=== PATIENT | male | born 1940 | race Caucasian/White ===

== ENCOUNTER → 2018-01-20 | Outpatient (CLI) | payer MEDICARE ==
[2018-01-20 10:36] LABS: Basophils % (A) 1 %; Eosinophils # (A) 0.2 k/uL (0-0.7); Eosinophils % (A) 3 %; HCT 42.3 % (39.0-53.0); HGB 13.9 gm/dL (13.0-17.5); Lymphocytes # (A) 1.7 k/uL (1.0-4.8); Lymphocytes % (A) 27 %; MCH 31.5 pg (25.0-35.0); MCHC 32.9 g/dL (31.0-37.0); MCV 95.8 fL (80.0-100.0); Mean Platelet Volume 7.3; Monocytes # (A) 0.4 k/uL (0-1.0); Monocytes % (A) 7 %; Neutrophils # (A) 3.9 k/uL (1.3-7.7); Neutrophils % (A) 60 %; Platelet Count 183 k/uL (150-450); RBC 4.42 m/uL (4.30-5.90); RDW 13.7 % (11.5-15.5); WBC 6.5 k/uL (3.8-10.6)
[2018-01-20 10:40] LABS: Potassium 4.1 mmol/L (3.5-5.1)
== END | disposition home or self-care (01) ==
LOC: LABPAT 09:21
PROVIDERS: ATTEND Surgery
DX: Z01.812 Encounter for preprocedural laboratory examination (principal); I71.4 Abdominal aortic aneurysm, without rupture
CPT/HCPCS: 36415; 80051; 85025

== ENCOUNTER 2018-01-23 08:58 | Inpatient (IN) | payer MEDICARE ==
[2018-01-19 14:36] VITALS: BMI 30.7
[~2018-01-23 08:58] MED LIST: DEXAMETHASONE SOD PHOSPHATE 10 MG/ML 1 ML VIAL IV ONE; HYDROmorphone 0.5 MG/0.5 ML SYRINGE IVP PRN; LIDOCAINE 1% 20 ML VIAL (10MG/ML) FOR IV START INTRADERMA PRN; MIDAZOLAM 2 MG/2 ML VIAL IV PRN; ONDANSETRON 4 MG/2 ML VIAL IVP ONE; SODIUM CHLORIDE 0.9% 1,000 ML in EMPTY BAG 1 BAG IV ONE; ceFAZolin IN SWFI 2 GM/20 ML SYRINGE IVP ONE
--- NOTE | 2018-01-23 10:28 | P.GSHP ---
History of Present Illness H&P Date: 01/23/18 Chief Complaint: AAA 77-year-old gentleman presents to the hospital for elective abdominal aortic aneurysm repair. He has been followed for his AAA for multiple years and noted an increase in his aneurysm up to 6 cm over the last couple of months. He denies any back pain, abdominal pain, lower extremity pain with ambulation or at rest. He denies any fevers, chills, chest pain or shortness of breath. - Review of Systems All systems: negative Past Medical History Past Medical History: Hypertension, Osteoarthritis (OA), Prostate Disorder Additional Past Medical History / Comment(s): "weak bladder", chronic kidney disease, gout, aneurysm, History of Any Multi-Drug Resistant Organisms: None Reported Additional Past Surgical History / Comment(s): surgery on lower left leg for fx , laura cataracts, surgery detached retinal left eye, Past Anesthesia/Blood Transfusion Reactions: Motion Sickness Smoking Status: Former smoker - Past Family History Mother Family Medical History: No Reported History Medications and Allergies Home Medications Medication Instructions Recorded Confirmed Type Acetaminophen [Tylenol Arthritis] 1,300 mg PO QAM 01/19/18 01/23/18 History Allopurinol [Zyloprim] 100 mg PO DAILY 01/19/18 01/23/18 History Atorvastatin [Lipitor] 10 mg PO DAILY 01/19/18 01/23/18 History Ergocalciferol (Vitamin D2) 50,000 unit PO QMONTH 01/19/18 01/23/18 History [Vitamin D2] Hydrochlorothiazide 37.5 mg PO QAM 01/19/18 01/23/18 History Losartan Potassium [Cozaar] 25 mg PO BID 01/19/18 01/23/18 History Timolol [Betimol 0.5% Ophth Soln] 1 drop BOTH EYES BID 01/19/18 01/23/18 History traMADol HCL [Ultram] 50 mg PO BID PRN 01/19/18 01/23/18 History Allergies Allergy/AdvReac Type Severity Reaction Status Date / Time No Known Allergies Allergy Verified 01/19/18 14:18 Surgical - Exam - General well developed, well nourished, no distress - Eyes PERRL, normal ocular movement - ENT normal pinna - Neck no masses - Respiratory normal expansion, normal respiratory effort - Cardiovascular Rhythm: regular - Abdomen Abdomen: soft, non tender - Integumentary no rash - Neurologic normal coordination, normal sensation - Musculoskeletal normal gait - Psychiatric oriented to time, oriented to person, oriented to place Palpable femoral pulses bilaterally. Assessment and Plan (1) AAA (abdominal aortic aneurysm) without rupture Current Visit: Yes Status: Acute Priority: High Code(s): I71.4 - ABDOMINAL AORTIC ANEURYSM, WITHOUT RUPTURE SNOMED Code(s): 24516504 Plan: We will perform endovascular aortic repair
[2018-01-23] MEDS ORDERED: NEOSTIGMINE 1 MG/ML 10 ML VIAL ONE (10:50)
[2018-01-23] MEDS ORDERED: MIDAZOLAM 2 MG/2 ML VIAL ONE (10:50)
[2018-01-23] MEDS ORDERED: SUCCINYLCHOLINE CHLORIDE 100 MG/5 ML SYR IV ONE (10:50)
[2018-01-23] MEDS ORDERED: GLYCOPYRROLATE 0.2 MG/ML 2 ML VIAL ONE (10:50)
[2018-01-23] MEDS ORDERED: PROPOFOL 10 MG/ML 20 ML VIAL IV ONE (10:50)
[2018-01-23] MEDS ORDERED: PHENYLEPHRINE-0.9% NACL SYG 1 MG/10 ML SYRINGE ONE (10:50)
[2018-01-23] MEDS ORDERED: ROCURONIUM BROMIDE 10 MG/ML 10 ML VIAL IV ONE (10:50)
[2018-01-23] MEDS ORDERED: HEPARIN SODIUM,PORCINE 10,000 UNIT/ML 1 ML VIAL ONE (10:50)
[2018-01-23] MEDS ORDERED: ePHEDrine SULFATE/0.9% NACL/PF 50 MG/5 ML SYRINGE IV ONE (10:50)
[2018-01-23] MEDS ORDERED: fentaNYL (PF) 50 MCG/ML 2 ML AMP ONE (10:50)
[2018-01-23] MEDS ORDERED: LIDOCAINE 1% INJ 10MG/ML (20 ML MDV) ONE (10:50)
[2018-01-23] MEDS ORDERED: SODIUM CHLORIDE 0.9% 1,000 ML IV ONE (10:50)
[2018-01-23] MEDS ORDERED: HYDROmorphone (PF) 1 MG/ML ONE (10:50)
[2018-01-23] MEDS: LACTATED RINGERS 1,000 ML IV SCH ×3 (11:00→12:52)
[2018-01-23] MEDS ORDERED: LIDOCAINE 1% INJ 10MG/ML (20 ML MDV) SQ ONE ×2 (11:21→11:28)
[2018-01-23] MEDS ORDERED: IOPAMIDOL-250 50ML BTL INTRAARTER ONE (12:52)
[2018-01-23] MEDS ORDERED: IOPAMIDOL-250 100ML BTL INTRAARTER ONE (12:52)
[2018-01-23] MEDS ORDERED: HYDROcodone/APAP 5-325MG 1 EACH TAB PO PRN (13:10)
--- NOTE | 2018-01-23 13:10 | P.OP ---
Date of Procedure: 01/23/18 Preoperative Diagnosis: Infrarenal AAA Postoperative Diagnosis: Same Procedure(s) Performed: EVAR with AFX2 and Patrick Relay Plus Implants: AFX2 28 x 100mm Patrick Relay Plus 46 x 100 mm Anesthesia: GETA Surgeon: Fadi Oden Estimated Blood Loss (ml): 30 IV fluids (ml): 1,200 Urine output (ml): 350 Pathology: none sent Condition: stable Disposition: ICU Indications for Procedure: 77-year-old gentleman with history of abdominal aortic aneurysm presents to the hospital for elective repair of an enlarging 6 cm infrarenal abdominal aortic aneurysm. Description of Procedure: After written informed consent was obtained the patient all risks benefits and competitions were described, the patient was brought to the Hearing Aid Technician and laid in supine position after appropriate anesthetic was performed per the anesthesiologist. Timeout was performed in normal fashion and antibiotics were administered prior to any incisions. Utilizing ultrasound bilateral common femoral arteries were visualized and shown to be patent without any significant calcification. Utilizing a multipurpose needle both femoral arteries were accessed with pulsatile blood flow visualized. Guidewire was placed and 2 Perclose closure devices were then placed in both femoral arteries in normal fashion. 8-Canadian sheath was then placed. Patient was administered heparin and followed with serial ACTs for appropriate heparinization. Glidewire was then placed up the left femoral sheath and followed by pigtail catheter and which point aortogram was obtained. Measurements were obtained at that time. Daniels catheter was then placed up the right femoral sheath followed by a Lunderquist stiff wire. Sheath was then removed and AFX 28 x 100 bifurcated device was placed through a 19-Canadian introducer sheath. Contralateral wire was then snared and pulled out the contralateral side. AFX to bifurcated device was then transferred into the AFX introducer sheath and advanced underneath of fluoroscopy to the distal limbs were in the aorta. These were then pulled back to seat at the aortic bifurcation. Once seated the main body was deployed in normal fashion. Contralateral limb was then deployed by a removing the left yellow limb cover. Pigtail catheter was then placed onto unlock the tip of the wire in normal fashion. Pigtail catheter was then placed at approximately the L2 vertebrae. Final deployment of the ipsilateral limb was then performed in normal fashion and the nosecone was then recaptured. AFX introducer sheath was then removed over the stiff Lunderquist wire. Patrick Relay Plus 46 x 100 mm device was then placed through the right femoral artery at approximately the L2 vertebra level. Aortogram was then obtained once again and the renal arteries were visualized and marked and the relay plus device was deployed in normal fashion. There was good overlap between the 2 devices a proximally 6 cm. Once completed the nosecone was retracted and deployment device was removed followed by a 22- Canadian sheath. Reliant balloon was then placed and the overlap was angioplastied. Once completed Reliant balloon was removed followed by pigtail catheter and final angiogram was obtained which demonstrated no evidence of endoleak with good exclusion of the aneurysm. All catheters were then removed sheath and guidewires removed and the Perclose closure devices were deployed in normal fashion with good hemostasis. The area was then cleansed and dressings were placed. Patient tolerated procedure well was sent to PACU for recovery. Patient had palpable peripheral pulses at the conclusion of the procedure.
[2018-01-23 15:13] LABS: Glucose,Whole Blood 96 mg/dL (75-99)
[2018-01-23 15:29] LABS: Potassium 4.4 mmol/L (3.5-5.1)
[2018-01-23 16:13] LABS: Basophils % (A) 0 %; Eosinophils # (A) 0.1 k/uL (0-0.7); Eosinophils % (A) 2 %; Lymphocytes # (A) 1.3 k/uL (1.0-4.8); Lymphocytes % (A) 17 %; MCH 36.2 pg (25.0-35.0); MCHC 37.2 g/dL (31.0-37.0); MCV 97.4 fL (80.0-100.0); Mean Platelet Volume 6.8; Monocytes # (A) 0.3 k/uL (0-1.0); Monocytes % (A) 4 %; Neutrophils # (A) 5.8 k/uL (1.3-7.7); Neutrophils % (A) 74 %; Platelet Count 154 k/uL (150-450); RBC 3.59 m/uL (4.30-5.90); RDW 13.9 % (11.5-15.5); WBC 7.8 k/uL (3.8-10.6)
[2018-01-23 16:21] LABS: Calcium 9.3 mg/dL (8.4-10.2); Potassium 3.5 mmol/L (3.5-5.1)
[2018-01-23] MEDS ORDERED: Potassium Replacement Protocol 1 EACH MISC MISCELLANE PRN (16:24)
--- NOTE | 2018-01-23 16:45 | P.CNPUL ---
History of Present Illness Consult date: 01/23/18 Requesting physician: Fadi Oden Reason for consult: other Chief complaint: Abdominal aortic aneurysm repair History of present illness: This is 69-year-old white male patient of Dr. Ware, who presented today on to the hospital, for elective abdominal aortic aneurysm repair by Dr. Oden. Patient's abdominal aortic aneurysm has been followed for many years and was noted to be increased in size up to 6 cm over the last couple of months. Patient denied any symptoms related to large amount of his AAA. Other medical history is significant for hypertension, osteoarthritis, chronic kidney disease, gout, patient is a former smoker. He is seen in the postoperative period in the intensive care unit, he is calm and comfortable, he is resting in bed, in no acute distress. Hemodynamically stable, room air pulse ox is 97%, he is afebrile, he appears to be in atrial flutter on the monitor, with a controlled rate. She denies any previous history of arrhythmias, no atrial fibrillation. Will obtain EKG, otherwise she denies any specific complaints, no difficulty breathing, no chest pain, and lateral groin incisions are clean dry and intact, covered with surgical dressings, distal pulses intact. These blood work has been reviewed, WBC 7.8, hemoglobin is 13.0, sodium is 141, potassium 3.5, chloride is 105, CO2 is 27, B1 is 29, and creatinine is 1.21. Maintenance IV fluids lactated Ringer's at a rate of 80 ML per hour. Review of Systems All systems: negative Constitutional: Denies chills, Denies fever Eyes: denies blurred vision, denies pain Ears, nose, mouth and throat: Denies headache, Denies sore throat Cardiovascular: Denies chest pain, Denies shortness of breath Respiratory: Denies cough Gastrointestinal: Denies abdominal pain, Denies diarrhea, Denies nausea, Denies vomiting Musculoskeletal: Denies myalgias Integumentary: Denies pruritus, Denies rash Neurological: Denies numbness, Denies weakness Psychiatric: Denies anxiety, Denies depression Endocrine: Denies fatigue, Denies weight change Past Medical History Past Medical History: Hypertension, Osteoarthritis (OA), Prostate Disorder Additional Past Medical History / Comment(s): "weak bladder", chronic kidney disease, gout, aneurysm, History of Any Multi-Drug Resistant Organisms: None Reported Additional Past Surgical History / Comment(s): surgery on lower left leg for fx , laura cataracts, surgery detached retinal left eye, Past Anesthesia/Blood Transfusion Reactions: Motion Sickness Smoking Status: Former smoker - Past Family History Mother Family Medical History: No Reported History Medications and Allergies Home Medications Medication Instructions Recorded Confirmed Type Acetaminophen [Tylenol Arthritis] 1,300 mg PO QAM 01/19/18 01/23/18 History Allopurinol [Zyloprim] 100 mg PO DAILY 01/19/18 01/23/18 History Atorvastatin [Lipitor] 10 mg PO DAILY 01/19/18 01/23/18 History Ergocalciferol (Vitamin D2) 50,000 unit PO QMONTH 01/19/18 01/23/18 History [Vitamin D2] Hydrochlorothiazide 37.5 mg PO QAM 01/19/18 01/23/18 History Losartan Potassium [Cozaar] 25 mg PO BID 01/19/18 01/23/18 History Timolol [Betimol 0.5% Ophth Soln] 1 drop BOTH EYES BID 01/19/18 01/23/18 History traMADol HCL [Ultram] 50 mg PO BID PRN 01/19/18 01/23/18 History Allergies Allergy/AdvReac Type Severity Reaction Status Date / Time No Known Allergies Allergy Verified 01/23/18 14:59 Physical Exam Vitals: Vital Signs Temp Pulse Pulse Pulse Resp BP BP 01/23/18 16:00 97.1 F L 74 14 01/23/18 15:40 70 14 01/23/18 15:20 70 19 138/91 01/23/18 14:40 72 16 01/23/18 14:25 70 16 01/23/18 14:10 72 18 01/23/18 13:55 73 16 01/23/18 13:41 67 16 111/65 01/23/18 13:30 72 18 161/92 01/23/18 13:18 97.5 F L 74 14 BP Pulse Ox 01/23/18 16:00 97 01/23/18 15:40 93 L 01/23/18 15:20 96 01/23/18 14:40 116/66 98 01/23/18 14:25 115/66 93 L 01/23/18 14:10 112/63 93 L 01/23/18 13:55 116/73 94 L 01/23/18 13:41 154/98 92 L 01/23/18 13:30 109/65 96 01/23/18 13:18 132/61 98 Intake and Output 01/23/18 01/23/18 01/23/18 06:59 14:59 22:59 Intake Total 1200 160 Output Total 750 100 Balance 450 60 Intake: IV 1200 160 Sodium Chloride 0.9% 1, 160 000 ml @ 80 mls/hr IV . [id number] [facility] Rx#:[id number] Output: Urine 750 100 Other: Voiding Method Indwelling Catheter ABP, PAP, CO, CI - Last 8 Hours Arterial Blood Pressure 135/77 Arterial Blood Pressure 145/80 GENERAL EXAM: Alert, pleasant, 77-year-old white male resting in bed, currently in flat position, comfortable in no apparent distress. HEAD: Normocephalic/atraumatic. EYES: Normal reaction of pupils, equal size. Conjunctiva pink, sclera white. NOSE: Clear with pink turbinates. THROAT: No erythema or exudates. NECK: No masses, no JVD, no thyroid enlargement, no adenopathy. CHEST: No chest wall deformity. Symmetrical expansion. LUNGS: Equal air entry with no crackles, wheeze, rhonchi or dullness. CVS: Regular rate and rhythm, normal S1 and S2, no gallops, no murmurs, no rubs ABDOMEN: Soft, nontender. No hepatosplenomegaly, normal bowel sounds, no guarding or rigidity. EXTREMITIES: No clubbing, no edema, no cyanosis, 2+ pulses and upper and lower extremities. Bilateral groin incisions are clean dry and intact, soft, distal pulses intact MUSCULOSKELETAL: Muscle strength and tone normal. SPINE: No scoliosis or deformity SKIN: No rashes CENTRAL NERVOUS SYSTEM: Alert and oriented -3. No focal deficits, tone is normal in all 4 extremities. PSYCHIATRIC: Alert and oriented -3. Appropriate affect. Intact judgment and insight. Results - Laboratory Findings CBC and BMP: 01/23/18 15:41 01/23/18 15:41 Abnormal lab findings: Abnormal Labs 01/23/18 01/23/18 01/23/18 09:35 15:41 15:41 RBC 3.59 L Hct 35.0 L MCH 36.2 H MCHC 37.2 H BUN 35 H 29 H Glucose 108 H Assessment and Plan Plan: Assessment: #1. Enlarging 6 cm abdominal aortic aneurysm, status post endovascular repair #2. Hypertension #3. Osteoarthritis #4. Chronic kidney disease, stage IIIa #5. Gout #6. Former smoker Plan: Patient will be monitored in the intensive care unit tonight, he is hemodynamically stable, we'll obtain an EKG, currently appears to be in A. fib flutter with a controlled rate. No difficulty breathing, no chest pain, no acute distress. We'll continue to follow I performed a history & physical examination of the patient and discussed their management with my nurse practitioner, Doris Hdez. I reviewed the nurse practitioner's note and agree with the documented findings and plan of care. Lung sounds are clear. The findings and the impression was discussed with the patient. I attest to the documentation by the nurse practitioner. Time with Patient: Greater than 30
[2018-01-23] MEDS: POTASSIUM CHLORIDE ER 20 MEQ TAB.ER PO SCH ×2 (17:05→18:08)
[2018-01-23] MEDS: SODIUM CHLORIDE 0.9% 1,000 ML IV SCH (17:05)
[2018-01-23] MEDS: traMADol 50 MG TAB PO PRN (18:08)
[2018-01-23] MEDS: TIMOLOL 0.5% OPHTH DROPS 5 ML BTL BOTH EYES SCH (21:07)
[2018-01-23] MEDS: LOSARTAN 25 MG TAB PO SCH (21:07)
[2018-01-24 04:58] LABS: Basophils % (A) 0 %; Eosinophils # (A) 0.1 k/uL (0-0.7); Eosinophils % (A) 2 %; HCT 36.5 % (39.0-53.0); HGB 11.7 gm/dL (13.0-17.5); Lymphocytes # (A) 1.1 k/uL (1.0-4.8); Lymphocytes % (A) 15 %; MCHC 32.1 g/dL (31.0-37.0); MCV 96.4 fL (80.0-100.0); Mean Platelet Volume 6.9; Monocytes # (A) 0.4 k/uL (0-1.0); Monocytes % (A) 6 %; Neutrophils # (A) 5.5 k/uL (1.3-7.7); Neutrophils % (A) 75 %; Platelet Count 137 k/uL (150-450); RBC 3.79 m/uL (4.30-5.90); RDW 13.9 % (11.5-15.5); WBC 7.3 k/uL (3.8-10.6)
[2018-01-24 05:15] LABS: Calcium 8.9 mg/dL (8.4-10.2); Magnesium 1.5 mg/dL (1.6-2.3); Phosphorus 2.2 mg/dL (2.5-4.5); Potassium 3.9 mmol/L (3.5-5.1)
[2018-01-24] MEDS ORDERED: POTASSIUM CHLORIDE ER 20 MEQ TAB.ER PO SCH (06:00)
[2018-01-24] MEDS: MAGNESIUM SULFATE-D5W PMX 1 GM in DEXTROSE/WATER 1 100ML.BAG IVPB SCH ×2 (06:47→09:05)
--- NOTE | 2018-01-24 07:24 | CONS ---
CONSULTATION DATE OF CONSULTATION: 01/23/2018 REASON FOR CONSULTATION: Medical management requested by Dr. Oden. CONSULTATION: This is a 77-year-old patient of Dr. Bobby Ware whose chronic stable medical conditions include hypertension, osteoarthritis, gout, and possibly chronic kidney disease. Patient is found to have an infrarenal abdominal aortic aneurysm 6 cm. Patient went for a graft placement today. Post procedure, patient is sitting in the ICU. Groin is doing well. No abdominal pain. Did tolerate his diet, getting some IV fluids. No abdominal pain. REVIEW OF SYSTEMS: CONSTITUTIONAL: None HEENT: None. RESPIRATORY: None. CARDIOVASCULAR: None. GASTROINTESTINAL: None. GENITOURINARY: None. MUSCULOSKELETAL: Arthritic pain in the joints. The patient also has got some gout in the foot. DERMATOLOGICAL: None. HEMATOLOGICAL: None. LYMPHATIC: None. PSYCHIATRY: None. NEUROLOGICAL: None. PAST MEDICAL HISTORY: Hypertension osteoarthritis, chronic kidney disease, gout, abdominal aortic aneurysm 6 cm. PAST SURGICAL HISTORY: Surgery on the lower left leg for fracture, bilateral cataract surgery, for detached retina of the left eye. SOCIAL HISTORY: Patient lives by himself. Retired bd special education teacher. Drinks alcohol rarely. Smoked a pipe for about 45 years until about 3 years ago. FAMILY HISTORY: Reviewed, noncontributory to presentation. HOME MEDICATIONS: Ultram 50 mg p.o. b.i.d. p.r.n., timolol 0.5% 1 drop to both eyes b.i.d., Cozaar 25 mg b.i.d., hydrochlorothiazide 37.5 p.o. daily, Vitamin D2 fifty thousand units p.o. monthly, Lipitor 10 mg p.o. daily, allopurinol 100 mg p.o. daily, Tylenol Arthritis 1300 mg p.o. daily. ALLERGIES: None. PHYSICAL EXAMINATION: Temp 98.4, pulse 93, respiration 12, blood pressure 137/73, pulse ox 96% on room air. GENERAL APPEARANCE: Well-built, BMI 30, sitting up, comfortable. EYES: Pupils equal, conjunctivae are normal. HEENT: External nose is normal, oral cavity normal, decreased hearing. NECK: JVD not raised. Mass not palpable. RESPIRATORY: Effort normal. LUNGS: Slightly decreased breath sounds. CARDIOVASCULAR: First and second heart sounds, no edema. ABDOMEN: Soft, nontender. Liver and spleen not palpable. LYMPHATIC: No lymph node palpable. PSYCHIATRY: Alert and oriented x3. Mood and affect normal. NEUROLOGICAL: Pupils equal, grossly intact. MUSCULOSKELETAL: Evidence of osteoarthritis, especially in the hands. INVESTIGATIONS: White count 7.8, hemoglobin 13, platelets 154, potassium 3.5, BUN 29, creatinine 1.21. ASSESSMENT: 1. Graft placement for AAA, 6 cm. 2. Essential hypertension. 3. Primary osteoarthritis. 4. Chronic gout. 5. Chronic kidney disease stage 2, probably from nephrosclerosis. PLAN: Home medications are resumed. Patient ambulating, getting IV fluids. Care was discussed with the patient. Questions were answered. Patient should follow up with Dr. Ware upon discharge. Thank you Dr. Oden. \ [id number] / IJN: [id number] /
--- NOTE | 2018-01-24 08:50 | IR ---
EXAMINATION TYPE: IR stent intravas non coronary DATE OF EXAM: 01/23/2018 CLINICAL HISTORY: AAA. TECHNIQUE: Fluoroscopy. COMPARISON: None. FINDINGS: Fluoroscopic guidance was provided during abdominal aortic aneurysm repair procedure perfo rmed by Dr. Oden. A total of 16.7 minutes of fluoroscopic time was utilized during the procedure and four cine runs are acquired. Images acquired show bilateral groin access with eventual placement of aortobiiliac stent graft. There are suspected bilateral large renal calculi. Please refer to proce dure note for field further details. IMPRESSION: As Above.
[2018-01-24] MEDS ORDERED: ACETAMINOPHEN TAB 325 MG TAB PO SCH (09:00)
[2018-01-24] MEDS ORDERED: ALLOPURINOL 100 MG TAB PO SCH (09:00)
[2018-01-24] MEDS ORDERED: HYDROCHLOROTHIAZIDE 12.5 MG CAP PO SCH (09:00)
[2018-01-24] MEDS ORDERED: ATORVASTATIN 10 MG TAB PO SCH (09:00)
[2018-01-24 09:03] VITALS: TEMP 98.5
--- NOTE | 2018-01-24 09:04 | P.PN ---
Subjective Progress Note Date: 01/24/18 Principal diagnosis: Abdominal aortic aneurysm, status post endovascular repair This is 69-year-old white male patient of Dr. Ware, who presented today on to the hospital, for elective abdominal aortic aneurysm repair by Dr. Oden. Patient's abdominal aortic aneurysm has been followed for many years and was noted to be increased in size up to 6 cm over the last couple of months. Patient denied any symptoms related to large amount of his AAA. Other medical history is significant for hypertension, osteoarthritis, chronic kidney disease, gout, patient is a former smoker. He is seen in the postoperative period in the intensive care unit, he is calm and comfortable, he is resting in bed, in no acute distress. Hemodynamically stable, room air pulse ox is 97%, he is afebrile, he appears to be in atrial flutter on the monitor, with a controlled rate. She denies any previous history of arrhythmias, no atrial fibrillation. Will obtain EKG, otherwise she denies any specific complaints, no difficulty breathing, no chest pain, and lateral groin incisions are clean dry and intact, covered with surgical dressings, distal pulses intact. These blood work has been reviewed, WBC 7.8, hemoglobin is 13.0, sodium is 141, potassium 3.5, chloride is 105, CO2 is 27, B1 is 29, and creatinine is 1.21. Maintenance IV fluids lactated Ringer's at a rate of 80 ML per hour. On 01/24/2018 patient seen in follow-up in the intensive care unit, she sits up in the recliner, in no acute distress, postop day 1 status post endovascular repair of abdominal aortic aneurysm, hemodynamically patient is stable, afebrile , room air pulse ox is 95%. These labs were reviewed, WBC 7.3, hemoglobin is 11.7, magnesium was 1.5, serum electrolytes and renal profile are unremarkable. Patient's maintenance IV fluids is 0.9 normal saline at a rate of 80 ML per hour, he still tolerating oral diet. No difficulty breathing, denies any pain, bilateral groin incisions are clean dry and intact soft. The pulses are intact. Objective - Vital Signs Vital signs: Vital Signs Temp 98 F 01/24/18 04:00 Pulse 98 01/24/18 07:00 Resp 20 01/24/18 07:00 BP 119/72 01/24/18 07:00 Pulse Ox 95 01/24/18 07:00 Intake & Output 01/23/18 01/24/18 01/24/18 18:59 06:59 18:59 Intake Total 1520 984 180 Output Total 1060 500 0 Balance 460 484 180 Intake: IV 1520 984 180 Art line 24 Magnesium Sulfate-D5w Pmx 100 1 gm In Dextrose/Water 1 100ml.bag @ 100 mls/hr IVPB Q1H [facility] Rx#: [id number] Sodium Chloride 0.9% 1, 320 960 80 000 ml @ 80 mls/hr IV . [id number] [facility] Rx#:[id number] Output: Urine 1060 500 0 Other: Voiding Method Indwelling Catheter Indwelling Catheter # Voids 0 0 ABP, PAP, CO, CI - Last Documented Arterial Blood Pressure 114/52 - Exam GENERAL EXAM: Alert, pleasant, 77-year-old white male sitting up in the recliner , in no acute distress HEAD: Normocephalic/atraumatic. EYES: Normal reaction of pupils, equal size. Conjunctiva pink, sclera white. NOSE: Clear with pink turbinates. THROAT: No erythema or exudates. NECK: No masses, no JVD, no thyroid enlargement, no adenopathy. CHEST: No chest wall deformity. Symmetrical expansion. LUNGS: Equal air entry with no crackles, wheeze, rhonchi or dullness. CVS: Regular rate and rhythm, normal S1 and S2, no gallops, no murmurs, no rubs ABDOMEN: Soft, nontender. No hepatosplenomegaly, normal bowel sounds, no guarding or rigidity. EXTREMITIES: No clubbing, no edema, no cyanosis, 2+ pulses and upper and lower extremities. Bilateral groin incisions are clean dry and intact, soft, distal pulses intact MUSCULOSKELETAL: Muscle strength and tone normal. SPINE: No scoliosis or deformity SKIN: No rashes CENTRAL NERVOUS SYSTEM: Alert and oriented -3. No focal deficits, tone is normal in all 4 extremities. PSYCHIATRIC: Alert and oriented -3. Appropriate affect. Intact judgment and insight. - Labs CBC & Chem 7: 01/24/18 04:37 01/24/18 04:37 Labs: Abnormal Lab Results - Last 24 Hours (Table) 01/23/18 01/23/18 01/23/18 Range/Units 09:35 15:41 15:41 RBC 3.59 L (4.30-5.90) m/uL Hgb (13.0-17.5) gm/dL Hct 35.0 L (39.0-53.0) % MCH 36.2 H (25.0-35.0) pg MCHC 37.2 H (31.0-37.0) g/dL Plt Count (150-450) k/uL BUN 35 H 29 H (9-20) mg/dL Glucose 108 H (74-99) mg/dL Phosphorus (2.5-4.5) mg/dL Magnesium (1.6-2.3) mg/dL 01/24/18 01/24/18 Range/Units 04:37 04:37 RBC 3.79 L (4.30-5.90) m/uL Hgb 11.7 L (13.0-17.5) gm/dL Hct 36.5 L (39.0-53.0) % MCH (25.0-35.0) pg MCHC (31.0-37.0) g/dL Plt Count 137 L (150-450) k/uL BUN 26 H (9-20) mg/dL Glucose (74-99) mg/dL Phosphorus 2.2 L (2.5-4.5) mg/dL Magnesium 1.5 L (1.6-2.3) mg/dL Assessment and Plan Plan: Assessment: #1. Enlarging 6 cm abdominal aortic aneurysm, status post endovascular repair, post-op day 1 #2. Hypertension #3. Osteoarthritis #4. Chronic kidney disease, stage IIIa #5. Gout #6. Former smoker Plan: Patient is stable, no acute events overnight, no specific complaints, hemodynamically patient is stable, groin incisions are clean dry and intact soft. Anticipate discharge home today I performed a history & physical examination of the patient and discussed their management with my nurse practitioner, Doris Hdez. I reviewed the nurse practitioner's note and agree with the documented findings and plan of care. Lung sounds are clear. The findings and the impression was discussed with the patient. I attest to the documentation by the nurse practitioner. Time with Patient: Less than 30
[2018-01-24] MEDS: SODIUM CHLORIDE 0.9% 1,000 ML IV SCH (09:05)
[2018-01-24] MEDS: LOSARTAN 25 MG TAB PO SCH (09:06)
[2018-01-24] MEDS: traMADol 50 MG TAB PO PRN (09:07)
[2018-01-24] MEDS: TIMOLOL 0.5% OPHTH DROPS 5 ML BTL BOTH EYES SCH (09:12)
[2018-01-24] MEDS ORDERED: TAMSULOSIN 0.4 MG CAP.ER.24H PO SCH (10:30)
--- NOTE | 2018-01-24 10:33 | P.NPCON ---
History of Present Illness - Reason for Consult acute renal failure - History of Present Illness Reason for consultation: Acute kidney injury on chronic kidney disease History of present illness: Patient is a 77-year-old male seen in renal consultation for acute kidney injury on chronic disease. 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 Creatinine was 1.3 on admission is 0.99 today. Patient had an elective endovascular repair of aortic aneurysm done January 23. He is currently resting in bed. Oral intake is good. No vomiting or diarrhea. Medina catheter was removed last night but he has not been able to void on his own. Straight catheterization was done overnight and 400 mL of urine obtained. Denies use of NSAIDs. No history of diabetes. Denies chest pain or shortness of breath. No active complaints at this time. Hemodynamically stable. Vital signs are stable. General: The patient appeared well nourished and normally developed. HEENT: Head exam is unremarkable. Neck is without jugular venous distension. LUNGS: Lungs are clear to auscultation and percussion. Breath sounds decreased. HEART: Rate and Rhythm are regular. First and second heart sounds normal. No murmurs, rubs or gallops. ABDOMEN: Abdominal exam reveals normal bowel sounds. Non-tender and non- distended. No evidence of peritonitis. EXTREMITITES: No clubbing, cyanosis, or edema. Past Medical History Past Medical History: Hypertension, Osteoarthritis (OA), Prostate Disorder Additional Past Medical History / Comment(s): "weak bladder", chronic kidney disease, gout, aneurysm, History of Any Multi-Drug Resistant Organisms: None Reported Additional Past Surgical History / Comment(s): surgery on lower left leg for fx , laura cataracts, surgery detached retinal left eye, Past Anesthesia/Blood Transfusion Reactions: Motion Sickness Smoking Status: Former smoker - Past Family History Mother Family Medical History: No Reported History Medications and Allergies Home Medications Medication Instructions Recorded Confirmed Type Acetaminophen [Tylenol Arthritis] 1,300 mg PO QAM 01/19/18 01/23/18 History Allopurinol [Zyloprim] 100 mg PO DAILY 01/19/18 01/23/18 History Atorvastatin [Lipitor] 10 mg PO DAILY 01/19/18 01/23/18 History Ergocalciferol (Vitamin D2) 50,000 unit PO QMONTH 01/19/18 01/23/18 History [Vitamin D2] Hydrochlorothiazide 37.5 mg PO QAM 01/19/18 01/23/18 History Losartan Potassium [Cozaar] 25 mg PO BID 01/19/18 01/23/18 History Timolol [Betimol 0.5% Ophth Soln] 1 drop BOTH EYES BID 01/19/18 01/23/18 History traMADol HCL [Ultram] 50 mg PO BID PRN 01/19/18 01/23/18 History Allergies Allergy/AdvReac Type Severity Reaction Status Date / Time No Known Allergies Allergy Verified 01/23/18 14:59 Physical Exam Vitals: Vital Signs Temp Pulse Pulse Pulse Resp BP BP 01/24/18 09:00 96 19 125/84 01/24/18 08:00 98.5 F 98 135/94 01/24/18 07:00 98 20 119/72 01/24/18 06:00 88 10 L 119/70 01/24/18 05:00 88 22 119/87 01/24/18 04:00 98 F 90 16 114/70 01/24/18 03:00 82 22 113/72 01/24/18 02:00 86 17 114/71 01/24/18 01:00 81 6 L 104/83 01/24/18 00:00 97.7 F 86 17 01/23/18 23:34 88 10 L 104/59 01/23/18 23:30 98 17 104/59 01/23/18 23:00 94 15 01/23/18 22:30 93 22 102/87 01/23/18 22:00 94 12 115/103 01/23/18 21:30 102 H 18 01/23/18 21:00 100 13 122/83 18 20:30 122/83 01/23/18 20:00 98.4 F 93 12 01/23/18 19:30 88 18 115/79 01/23/18 19:00 85 16 129/86 01/23/18 18:30 83 17 01/23/18 18:00 80 16 113/97 01/23/18 17:30 76 19 113/97 01/23/18 17:00 85 21 01/23/18 16:30 79 17 136/87 01/23/18 16:00 97.1 F L 74 14 01/23/18 15:40 70 14 12/18/18 15:20 70 19 138/91 18/18 14:40 72 16 18/18 14:25 70 16 01/23/18 14:10 72 18 18 13:55 73 16 18/18 13:41 67 16 111/65 18/18 13:30 72 18 161/92 18 13:18 97.5 F L 74 14 BP Pulse Ox 01/24/18 09:00 96 01/24/18 08:00 97 01/24/18 07:00 95 01/24/18 06:00 95 01/24/18 05:00 94 L 01/24/18 04:00 98 01/24/18 03:00 91 L 01/24/18 02:00 96 01/24/18 01:00 95 01/24/18 00:00 92 L 18 23:34 94 L 18/18 23:30 96 18 23:00 96 18 22:30 94 L 18 22:00 95 18/18 21:30 100 18/18 21:00 97 18/18 20:30 18/18 20:00 96 18/18 19:30 94 L 18/18 19:00 95 18/18 18:30 95 18/18 18:00 96 18/18 17:30 97 18/18 17:00 95 18/18 16:30 94 L 18/18 16:00 97 18/18 15:40 93 L 18/18 15:20 96 18/18 14:40 116/66 98 18/18 14:25 115/66 93 L 18/18 14:10 112/63 93 L 18/18 13:55 116/73 94 L 18/18 13:41 154/98 92 L 18/18 13:30 109/65 96 18/18 13:18 132/61 98 Intake and Output 18/18 01/24/18 18 22:59 06:59 14:59 Intake Total 732 572 440 Output Total 410 400 0 Balance 322 172 440 Intake: IV 732 572 440 Art line 12 12 Magnesium Sulfate-D5w Pmx 200 1 gm In Dextrose/Water 1 100ml.bag @ 100 mls/hr IVPB Q1H [facility] Rx#: [id number] Sodium Chloride 0.9% 1, 720 560 240 000 ml @ 80 mls/hr IV . [id number] [facility] Rx#:[id number] Output: Urine 410 400 0 Other: Voiding Method Indwelling Catheter Indwelling Catheter # Voids 0 0 0 Results - Lab Results Most recent lab results Calcium 8.9 mg/dL (8.4-10.2) 01/24/18 04:37 Phosphorus 2.2 mg/dL (2.5-4.5) L 01/24/18 04:37 Magnesium 1.5 mg/dL (1.6-2.3) L 01/24/18 04:37 01/24/18 04:37 01/24/18 04:37 Assessment and Plan Plan: Assessment: 1. Nonoliguric acute kidney injury mostly prerenal improved with IV hydration. 2. Chronic kidney disease stage 2 secondary to nephrosclerosis. Baseline creatinine in the range of 1-1.2. 3. Abdominal aortic aneurysm status post endovascular repair on January 23. 4. History of BPH. 5. Urinary retention. 6. Hypertension with chronic kidney disease. Controlled. Plan: Hep-Lock IV fluids. Add Flomax. Maintain current antihypertensives. Encourage oral intake. Potential discharge today if able to void on his own. Thank you for the consultation. I will continue to follow the patient with you during his hospital stay.
--- NOTE | 2018-01-24 11:30 | P.PN ---
Subjective Progress Note Date: 01/24/18 Principal diagnosis: Status post endovascular repair abdominal aortic aneurysm Patient is seen today in first postoperative day. His only issue is that of inability to spontaneously void which according to the patient is a very chronic problem for him. He has not seen urology in the past. He is otherwise without complaints. Vital signs are stable and patient is afebrile. Patient's abdomen is soft and benign. Legs are free of edema and are nontender. Labs are reviewed and are essentially unchanged when compared to preoperative values. The patient I had a long discussion in reference to his inability to void. I feel that the patient would appropriately need to void prior to dismissal from the hospital. He was started on Flomax earlier today. Urology consult has been placed however if the patient voids prior to her logic evaluation the patient would be able to be dismissed and follow-up with Dr. Oden in the office in 10 days to 2 weeks. Patient expresses full understanding. Objective - Vital Signs Vital signs: Vital Signs Temp 98.5 F 01/24/18 09:00 Pulse 96 01/24/18 09:00 Resp 18 01/24/18 10:00 BP 125/84 01/24/18 10:00 Pulse Ox 94 L 01/24/18 10:00 Intake & Output 01/23/18 01/24/18 01/24/18 18:59 06:59 18:59 Intake Total 1520 984 520 Output Total 1060 500 0 Balance 460 484 520 Intake: IV 1520 984 520 Art line 24 Magnesium Sulfate-D5w Pmx 200 1 gm In Dextrose/Water 1 100ml.bag @ 100 mls/hr IVPB Q1H [facility] Rx#: [id number] Sodium Chloride 0.9% 1, 320 960 320 000 ml @ 80 mls/hr IV . [id number] [facility] Rx#:[id number] Output: Urine 1060 500 0 Other: Voiding Method Indwelling Catheter Indwelling Catheter # Voids 0 0 ABP, PAP, CO, CI - Last Documented Arterial Blood Pressure 114/52 - Labs CBC & Chem 7: 01/24/18 04:37 01/24/18 04:37 Labs: Abnormal Lab Results - Last 24 Hours (Table) 01/23/18 01/23/18 01/23/18 Range/Units 09:35 15:41 15:41 RBC 3.59 L (4.30-5.90) m/uL Hgb (13.0-17.5) gm/dL Hct 35.0 L (39.0-53.0) % MCH 36.2 H (25.0-35.0) pg MCHC 37.2 H (31.0-37.0) g/dL Plt Count (150-450) k/uL BUN 35 H 29 H (9-20) mg/dL Glucose 108 H (74-99) mg/dL Phosphorus (2.5-4.5) mg/dL Magnesium (1.6-2.3) mg/dL 01/24/18 01/24/18 Range/Units 04:37 04:37 RBC 3.79 L (4.30-5.90) m/uL Hgb 11.7 L (13.0-17.5) gm/dL Hct 36.5 L (39.0-53.0) % MCH (25.0-35.0) pg MCHC (31.0-37.0) g/dL Plt Count 137 L (150-450) k/uL BUN 26 H (9-20) mg/dL Glucose (74-99) mg/dL Phosphorus 2.2 L (2.5-4.5) mg/dL Magnesium 1.5 L (1.6-2.3) mg/dL
[2018-01-24] MEDS ORDERED: ASPIRIN 81 MG PO SCH (12:45)
[2018-01-24 17:09] VITALS: BP 142/88; PULSE 100; RESP 16
--- NOTE | 2018-01-24 23:42 | PN ---
PROGRESS NOTE DATE OF SERVICE: 01/24/2018. PRESENTING COMPLAINT: AAA mesh placed. INTERVAL HISTORY: Patient is status post AAA mesh being placed. Doing well this morning. He has started having urinary retention. Urology was consulted. They did place a Medina catheter. The patient did receive Flomax earlier. Otherwise patient doing well, comfortable. The patient is supposed to go home with Medina. REVIEW OF SYSTEMS: Done for constitutional, cardiovascular, GI, pulmonary; relevant findings as above. No abdominal pain. Comfortable. CURRENT MEDICATIONS: Reviewed. EXAMINATION: Afebrile, pulse 96, respirations 12, blood pressure 143/91, pulse ox 96% on room air. GENERAL APPEARANCE: Sitting up, comfortable. EYES: Pupils equal. Conjunctivae normal. JVD not raised. Mass not palpable. Respiratory effort normal. LUNGS: Slightly decreased breath sounds. CARDIOVASCULAR: 1st and 2nd heart sounds. No edema. ABDOMEN: Soft, nontender. Liver and spleen not palpable. Medina catheter in place. PSYCHIATRY: Alert and oriented x3. Mood and affect slightly anxious. INVESTIGATIONS: White count 7.3, hemoglobin 11.7, potassium 3.9, BUN 26, creatinine 0.99. ASSESSMENT: 1. Stent graft placement for AAA 6 cm, doing well. 2. Essential hypertension. 3. Primary osteoarthritis. 4. Chronic gout. 5. Chronic kidney disease stage 2 probably from nephrosclerosis. 6. Acute urine outflow obstruction, probably from enlarged prostate. PLAN: Patient has a Medina catheter. Seen by Urology. On Flomax. Other medication and treatment plan is to continue. Follow up with Dr. Ware. Thank you Dr. Oden. MMODL / IJN: [id number] /
[2018-02-06] MEDS ORDERED: ERGOCALCIFEROL 50,000 UNIT CAP PO SCH (12:00)
== END 2018-01-24 17:49 | disposition home health service (06) | DRG 269 ==
LOC: 2ORMAIN 08:58 → EDSTATUS 10:15 → 2SICU 14:02
PROVIDERS: ADMIT Surgery; ATTEND Surgery
PROC: 04V03D6 (ICD-10-PCS; principal; 2018-01-23 10:50)
DX: I71.4 Abdominal aortic aneurysm, without rupture (principal); N17.9 Acute kidney failure, unspecified; N13.8 Other obstructive and reflux uropathy; I12.9 Hypertensive chronic kidney disease with stage 1 through stage 4 chronic kidney disease, or unspecified chronic kidney disease; M19.91 Primary osteoarthritis, unspecified site; M1A.9XX0 Chronic gout, unspecified, without tophus (tophi); N18.3 Chronic kidney disease, stage 3 (moderate); N40.1 Benign prostatic hyperplasia with lower urinary tract symptoms; E78.5 Hyperlipidemia, unspecified; H40.9 Unspecified glaucoma; Z79.899 Other long term (current) drug therapy; Z87.891 Personal history of nicotine dependence; Z98.42 Cataract extraction status, left eye; Z98.41 Cataract extraction status, right eye; Z96.1 Presence of intraocular lens
CPT/HCPCS: 34705; 36415; 80048; 80051; 83735; 84100; 84132; 85025; 85347; 86850; 86900; 86901

== ENCOUNTER → 2018-11-16 | Outpatient (CLI) | payer MEDICARE ==
--- NOTE | 2018-11-16 14:39 | MR ---
EXAMINATION TYPE: MR lumbar spine wo con DATE OF EXAM: 11/16/2018 COMPARISON: Lumbar spine MRI March 10, 2015 HISTORY: Lumbar spondylosis per order. Back pain for 7 years into left buttocks per patient. TECHNIQUE: Multiplanar, multisequence imaging of the lumbar spine is performed without IV contrast. FINDINGS: There is persistent levoconvex scoliosis centered at L2 level. Spine is straightened on sag ittal images and stable. Sagittal images of the lumbar spine show vertebral body heights to remain. T here is multilevel disc desiccation with multilevel disc space narrowing that is advanced and appears L2-L3 through the L4-L5 levels. Persistent moderate to advanced multilevel anterior spurring with he terogeneous endplate changes redemonstrated most prominent at L1-L2 and L2-L3 levels where there are Modic type II endplate changes noted. The conus medullaris remains normal in position and signal. Axial images at the T12-L1 level redemonstrates mild to moderate broad disc bulge with left lateral d isc protrusion component. Spinal canal is preserved. Bilateral neural foramina are patent. Axial images at the L1-L2 level moderate broad disc bulge with right paracentral disc protrusion comp onent effacing the anterolateral thecal sac, there is asymmetric mild right sided neural foraminal na rrowing. Left-sided neural foramina is patent. No significant change from prior. Axial images at the L2-L3 level show moderate to advanced broad disc bulge effacing the anterior thec al sac with mild facet degenerative changes and ligamentum flavum hypertrophy bilaterally. In the pos terior lateral thecal sac. There is mild left and moderate right-sided anterior inferior neural jasen inal narrowing. No significant change from prior. Axial images at the L3-L4 level show moderate to advanced broad disc bulge effacing the anterior thec al sac with moderate facet degenerative change and ligament flavum hypertrophy effacing the posterola teral thecal sac. There is increased left-sided neural foraminal narrowing with mild to moderate infe rior narrowing present and more mild right-sided neural foraminal narrowing redemonstrated. No signif icant change from prior. Axial images at the L4-L5 level show mild facet degenerative changes bilaterally. There is mild broad disc bulge mildly effaces the anterior thecal sac with left lateral protrusion component present. Bi lateral neural foramina are patent. No significant change from prior. Axial images at the L5-S1 level show mild facet degenerative changes bilaterally. There is broad disc bulge with left lateral disc protrusion component. There is effacement of the anterolateral thecal s ac. There is moderate left-sided neural foraminal narrowing encroaching on left L5 nerve anteriorly s agittal image 4 similar appearance to prior. Right-sided neural foramen is patent. Redemonstration of AAA with progression from prior study now measuring 7.0 cm transversely axial imag e 14. There is intraluminal susceptibility artifact likely reflecting stent graft, correlate clinical ly. IMPRESSION: Loss of normal lumbar curvature with multilevel degenerative changes as detailed above, o verall no significant progression from 2016 MRI. Increasing AAA with suspected intraluminal surgical correction, correlate clinically. A Yellow level critical message alert has been initiated for Wallace Bryan MD via the [employer] Critical Results System on 11/16/2018 2:36 PM. This message alert has been sent to Wallace chung MD via the preferences provided by the clinician for the receipt of Radiology Critical Findings . Message ID [id number].
== END | disposition home or self-care (01) ==
LOC: RADMRIMAIN 12:38
PROVIDERS: ATTEND Physical Medicine & Rehabilitation
DX: M48.061 Spinal stenosis, lumbar region without neurogenic claudication (principal); M51.25 Other intervertebral disc displacement, thoracolumbar region; M51.85 Other intervertebral disc disorders, thoracolumbar region; M51.86 Other intervertebral disc disorders, lumbar region; M47.816 Spondylosis without myelopathy or radiculopathy, lumbar region
CPT/HCPCS: 72148

== ENCOUNTER → 2021-12-28 | Outpatient (CLI) | payer MEDICARE ==
--- NOTE | 2021-12-30 20:39 | MR ---
EXAMINATION TYPE: MR lumbar spine wo con DATE OF EXAM: 12/28/2021 COMPARISON: 11/16/2018 HISTORY: Low back pain that radiates into left and right buttocks Multiplanar multiecho imaging of the lumbar spine performed without contrast. There is a slight lumbar levoscoliosis. There is degenerative disc space narrowing throughout the lum bar spine. No compression fracture. There is moderate spurring of the endplates at L1-L4. There is mi ld spinal stenosis at L3-4 due to degenerative spur formation and facet arthropathy. No focal bone de struction. No lumbar paraspinal mass. IMPRESSION: Multilevel spondylotic changes. Mild spinal stenosis at L3-4 which appears increased compared to old exam. No fracture seen.
== END | disposition home or self-care (01) ==
LOC: RADMRIMAIN 10:53
PROVIDERS: ATTEND Physical Medicine & Rehabilitation
DX: M47.26 Other spondylosis with radiculopathy, lumbar region (principal); M51.16 Intervertebral disc disorders with radiculopathy, lumbar region; M48.061 Spinal stenosis, lumbar region without neurogenic claudication
CPT/HCPCS: 72148

== ENCOUNTER 2022-06-20 13:49 | Inpatient (IN) | payer MEDICARE ==
[2022-06-20] MEDS ORDERED: DILTIAZEM DRIP BOLUS FROM BAG 1 MG SOLN IV ONE (14:23)
[2022-06-20] MEDS ORDERED: HEPARIN SODIUM 1,000 UN/ML (10ML VL) IV PRN (14:24)
[2022-06-20] MEDS ORDERED: HEPARIN SODIUM 1,000 UN/ML (10ML VL) IV ONE (14:24)
--- NOTE | 2022-06-20 14:28 | ED ---
General Adult HPI - General Chief complaint: Recheck/Abnormal Lab/Rx Stated complaint: heart issues Time Seen by Provider: 06/20/22 14:03 Source: patient Mode of arrival: ambulatory Limitations: no limitations - History of Present Illness Initial comments: Dictation was produced using [employer] dictation software. please excuse any grammatical, word or spelling errors. Chief Complaint: 81-year-old male sent in from primary care physician's office for tachycardia History of Present Illness: Is 81-year-old male he has past medical history of hypertension osteoarthritis and gout. States that he went to his prior care physician's office for a routine check up appointment. Patient was found to be tachycardic. Patient denies any complaints. Patient was told to come to the emergency department for high heart rate. Patient has any chest pain. No shortness of breath. No nausea vomiting. Patient is not taking any anticoagulation medications. Last sensation of palpitations The ROS documented in this emergency department record has been reviewed and confirmed by me. Those systems with pertinent positive or negative responses have been documented in the HPI. All other systems are other negative and/or noncontributory. - Related Data Home Medications Medication Instructions Recorded Confirmed Acetaminophen [Tylenol Arthritis] 1,300 mg PO QAM 01/19/18 01/23/18 Atorvastatin [Lipitor] 10 mg PO DAILY 01/19/18 01/23/18 Ergocalciferol (Vitamin D2) 50,000 unit PO QMONTH 01/19/18 01/23/18 [Vitamin D2] Losartan Potassium [Cozaar] 25 mg PO BID 01/19/18 01/23/18 Timolol [Betimol 0.5% Ophth Soln] 1 drop BOTH EYES BID 01/19/18 01/23/18 allopurinoL [Zyloprim] 100 mg PO DAILY 01/19/18 01/23/18 hydroCHLOROthiazide 37.5 mg PO QAM 01/19/18 01/23/18 traMADol HCL [Ultram] 50 mg PO BID PRN 01/19/18 01/23/18 Previous Rx's Medication Instructions Recorded Aspirin 81 mg PO DAILY #30 chew 01/24/18 Tamsulosin [Flomax] 0.4 mg PO PC-BRKFST #30 cap.er.24h 01/24/18 Allergies Allergy/AdvReac Type Severity Reaction Status Date / Time No Known Allergies Allergy Verified 06/20/22 14:01 Review of Systems ROS Statement: Those systems with pertinent positive or pertinent negative responses have been documented in the HPI. ROS Other: All systems not noted in ROS Statement are negative. Past Medical History Past Medical History: Hypertension, Osteoarthritis (OA), Prostate Disorder Additional Past Medical History / Comment(s): "weak bladder", chronic kidney disease, gout, aneurysm, History of Any Multi-Drug Resistant Organisms: None Reported Additional Past Surgical History / Comment(s): surgery on lower left leg for fx, laura cataracts, surgery detached retinal left eye, Past Anesthesia/Blood Transfusion Reactions: Motion Sickness Past Psychological History: Anxiety Smoking Status: Never smoker Past Alcohol Use History: Rare Past Drug Use History: None Reported - Past Family History Mother Family Medical History: No Reported History General Exam - General Exam Comments Initial Comments: PHYSICAL EXAM: General Impression: Alert and oriented x3, not in acute distress HEENT: Normocephalic atraumatic, extra-ocular movements intact, pupils equal and reactive to light bilaterally, mucous membranes moist. Cardiovascular: Tachycardic Chest: Able to complete full sentences, no retractions, no tachypnea Abdomen: abdomen soft, non-tender, non-distended, no organomegaly Musculoskeletal: Pulses present and equal in all extremities, no peripheral edema Motor: no focal deficits noted Neurological: CN II-XII grossly intact, no focal motor or sensory deficits noted Skin: Intact with no visualized rashes Psych: Normal affect and mood Limitations: no limitations Course Vital Signs 06/20/22 06/20/22 06/20/22 13:58 14:38 14:47 Temperature 97.7 F Pulse Rate 146 H 149 H 147 H Pulse Rate [ Mining Manager ] Respiratory 18 18 18 Rate Blood Pressure 110/77 109/93 117/88 O2 Sat by Pulse 98 Oximetry 06/20/22 14:50 Temperature Pulse Rate Pulse Rate [ 147 H Mining Manager ] Respiratory Rate Blood Pressure O2 Sat by Pulse Oximetry EKG Findings - EKG Comments: EKG Findings:: My EKG interpretation: Ventricular rate 147, atrial tachycardia, regular atrial flutter versus SVT. No NE prolongation, no QTC prolongation, no ST or T-wave changes noted. Overall this EKG shows tachydysrhythmia Medical Decision Making - Medical Decision Making Was pt. sent in by a medical professional or institution (REBECCA Charles, TRAINING ADMINISTRATOR, urgent care, hospital, or usp...) When possible be specific @ -No Did you speak to anyone other than the patient for history (EMS, parent, family, police, friend...)? What history was obtained from this source @ -Cousin is at the bedside reports that patient unexpectedly had tachycardia at the office she drove the patient to the ER Did you review nursing and triage notes (agree or disagree)? Why? @ -I reviewed and agree with nursing and triage notes Were old charts reviewed (outside hosp., previous admission, EMS record, old EKG, old radiological studies, urgent care reports/EKG's, usp records)? Report findings @ -Nephrology consultation no reviewed from 2017 showing the patient's history of kidney disease Differential Diagnosis (chest pain, altered mental status, abdominal pain women, abdominal pain men, vaginal bleeding, musculoskeletal, weakness, fever, dyspnea, syncope, headache, dizziness, GI bleed, back pain, seizure, CVA, palpatations, mental health)? @ - Differential Palpitations: Ventricular arrhythmias, atrial arrhythmias, myocardial infarction, anemia, thyrotoxicosis, electrolyte imbalance, hypokalemia, pulmonary embolism, pu lmonary disease, drugs, alcohol, anxiety, stress.... This is not meant to be an all-inclusive list. EKG interpreted by me (3pts min.). @ -See above X-rays interpreted by me (1pt min.). @ -Chest x-ray is unremarkable. CT interpreted by me (1pt min.). @ -None done U/S interpreted by me (1pt. min.). @ -None done What testing was considered but not performed or refused? (CT, X-rays, U/S, labs)? Why? @ -None What meds were considered but not given or refused? Why? @ -None Did you discuss the management of the patient with other professionals (rebeca thomas i.eREBECCA Lind Dr., TRAINING ADMINISTRATOR, lab, RT, psych nurse, high school social studies teacher, community education specialist, teacher, district resource officer, bilingual patient support caseworker)? Give summary @ -Labs, imaging and initiation medications are discussed with Dr. Billingsley for admission Was smoking cessation discussed for >3mins.? @ -No Was critical care preformed (if so, how long)? @ -133 minutes Were there social determinants of health that impacted care today? How? (Homelessness, low income, unemployed, alcoholism, drug addiction, transportation, low edu. Level, literacy, decrease access to med. care, senior care, rehab)? @ -No Was there de-escalation of care discussed even if they declined (Discuss DNR or withdrawal of care, Hospice)? DNR status @ -No What co-morbidities impacted this encounter? (DM, HTN, Smoking, COPD, CAD, Cancer, CVA, ARF, Chemo, Hep., AIDS, mental health diagnosis, sleep apnea, morbid obesity)? @ -None Was patient admitted / discharged? Hospital course, mention meds given and route, prescriptions, significant lab abnormalities, going to OR and other pertinent info. @ -81-year-old male presents emergency department for tachycardia dysrhythmia. Vital signs shows tachycardia, worse vital signs within acceptable limits patient denies any complaints. Found to be in a tachydysrhythmia state, A. fib RVR versus atrial flutter versus supraventricular tachycardia. Patient started on Cardizem and heparin. Monitor suggests atrial flutter Undiagnosed new problem with uncertain prognosis? @ -No Drug Therapy requiring intensive monitoring for toxicity (Heparin, Nitro, Insulin, Cardizem)? @ -No Were any procedures done? @ -No Diagnosis/symptom? Acute, or Chronic, or Acute on Chronic? Uncomplicated (without systemic symptoms) or Complicated (systemic symptoms)? @ -1. Atrial flutter with RVR Side effects of treatment? @ -No Exacerbation, Progression, or Severe Exacerbation? @ -No Poses a threat to life or bodily function? How? (Chest pain, USA, NM, pneumonia, PE, COPD, DKA, ARF, appy, cholecystitis, CVA, Diverticulitis, Homicidal, Suici christy, threat to staff... and all critical care pts) @ -No - Lab Data Result diagrams: 06/20/22 14:24 Lab Results 06/20/22 06/20/22 Range/Units 14:24 14:24 WBC 6.4 (3.8-10.6) k/uL RBC 3.80 L (4.30-5.90) m/uL Hgb 12.7 L (13.0-17.5) gm/dL Hct 38.5 L (39.0-53.0) % MCV 101.2 H (80.0-100.0) fL MCH 33.4 (25.0-35.0) pg MCHC 33.0 (31.0-37.0) g/dL RDW 13.6 (11.5-15.5) % Plt Count 145 L (150-450) k/uL MPV 8.0 Neutrophils % 67 % Lymphocytes % 18 % Monocytes % 5 % Eosinophils % 7 % Basophils % 0 % Neutrophils # 4.3 (1.3-7.7) k/uL Lymphocytes # 1.1 (1.0-4.8) k/uL Monocytes # 0.4 (0-1.0) k/uL Eosinophils # 0.4 (0-0.7) k/uL Basophils # 0.0 (0-0.2) k/uL Macrocytosis Slight PT 10.9 (9.0-12.0) sec INR 1.0 (<1.2) APTT 26.5 (22.0-30.0) sec Disposition Clinical Impression: Atrial flutter with rapid ventricular response Disposition: ADMITTED IP TO THIS [facility] Condition: Serious Referrals: Raghavendra Horne, PAC [REFERRING] - 1-2 days Decision Time: 15:05
[2022-06-20 14:38] LABS: Basophils % (A) 0 %; Eosinophils # (A) 0.4 k/uL (0-0.7); Eosinophils % (A) 7 %; HCT 38.5 % (39.0-53.0); HGB 12.7 gm/dL (13.0-17.5); Lymphocytes # (A) 1.1 k/uL (1.0-4.8); Lymphocytes % (A) 18 %; MCH 33.4 pg (25.0-35.0); MCV 101.2 fL (80.0-100.0); Macrocytosis Slight; Monocytes # (A) 0.4 k/uL (0-1.0); Monocytes % (A) 5 %; Neutrophils # (A) 4.3 k/uL (1.3-7.7); Neutrophils % (A) 67 %; Platelet Count 145 k/uL (150-450); RDW 13.6 % (11.5-15.5); WBC 6.4 k/uL (3.8-10.6)
[2022-06-20] MEDS: DILTIAZEM 125 MG in SODIUM CHLORIDE 0.9% 100 ML IV SCH (14:40)
[2022-06-20] MEDS: HEPARIN SOD,PORK IN 0.45% NACL 25,000 UNIT in 0.45% NACL 1 250ML.BAG IV SCH (14:44)
--- NOTE | 2022-06-20 14:45 | XR ---
EXAMINATION TYPE: XR chest 2V DATE OF EXAM: 06/20/2022 COMPARISON: NONE TECHNIQUE: PA and lateral views submitted. HISTORY: Dysrhythmia. FINDINGS: The lungs are clear and there is no pneumothorax, pleural effusion, or focal pneumonia. Heart size normal and no overt failure. Osseous structures demonstrate hypertrophic and degenerative changes of the spine. Surgical changes in the upper abdomen is seen and there is ectasia of the aorta. IMPRESSION: 1. Lateral view demonstrates marked prominence of the thoracic aorta. This could be related to ectasi a. Recommend correlation with CT of the chest to assess for thoracic aortic aneurysm.
[2022-06-20 14:51] LABS: Partial Thromboplastin Time 26.5 sec (22.0-30.0); Prothrombin Time 10.9 sec (9.0-12.0)
[2022-06-20] MEDS ORDERED: NALOXONE 0.4 MG/ML 1 ML VIAL IV PRN (15:01)
[2022-06-20 15:02] LABS: Calcium 9.5 mg/dL (8.4-10.2); Magnesium 1.9 mg/dL (1.6-2.3); Potassium 4.2 mmol/L (3.5-5.1); Total Bilirubin 0.6 mg/dL (0.2-1.3); Total Protein 6.3 g/dL (6.3-8.2)
--- NOTE | 2022-06-20 18:13 | P.HPIM ---
History of Present Illness H&P Date: 06/20/22 Patient is an 81-year-old male with PMH of dyslipidemia, hypertension, BPH and glaucoma that presents to the ED for tachycardia. He was at his PCP for her routine checkup when his PCP noted his heart rate to be in the 150s and 160s. He was urged to go to the ED for further workup and management. Patient denies any symptoms. He drinks 2 cups of coffee daily. He denies any alcohol use. He denies any headache, lower extremity edema, nausea or vomiting, fever or chills, cough, chest pain, shortness of breath, palpitations, changes in urination or bowel habits. No changes in appetite or weight. He denies any dizziness, numbness/weakness/tingling of extremities. In the ED, his vital signs were stable except heart rate in the 140s. CBC showed hemoglobin of 12.7 and MCV of 101.2 along with platelet count of 145. Coagulation panel within normal limits. CMP showed BUN of 22 and glucose 109. Troponin was less than 0.012. TSH is 1.68. Chest x-ray showed thoracic aorta prominence possible ectasia. EKG showed atrial flutter with RVR, ventricular rate of 147. Patient was started on a Cardizem and heparin drip and admitted for further management of symptoms. Pertinent positives and negatives as discussed in HPI, a complete review of systems was performed and all other systems are negative. General: non toxic, no distress, appears at stated age Derm: warm, dry Head: atraumatic, normocephalic, symmetric Eyes: EOMI, no lid lag, anicteric sclera Mouth: no lip lesion, mucus membranes moist Cardiovascular: Irregularly irregular, no murmur Lungs: CTA bilateral, no rhonchi, no rales , no accessory muscle use Abdominal: soft, nontender to palpation, no guarding, no appreciable organomegaly Ext: no gross muscle atrophy, 2+ edema bilateral lower extremity, no contractures Neuro: no focal neuro deficits Psych: Alert, oriented, appropriate affect Atrial flutter with rapid ventricular rate Macrocytic anemia Thrombocytopenia Elevated BUN Chronic conditions: dyslipidemia, hypertension, BPH and glaucoma Based on my assessment of this patient, this patient meets a high complexity level of care. Patient has an acute diagnosis of atrial flutter with rapid ventricular rate t hat poses a threat to life or bodily function. Patient has been started on Cardizem drip at 10 mg/hr. Patient has been started on Heparin drip at 12 units/kg/hr. TSH is within normal limits. PITA VASc score of 3. He would benefit from anticoagulation. Telemetry monitoring ordered. Cardiology will be consulted. Echocardiogram is ordered. I will discontinue HCTZ and Losartan for now. Heparin drip for DVT prophylaxis. FULL CODE. Decision maker is his . I have reviewed the following virtualization consultant notes: None. I have reviewed the results of the following tests: CBC showed hemoglobin of 12.7 and MCV of 101.2 along with platelet count of 145. Coagulation panel within normal limits. CMP showed BUN of 22 and glucose 109. Troponin was less than 0.012. TSH is 1.68. Chest x-ray showed thoracic aorta prominence possible ectasia. I have ordered the following tests: Echocardiogram. I have discussed the care of this patient with the following independent historian: None. I have independently interpreted the following test below: EKG showed atrial flutter with RVR, ventricular rate of 147. I have discussed the management of this patient with the following physician: Case was discussed with the ED physician and decision made to admit the patient for atrial flutter with rapid ventricular rate. This patient has a high risk of morbidity due to the following reasons: Patient is currently on heparin drip that requires intensive monitoring of APTT. Past Medical History Past Medical History: Hypertension, Osteoarthritis (OA), Prostate Disorder Additional Past Medical History / Comment(s): "weak bladder", chronic kidney disease, gout, aneurysm, History of Any Multi-Drug Resistant Organisms: None Reported Additional Past Surgical History / Comment(s): surgery on lower left leg for fx, laura cataracts, surgery detached retinal left eye, Past Anesthesia/Blood Transfusion Reactions: Motion Sickness Past Psychological History: Anxiety Smoking Status: Never smoker Past Alcohol Use History: Rare Past Drug Use History: None Reported - Past Family History Mother Family Medical History: No Reported History Medications and Allergies Home Medications Medication Instructions Recorded Confirmed Type Acetaminophen [Tylenol Arthritis] 1,300 mg PO BID 01/19/18 06/20/22 History Atorvastatin [Lipitor] 10 mg PO DAILY 01/19/18 06/20/22 History Losartan Potassium [Cozaar] 25 mg PO DAILY 01/19/18 06/20/22 History Timolol [Betimol 0.5% Ophth Soln] 1 drop BOTH EYES BID 01/19/18 06/20/22 History allopurinoL [Zyloprim] 100 mg PO DAILY 01/19/18 06/20/22 History hydroCHLOROthiazide 25 mg PO DAILY 01/19/18 06/20/22 History traMADol HCL [Ultram] 50 mg PO BID 01/19/18 06/20/22 History Aspirin 243 mg PO DAILY 06/20/22 06/20/22 History Tamsulosin [Flomax] 0.4 mg PO BID 06/20/22 06/20/22 History hydroCHLOROthiazide 12.5 mg PO DAILY 06/20/22 06/20/22 History Allergies Allergy/AdvReac Type Severity Reaction Status Date / Time No Known Allergies Allergy Verified 06/20/22 15:26 Physical Exam Vitals: Vital Signs Temp Pulse Pulse Resp BP Pulse Ox 06/20/22 16:16 116 H 18 108/78 06/20/22 15:15 116 H 18 109/83 06/20/22 14:50 147 H 06/20/22 14:47 147 H 18 117/88 06/20/22 14:38 149 H 18 109/93 06/20/22 13:58 97.7 F 146 H 18 110/77 98 Intake and Output 06/20/22 06/20/22 06/20/22 06:59 14:59 22:59 Other: Weight 81.647 kg Results CBC & Chem 7: 06/20/22 14:24 06/20/22 14:24 Labs: Abnormal Lab Results - Last 24 Hours (Table) 06/20/22 06/20/22 Range/Units 14:24 14:24 RBC 3.80 L (4.30-5.90) m/uL Hgb 12.7 L (13.0-17.5) gm/dL Hct 38.5 L (39.0-53.0) % MCV 101.2 H (80.0-100.0) fL Plt Count 145 L (150-450) k/uL BUN 22 H (9-20) mg/dL Glucose 109 H (74-99) mg/dL
[2022-06-20] MEDS: traMADol 50 MG TAB PO PRN (22:37)
[2022-06-20] MEDS: TAMSULOSIN 0.4 MG CAP.ER.24H PO SCH (22:39)
[2022-06-21] MEDS: SODIUM CHLORIDE 0.9% 1,000 ML IV SCH ×2 (00:36→17:48)
[2022-06-21] MEDS: TIMOLOL 0.5% OPHTH DROPS 5 ML BTL BOTH EYES SCH ×3 (00:37→21:42)
[2022-06-21] MEDS: DILTIAZEM 125 MG in SODIUM CHLORIDE 0.9% 100 ML IV SCH ×2 (01:48→11:17)
[2022-06-21] MEDS: MELATONIN 5 MG TABLET PO PRN ×2 (03:05→20:45)
[2022-06-21] MEDS: ASPIRIN 81 MG PO SCH (08:32)
[2022-06-21] MEDS: allopurinoL 100 MG TAB PO SCH (08:32)
[2022-06-21] MEDS: ATORVASTATIN 10 MG TAB PO SCH (08:32)
[2022-06-21] MEDS: TAMSULOSIN 0.4 MG CAP.ER.24H PO SCH ×2 (08:32→20:20)
[2022-06-21] MEDS ORDERED: hydroCHLOROthiazide 25 MG TAB PO SCH (09:00)
[2022-06-21] MEDS ORDERED: LOSARTAN 25 MG TAB PO SCH (09:00)
[2022-06-21] MEDS ORDERED: hydroCHLOROthiazide 12.5 MG CAP PO SCH (09:00)
[2022-06-21] MEDS: METOPROLOL SUCCINATE (ER) 50 MG TAB.ER.24H PO SCH (09:40)
[2022-06-21 09:45] LABS: HCT 39.4 % (39.0-53.0); HGB 12.8 gm/dL (13.0-17.5); MCHC 32.5 g/dL (31.0-37.0); MCV 101.5 fL (80.0-100.0); Macrocytosis Slight; Mean Platelet Volume 8.1; Platelet Count 157 k/uL (150-450); RBC 3.88 m/uL (4.30-5.90); RDW 13.7 % (11.5-15.5); WBC 7.8 k/uL (3.8-10.6)
[2022-06-21] MEDS ORDERED: ACETAMINOPHEN TAB 325 MG TAB PO PRN (10:29)
[2022-06-21] MEDS: traMADol 50 MG TAB PO PRN (10:41)
--- NOTE | 2022-06-21 12:51 | CONS ---
CONSULTATION CHIEF COMPLAINT: Atrial fibrillation with rapid ventricular rate. HISTORY OF PRESENT ILLNESS: Yoshi is an 81-year-old gentleman with history of hypertension and dyslipidemia who was at his primary care physician's office for a routine evaluation, was found to be in atrial fibrillation with rapid ventricular rate and was sent to the emergency room. At the time of my evaluation, he is on intravenous Cardizem and heparin, heart rate is better controlled and seems to be free of any symptoms. His predominant symptom prior to coming in was exertion and fatigue of 2 weeks' duration. There is no prior history of coronary artery disease or congestive heart failure. There is no prior history of atrial fibrillation. PAST MEDICAL HISTORY: Significant for hypertension, dyslipidemia, benign prostatic hypertrophy, and arthritis. CURRENT MEDICATIONS: 1. Aspirin. 2. Lipitor. 3. Cozaar. 4. Flomax. 5. Hydrochlorothiazide. ALLERGIES: There are no known drug allergies. FAMILY HISTORY: Negative for premature coronary artery disease. SOCIAL HISTORY: Negative for smoking, EtOH abuse, or drug abuse. REVIEW OF SYSTEMS: HEENT: Unremarkable. CARDIAC: As described above. RESPIRATORY: Negative. GI: Negative. GENITOURINARY: Negative. ALLERGY/IMMUNOLOGY: Negative. SKIN: Negative. MUSCULOSKELETAL: Significant for arthritis. PSYCHOSOCIAL: Negative. DERM: Negative. CONSTITUTIONAL: Negative. ONCOLOGICAL: Negative. CERTIFIED SURGICAL ASSISTANT: Negative. Rest of the system review is not relevant. PHYSICAL EXAMINATION: GENERAL: Comfortable at rest. VITAL SIGNS: Stable. NECK: There is no jugular venous distention. Carotid upstroke is normal. There is no bruit. CHEST: Reveals good air entry bilaterally. HEART: Reveals first and second heart sounds. No gallop, no murmur, no rub. ABDOMEN: Soft, nontender. EXTREMITIES: Did not reveal edema. Peripheral pulses are felt. LABORATORY DATA: Show the potassium is 4.2, creatinine is 1.1. Troponin is negative. TSH is normal at 1.6. Hemoglobin is normal at 12.8, platelet count is 157. EKG shows atrial fibrillation with poorly controlled ventricular rate. ASSESSMENT: Atrial fibrillation with rapid ventricular rate. PLAN: I will control his heart rate with a combination of beta blockers and calcium channel blockers, convert him from heparin to Eliquis or Xarelto. Obtain a 2D echo. I will consider cardioversion on him after 3 weeks of adequate anticoagulation. MMODL / IJN: [id number] /
[2022-06-21] MEDS: SENNOSIDES 8.6 MG TAB PO PRN (14:08)
[2022-06-21] MEDS: HEPARIN SOD,PORK IN 0.45% NACL 25,000 UNIT in 0.45% NACL 1 250ML.BAG IV SCH (14:20)
--- NOTE | 2022-06-21 16:52 | P.PN ---
Subjective Progress Note Date: 06/21/22 (Delayed charting seen at 0930) Patient is a an 81-year-old male with dyslipidemia, hypertension, BPH, and glaucoma who presented to the ER at the direction of his PCP after being found to have heart rate of 150s to 160s on his routine checkup. In the ER he underwent an extensive evaluation. His initial vital signs showed a heart rate of 140. EKG confirmed atrial flutter with a ventricular rate of 147. He was subsequently started on a Cardizem and heparin drip. He was placed in observation for further management. Cardiology was consulted. The next morning he was started on metoprolol. Patient seen and examined at bedside. He denies any chest pain or shortness of breath. He has no history of atrial fibrillation in the past. He complains of all of the beeping and loud noises in the emergency department as well as his bed flaring of his chronic low back pain. Vital signs reviewed General: nontoxic, no distress, appears at stated age, hard of hearing, Cardiovascular: [S1S2 regular, no murmur, positive posterior tibial pulse bilateral, Lungs: CTA bilateral, no rhonchi, no rales , no accessory muscle use Abdominal: soft, nontender to palpation, no guarding, no appreciable organomegaly Ext: no gross muscle atrophy, no edema, no contractures Neuro: CN II-XI grossly intact, no focal neuro deficits Psych: Alert, oriented, appears anxious and frustrated Assessment: Atrial fibrillation with rapid ventricular response Anemia, mild-recommend further outpatient workup Retention Osteoarthritis Chronic kidney disease stage IIIa Gout Imaging: None Data Review: Vitals reviewed temperature 97.6, pulse 98, respirations 20, blood pressure 121 /37, O2 sat 93% on room air CBC reviewed and remarkable for hemoglobin 12.8 (stable from 12.7 yesterday) Plan: -Cardiology recommendations appreciated: Metoprolol 50 mg given I think continue with heparin drip plan will be for discharge home on Eliquis versus Xarelto. -We will discontinue hydrochlorothiazide and Cozaar given his current blood pressures -Continue with Ultram 50 mg twice daily and Tylenol 650 mg every 6 hours as needed was added for his low back pain -Continue with aspirin 81 mg daily, Lipitor 10 mg daily, and Flomax 0.5 mg twice daily -Await echocardiogram Anticipate home in a.m. This dictation was prepared using [employer] voice recognition software. Though every attempt is made to correct errors during during dictation some may still exist. Objective - Vital Signs Vital signs: Vital Signs Temp 98 F 06/21/22 11:21 Pulse 91 06/21/22 11:21 Resp 20 06/21/22 11:21 BP 96/63 06/21/22 11:21 Pulse Ox 94 L 06/21/22 11:21 FiO2 Intake & Output 06/20/22 06/21/22 06/21/22 18:59 06:59 18:59 Intake Total 357.710 248.879 Balance 357.710 248.879 Weight 82 kg 82 kg Intake: Intake, IV Titration 157.710 248.879 Amount Diltiazem 125 mg In 111.333 94.833 Sodium Chloride 0.9% 100 ml @ 10 MG/HR 10 mls/hr IV .[id number] [facility] Rx#: [id number] Heparin Sod,Pork in 0.45% 46.377 154.046 NaCl 25,000 unit In 0.45 % NaCl 1 250ml.bag @ 12 UNITS/KG/HR 9.798 mls/hr IV .Q24H [facility] Rx#: [id number] Oral 200 Other: Voiding Method Toilet Toilet # Voids 1 2 - Labs CBC & Chem 7: 06/21/22 09:23 06/20/22 14:24 Labs: Abnormal Lab Results - Last 24 Hours (Table) 06/20/22 06/21/22 06/21/22 Range/Units 18:30 01:44 09:23 RBC 3.88 L (4.30-5.90) m/uL Hgb 12.8 L (13.0-17.5) gm/dL MCV 101.5 H (80.0-100.0) fL APTT 95.4 H 56.8 H (22.0-30.0) sec
[2022-06-22] MEDS: DILTIAZEM 125 MG in SODIUM CHLORIDE 0.9% 100 ML IV SCH (02:14)
[2022-06-22] MEDS ORDERED: MELATONIN 5 MG TABLET PO PRN (04:13)
[2022-06-22] MEDS: SENNOSIDES 8.6 MG TAB PO PRN (06:48)
[2022-06-22] MEDS: traMADol 50 MG TAB PO PRN (06:48)
[2022-06-22] MEDS: allopurinoL 100 MG TAB PO SCH (08:17)
[2022-06-22] MEDS: ATORVASTATIN 10 MG TAB PO SCH (08:17)
[2022-06-22] MEDS: METOPROLOL SUCCINATE (ER) 50 MG TAB.ER.24H PO SCH (08:17)
[2022-06-22] MEDS: ASPIRIN 81 MG PO SCH (08:17)
[2022-06-22] MEDS: TIMOLOL 0.5% OPHTH DROPS 5 ML BTL BOTH EYES SCH ×2 (08:18→19:49)
[2022-06-22] MEDS: TAMSULOSIN 0.4 MG CAP.ER.24H PO SCH ×2 (08:18→19:49)
[2022-06-22] MEDS ORDERED: METOPROLOL SUCCINATE (ER) 50 MG TAB.ER.24H PO SCH (09:00)
[2022-06-22] MEDS ORDERED: METOPROLOL SUCCINATE (ER) 50 MG TAB.ER.24H PO STA (09:14)
[2022-06-22] MEDS: APIXABAN 5 MG TAB PO SCH ×2 (09:16→19:49)
--- NOTE | 2022-06-22 10:12 | CA ---
Transthoracic Echo Report Name: Yoshi Pierre Age: 81 Gender: M : 1940 Exam Date: 06/21/2022 11:57 Exam Location: [facility] Ht (in): 71 Wt (lb): 180 Ordering Physician: Arely Hunt DO Attending/Referring Phys: [id number], Marilee Bottom Worker Kina Nicholson RDCS Procedure CPT: Indications: a flutter Cardiac Hx: Technical Quality: Fair Contrast 1: Total Dose (mL): Contrast 2: Total Dose (mL): MEASUREMENTS (Male / Female) Normal Values 2D ECHO LV Diastolic Diameter PLAX 3.5 cm 4.2 - 5.9 / 3.9 - 5.3 cm LV Systolic Diameter PLAX 3.1 cm IVS Diastolic Thickness 1.3 cm 0.6 - 1.0 / 0.6 - 0.9 cm LVPW Diastolic Thickness 1.4 cm 0.6 - 1.0 / 0.6 - 0.9 cm LV Relative Wall Thickness 0.8 RV Internal Dim ED PLAX 4.1 cm LA Volume 59.9 cm??? 18 - 58 / 22 - 52 cm??? M-MODE Aortic Root Diameter MM 3.7 cm LA Systolic Diameter MM 4.4 cm LA Ao Ratio MM 1.2 AV Cusp Separation MM 2.1 cm DOPPLER AV Peak Velocity 97.4 cm/s AV Peak Gradient 3.8 mmHg AV Mean Velocity 72.4 cm/s AV Mean Gradient 2.3 mmHg AV Velocity Time Integral 17.9 cm LVOT Peak Velocity 72.3 cm/s LVOT Peak Gradient 2.1 mmHg LVOT Velocity Time Integral 13.2 cm TR Peak Velocity 192.7 cm/s TR Peak Gradient 14.9 mmHg Right Ventricular Systolic Press 19.2 mmHg FINDINGS Left Ventricle Mildly increased left ventricular wall thickness. Left ventricular cavity size normal. Reduced global left ventricular systolic function. Left ventricular ejection fraction is estimated at 45-50 %. Right Ventricle Mild right ventricular dilatation. Right Atrium Normal right atrial size. Left Atrium Mildly increased left atrial volume. Mitral Valve Structurally normal mitral valve. Mild mitral annular calcification. Mitral valve thickened. Mild mitral regurgitation. Aortic Valve Trileaflet aortic valve. Mild aortic regurgitation. No aortic stenosis. Tricuspid Valve Structurally normal tricuspid valve. Mild tricuspid regurgitation. Pulmonic Valve Trace pulmonic regurgitation. Pericardium No pericardial effusion. Aorta Normal size aortic root and proximal ascending aorta. CONCLUSIONS As above Previewed by: Dr. Karen Dixon MD (Electronically Signed) Final Date: 22 Jun 2022 10:11
[2022-06-22] MEDS ORDERED: LACTULOSE 20 GM/30 ML CUP PO ONE (10:37)
--- NOTE | 2022-06-22 10:40 | P.PN ---
Subjective Progress Note Date: 06/22/22 Patient is a an 81-year-old male with dyslipidemia, hypertension, BPH, and glaucoma who presented to the ER at the direction of his PCP after being found to have heart rate of 150s to 160s on his routine checkup. In the ER he underwent an extensive evaluation. His initial vital signs showed a heart rate of 140. EKG confirmed atrial flutter with a ventricular rate of 147. He was subsequently started on a Cardizem and heparin drip. He was placed in observation for further management. Cardiology was consulted. The next morning he was started on metoprolol. His heart rate became controlled and his Cardizem drip was discontinued however he went back into A. fib with RVR overnight on 06/21 necessitating a Cardizem drip to be restarted and then uptitrated. Patient seen and examined at bedside. He reports that he could not tell when he went back into A. fib with RVR last night. He does not feel any shortness of breath this morning or having any chest pain. All questions answered. Vital signs reviewed General: nontoxic, no distress, appears at stated age Cardiovascular: S1S2 irreg, no murmur, positive posterior tibial pulse bilateral, Lungs: CTA bilateral, no rhonchi, no rales , no accessory muscle use Neuro: CN II-XI grossly intact, no focal neuro deficits Psych: Alert, oriented, appropriate affect Assessment: Newly discovered Atrial fibrillation with rapid ventricular response Constipation Anemia, mild-recommend further outpatient workup Hypertension Osteoarthritis Chronic kidney disease stage IIIa Gout Imaging: echocardiogram-ejection fraction 45-50% Data Review: Vital signs reviewed temperature 90.8, pulse 142, respirations 16, blood pressure 114/78, O2 sat 97% on room air Plan: -Case discussed with FLOYD Fenton for cardiology patient's metoprolol has been increased 200 mg. His heparin drip has been discontinued and he has been started on Eliquis. -Continue with Ultram 50 mg twice daily and Tylenol 650 mg every 6 hours as needed was added for his low back pain -Continue with aspirin 81 mg daily, Lipitor 10 mg daily, and Flomax 0.5 mg twice daily - add lactulose 20 mg by mouth once to his as needed Senokot DVT prophylaxis: Eliquis Anticipated discharge date: Likely in a.m., home This dictation was prepared using [employer] voice recognition software. Though every attempt is made to correct errors during during dictation some may still exist. Objective - Vital Signs Vital signs: Vital Signs Temp 98 F 06/22/22 08:00 Pulse 142 H 06/22/22 08:00 Resp 16 06/22/22 08:00 BP 114/78 06/22/22 08:00 Pulse Ox 99 06/22/22 08:57 FiO2 Intake & Output 06/21/22 06/22/22 06/22/22 18:59 06:59 18:59 Intake Total 306.379 10 Balance 306.379 10 Intake: IV 10 0.9 10 Intake, IV Titration 306.379 Amount Diltiazem 125 mg In 152.333 Sodium Chloride 0.9% 100 ml @ 10 MG/HR 10 mls/hr IV .[id number] [facility] Rx#: [id number] Heparin Sod,Pork in 0.45% 154.046 NaCl 25,000 unit In 0.45 % NaCl 1 250ml.bag @ 12 UNITS/KG/HR 9.798 mls/hr IV .Q24H [facility] Rx#: [id number] Other: Voiding Method Toilet Toilet # Voids 1 1 - Labs CBC & Chem 7: 06/21/22 09:23 06/20/22 14:24 Labs: Abnormal Lab Results - Last 24 Hours (Table) 06/22/22 Range/Units 06:36 APTT 36.8 H (22.0-30.0) sec
--- NOTE | 2022-06-22 10:59 | P.PN ---
Subjective Progress Note Date: 06/22/22 HISTORY OF PRESENT ILLNESS: Patient examined this morning at the bedside. Patient denies chest pain or pressure. He denies shortness of breath. He denies any palpitations. Patient remains on IV heparin and IV Cardizem. His IV Cardizem was increased to 10 mg an hour this morning as his heart rates were in the [id number]. Echocardiogram completed revealing ejection fraction 45-50%, mild MR, mild aortic regurgitation, mild tricuspid regurgitation. TSH within normal at 1.680. PHYSICAL EXAM: VITAL SIGNS: Reviewed. GENERAL: Well-developed in no acute distress. NECK: Supple. No JVD or thyromegaly LUNGS: Respirations even and unlabored. Lungs essentially clear to auscultation bilaterally. HEART: Tachycardic. Irregular rate and rhythm. S1 and S2 heard. EXTREMITIES: Normal range of motion. No clubbing or cyanosis. Peripheral pulses intact. No lower extremity edema ASSESSMENT: Fatigue, 2 weeks Atrial fibrillation with RVR, duration unknown Hypertension Hyperlipidemia PLAN: Discontinue IV heparin. Begin Eliquis 5mg BID. Increase metoprolol succinate 100 mg daily Wean Cardizem drip as heart rate will tolerate Discontinue aspirin Continue telemetry monitoring Further recommendations pending patient course Nurse practitioner note has been reviewed by physician. Signing provider agrees with the documented findings, assessment, and plan of care. Objective - Vital Signs Vital signs: Vital Signs Temp 98 F 06/22/22 08:00 Pulse 142 H 06/22/22 08:00 Resp 16 06/22/22 08:00 BP 114/78 06/22/22 08:00 Pulse Ox 99 06/22/22 08:57 FiO2 Intake & Output 06/21/22 06/22/22 06/22/22 18:59 06:59 18:59 Intake Total 306.379 10 Balance 306.379 10 Intake: IV 10 0.9 10 Intake, IV Titration 306.379 Amount Diltiazem 125 mg In 152.333 Sodium Chloride 0.9% 100 ml @ 10 MG/HR 10 mls/hr IV .[id number] [facility] Rx#: [id number] Heparin Sod,Pork in 0.45% 154.046 NaCl 25,000 unit In 0.45 % NaCl 1 250ml.bag @ 12 UNITS/KG/HR 9.798 mls/hr IV .Q24H [facility] Rx#: [id number] Other: Voiding Method Toilet Toilet Toilet # Voids 1 1 - Labs CBC & Chem 7: 06/21/22 09:23 06/20/22 14:24 Labs: Abnormal Lab Results - Last 24 Hours (Table) 06/22/22 Range/Units 06:36 APTT 36.8 H (22.0-30.0) sec
[2022-06-22] MEDS ORDERED: DILTIAZEM 125 MG in SODIUM CHLORIDE 0.9% 100 ML IV SCH (18:30)
[2022-06-22] MEDS: MELATONIN 5 MG TABLET PO SCH (19:49)
[2022-06-22] MEDS ORDERED: QUEtiapine 50 MG TAB PO STA (21:51)
[2022-06-22] MEDS ORDERED: LORazepam 2 MG/ML INJ IV STA (23:59)
[2022-06-23] MEDS: DILTIAZEM 125 MG in SODIUM CHLORIDE 0.9% 100 ML IV SCH (01:28)
[2022-06-23] MEDS: APIXABAN 5 MG TAB PO SCH ×2 (08:19→19:40)
[2022-06-23] MEDS: METOPROLOL SUCCINATE (ER) 50 MG TAB.ER.24H PO SCH (08:19)
[2022-06-23] MEDS: allopurinoL 100 MG TAB PO SCH (08:19)
[2022-06-23] MEDS: ATORVASTATIN 10 MG TAB PO SCH (08:19)
[2022-06-23] MEDS: TAMSULOSIN 0.4 MG CAP.ER.24H PO SCH ×2 (08:19→19:40)
[2022-06-23] MEDS: TIMOLOL 0.5% OPHTH DROPS 5 ML BTL BOTH EYES SCH ×2 (08:21→19:40)
[2022-06-23] MEDS: SODIUM CHLORIDE 0.9% 1,000 ML IV SCH (08:21)
[2022-06-23] MEDS: DILTIAZEM ORAL 30 MG TAB PO SCH ×3 (10:26→19:40)
--- NOTE | 2022-06-23 11:22 | P.PN ---
Subjective Progress Note Date: 06/23/22 Patient is a an 81-year-old male with dyslipidemia, hypertension, BPH, and glaucoma who presented to the ER at the direction of his PCP after being found to have heart rate of 150s to 160s on his routine checkup. In the ER he underwent an extensive evaluation. His initial vital signs showed a heart rate of 140. EKG confirmed atrial flutter with a ventricular rate of 147. He was subsequently started on a Cardizem and heparin drip. He was placed in observation for further management. Cardiology was consulted. The next morning he was started on metoprolol. His heart rate became controlled and his Cardizem drip was discontinued however he went back into A. fib with RVR overnight on 06/21 necessitating a Cardizem drip to be restarted and then uptitrated. echocardiogram-ejection fraction 45-50%. Patient became agitated and was having hallucinations overnight on 06/22 and received a Seroquel 50 mg and Ativan 1 mg IV push. He again went into A. fib with RVR necessitating a Cardizem drip. Patient seen and examined at bedside. Patient seen and examined at bedside. He is very lethargic today he does open his eyes and look at me and mumbles "No" immediately falls back asleep. Vital signs reviewed General: nontoxic, no distress, appears at stated age Cardiovascular: S1S2 irreg, no murmur, positive posterior tibial pulse bilateral, Lungs: CTA bilateral, no rhonchi, no rales , no accessory muscle use Neuro: CN II-XI grossly intact, no focal neuro deficits Psych: Alert, oriented, appropriate affect Assessment: Newly discovered Atrial fibrillation with rapid ventricular response Acute encephalopathy, reactive to medications Constipation Anemia, mild-recommend further outpatient workup Hypertension Osteoarthritis Chronic kidney disease stage IIIa Gout Imaging: No new imaging Data Review: Vital signs reviewed temperature 90.8, pulse 142, respirations 16, blood pressure 114/78, O2 sat 97% on room air Plan: -Case discussed with FLOYD Fenton for cardiology, patient has been initiated on oral Cardizem in addition to the metoprolol 100 mg daily -Would avoid additional sedative medications such as Seroquel or Ativan at night -Continue with Ultram 50 mg twice daily and Tylenol 650 mg every 6 hours as needed was added for his low back pain -Continue with aspirin 81 mg daily, Lipitor 10 mg daily, and Flomax 0.5 mg twice daily -Continue to follow heart rate DVT prophylaxis: Eliquis Anticipated discharge date: Likely in a.m., home This dictation was prepared using [employer] voice recognition software. Though every attempt is made to correct errors during during dictation some may still exist. Objective - Vital Signs Vital signs: Vital Signs Temp 98.0 F 06/23/22 04:00 Pulse 99 06/23/22 08:00 Resp 16 06/23/22 08:00 BP 115/64 06/23/22 08:00 Pulse Ox 97 06/23/22 08:00 FiO2 Intake & Output 06/22/22 06/23/22 06/23/22 18:59 06:59 18:59 Intake Total 116.167 Balance 116.167 Intake: Intake, IV Titration 116.167 Amount Diltiazem 125 mg In 116.167 Sodium Chloride 0.9% 100 ml @ 5 MG/HR 5 mls/hr IV .Q24H [facility] Rx#:[id number] Other: Voiding Method Toilet Toilet Toilet # Voids 1 # Bowel Movements 1 - Labs CBC & Chem 7: 06/21/22 09:23 06/20/22 14:24
--- NOTE | 2022-06-23 11:29 | P.PN ---
Subjective Progress Note Date: 06/23/22 HISTORY OF PRESENT ILLNESS: Patient examined this morning at the bedside. Patient denies chest pain or pressure. He denies shortness of breath. He denies any palpitations. Patient remains on IV heparin and IV Cardizem. His IV Cardizem was increased to 10 mg an hour this morning as his heart rates were in the [id number]. Echocardiogram completed revealing ejection fraction 45-50%, mild MR, mild aortic regurgitation, mild tricuspid regurgitation. TSH within normal at 1.680. 06/23/2022 Patient examined this morning at the bedside. Apparently yesterday the patient became agitated and was trying to bite the staff. This morning the patient has lethargic after receiving Seroquel and Ativan. There is a safety professional at the bedside. Telemetry reveals atrial fibrillation with heart rate in the 70s. The patient did have another episode of RVR overnight. He remains on a Cardizem drip at 5 mg an hour. The patient was able to wake up this morning to take his oral medications. PHYSICAL EXAM: VITAL SIGNS: Reviewed. GENERAL: Well-developed in no acute distress. NECK: Supple. No JVD or thyromegaly LUNGS: Respirations even and unlabored. Lungs essentially clear to auscultation bilaterally. HEART: Tachycardic. Irregular rate and rhythm. S1 and S2 heard. EXTREMITIES: Normal range of motion. No clubbing or cyanosis. Peripheral pulses intact. No lower extremity edema ASSESSMENT: Fatigue, 2 weeks Atrial fibrillation with RVR, duration unknown Hypertension Hyperlipidemia Altered mental status PLAN: Continue oral anticoagulation with Eliquis Continue current dose of metoprolol succinate 100 mg daily Discontinue IV Cardizem. Add oral Cardizem 30 mg 3 times a day Continue telemetry monitoring Further recommendations pending patient course Nurse practitioner note has been reviewed by physician. Signing provider agrees with the documented findings, assessment, and plan of care. Objective - Vital Signs Vital signs: Vital Signs Temp 98.0 F 06/23/22 04:00 Pulse 99 06/23/22 08:00 Resp 16 06/23/22 08:00 BP 115/64 06/23/22 08:00 Pulse Ox 97 06/23/22 08:00 FiO2 Intake & Output 06/22/22 06/23/22 06/23/22 18:59 06:59 18:59 Intake Total 116.167 Balance 116.167 Intake: Intake, IV Titration 116.167 Amount Diltiazem 125 mg In 116.167 Sodium Chloride 0.9% 100 ml @ 5 MG/HR 5 mls/hr IV .Q24H [facility] Rx#:[id number] Other: Voiding Method Toilet Toilet Toilet # Voids 1 # Bowel Movements 1 - Labs CBC & Chem 7: 06/21/22 09:23 06/20/22 14:24
[2022-06-23] MEDS: MELATONIN 5 MG TABLET PO SCH (19:40)
[2022-06-24] MEDS: SODIUM CHLORIDE 0.9% 1,000 ML IV SCH ×2 (03:19→08:04)
[2022-06-24] MEDS: METOPROLOL SUCCINATE (ER) 50 MG TAB.ER.24H PO SCH (05:33)
[2022-06-24] MEDS: DILTIAZEM ORAL 30 MG TAB PO SCH ×3 (05:33→20:44)
[2022-06-24] MEDS: ATORVASTATIN 10 MG TAB PO SCH (08:09)
[2022-06-24] MEDS: TIMOLOL 0.5% OPHTH DROPS 5 ML BTL BOTH EYES SCH ×2 (08:09→20:44)
[2022-06-24] MEDS: APIXABAN 5 MG TAB PO SCH ×2 (08:09→20:44)
[2022-06-24] MEDS: TAMSULOSIN 0.4 MG CAP.ER.24H PO SCH ×2 (08:09→20:44)
[2022-06-24] MEDS: allopurinoL 100 MG TAB PO SCH (08:09)
[2022-06-24] MEDS ORDERED: AMIODARONE 360 MG in DEXTROSE 5% IN WATER 200 ML IV ONE ×2 (08:28)
[2022-06-24] MEDS: AMIODARONE 450 MG in DEXTROSE 5% IN WATER 250 ML IV SCH ×2 (14:30)
--- NOTE | 2022-06-24 16:06 | PN ---
PROGRESS NOTE SUBJECTIVE: Yoshi is an 81-year-old gentleman who is admitted to the hospital because of atrial fibrillation with rapid ventricular rate. He became confused yesterday. He seems more alert and awake today, but developed atrial fibrillation with rapid ventricular rate this morning. I started him on IV amiodarone, following which his heart rate has dropped into the 70s, still seems to be in atrial fibrillation. I will continue him on the IV amiodarone and once the drip runs out, we will switch him to p.o. amiodarone. He is also on metoprolol 100 mg daily along with Eliquis, Cardizem 30 mg t.i.d. I anticipate his heart rate is being well controlled with this. This morning, the patient is still confused but much improved compared to yesterday and is quite talkative. OBJECTIVE: VITAL SIGNS: Heart rate is 77 beats per minute. Blood pressure is 86/60, respiratory rate is 18, O2 saturation is 96% on room air. NECK: There is no jugular venous distention. CHEST: Reveals good air entry bilaterally. HEART: Reveals first and second heart sounds, irregular rhythm. Systolic murmur at the left lower sternal border. ABDOMEN: Soft. MUSCULOSKELETAL: Exam of extremities did not reveal any edema. Peripheral pulses are felt. ASSESSMENT: Persistent atrial fibrillation with poorly controlled ventricular rate. PLAN: I added amiodarone today. MMODL / IJN: [id number] /
[2022-06-24] MEDS ORDERED: polyethylene glycoL 3350 17 GM POWD.PACK PO STA (16:11)
--- NOTE | 2022-06-24 16:19 | P.PN ---
Subjective Progress Note Date: 06/24/22 (delayed charting seen at 0830) Patient is a an 81-year-old male with dyslipidemia, hypertension, BPH, and glaucoma who presented to the ER at the direction of his PCP after being found to have heart rate of 150s to 160s on his routine checkup. In the ER he underwent an extensive evaluation. His initial vital signs showed a heart rate of 140. EKG confirmed atrial flutter with a ventricular rate of 147. He was subsequently started on a Cardizem and heparin drip. He was placed in observation for further management. Cardiology was consulted. The next morning he was started on metoprolol. His heart rate became controlled and his Cardizem drip was discontinued however he went back into A. fib with RVR overnight on 06/21 necessitating a Cardizem drip to be restarted and then uptitrated. echocardiogram-ejection fraction 45-50%. Patient became agitated and was having hallucinations overnight on 06/22 and received a Seroquel 50 mg and Ativan 1 mg IV push. He again went into A. fib with RVR necessitating a Cardizem drip. On the morning of 06/23 he was started on oral Cardizem and indigenous metoprolol. Initially had good heart rate control however overnight contaminant A. fib with RVR and an amiodarone infusion was started. Patient seen and examined at bedside. Patient seen and examined at bedside. He denies any chest pain or shortness of breath. We discussed that his A. fib with RVR and we need to find a medication that'll work well for him. We have tried metoprolol and Cardizem he continues to have a high heart rate and was started on IV amiodarone. Vital signs reviewed General: nontoxic, no distress, appears at stated age Cardiovascular: S1S2 irreg, no murmur, positive posterior tibial pulse bilateral, Lungs: CTA bilateral, no rhonchi, no rales , no accessory muscle use Neuro: CN II-XI grossly intact, no focal neuro deficits Psych: Alert, oriented, appropriate affect Assessment: Newly discovered Atrial fibrillation with rapid ventricular response Acute encephalopathy, reactive to medications, improved Constipation Anemia, mild-recommend further outpatient workup Hypertension Osteoarthritis Chronic kidney disease stage IIIa Gout Imaging: No new imaging Data Review: Vital signs reviewed this morning temperature 97.8, pulse 153, respirations 20, blood pressure 80/63 Plan: - Amiodarone infusion at 0.5 mcg/m - Eliquis 5 mg twice daily -Cardiology note reviewed: Continue with Cardizem 30 mg 3 times daily, metoprolol 100 mg daily, amiodarone was added.Case discussed with FLOYD Fenton for cardiology, patient has been initiated on oral Cardizem in addition to the metoprolol 100 mg daily -Would avoid additional sedative medications such as Seroquel or Ativan at night -Continue with Ultram 50 mg twice daily and Tylenol 650 mg every 6 hours as needed was added for his low back pain -Continue with aspirin 81 mg daily, Lipitor 10 mg daily, and Flomax 0.5 mg twice daily -Continue to follow heart rate DVT prophylaxis: Eliquis Anticipated discharge date: Likely in a.m., home This dictation was prepared using [employer] voice recognition software. Though every attempt is made to correct errors during during dictation some may still exist. Objective - Vital Signs Vital signs: Vital Signs Temp 98.0 F 06/24/22 15:32 Pulse 96 06/24/22 15:32 Resp 20 06/24/22 15:32 BP 105/70 06/24/22 15:32 Pulse Ox 98 06/24/22 15:32 FiO2 Intake & Output 06/23/22 06/24/22 06/24/22 18:59 06:59 18:59 Intake Total 360 236 600 Balance 360 236 600 Intake: Oral 360 236 600 Other: Voiding Method Toilet Toilet Toilet # Voids 1 2 2 - Labs CBC & Chem 7: 06/21/22 09:23 06/20/22 14:24
[2022-06-24] MEDS: MELATONIN 5 MG TABLET PO SCH (20:44)
[2022-06-24] MEDS: traMADol 50 MG TAB PO PRN (20:47)
[2022-06-25] MEDS: AMIODARONE 450 MG in DEXTROSE 5% IN WATER 250 ML IV SCH ×2 (05:26)
[2022-06-25] MEDS ORDERED: polyethylene glycoL 3350 17 GM POWD.PACK PO PRN (08:57)
[2022-06-25] MEDS: METOPROLOL SUCCINATE (ER) 50 MG TAB.ER.24H PO SCH (09:05)
[2022-06-25] MEDS: TAMSULOSIN 0.4 MG CAP.ER.24H PO SCH ×2 (09:05→20:24)
[2022-06-25] MEDS: ATORVASTATIN 10 MG TAB PO SCH (09:05)
[2022-06-25] MEDS: APIXABAN 5 MG TAB PO SCH ×2 (09:05→20:24)
[2022-06-25] MEDS: DILTIAZEM ORAL 60 MG TAB PO SCH ×3 (09:05→20:24)
[2022-06-25] MEDS: allopurinoL 100 MG TAB PO SCH (09:06)
[2022-06-25] MEDS: TIMOLOL 0.5% OPHTH DROPS 5 ML BTL BOTH EYES SCH ×2 (09:08→20:25)
--- NOTE | 2022-06-25 12:47 | P.PN ---
Subjective Progress Note Date: 06/25/22 History of present illness: This is an 81 year old male patient who presented to the hospital due to atrial fibrillation with RVR. Patient had confusion yesterday, today he is able to answer questions but continues to have some confusion. He was started on IV amiodarone and that his heart rate dropped into the 70s but remained in atrial fibrillation. He has been continued on metoprolol 100 mg daily and Cardizem 30 mg 3 times daily. This morning attending noted that the heart rate was in the 150s and increase Cardizem 60 mg 3 times daily patient would've received his first dose this morning. At the time of evaluation his heart rate was in the 130s. Patient denies having any chest pain, palpitations, lightheadedness or dizziness. Physical examination: Gen: This is an 81-year-old male. He sitting in recliner and appears to be in no acute distress. VS: reviewed HEENT: Head is atraumatic, normocephalic. Pupils equal, round. Sclerae is anicteric. NECK: Supple. No JVD. . LUNGS: Good air entry bilaterally. No intercostal retractions. HEART: First and second heart sounds. Irregular rhythm, systolic murmur at the left lower sternal border. ABDOMEN: Soft No tenderness. EXTREMITIES: No pedal edema. No calf tenderness. NEUROLOGICAL: Patient is awake, alert. Assessment: Persistent atrial fibrillation with poorly controlled ventricular rate Plan: Continue Toprol-XL 100 mg daily Agree with increasing Cardizem to 60 mg 3 times daily Continue to monitor heart rate closely Patient may benefit from cardioversion on Monday. We will continue to monitor and and make determination regarding cardioversion depending on patient's heart rate control. Nurse practitioner note has been reviewed, I agree with documented findings and plan of care. Patient was seen and examined. Objective - Vital Signs Vital signs: Vital Signs Temp 97.8 F 06/25/22 08:59 Pulse 136 H 06/25/22 08:59 Resp 18 06/25/22 08:59 BP 110/72 06/25/22 08:59 Pulse Ox 97 06/25/22 08:59 FiO2 Intake & Output 06/24/22 06/25/22 06/25/22 18:59 06:59 18:59 Intake Total 780 248.894 Balance 780 248.894 Intake: Intake, IV Titration 248.894 Amount Amiodarone 450 mg In 248.894 Dextrose 5% in Water 250 ml @ 0.5 MG/MIN 16.667 mls/hr IV .Q15H [facility] Rx#: [id number] Oral 780 Other: Voiding Method Toilet Toilet # Voids 2 4 - Labs CBC & Chem 7: 06/21/22 09:23 06/20/22 14:24
--- NOTE | 2022-06-25 13:44 | P.PN ---
Subjective Progress Note Date: 06/25/22 (delayed charting seen at 0910) Patient is a an 81-year-old male with dyslipidemia, hypertension, BPH, and glaucoma who presented to the ER at the direction of his PCP after being found to have heart rate of 150s to 160s on his routine checkup. In the ER he underwent an extensive evaluation. His initial vital signs showed a heart rate of 140. EKG confirmed atrial flutter with a ventricular rate of 147. He was subsequently started on a Cardizem and heparin drip. He was placed in observation for further management. Cardiology was consulted. The next morning he was started on metoprolol. His heart rate became controlled and his Cardizem drip was discontinued however he went back into A. fib with RVR overnight on 06/21 necessitating a Cardizem drip to be restarted and then uptitrated. echocardiogram-ejection fraction 45-50%. Patient became agitated and was having hallucinations overnight on 06/22 and received a Seroquel 50 mg and Ativan 1 mg IV push. He again went into A. fib with RVR necessitating a Cardizem drip. On the morning of 06/23 he was started on oral Cardizem and indigenous metoprolol. Initially had good heart rate control however overnight contaminant A. fib with RVR and an amiodarone infusion was started. His Hr remained elevated despite amio on 06/25 and his cardizem was increaed to 60 mg TID. Patient seen and examined at bedside. Discussed that he continues to have difficult to control heart rate. That we upped his Cardizem today. He understa nds. We discussed the risk factors for atrial fibrillation including advanced age. Vital signs reviewed General: nontoxic, no distress, appears at stated age Cardiovascular: S1S2 irreg, no murmur, positive posterior tibial pulse bilateral, Lungs: CTA bilateral, no rhonchi, no rales , no accessory muscle use Neuro: CN II-XI grossly intact, no focal neuro deficits Psych: Alert, oriented, appropriate affect Assessment: Newly discovered Atrial fibrillation with rapid ventricular response Acute encephalopathy, reactive to medications, improved Constipation Anemia, mild-recommend further outpatient workup Hypertension Osteoarthritis Chronic kidney disease stage IIIa Gout Imaging: No new imaging Data Review: Vital signs reviewed and temperature 97.8, pulse 136, respiratory rate 18, blood pressure 110/72, O2 sat 97% on room air Plan: - Increase Cardizem from 30 mg 3 times daily to 60 mg 3 times daily - Cardiology note reviewed: agrees with increasing Cardizem to 60 mg 3 times daily, possible cardioversion Monday if heart rate not well controlled, off Amiodarone - Eliquis 5 mg twice daily -Would avoid additional sedative medications such as Seroquel or Ativan at night -Continue with Ultram 50 mg twice daily and Tylenol 650 mg every 6 hours as needed was added for his low back pain -Continue with aspirin 81 mg daily, Lipitor 10 mg daily, and Flomax 0.5 mg twice daily -Continue to follow heart rate - Check CBC and BMP in AM DVT prophylaxis: Eliquis Anticipated discharge date: Likely in a.m., home This dictation was prepared using [employer] voice recognition software. Though every attempt is made to correct errors during during dictation some may still exist. Objective - Vital Signs Vital signs: Vital Signs Temp 97.8 F 06/25/22 08:59 Pulse 113 H 06/25/22 11:47 Resp 18 06/25/22 11:47 BP 95/54 06/25/22 11:47 Pulse Ox 97 06/25/22 11:47 FiO2 Intake & Output 06/24/22 06/25/22 06/25/22 18:59 06:59 18:59 Intake Total 780 248.894 Balance 780 248.894 Intake: Intake, IV Titration 248.894 Amount Amiodarone 450 mg In 248.894 Dextrose 5% in Water 250 ml @ 0.5 MG/MIN 16.667 mls/hr IV .Q15H [facility] Rx#: [id number] Oral 780 Other: Voiding Method Toilet Toilet Toilet # Voids 2 4 - Labs CBC & Chem 7: 06/21/22 09:23 06/20/22 14:24
[2022-06-25] MEDS: SODIUM CHLORIDE 0.9% 1,000 ML IV SCH (16:11)
[2022-06-25] MEDS: traMADol 50 MG TAB PO PRN (20:24)
[2022-06-25] MEDS: MELATONIN 5 MG TABLET PO SCH (20:24)
[2022-06-25] MEDS: SENNOSIDES 8.6 MG TAB PO PRN (20:24)
[2022-06-26 07:56] VITALS: TEMP 98
[2022-06-26] MEDS: METOPROLOL SUCCINATE (ER) 50 MG TAB.ER.24H PO SCH (07:56)
[2022-06-26] MEDS: APIXABAN 5 MG TAB PO SCH (07:56)
[2022-06-26] MEDS: ATORVASTATIN 10 MG TAB PO SCH (07:56)
[2022-06-26] MEDS: TAMSULOSIN 0.4 MG CAP.ER.24H PO SCH (07:56)
[2022-06-26] MEDS: allopurinoL 100 MG TAB PO SCH (07:56)
[2022-06-26] MEDS: DILTIAZEM ORAL 60 MG TAB PO SCH (07:56)
[2022-06-26 08:24] LABS: HCT 39.1 % (39.0-53.0); HGB 12.5 gm/dL (13.0-17.5); MCH 31.9 pg (25.0-35.0); MCHC 31.9 g/dL (31.0-37.0); MCV 100.2 fL (80.0-100.0); Macrocytosis Slight; Platelet Count 191 k/uL (150-450); RDW 13.8 % (11.5-15.5); WBC 7.4 k/uL (3.8-10.6)
[2022-06-26 08:36] LABS: Calcium 9.3 mg/dL (8.4-10.2); Magnesium 1.6 mg/dL (1.6-2.3); Potassium 3.9 mmol/L (3.5-5.1)
[2022-06-26 11:32] VITALS: BP 96/60; PULSE 76; RESP 18
--- NOTE | 2022-06-26 11:37 | P.PN ---
Subjective Progress Note Date: 06/26/22 History of present illness: This is an 81 year old male patient who presented to the hospital due to atrial fibrillation with RVR. Patient had confusion yesterday, today he is able to answer questions but continues to have some confusion. He was started on IV amiodarone and that his heart rate dropped into the 70s but remained in atrial fibrillation. He has been continued on metoprolol 100 mg daily and Cardizem 30 mg 3 times daily. This morning attending noted that the heart rate was in the 150s and increase Cardizem 60 mg 3 times daily patient would've received his first dose this morning. At the time of evaluation his heart rate was in the 130s. Patient denies having any chest pain, palpitations, lightheadedness or dizziness. 06/26 Patient is seen today in follow-up. He remains in atrial fibrillation in the 70s. He he is maintained on eliquis, oral Cardizem and Toprol-XL. Potassium is 3.9, BUN 27 creatinine 1.07. Blood pressure 96/60. Physical examination: Gen: This is an 81-year-old male. He sitting in recliner and appears to be in no acute distress. VS: reviewed HEENT: Head is atraumatic, normocephalic. Pupils equal, round. Sclerae is anicteric. NECK: Supple. No JVD. . LUNGS: Good air entry bilaterally. No intercostal retractions. HEART: First and second heart sounds. Irregular rhythm, systolic murmur at the left lower sternal border. ABDOMEN: Soft No tenderness. EXTREMITIES: No pedal edema. No calf tenderness. NEUROLOGICAL: Patient is awake, alert. Assessment: Persistent atrial fibrillation with poorly controlled ventricular rate Plan: Continue Toprol-XL 100 mg daily and continue cardizem 60 mg 3 times daily Patient is cleared for for discharge home from cardiology perspective. Patient will follow-up with Dr. Contreras in 1-2 weeks. Nurse practitioner note has been reviewed, I agree with documented findings and plan of care. Patient was seen and examined. Objective - Vital Signs Vital signs: Vital Signs Temp 98.0 F 06/26/22 07:55 Pulse 102 H 06/26/22 07:55 Resp 16 06/26/22 07:55 BP 94/63 06/26/22 07:55 Pulse Ox 94 L 06/26/22 08:41 FiO2 Intake & Output 06/25/22 06/26/22 06/26/22 18:59 06:59 18:59 Intake Total 840 10 490 Balance 840 10 490 Intake: IV 10 10 Invasive Line 2 10 10 Oral 840 480 Other: Voiding Method Toilet Toilet Toilet # Voids 3 1 - Labs CBC & Chem 7: 06/26/22 07:35 06/26/22 07:35 Labs: Abnormal Lab Results - Last 24 Hours (Table) 06/26/22 06/26/22 Range/Units 07:35 07:35 RBC 3.90 L (4.30-5.90) m/uL Hgb 12.5 L (13.0-17.5) gm/dL MCV 100.2 H (80.0-100.0) fL BUN 27 H (9-20) mg/dL
[2022-06-26] MEDS: SENNOSIDES 8.6 MG TAB PO PRN (12:15)
[2022-06-26] MEDS: TIMOLOL 0.5% OPHTH DROPS 5 ML BTL BOTH EYES SCH (12:16)
--- NOTE | 2022-06-26 13:52 | P.DS ---
Providers Date of admission: 06/23/22 12:21 Expected date of discharge: 06/26/22 Attending physician: Brian Billingsley MD Consults: 06/20/22 14:59 Consult Physician Routine Consulting Provider: Tino Contreras Consult Reason/Comments: atrial flutter Do you want consulting provider notified?: Yes Primary care physician: [facility] Course: 81-year-old male with PMH of dyslipidemia, hypertension, BPH and glaucoma that presents to the ED for tachycardia. He was at his PCP for her routine checkup when his PCP noted his heart rate to be in the 150s and 160s. He was urged to go to the ED for further workup and management. Patient denies any symptoms. He drinks 2 cups of coffee daily. He denies any alcohol use. He denies any headache, lower extremity edema, nausea or vomiting, fever or chills, cough, chest pain, shortness of breath, palpitations, changes in urination or bowel habits. No changes in appetite or weight. He denies any dizziness, numbness/weakness/tingling of extremities. In the ED, his vital signs were stable except heart rate in the 140s. CBC showed hemoglobin of 12.7 and MCV of 101.2 along with platelet count of 145. Coagulation panel within normal limits. CMP showed BUN of 22 and glucose 109. Troponin was less than 0.012. TSH is 1.68. Chest x-ray showed thoracic aorta prominence possible ectasia. EKG showed atrial flutter with RVR, ventricular rate of 147. Patient was started on a Cardizem and heparin drip and admitted for further management of symptoms. He was admitted, for newly discovered Atrial fibrillation with rapid ventricular response, he was seen by cardio, cardizem and metoprolol P.o were started. He was briefly on amiodarone gtt as well. It was discontinued. Heparin was switched to eliquis. During the hospitalization he developed some confusion due to acute delirium/encephalopathy, which was thought to be reactive to medications, it later improved, now his mentation is back to baseline. HR currently better on metoprolol, cardizem. Was cleared by cardiology for discharge. He was walked around the [place]iaz using his cane, did well. Will be discharged in a stable condition. He was seen face to face on the day of discharge 06/26 Discharge diagnoses Aflutter with RVR Delirium Constipation Anemia, mild-recommend further outpatient workup Hypertension Osteoarthritis Chronic kidney disease stage IIIa Gout Time for discharge 35 min Patient Condition at Discharge: Serious Plan - Discharge Summary Discharge Rx Participant: No New Discharge Prescriptions: New Metoprolol Succinate (ER) [Toprol XL] 100 mg PO DAILY 30 Days #30 tab Apixaban [Eliquis] 5 mg PO BID #60 tab Diltiazem Oral [Cardizem*] 60 mg PO TID 30 Days #90 tab Continue Losartan Potassium [Cozaar] 25 mg PO DAILY hydroCHLOROthiazide 25 mg PO DAILY allopurinoL [Zyloprim] 100 mg PO DAILY traMADol HCL [Ultram] 50 mg PO BID Atorvastatin [Lipitor] 10 mg PO DAILY Acetaminophen [Tylenol Arthritis] 1,300 mg PO BID Timolol [Betimol 0.5% Ophth Soln] 1 drop BOTH EYES BID hydroCHLOROthiazide 12.5 mg PO DAILY Aspirin 243 mg PO DAILY Tamsulosin [Flomax] 0.4 mg PO BID Discharge Medication List Acetaminophen [Tylenol Arthritis] 1,300 mg PO BID 01/19/18 [History] Atorvastatin [Lipitor] 10 mg PO DAILY 01/19/18 [History] Losartan Potassium [Cozaar] 25 mg PO DAILY 01/19/18 [History] Timolol [Betimol 0.5% Ophth Soln] 1 drop BOTH EYES BID 01/19/18 [History] allopurinoL [Zyloprim] 100 mg PO DAILY 01/19/18 [History] hydroCHLOROthiazide 25 mg PO DAILY 01/19/18 [History] traMADol HCL [Ultram] 50 mg PO BID 01/19/18 [History] Aspirin 243 mg PO DAILY 06/20/22 [History] Tamsulosin [Flomax] 0.4 mg PO BID 06/20/22 [History] hydroCHLOROthiazide 12.5 mg PO DAILY 06/20/22 [History] Apixaban [Eliquis] 5 mg PO BID #60 tab 06/22/22 [Rx] Diltiazem Oral [Cardizem*] 60 mg PO TID 30 Days #90 tab 06/26/22 [Rx] Metoprolol Succinate (ER) [Toprol XL] 100 mg PO DAILY 30 Days #30 tab 06/26/22 [Rx] Follow up Appointment(s)/Referral(s): Tino Contreras MD [STAFF PHYSICIAN] - 1 Week Raghavendra Horne PAC [REFERRING] - 1-2 days
== END 2022-06-26 15:09 | disposition home health service (06) | DRG 308 ==
LOC: EC 13:49 → INTOOBSV 15:02 → 3SCARD 15:02 → OBSVTOIN 06-23 12:21
PROVIDERS: ADMIT Family Medicine; ATTEND Family Medicine
DX: I48.92 Unspecified atrial flutter (principal); G92.8 Other toxic encephalopathy; D53.9 Nutritional anemia, unspecified; D69.6 Thrombocytopenia, unspecified; E78.5 Hyperlipidemia, unspecified; F41.9 Anxiety disorder, unspecified; G89.29 Other chronic pain; M54.9 Dorsalgia, unspecified; K59.00 Constipation, unspecified; I77.810 Thoracic aortic ectasia; T50.915A Adverse effect of multiple unspecified drugs, medicaments and biological substances, initial encounter; H40.9 Unspecified glaucoma; I48.19 Other persistent atrial fibrillation; I12.9 Hypertensive chronic kidney disease with stage 1 through stage 4 chronic kidney disease, or unspecified chronic kidney disease; N18.31 Chronic kidney disease, stage 3a; M10.9 Gout, unspecified; M19.90 Unspecified osteoarthritis, unspecified site; N40.0 Benign prostatic hyperplasia without lower urinary tract symptoms; Z79.82 Long term (current) use of aspirin; Z79.899 Other long term (current) drug therapy
CPT/HCPCS: 36415; 71046; 80048; 80053; 83735; 84443; 84484; 85025; 85027; 85610; 85730; 93005; 93306; 94760; 96365; 96366; 96367; 96368; 99291; 99292

== ENCOUNTER 2022-09-01 12:32 | Emergency (ER) | payer MEDICARE ==
[2022-09-01 13:03] VITALS: BP 102/78; TEMP 98.7
[2022-09-01 13:18] VITALS: PULSE 90; RESP 14
--- NOTE | 2022-09-01 13:42 | ED ---
Arrhythmia/Palpitations HPI - General Chief Complaint: Arrhythmia/Palpitations Stated Complaint: tachycardia Time Seen by Provider: 09/01/22 13:17 Source: patient, family, RN notes reviewed Mode of arrival: wheelchair - History of Present Illness Initial Comments: patient is a pleasant 81-year-old male presenting to the emergency room for further evaluation at the direction of orthopedic [facility] where he was planned for injections in his back today. He was advised that he was in atrial fibrillation with RVR and was sent to the emergency room for further evaluation. He reports that an apical pulse was not taken while he was at the facility. Upon his arrival here to the emergency room he was not in RVR his ventricular rate ranged from 78-92 bpm. Patient has a known history of A. fib/flutter and recently underwent a stress test with his senior bi developer. He is on Toprol for rate control and Eliquis for anticoagulation; he took his Toprol this morning just prior to his arrival to orthopedic [facility]. His Eliquis was placed on hold for his procedure to be completed today and has been on hold the last 3 days. He denies any palpitations, chest pain, shortness of breath, headache, dizziness, nausea, vomiting or vision changes. He reports overall he is feeling well with the exception of his chronic lower back pain which was supposed to be intervened on Monday. In addition to his chronic back pain and atrial fibrillation history has a past medical history significant for hypertension, hyperlipidemia, gout, BPH and osteoarthritis. - Related Data Home Medications Medication Instructions Recorded Confirmed Acetaminophen [Tylenol Arthritis] 1,300 mg PO BID 01/19/18 06/20/22 Atorvastatin [Lipitor] 10 mg PO DAILY 01/19/18 06/20/22 Losartan Potassium [Cozaar] 25 mg PO DAILY 01/19/18 06/20/22 Timolol [Betimol 0.5% Ophth Soln] 1 drop BOTH EYES BID 01/19/18 06/20/22 allopurinoL [Zyloprim] 100 mg PO DAILY 01/19/18 06/20/22 hydroCHLOROthiazide 25 mg PO DAILY 01/19/18 06/20/22 traMADol HCL [Ultram] 50 mg PO BID 01/19/18 06/20/22 Aspirin 243 mg PO DAILY 06/20/22 06/20/22 Tamsulosin [Flomax] 0.4 mg PO BID 06/20/22 06/20/22 hydroCHLOROthiazide 12.5 mg PO DAILY 06/20/22 06/20/22 Previous Rx's Medication Instructions Recorded Apixaban [Eliquis] 5 mg PO BID #60 tab 06/22/22 Diltiazem Oral [Cardizem*] 60 mg PO TID 30 Days #90 tab 06/26/22 Metoprolol Succinate (ER) [Toprol 100 mg PO DAILY 30 Days #30 tab 06/26/22 XL] Allergies Allergy/AdvReac Type Severity Reaction Status Date / Time No Known Allergies Allergy Verified 09/01/22 13:03 Review of Systems ROS Statement: Those systems with pertinent positive or pertinent negative responses have been documented in the HPI. ROS Other: All systems not noted in ROS Statement are negative. Past Medical History Past Medical History: Atrial Fibrillation, Hypertension, Osteoarthritis (OA), Prostate Disorder Additional Past Medical History / Comment(s): "weak bladder", chronic kidney disease, gout, aneurysm, History of Any Multi-Drug Resistant Organisms: None Reported Additional Past Surgical History / Comment(s): surgery on lower left leg for fx, laura cataracts, surgery detached retinal left eye, Past Anesthesia/Blood Transfusion Reactions: Motion Sickness Past Psychological History: Anxiety Smoking Status: Never smoker Past Alcohol Use History: Rare Past Drug Use History: None Reported - Past Family History Mother Family Medical History: No Reported History General Exam Limitations: no limitations General appearance: alert, in no apparent distress Head exam: Present: atraumatic, normocephalic, normal inspection Eye exam: Present: normal appearance, PERRL, EOMI. Absent: scleral icterus, conjunctival injection, periorbital swelling ENT exam: Present: normal exam, mucous membranes moist, other ( hard of hearing) Neck exam: Present: normal inspection. Absent: tenderness Respiratory exam: Present: normal lung sounds bilaterally. Absent: respiratory distress, wheezes, rales, rhonchi, stridor Cardiovascular Exam: Present: regular rate, irregular rhythm, normal heart sounds. Absent: systolic murmur, diastolic murmur, rubs, gallop, clicks GI/Abdominal exam: Present: soft, normal bowel sounds. Absent: distended, tenderness, guarding, rebound, rigid Rectal exam: Present: deferred Extremities exam: Present: normal inspection. Absent: pedal edema, joint swelling Back exam: Present: normal inspection Neurological exam: Present: alert, oriented X3, CN II-XII intact Psychiatric exam: Present: normal affect, normal mood Skin exam: Present: warm, dry, intact, normal color. Absent: rash Course Vital Signs 09/01/22 09/01/22 12:56 13:16 Temperature 98.7 F Pulse Rate 130 H 90 Pulse Rate [ 90 Senior Sql Server Database Developer ] Respiratory 18 14 Rate Blood Pressure 102/78 O2 Sat by Pulse 96 95 Oximetry Medical Decision Making - Medical Decision Making Was pt. sent in by a medical professional or institution (, PA, PRODUCTION TESTER, urgent care, hospital, or detention...) When possible be specific @ -Yes, [facility] Did you speak to anyone other than the patient for history (EMS, parent, family, police, friend...)? What history was obtained from this source @ -Yes, details of presenting illness and past medical history discussed with friend who assists with his care and spouse at bedside. Did you review nursing and triage notes (agree or disagree)? Why? @ -I reviewed and agree with nursing and triage notes Were old charts reviewed (outside hosp., previous admission, EMS record, old EKG, old radiological studies, urgent care reports/EKG's, detention records)? Report findings @ -No old charts were reviewed Differential Diagnosis (chest pain, altered mental status, abdominal pain women, abdominal pain men, vaginal bleeding, weakness, fever, dyspnea, syncope, headache, dizziness, GI bleed, back pain, seizure, CVA, palpatations, mental health, musculoskeletal)? @ -not applicable EKG interpreted by me (3pts min.). @ -Atrial flutter atrial fibrillation with controlled ventricular rate at 91 bpm, [place] interval * ms, QRS duration 95 ms, QT/QTC 328/3977 ms, PRT axes *, 45, 6 X-rays interpreted by me (1pt min.). @ -None done CT interpreted by me (1pt min.). @ -None done U/S interpreted by me (1pt. min.). @ -None done What testing was considered but not performed or refused? (CT, X-rays, U/S, labs)? Why? @ -None What meds were considered but not given or refused? Why? @ -None Did you discuss the management of the patient with other professionals (professionals i.e. , PA, PRODUCTION TESTER, lab, RT, psych nurse, healthcare social worker, director project management, teacher, quality officer, shelter case manager)? Give summary @ -No Was smoking cessation discussed for >3mins.? @ -No Was critical care preformed (if so, how long)? @ -No Were there social determinants of health that impacted care today? How? (Homelessness, low income, unemployed, alcoholism, drug addiction, transportation, low edu. Level, literacy, decrease access to med. care, retirement, rehab)? @ -No Was there de-escalation of care discussed even if they declined (Discuss DNR or withdrawal of care, Hospice)? DNR status @ -No What co-morbidities impacted this encounter? (DM, HTN, Smoking, COPD, CAD, Cancer, CVA, ARF, Chemo, Hep., AIDS, mental health diagnosis, sleep apnea, morbid obesity)? @ -None Was patient admitted / discharged? Hospital course, mention meds given and route, prescriptions, significant lab abnormalities, going to OR and other pertinent info. @ - 81-year-old male presenting to the emergency room for further evaluation at [facility] where he was planned for injections in his back today. He was advised that he was in atrial fibrillation with RVR and was sent to the emergency room for further evaluation. Upon arrival ventricular rate 78-92 beats per minute per cardiac monitoring and apical rate. EKG obtained correlating these findings. Patient asymptomatic. No evidence of RVR on exam. No indication for any further testing including any diagnostic imaging or laboratory studies. Patient advised to continue his beta kerri as prescribed of Toprol for rate control and to resume his Eliquis today if no procedure to be done or as directed his spinal engineering documentation specialist. Questions and concerns answered. Return parameters to the emergency room discussed. Will discharge home in stable condition with continuation of home medications for chronic atrial fibrillation. Undiagnosed new problem with uncertain prognosis? @ -No Drug Therapy requiring intensive monitoring for toxicity (Heparin, Nitro, Insulin, Cardizem)? @ -No Were any procedures done? @ -No Diagnosis/symptom? @ -Atrial fibrillation with controlled ventricular rate Acute, or Chronic, or Acute on Chronic? @ -Chronic Uncomplicated (without systemic symptoms) or Complicated (systemic symptoms)? @ -Uncomplicated Side effects of treatment? @ -No Exacerbation, Progression, or Severe Exacerbation? @ -No Poses a threat to life or bodily function? How? (Chest pain, [place], [place], pneumonia, PE, COPD, DKA, ARF, appy, cholecystitis, CVA, Diverticulitis, Homicidal, Suicidal, threat to staff... and all critical care pts) @ -No Case discussed with Dr. Nicolas. Disposition Clinical Impression: Atrial fibrillation Disposition: HOME SELF-CARE Condition: Stable Instructions (If sedation given, give patient instructions): Atrial Flutter (DC) Additional Instructions: Continue your home medications for atrial fibrillation of Toprol and Eliquis. Please proceed with low back pain intervention per your specialist recommendations. Continue to follow with your senior bi developer per his recomme ndations. Please return to the Emergency Department if symptoms worsen or any other concerns. Is patient prescribed a controlled substance at d/c from ED?: No Referrals: Zhang Lugo MD [Primary Care Provider] - 1-2 days Time of Disposition: 13:46
== END 2022-09-01 14:13 | disposition home or self-care (01) ==
LOC: EC 12:32
DX: I48.91 Unspecified atrial fibrillation (principal); M19.90 Unspecified osteoarthritis, unspecified site; I12.9 Hypertensive chronic kidney disease with stage 1 through stage 4 chronic kidney disease, or unspecified chronic kidney disease; N18.9 Chronic kidney disease, unspecified; Z86.59 Personal history of other mental and behavioral disorders; Z79.82 Long term (current) use of aspirin; Z79.899 Other long term (current) drug therapy; Z79.1 Long term (current) use of non-steroidal anti-inflammatories (NSAID)
CPT/HCPCS: 93005; 99284

== ENCOUNTER 2023-01-30 05:55 | Inpatient (IN) | payer MEDICARE ==
[2023-01-30] MEDS ORDERED: MORPHINE SULFATE 4 MG/ML SYRINGE IVP STA (06:21)
[2023-01-30] MEDS ORDERED: SODIUM CHLORIDE 0.9% 1,000 ML IV ONE (06:21)
[2023-01-30 06:54] LABS: Basophils % (A) 0 %; Eosinophils # (A) 0.1 k/uL (0-0.7); Eosinophils % (A) 1 %; HCT 36.4 % (39.0-53.0); HGB 12.1 gm/dL (13.0-17.5); Lymphocytes % (A) 20 %; MCH 32.9 pg (25.0-35.0); MCHC 33.1 g/dL (31.0-37.0); MCV 99.5 fL (80.0-100.0); Mean Platelet Volume 8.4; Monocytes # (A) 0.7 k/uL (0-1.0); Monocytes % (A) 6 %; Neutrophils # (A) 7.1 k/uL (1.3-7.7); Neutrophils % (A) 70 %; Platelet Count 299 k/uL (150-450); RBC 3.66 m/uL (4.30-5.90); RDW 14.3 % (11.5-15.5); WBC 10.1 k/uL (3.8-10.6)
--- NOTE | 2023-01-30 06:56 | ED ---
General Adult HPI - General Chief complaint: Abdominal Pain Stated complaint: Abdominal Pain, constipation Time Seen by Provider: 01/30/23 06:11 Source: patient, family, RN notes reviewed Mode of arrival: wheelchair Limitations: no limitations - History of Present Illness Initial comments: This is an 82-year-old male with an past medical history significant for abdominal aortic aneurysm without rupture and atrial flutter with RVR who presents the emergency department with a chief complaint of lower abdominal pain. Patient reports generalized lower abdominal pain that is constant for the last 2 days. He reports that it woke him in sharp waves at times. He does extensive pain at rest. He reports that the pain radiates into the right groin and right testicles. Denies any trauma or injury. Denies any known fever, nausea or vomiting, melena or hematochezia. He does report feeling constipated and has not had a bowel movement in over a week.. He is on Eliquis. He does report a previous aortic graft however is unsure of when the graft was placed. He reports that the aortic graft was done at [facility]. - Related Data Home Medications Medication Instructions Recorded Confirmed Acetaminophen [Tylenol Arthritis] 1,300 mg PO BID 01/19/18 01/30/23 Atorvastatin [Lipitor] 10 mg PO DAILY 01/19/18 01/30/23 Losartan Potassium [Cozaar] 25 mg PO DAILY 01/19/18 01/30/23 Timolol [Betimol 0.5% Ophth Soln] 1 drop BOTH EYES BID 01/19/18 01/30/23 allopurinoL [Zyloprim] 100 mg PO DAILY 01/19/18 01/30/23 hydroCHLOROthiazide 25 mg PO DAILY 01/19/18 01/30/23 traMADol HCL [Ultram] 50 mg PO BID PRN 01/19/18 01/30/23 Tamsulosin [Flomax] 0.4 mg PO BID 06/20/22 01/30/23 hydroCHLOROthiazide 12.5 mg PO DAILY 06/20/22 01/30/23 Metoprolol Succinate (ER) [Toprol 100 mg PO DAILY 09/01/22 01/30/23 Xl] Amiodarone HCl [Pacerone] 200 mg PO BID 01/30/23 01/30/23 Previous Rx's Medication Instructions Recorded Apixaban [Eliquis] 5 mg PO BID #60 tab 06/22/22 Diltiazem Oral [Cardizem*] 60 mg PO TID 30 Days #90 tab 06/26/22 Allergies Allergy/AdvReac Type Severity Reaction Status Date / Time No Known Allergies Allergy Verified 01/30/23 11:18 Review of Systems ROS Statement: Those systems with pertinent positive or pertinent negative responses have been documented in the HPI. ROS Other: All systems not noted in ROS Statement are negative. Past Medical History Past Medical History: Atrial Fibrillation, Hypertension, Osteoarthritis (OA), Prostate Disorder Additional Past Medical History / Comment(s): "weak bladder", chronic kidney disease, gout, aneurysm, History of Any Multi-Drug Resistant Organisms: None Reported Additional Past Surgical History / Comment(s): surgery on lower left leg for fx, laura cataracts, surgery detached retinal left eye, Past Anesthesia/Blood Transfusion Reactions: Motion Sickness Past Psychological History: Anxiety Smoking Status: Never smoker Past Alcohol Use History: Rare Past Drug Use History: None Reported - Past Family History Mother Family Medical History: No Reported History General Exam - General Exam Comments Initial Comments: General: Alert, in no acute distress Head: atraumatic normocephalic. Eyes PERRL, EOMI intact, mucous membranes moist Respiratory: Lungs clear to auscultation bilaterally Cardiovascular: tachycardic Abdominal: Soft without guarding or rebound Extremities: Normal inspection with full range of motion and normal capillary refill Neuroogic: alert and oriented 3, CN II-XII intact, able to ambulate with steady gait Skin: warm dry and intact with normal color Limitations: no limitations Course Vital Signs 01/30/23 01/30/23 06:00 12:00 Temperature 98.5 F Pulse Rate 116 H 118 H Respiratory 18 18 Rate Blood Pressure 108/78 105/85 O2 Sat by Pulse 98 100 Oximetry - Reevaluation(s) Reevaluation #1: 01/30/23 08:45 Case is discussed with Dr. Moya who will speak to Dr. Trimble regarding case. Reevaluation #2: 01/30/23 09:57 Case discussed with sound who agrees and accepts the patient for admission EKG Findings - EKG Comments: EKG Findings:: i interpreted the following: EKG performed at 06:10. Rate 111bpm, sinus tachycardia. IA interval 245, QRS 106, Qt/Qtc 378/444 Medical Decision Making - Medical Decision Making Was pt. sent in by a medical professional or institution (, REBECCA, BIOPROCESS ENGINEER, urgent care, hospital, or snf...) When possible be specific @ -[No] Did you speak to anyone other than the patient for history (EMS, parent, family, police, friend...)? What history was obtained from this source @ -[No] Did you review nursing and triage notes (agree or disagree)? Why? @ -[I reviewed and agree with nursing and triage notes] Were old charts reviewed (outside hosp., previous admission, EMS record, old EKG, old radiological studies, urgent care reports/EKG's, snf records)? Report findings @ -[No old charts were reviewed] Differential Diagnosis (chest pain, altered mental status, abdominal pain women, abdominal pain men, vaginal bleeding, weakness, fever, dyspnea, syncope, headache, dizziness, GI bleed, back pain, seizure, CVA, palpatations, mental health, musculoskeletal)? @ -[not applicable] EKG interpreted by me (3pts min.). @ -[As above] X-rays interpreted by me (1pt min.). @ -[None done] CT interpreted by me (1pt min.). @ -Yes U/S interpreted by me (1pt. min.). @ -[None done] What testing was considered but not performed or refused? (CT, X-rays, U/S, labs)? Why? @ -[None] What meds were considered but not given or refused? Why? @ -[None] Did you discuss the management of the patient with other professionals (professionals i.e. , REBECCA, BIOPROCESS ENGINEER, lab, RT, psych nurse, social and political studies professor, overlock hemmer, teacher, project control officer, case management manager)? Give summary @ -Dr. Trimble who recommends admitting the patient for OR tomorrow Dr. Chavez agrees and accepts the patient for admission Was smoking cessation discussed for >3mins.? @ -[No] Was critical care preformed (if so, how long)? @ -[No] Were there social determinants of health that impacted care today? How? (Homelessness, low income, unemployed, alcoholism, drug addiction, transportation, low edu. Level, literacy, decrease access to med. care, snf, re hab)? @ -[No] Was there de-escalation of care discussed even if they declined (Discuss DNR or withdrawal of care, Hospice)? DNR status @ -[No] What co-morbidities impacted this encounter? (DM, HTN, Smoking, COPD, CAD, Cancer, CVA, ARF, Chemo, Hep., AIDS, mental health diagnosis, sleep apnea, morbid obesity)? @ -[None] Was patient admitted / discharged? Hospital course, mention meds given and route, prescriptions, significant lab abnormalities, going to OR and other pertinent info. @ Admission. This is a pleasant 82-year-old male with past medical history significant for abdominal aortic aneurysm and A. fib RVR who presents the emergency department with right lower quadrant abdominal pain. Patient had a thorough history and Aphysical exam performed. Vital signs are stable. Patient is persistently tachycardic with lung sounds clear abdomen is soft with generalized lower tenderness. Patient had laboratory studies which revealed WBC 10.1, hemoglobin 12.1 coagulations studies unremarkable sodium 133, potassium 3.3 BUN 30, creatinine 1.22 urinalysis negative. Covid influenza RSV negative. Patient had CT imaging which revealed diffusely aneurysmal aorta with previous aortoiliac endovascular stent graft however the aorta is markedly dilated at the proximal stent landing zone below the renal arteries measuring up to 7.3 and the right lateral margin HAS PULLED AWAY FROM THE AORTIC WALL. THERE IS YEARS DILATED A DICTATION OF THE [place] SAC UP TO 10.5 CM WITH AN GENERAL HETEROGENEOUS MATERIAL SUGGESTING ACTIVE BLEEDING INTO THE [place] SAC AND RAPID EXTENSION OF THE [place] SAC IMPENDING RUPTURE IS NOT EXCLUDED Critical results were reported to Dr. Moya, ED attending. At this time Dr. Trimble was paged. Case was discussed with him where he recommends putting the patient for surgery tomorrow. Case is discussed with autumn Alcazar who agrees and accepts the patient for medical admission. Case is discussed with Dr. moya, ED attending who agrees with plan of care Undiagnosed new problem with uncertain prognosis? @ -[No] Drug Therapy requiring intensive monitoring for toxicity (Heparin, Nitro, Insulin, Cardizem)? @ -[No] Were any procedures done? @ -[No] Diagnosis/symptom? @ -Abdominal Aortic Aneurysm - RLQ abdominal Pain Acute, or Chronic, or Acute on Chronic? @ -Acute Uncomplicated (without systemic symptoms) or Complicated (systemic symptoms)? @ -Uncomplicated Side effects of treatment? @ -[No] Exacerbation, Progression, or Severe Exacerbation? @ -[No] Poses a threat to life or bodily function? How? (Chest pain, [place], [place], pneumonia, PE, COPD, DKA, ARF, appy, cholecystitis, CVA, Diverticulitis, Homicidal, Suicidal, threat to staff... and all critical care pts) @ -Likelihood - Lab Data Result diagrams: 01/30/23 06:30 01/30/23 06:30 Lab Results 01/30/23 01/30/23 01/30/23 Range/Units 06:30 06:30 06:30 WBC 10.1 (3.8-10.6) k/uL RBC 3.66 L (4.30-5.90) m/uL Hgb 12.1 L (13.0-17.5) gm/dL Hct 36.4 L (39.0-53.0) % MCV 99.5 (80.0-100.0) fL MCH 32.9 (25.0-35.0) pg MCHC 33.1 (31.0-37.0) g/dL RDW 14.3 (11.5-15.5) % Plt Count 299 (150-450) k/uL MPV 8.4 Neutrophils % 70 % Lymphocytes % 20 % Monocytes % 6 % Eosinophils % 1 % Basophils % 0 % Neutrophils # 7.1 (1.3-7.7) k/uL Lymphocytes # 2.0 (1.0-4.8) k/uL Monocytes # 0.7 (0-1.0) k/uL Eosinophils # 0.1 (0-0.7) k/uL Basophils # 0.0 (0-0.2) k/uL PT 11.1 (10.0-12.5) sec INR 1.0 (<1.2) APTT 31.0 H (22.0-30.0) sec Sodium 133 L (137-145) mmol/L Potassium 3.3 L (3.5-5.1) mmol/L Chloride 95 L (98-107) mmol/L Carbon Dioxide 23 (22-30) mmol/L Anion Gap 15 mmol/L BUN 30 H (9-20) mg/dL Creatinine 1.22 (0.66-1.25) mg/dL Est GFR (CKD-EPI)AfAm 63 (>60 ml/min/1.73 sqM) Est GFR (CKD-EPI)NonAf 55 (>60 ml/min/1.73 sqM) Glucose 106 H (74-99) mg/dL Plasma Lactic Acid Hardik (0.7-2.0) mmol/L Calcium 9.7 (8.4-10.2) mg/dL Total Bilirubin 1.3 (0.2-1.3) mg/dL AST 37 (17-59) U/L ALT 24 (4-49) U/L Alkaline Phosphatase 82 (38-126) U/L Total Protein 6.4 (6.3-8.2) g/dL Albumin 3.7 (3.5-5.0) g/dL Urine Color Urine Appearance (Clear) Urine pH (5.0-8.0) Ur Specific Reading (1.001-1.035) Urine Protein (Negative) Urine Glucose (UA) (Negative) Urine Ketones (Negative) Urine Blood (Negative) Urine Nitrite (Negative) Urine Bilirubin (Negative) Urine Urobilinogen (<2.0) mg/dL Ur Leukocyte Esterase (Negative) Urine RBC (0-5) /hpf Urine WBC (0-5) /hpf Ur Squamous Epith Cells (0-4) /hpf Influenza Type A (PCR) (Not Detectd) Influenza Type B (PCR) (Not Detectd) RSV (PCR) (Not Detectd) SARS-CoV-2 (PCR) (Not Detectd) 01/30/23 01/30/23 01/30/23 Range/Units 06:30 06:30 09:31 WBC (3.8-10.6) k/uL RBC (4.30-5.90) m/uL Hgb (13.0-17.5) gm/dL Hct (39.0-53.0) % MCV (80.0-100.0) fL MCH (25.0-35.0) pg MCHC (31.0-37.0) g/dL RDW (11.5-15.5) % Plt Count (150-450) k/uL MPV Neutrophils % % Lymphocytes % % Monocytes % % Eosinophils % % Basophils % % Neutrophils # (1.3-7.7) k/uL Lymphocytes # (1.0-4.8) k/uL Monocytes # (0-1.0) k/uL Eosinophils # (0-0.7) k/uL Basophils # (0-0.2) k/uL PT (10.0-12.5) sec INR (<1.2) APTT (22.0-30.0) sec Sodium (137-145) mmol/L Potassium (3.5-5.1) mmol/L Chloride (98-107) mmol/L Carbon Dioxide (22-30) mmol/L Anion Gap mmol/L BUN (9-20) mg/dL Creatinine (0.66-1.25) mg/dL Est GFR (CKD-EPI)AfAm (>60 ml/min/1.73 sqM) Est GFR (CKD-EPI)NonAf (>60 ml/min/1.73 sqM) Glucose (74-99) mg/dL Plasma Lactic Acid Hardik 1.5 (0.7-2.0) mmol/L Calcium (8.4-10.2) mg/dL Total Bilirubin (0.2-1.3) mg/dL AST (17-59) U/L ALT (4-49) U/L Alkaline Phosphatase (38-126) U/L Total Protein (6.3-8.2) g/dL Albumin (3.5-5.0) g/dL Urine Color Colorless Urine Appearance Clear (Clear) Urine pH 6.5 (5.0-8.0) Ur Specific Reading 1.017 (1.001-1.035) Urine Protein Negative (Negative) Urine Glucose (UA) Negative (Negative) Urine Ketones Negative (Negative) Urine Blood Trace H (Negative) Urine Nitrite Negative (Negative) Urine Bilirubin Negative (Negative) Urine Urobilinogen <2.0 (<2.0) mg/dL Ur Leukocyte Esterase Negative (Negative) Urine RBC 9 H (0-5) /hpf Urine WBC 1 (0-5) /hpf Ur Squamous Epith Cells <1 (0-4) /hpf Influenza Type A (PCR) Not Detected (Not Detectd) Influenza Type B (PCR) Not Detected (Not Detectd) RSV (PCR) Not Detected (Not Detectd) SARS-CoV-2 (PCR) Not Detected (Not Detectd) Disposition Clinical Impression: RLQ abdominal pain, Abdominal aortic aneurysm Disposition: ADMITTED IP TO THIS HOSP Condition: Fair Is patient prescribed a controlled substance at d/c from ED?: No Time of Disposition: 08:48
[2023-01-30 06:57] LABS: Prothrombin Time 11.1 sec (10.0-12.5)
[2023-01-30 07:33] LABS: ALT 24 U/L (4-49); AST 37 U/L (17-59); African American GFR (CKD) 63 (>60 ml/min/1.73 sqM); Albumin 3.7 g/dL (3.5-5.0); Alkaline Phosphatase 82 U/L (38-126); Anion Gap 15 mmol/L; Blood Urea Nitrogen 30 mg/dL (9-20); Calcium 9.7 mg/dL (8.4-10.2); Carbon Dioxide 23 mmol/L (22-30); Chloride 95 mmol/L (98-107); Glucose 106 mg/dL (74-99); Non-African American GFR(CKD) 55 (>60 ml/min/1.73 sqM); Potassium 3.3 mmol/L (3.5-5.1); Sodium 133 mmol/L (137-145); Total Bilirubin 1.3 mg/dL (0.2-1.3); Total Protein 6.4 g/dL (6.3-8.2)
--- NOTE | 2023-01-30 08:20 | CT ---
EXAMINATION TYPE: CT abdomen pelvis w con DATE OF EXAM: 01/30/2023 COMPARISON: NONE HISTORY: 82-year-old male with abdominal pain TECHNIQUE: Contiguous axial scanning of the abdomen and pelvis following administration of 100 ml Iso celestina 300 IV contrast. Delayed images through the kidneys and coronal/sagittal reconstructions perform ed. CT DLP: 1009 mGycm Automated exposure control for dose reduction was used. FINDINGS: Tortuous thoracic aorta. The lower descending thoracic aorta is aneurysmal to 4.4 cm. At the thoracoabdominal junction, aneurysmal 4.9 cm. Possible focal severe narrowing at the origin of the celiac axis. There is an aortobiiliac endovascular stent graft. Stent graft starts at the infrarenal portion. At t he start of the stent graft, there is abnormal dilatation of the 7.3 cm and the right lateral wall of the stent has moved away from the aortic wall with contrast extending into the [place] sac. At the aortic bifurcation, there is ar second large aneurysm measuring up to 10.5 cm, coronal image 6 2 with internal heterogeneous material suggesting acute hematoma. Impending rupture is suspected. Heart normal size without pericardial effusion. Coronary calcifications are present. Strandy and patc hy atelectasis in the lower lungs. Liver and gallbladder show no gross abnormality. Portal venous system is patent. Adrenal glands, spleen, atrophic pancreas with no gross abnormality. No excretion of contrast on the delayed kidney images. Correlate with kidney function to exclude a UT I. 1.2 cm stone within the right renal pelvis and a 1.5 cm stone in the left UVJ but without any sign ificant hydronephrosis. No dilated small bowel or free air. Normal appendix is stool throughout the colon suggesting possible diarrheal state. Sigmoid diverticul osis. No pericolonic inflammatory change. Prominent distention of the urinary bladder. Prostate gland measures 5.0 cm wide. Trace pelvic free f luid. No pelvic adenopathy seen. Degenerated levoconvex scoliosis lumbar spine. IMPRESSION: 1. DIFFUSELY ANEURYSMAL AORTA WITH PREVIOUS AORTOBIILIAC ENDOVASCULAR STENT GRAFT. HOWEVER, THE AORTA IS MARKEDLY DILATED AT THE PROXIMAL STENT LANDING ZONE JUST BELOW THE RENAL ARTERIES MEASURING UP TO 7.3 CM AND THE RIGHT LATERAL MARGIN OF THE STENT HAS PULLED AWAY FROM THE AORTIC WALL. 2. THERE IS A SEVERE DILATATION OF THE [place] SAC UP TO 10.5 CM WITH INTERNAL HETEROGENEOUS MATERIAL SUGGESTING ACUTE BLEEDING INTO THE [place] SAC AND RAPID EXPANSION OF THE [place] SAC. IMPENDING RUPTUR E IS NOT EXCLUDED. CRITICAL FINDINGS CALLED TO DR. MENDEZ IN THE ER AT 8:10 AM. 3. A 1.2 CM STONE IN THE RIGHT RENAL PELVIS. A 1.5 CM STONE AT THE LEFT UVJ WITHOUT SIGNIFICANT OBSTR UCTIVE UROPATHY SEEN AT THIS TIME. 4. NO CONTRAST SEEN IN THE RENAL COLLECTING SYSTEMS ON THE DELAYED SCAN. CORRELATE WITH KIDNEY FUNCTI ON TO EXCLUDE OTIS.
[2023-01-30] MEDS ORDERED: SODIUM CHLORIDE 0.9% 500 ML 500 ML IV ONE (09:08)
[2023-01-30] MEDS ORDERED: PIPERACILLIN-TAZOBACTAM 3.375 GM in SODIUM CHLORIDE 0.9% 100 ML IVPB STA (09:08)
--- NOTE | 2023-01-30 09:48 | P.GSCN ---
History of Present Illness Consult date: 01/30/23 Reason for Consult: Right lower quadrant abdominal pain with history of 10.5 cm infrarenal abdominal aortic aneurysm History of present illness: Patient is an 82-year-old male who in 2018 underwent stent graft repair of infrarenal abdominal aortic aneurysm. The aorta at that time measured 6 cm in greatest transverse diameter. Unfortunately the patient did not follow-up with any surgical office including ours and thus has been lost to follow-up. He presented today to the emergency room complaining of right flank and suprapubic discomfort. These symptoms have been ongoing for greater than a week. He was constipated and did have a significant decrease in his discomfort with a large bowel movement. Because of the persistent low-grade discomfort the patient presented for further evaluation. In the emergency department a CTA was p erformed of the abdomen and pelvis. This demonstrated a 10.5 cm infrarenal dimeric aneurysm with evidence of endoleak. The patient has not complained of back pain during this entire 7-10 day time frame complaining only of suprapubic and right lower quadrant abdominal discomfort. He denies any chills or fevers. Past Medical History Past Medical History: Atrial Fibrillation, Hypertension, Osteoarthritis (OA), Prostate Disorder Additional Past Medical History / Comment(s): "weak bladder", chronic kidney disease, gout, aneurysm, History of Any Multi-Drug Resistant Organisms: None Reported Additional Past Surgical History / Comment(s): surgery on lower left leg for fx, laura cataracts, surgery detached retinal left eye, Past Anesthesia/Blood Transfusion Reactions: Motion Sickness Past Psychological History: Anxiety Smoking Status: Never smoker Past Alcohol Use History: Rare Past Drug Use History: None Reported - Past Family History Mother Family Medical History: No Reported History Medications and Allergies Home Medications Medication Instructions Recorded Confirmed Type Acetaminophen [Tylenol Arthritis] 1,300 mg PO BID 01/19/18 09/01/22 History Atorvastatin [Lipitor] 10 mg PO DAILY 01/19/18 09/01/22 History Losartan Potassium [Cozaar] 25 mg PO DAILY 01/19/18 09/01/22 History Timolol [Betimol 0.5% Ophth Soln] 1 drop BOTH EYES BID 01/19/18 09/01/22 History allopurinoL [Zyloprim] 100 mg PO DAILY 01/19/18 09/01/22 History hydroCHLOROthiazide 25 mg PO DAILY 01/19/18 09/01/22 History traMADol HCL [Ultram] 50 mg PO BID 01/19/18 09/01/22 History Aspirin 243 mg PO DAILY 06/20/22 09/01/22 History Tamsulosin [Flomax] 0.4 mg PO BID 06/20/22 09/01/22 History hydroCHLOROthiazide 12.5 mg PO DAILY 06/20/22 09/01/22 History Apixaban [Eliquis] 5 mg PO BID #60 tab 06/22/22 09/01/22 Rx Diltiazem Oral [Cardizem*] 60 mg PO TID 30 Days #90 tab 06/26/22 09/01/22 Rx Metoprolol Succinate (ER) [Toprol 100 mg PO DAILY 09/01/22 09/01/22 History Xl] Allergies Allergy/AdvReac Type Severity Reaction Status Date / Time No Known Allergies Allergy Verified 09/01/22 13:52 Surgical - Exam Osteopathic Statement: *. No significant issues noted on an osteopathic structural exam other than those noted in the History and Physical/Consult. Vital Signs Temp Pulse Resp BP Pulse Ox 98.5 F 116 H 18 108/78 98 01/30/23 06:00 01/30/23 06:00 01/30/23 06:00 01/30/23 06:00 01/30/23 06:00 Patient Seen Date: 01/30/23 Patient Seen Time: 08:30 Patient is awake and alert. Neck:Supple and free of adenopathy Heart: Regular without murmur. Lungs: Clear to auscultation bilaterally. Abdomen: Palpable abdominal aortic aneurysm. The aorta itself is nontender to palpation. The patient does express some discomfort to palpation in the suprapubic and right lower quadrant areas. No rebound tenderness is noted. Extremities: Femoral, popliteal and DP pulses are intact bilaterally. There is no leg edema. Back: There is no tenderness to palpation of his posterior thorax or abdominal/pelvic areas. I reviewed the computed tomography scan. There appears to be bladder outlet obstruction which would correlate well with the suprapubic discomfort as well as some mild inflammatory changes in the right lower quadrant. This would be a reasonable explanation for his right lower quadrant discomfort. Results - Labs 01/30/23 06:30 01/30/23 06:30 Abnormal Lab Results - Last 24 Hours (Table) 01/30/23 01/30/23 01/30/23 Range/Units 06:30 06:30 06:30 RBC 3.66 L (4.30-5.90) m/uL Hgb 12.1 L (13.0-17.5) gm/dL Hct 36.4 L (39.0-53.0) % APTT 31.0 H (22.0-30.0) sec Sodium 133 L (137-145) mmol/L Potassium 3.3 L (3.5-5.1) mmol/L Chloride 95 L (98-107) mmol/L BUN 30 H (9-20) mg/dL Glucose 106 H (74-99) mg/dL Diabetes panel 01/30/23 Range/Units 06:30 Sodium 133 L (137-145) mmol/L Potassium 3.3 L (3.5-5.1) mmol/L Chloride 95 L (98-107) mmol/L Carbon Dioxide 23 (22-30) mmol/L BUN 30 H (9-20) mg/dL Creatinine 1.22 (0.66-1.25) mg/dL Glucose 106 H (74-99) mg/dL Calcium 9.7 (8.4-10.2) mg/dL AST 37 (17-59) U/L ALT 24 (4-49) U/L Alkaline Phosphatase 82 (38-126) U/L Total Protein 6.4 (6.3-8.2) g/dL Albumin 3.7 (3.5-5.0) g/dL Calcium panel 01/30/23 Range/Units 06:30 Calcium 9.7 (8.4-10.2) mg/dL Albumin 3.7 (3.5-5.0) g/dL Pituitary panel 01/30/23 Range/Units 06:30 Sodium 133 L (137-145) mmol/L Potassium 3.3 L (3.5-5.1) mmol/L Chloride 95 L (98-107) mmol/L Carbon Dioxide 23 (22-30) mmol/L BUN 30 H (9-20) mg/dL Creatinine 1.22 (0.66-1.25) mg/dL Glucose 106 H (74-99) mg/dL Calcium 9.7 (8.4-10.2) mg/dL Adrenal panel 01/30/23 Range/Units 06:30 Sodium 133 L (137-145) mmol/L Potassium 3.3 L (3.5-5.1) mmol/L Chloride 95 L (98-107) mmol/L Carbon Dioxide 23 (22-30) mmol/L BUN 30 H (9-20) mg/dL Creatinine 1.22 (0.66-1.25) mg/dL Glucose 106 H (74-99) mg/dL Calcium 9.7 (8.4-10.2) mg/dL Total Bilirubin 1.3 (0.2-1.3) mg/dL AST 37 (17-59) U/L ALT 24 (4-49) U/L Alkaline Phosphatase 82 (38-126) U/L Total Protein 6.4 (6.3-8.2) g/dL Albumin 3.7 (3.5-5.0) g/dL - Imaging CT scan - abdomen: report reviewed, image reviewed CT scan - pelvis: image reviewed Assessment and Plan Assessment: 1: Enlarging infrarenal abdominal aortic aneurysm status post stent graft repair with evidence of endoleak. 2: Bladder outlet obstruction. 3: Mild hypokalemia. Plan: 1: The aneurysm cannot be fixed from a percutaneous/stent graft approach and will require open repair. I currently not of the opinion that his aneurysm is the source of the patient's discomfort 2: Will place a Medina catheter to see if this will help his suprapubic discomfort. 3: Start IV antibiotics for right lower quadrant discomfort with mild inflammatory changes, suspected mild/early colitis. 4: We'll plan for open aneurysm repair tomorrow January 31. This was discussed with the patient as well as family members who are at his bedside. All questions were answered to patient and family satisfaction. Time with Patient: Greater than 30
--- NOTE | 2023-01-30 09:51 | XR ---
EXAMINATION TYPE: XR chest 1V DATE OF EXAM: 01/30/2023 COMPARISON: 06/20/2022 HISTORY: 06/20/2022 TECHNIQUE: Single frontal view of the chest is obtained. FINDINGS: Heart normal size. Aorta appears tortuous. Mild interstitial prominence is unchanged. Some strandy at electasis left base. No consolidation or pleural effusion. IMPRESSION: Chronic changes. No acute process seen.
[2023-01-30] MEDS ORDERED: NALOXONE 0.4 MG/ML 1 ML VIAL IV PRN (09:58)
[2023-01-30 10:00] LABS: Appearance,Urine Clear (Clear); Bilirubin,Urine Negative (Negative); Blood,Urine Trace (Negative); Color,Urine Colorless; Glucose,Urine (UA) Negative (Negative); Ketones,Urine Negative (Negative); Leukocyte Esterase,Urine Negative (Negative); Nitrite,Urine Negative (Negative); PH, Urine 6.5 (5.0-8.0); Protein,Urine Negative (Negative); RBC,Urine 9 /hpf (0-5); Specific Gravity,Urine 1.017 (1.001-1.035); Squamous Epithelial Cell,Urine <1 /hpf (0-4); Urobilinogen,Urine <2.0 mg/dL (<2.0); WBC,Urine 1 /hpf (0-5)
[2023-01-30] MEDS: SODIUM CHLORIDE 0.9% 1,000 ML IV SCH ×4 (11:28→23:57)
[2023-01-30] MEDS: MORPHINE SULFATE 4 MG/ML SYRINGE IV PRN (12:48)
[2023-01-30] MEDS ORDERED: traMADol 50 MG TAB PO PRN (12:51)
--- NOTE | 2023-01-30 12:53 | P.HPIM ---
History of Present Illness H&P Date: 01/30/23 Chief Complaint: abd pain Patient is an 81-year-old male with PMH of AAA aneurysm repair in 2018 with endograft, paroxysmal atrial flutter, dyslipidemia, hypertension, BPH and glaucoma that presented to the ED with right flank and suprapubic pain. According to the family, the symptoms have ago he got for more than a week. He says he had some constipation has had trouble urinating. He does complain of pain that is currently controlled with pain medication. He denies fevers, chills, nausea, vomiting, chest pain, palpitations, syncope, presyncope, cough, dyspnea, numbness/weakness of extremities. In the emergency room, patient was afebrile, 108/78, heart rate 116, 98% on room air. Abdomen/pelvis CT showed large aneurysmal aorta previous endograft with the margin of the stent having pulled away from the aortic wall concerning for acute bleeding and impending rupture; nephrolithiasis without obstructive uropathy. Chest x-ray appears clear bilaterally, normal sized heart. EKG shows sinus tachycardia with first-degree AV block, normal axis. All Systems reviewed and pertinent positives and negatives noted in HPI, all other symptoms are negative Gen: in no apparent distress, resting comfortably in bed Eyes: PERRL, no scleral injection or icterus HENT: normocephalic, atraumatic, good hearing acuity, moist mucous membranes Neck: no tracheal deviation, full range of motion Resp: good air exchange, breathing comfortably with no accessory muscle use, no tactile fremitus, clear to auscultation CVS: good distal perfusion x 4, no pitting edema, tachycardic without murmurs GI: soft, tenderness to palpation in the suprapubic region, epigastrium, ND, no hepatosplenomegaly : + suprapubic tenderness, no CVAT, garcia catheter not present MSK: no clubbing, no cyanosis, no noted contractures of extremities Skin: no noted rashes, petechiae; temperature of skin is appropriate Neuro: moving all extremities without signs of weakness, CN II-XII intact Psych: cooperative, euthymic mood, insight and judgment intact Labs and imaging as above Assessment/plan: Unstable abdominal aortic aneurysm -Admit patient to inpatient -Vascular surgery consulted -Monitor patient on telemetry -Nothing by mouth for surgery starting now in case emergent surgery is required -Hold all blood thinners Nephrolithiasis BPH -Insert Garcia catheter -Continue Flomax Paroxysmal atrial flutter Hypertension Hyperlipidemia -Hold Cardizem, hydrochlorothiazide Patient is full code Past Medical History Past Medical History: Atrial Fibrillation, Hypertension, Osteoarthritis (OA), Prostate Disorder Additional Past Medical History / Comment(s): "weak bladder", chronic kidney disease, gout, aneurysm, History of Any Multi-Drug Resistant Organisms: None Reported Additional Past Surgical History / Comment(s): surgery on lower left leg for fx, laura cataracts, surgery detached retinal left eye, Past Anesthesia/Blood Transfusion Reactions: Motion Sickness Past Psychological History: Anxiety Smoking Status: Never smoker Past Alcohol Use History: Rare Past Drug Use History: None Reported - Past Family History Mother Family Medical History: No Reported History Medications and Allergies Home Medications Medication Instructions Recorded Confirmed Type Acetaminophen [Tylenol Arthritis] 1,300 mg PO BID 01/19/18 01/30/23 History Atorvastatin [Lipitor] 10 mg PO DAILY 01/19/18 01/30/23 History Losartan Potassium [Cozaar] 25 mg PO DAILY 01/19/18 01/30/23 History Timolol [Betimol 0.5% Ophth Soln] 1 drop BOTH EYES BID 01/19/18 01/30/23 History allopurinoL [Zyloprim] 100 mg PO DAILY 01/19/18 01/30/23 History hydroCHLOROthiazide 25 mg PO DAILY 01/19/18 01/30/23 History traMADol HCL [Ultram] 50 mg PO BID PRN 01/19/18 01/30/23 History Tamsulosin [Flomax] 0.4 mg PO BID 06/20/22 01/30/23 History hydroCHLOROthiazide 12.5 mg PO DAILY 06/20/22 01/30/23 History Apixaban [Eliquis] 5 mg PO BID #60 tab 06/22/22 01/30/23 Rx Diltiazem Oral [Cardizem*] 60 mg PO TID 30 Days #90 tab 06/26/22 01/30/23 Rx Metoprolol Succinate (ER) [Toprol 100 mg PO DAILY 09/01/22 01/30/23 History Xl] Amiodarone HCl [Pacerone] 200 mg PO BID 01/30/23 01/30/23 History Allergies Allergy/AdvReac Type Severity Reaction Status Date / Time No Known Allergies Allergy Verified 01/30/23 11:18 Physical Exam Osteopathic Statement: *. No significant issues noted on an osteopathic structural exam other than those noted in the History and Physical/Consult. Vitals: Vital Signs Temp Pulse Resp BP Pulse Ox 01/30/23 06:00 98.5 F 116 H 18 108/78 98 Intake and Output 01/29/23 01/30/23 01/30/23 22:59 06:59 14:59 Other: Weight 77.111 kg Results CBC & Chem 7: 01/30/23 06:30 01/30/23 06:30 Labs: Abnormal Lab Results - Last 24 Hours (Table) 01/30/23 01/30/23 01/30/23 Range/Units 06:30 06:30 06:30 RBC 3.66 L (4.30-5.90) m/uL Hgb 12.1 L (13.0-17.5) gm/dL Hct 36.4 L (39.0-53.0) % APTT 31.0 H (22.0-30.0) sec Sodium 133 L (137-145) mmol/L Potassium 3.3 L (3.5-5.1) mmol/L Chloride 95 L (98-107) mmol/L BUN 30 H (9-20) mg/dL Glucose 106 H (74-99) mg/dL Urine Blood (Negative) Urine RBC (0-5) /hpf 01/30/23 Range/Units 09:31 RBC (4.30-5.90) m/uL Hgb (13.0-17.5) gm/dL Hct (39.0-53.0) % APTT (22.0-30.0) sec Sodium (137-145) mmol/L Potassium (3.5-5.1) mmol/L Chloride (98-107) mmol/L BUN (9-20) mg/dL Glucose (74-99) mg/dL Urine Blood Trace H (Negative) Urine RBC 9 H (0-5) /hpf
[2023-01-30] MEDS: PIPERACILLIN-TAZOBACTAM 3.375 GM in SODIUM CHLORIDE 0.9% 100 ML IVPB SCH (20:48)
[2023-01-30] MEDS: TAMSULOSIN 0.4 MG CAP.ER.24H PO SCH (21:47)
[2023-01-30] MEDS: AMIODARONE 200 MG TAB PO SCH (21:48)
[2023-01-31] MEDS: MORPHINE SULFATE 4 MG/ML SYRINGE IV PRN (00:43)
[2023-01-31] MEDS: PIPERACILLIN-TAZOBACTAM 3.375 GM in SODIUM CHLORIDE 0.9% 100 ML IVPB SCH ×5 (00:46→23:19)
[2023-01-31] MEDS ORDERED: LORazepam 2 MG/ML INJ IV STA (01:40)
[2023-01-31] MEDS: TIMOLOL 0.5% OPHTH DROPS 5 ML BTL BOTH EYES SCH ×3 (02:18→22:24)
[2023-01-31] MEDS ORDERED: IV FLUID CONTINUATION 1,000 ML IV ONE (08:07)
[2023-01-31] MEDS ORDERED: PROTAMINE SULFATE 10 MG/ML 5 ML VIAL ONE (09:35)
[2023-01-31] MEDS ORDERED: HEPARIN SODIUM,PORCINE 10,000 UNIT/ML 1 ML VIAL ONE (09:35)
[2023-01-31] MEDS ORDERED: VASOPRESSIN 20 UNIT/ML 1 ML VIAL ONE (09:35)
[2023-01-31] MEDS ORDERED: fentaNYL (PF) 50 MCG/ML 2 ML AMP ONE (09:35)
[2023-01-31] MEDS ORDERED: KETAMINE HCL IN 0.9 % NACL 50 MG/5 ML SYRINGE ONE (09:35)
[2023-01-31] MEDS ORDERED: ETOMIDATE 2 MG/ML 10 ML VIAL ONE (09:35)
[2023-01-31] MEDS ORDERED: MIDAZOLAM 2 MG/2 ML VIAL ONE (09:35)
[2023-01-31] MEDS ORDERED: SUCCINYLCHOLINE CHLORIDE 200 MG/10 ML VIAL IV ONE (09:35)
[2023-01-31] MEDS ORDERED: ROCURONIUM 10 MG/ML (5 ML VIAL) IV ONE (09:35)
[2023-01-31] MEDS ORDERED: FUROSEMIDE 10 MG/ML 2 ML VIAL ONE (09:35)
[2023-01-31] MEDS ORDERED: PHENYLEPHRINE-0.9% NACL SYG 1,000 MCG/10 ML SYRINGE ONE (09:35)
[2023-01-31] MEDS ORDERED: SODIUM CHLORIDE 0.9% 50 ML with ceFAZolin 2,000 MG IV ONE ×2 (09:39)
[2023-01-31 10:03] LABS: ABG Base Excess 0.8 mmol/L; ABG Glucose Whole Blood 93 mg/dL (75-99); ABG HCO3 25 mmol/L (21-25); ABG Hematocrit 34 % (34.0-46.0); ABG Ionized Calcium 4.8 mg/dL (4.5-5.3); ABG Lactic Acid Whole Blood 0.5 mmol/L (0.5-1.6); ABG Oxygen Saturation 99.9 % (94-97); ABG PCO2 37 mmHg (35-45); ABG PH 7.44 (7.35-7.45); ABG PO2 307 mmHg (83-108); ABG Potassium Whole Blood 3.1 mmol/L (3.4-4.5); ABG Sodium Whole Blood 140 mmol/L (135-146); ABG TCO2 26 mmol/L (19-24)
[2023-01-31] MEDS ORDERED: THROMBIN (BOVINE) 5,000 UNIT VIAL TOPICAL ONE ×2 (10:22)
[2023-01-31] MEDS ORDERED: GELATIN SPONGE,ABSORB (LARGE) 1 EACH SPONGE TOPICAL ONE (10:23)
[2023-01-31] MEDS ORDERED: HEPARIN SODIUM,PORCINE 10,000 UNIT in SODIUM CHLORIDE 0.9% 1,000 ML IRRIGATION ONE (10:27)
[2023-01-31] MEDS ORDERED: ceFAZolin 4 GM in SODIUM CHLORIDE 0.9% 1,000 ML IRRIGATION ONE (10:27)
[2023-01-31] MEDS ORDERED: SODIUM CHLORIDE 0.9% 1,000 ML IV ONE ×2 (10:28)
--- NOTE | 2023-01-31 10:29 | P.ANPRN ---
Procedure Note - Anesthesia - Invasive Line Left Ione Rina Time Out Performed: Yes Date of Procedure: 01/31/23 Time of Procedure: 09:31 Location of Patient: PreOp Preparation: Sterile Prep, Sterile Dressing Central Line Location: Internal Jugular Ultrasound Used: No Purpose - Visualization and Identification of Vasculature: No Image Stored and Saved: No Narrative: Central line placement per sterile protocol utilized.
--- NOTE | 2023-01-31 10:30 | P.ANPRN ---
Procedure Note - Anesthesia - Invasive Line Left Central Line Time Out Performed: Yes Date of Procedure: 01/31/23 Time of Procedure: 09:23 Location of Patient: PreOp Preparation: Sterile Prep, Sterile Dressing Central Line Location: Internal Jugular Ultrasound Used: No Purpose - Visualization and Identification of Vasculature: No Narrative: Central line placement per sterile protocol utilized.
[2023-01-31 11:38] LABS: ABG Base Excess -6.4 mmol/L; ABG Glucose Whole Blood 113 mg/dL (75-99); ABG HCO3 19 mmol/L (21-25); ABG Ionized Calcium 4.1 mg/dL (4.5-5.3); ABG Lactic Acid Whole Blood 0.9 mmol/L (0.5-1.6); ABG Oxygen Saturation 98.7 % (94-97); ABG PCO2 37 mmHg (35-45); ABG PH 7.32 (7.35-7.45); ABG PO2 113 mmHg (83-108); ABG Potassium Whole Blood 3.3 mmol/L (3.4-4.5); ABG Sodium Whole Blood 142 mmol/L (135-146); ABG TCO2 20 mmol/L (19-24)
[2023-01-31 12:30] LABS: ABG Base Excess -8.8 mmol/L; ABG Glucose Whole Blood 126 mg/dL (75-99); ABG HCO3 18 mmol/L (21-25); ABG Ionized Calcium 5.3 mg/dL (4.5-5.3); ABG Oxygen Saturation 98.9 % (94-97); ABG PCO2 43 mmHg (35-45); ABG PH 7.23 (7.35-7.45); ABG PO2 131 mmHg (83-108); ABG Potassium Whole Blood 4.3 mmol/L (3.4-4.5); ABG Sodium Whole Blood 140 mmol/L (135-146); ABG TCO2 20 mmol/L (19-24)
[2023-01-31 12:57] LABS: ABG Base Excess -1.6 mmol/L; ABG Glucose Whole Blood 107 mg/dL (75-99); ABG HCO3 22 mmol/L (21-25); ABG Hematocrit 25 % (34.0-46.0); ABG Ionized Calcium 4.4 mg/dL (4.5-5.3); ABG Oxygen Saturation 99.7 % (94-97); ABG PCO2 32 mmHg (35-45); ABG PH 7.45 (7.35-7.45); ABG PO2 157 mmHg (83-108); ABG Potassium Whole Blood 3.8 mmol/L (3.4-4.5); ABG Sodium Whole Blood 145 mmol/L (135-146); ABG TCO2 23 mmol/L (19-24)
[2023-01-31 13:42] LABS: ABG Base Excess -10.1 mmol/L; ABG Glucose Whole Blood 88 mg/dL (75-99); ABG HCO3 17 mmol/L (21-25); ABG Oxygen Saturation 99.2 % (94-97); ABG PCO2 43 mmHg (35-45); ABG PO2 172 mmHg (83-108); ABG Potassium Whole Blood 4.5 mmol/L (3.4-4.5); ABG Sodium Whole Blood 145 mmol/L (135-146); ABG TCO2 18 mmol/L (19-24)
[2023-01-31 14:22] LABS: ABG Base Excess -8.9 mmol/L; ABG Glucose Whole Blood 80 mg/dL (75-99); ABG HCO3 18 mmol/L (21-25); ABG Hematocrit 26 % (34.0-46.0); ABG Oxygen Saturation 99.5 % (94-97); ABG PCO2 44 mmHg (35-45); ABG PH 7.22 (7.35-7.45); ABG PO2 179 mmHg (83-108); ABG Potassium Whole Blood 5.3 mmol/L (3.4-4.5); ABG Sodium Whole Blood 148 mmol/L (135-146); ABG TCO2 20 mmol/L (19-24)
[2023-01-31 14:56] LABS: ABG Glucose Whole Blood 53 mg/dL (75-99); ABG HCO3 16 mmol/L (21-25); ABG Oxygen Saturation 99.3 % (94-97); ABG PCO2 37 mmHg (35-45); ABG PH 7.23 (7.35-7.45); ABG PO2 144 mmHg (83-108); ABG Potassium Whole Blood 4.3 mmol/L (3.4-4.5); ABG Sodium Whole Blood 150 mmol/L (135-146); ABG TCO2 17 mmol/L (19-24)
[2023-01-31] MEDS ORDERED: LACTATED RINGERS 1,000 ML IV ONE (15:26)
[2023-01-31 15:35] LABS: ABG Base Excess -5.8 mmol/L; ABG Glucose Whole Blood 132 mg/dL (75-99); ABG HCO3 20 mmol/L (21-25); ABG Hematocrit 28 % (34.0-46.0); ABG Oxygen Saturation 98.9 % (94-97); ABG PCO2 41 mmHg (35-45); ABG PO2 111 mmHg (83-108); ABG Sodium Whole Blood 153 mmol/L (135-146); ABG TCO2 22 mmol/L (19-24)
--- NOTE | 2023-01-31 15:45 | P.PN ---
Subjective Progress Note Date: 01/31/23 Hospital Course: Patient is an 81-year-old male with PMH of AAA aneurysm repair in 2018 with endograft, paroxysmal atrial flutter, dyslipidemia, hypertension, BPH and glaucoma that presented to the ED with right flank and suprapubic pain. In the emergency room, patient was afebrile, 108/78, heart rate 116, 98% on room air. Abdomen/pelvis CT showed large aneurysmal aorta previous endograft with the margin of the stent having pulled away from the aortic wall concerning for acute bleeding and impending rupture; nephrolithiasis without obstructive uropathy. Chest x-ray appears clear bilaterally, normal sized heart. EKG shows sinus tachycardia with first-degree AV block, normal axis. Vascular surgery consulted. Patient undergoing repair of AAA. Subjective: Patient not seen this morning, as he is already being operated on. Pertinent positives and negatives as discussed above, a complete review of systems was performed and all other systems are negative. Vitals Signs Reviewed. He was persistently tachycardic in the low 100s, and did have a elevated temperature 100.3. Blood pressure within normal limits, and was saturating well on room air. Data Reviewed Today: BMP and CBC were ordered, not drawn, will be reviewed after surgery. Assessment and Plan: Unstable abdominal aortic aneurysm -Pending repair today -Vascular surgery following -Monitor patient on telemetry -Hold all blood thinners -Morphine as needed IV, monitor for respiratory depression -CBC tomorrow Concern for peritonitis -Patient was started on IV Zosyn 3.375 g every 8 hours -Less likely given normal WBC count -We'll likely discontinue once completed his surgery Nephrolithiasis BPH -Continue indwelling Medina catheter -Continue Flomax 0.4 twice a day Hypokalemia -Repeat BMP and magnesium tomorrow Paroxysmal atrial flutter- old Eliquis, continue metoprolol 100 mg daily Hypertension Hyperlipidemia - continue atorvastatin 10 mg -Hold Cardizem, hydrochlorothiazide for now, likely resume tomorrow DVT ppx: SCDs Code status: FC Anticipated discharge place: pending clinical course Anticipated discharge time: pending clinical course Objective - Vital Signs Vital signs: Vital Signs Temp 100.3 F H 01/31/23 08:14 Pulse 117 H 01/31/23 08:14 Resp 16 01/31/23 08:14 BP 130/80 01/31/23 08:14 Pulse Ox 97 01/31/23 08:14 FiO2 Intake & Output 01/30/23 01/31/23 01/31/23 18:59 06:59 18:59 Intake Total 3463 Balance 3463 Intake: IV 2051 Blood Product 1411 Ffp 24 Pher Acda Cnt1 213 Unit [id number] Rc As-1 Unit 310 [id number] Rc As-1 Unit 310 [id number] Rc Pheresis 2 As3 Unit 296 [id number] Rc Pheresis As-3 Unit 282 [id number] - Labs CBC & Chem 7: 01/30/23 06:30 01/30/23 06:30 Labs: Abnormal Lab Results - Last 24 Hours (Table) 01/30/23 Range/Units 11:10 Crossmatch See Detail
[2023-01-31 16:31] LABS: ABG Base Excess -10.9 mmol/L; ABG Glucose Whole Blood 111 mg/dL (75-99); ABG HCO3 16 mmol/L (21-25); ABG Hematocrit 29 % (34.0-46.0); ABG Ionized Calcium 4.3 mg/dL (4.5-5.3); ABG Oxygen Saturation 98.3 % (94-97); ABG PCO2 41 mmHg (35-45); ABG PH 7.21 (7.35-7.45); ABG PO2 109 mmHg (83-108); ABG Potassium Whole Blood 3.3 mmol/L (3.4-4.5); ABG Sodium Whole Blood 151 mmol/L (135-146); ABG TCO2 18 mmol/L (19-24)
[2023-01-31 16:43] LABS: ABG Hematocrit 23 % (34.0-46.0); ABG Hematocrit 24 % (34.0-46.0); ABG Lactic Acid Whole Blood 2.1 mmol/L (0.5-1.6); ABG Lactic Acid Whole Blood 2.8 mmol/L (0.5-1.6)
[2023-01-31 16:44] LABS: ABG Hematocrit 17 % (34.0-46.0)
[2023-01-31 16:45] LABS: ABG Ionized Calcium 3.5 mg/dL (4.5-5.3); ABG Lactic Acid Whole Blood 7.1 mmol/L (0.5-1.6)
[2023-01-31 16:46] LABS: ABG Hematocrit 23 % (34.0-46.0); ABG Lactic Acid Whole Blood 11.6 mmol/L (0.5-1.6); ABG Lactic Acid Whole Blood 8.2 mmol/L (0.5-1.6); ABG Potassium Whole Blood 2.8 mmol/L (3.4-4.5)
[2023-01-31 17:06] LABS: ABG Base Excess -7.4 mmol/L; ABG Glucose Whole Blood 114 mg/dL (75-99); ABG HCO3 19 mmol/L (21-25); ABG Hematocrit 26 % (34.0-46.0); ABG Ionized Calcium 4.2 mg/dL (4.5-5.3); ABG PCO2 40 mmHg (35-45); ABG PH 7.28 (7.35-7.45); ABG PO2 137 mmHg (83-108); ABG Potassium Whole Blood 3.5 mmol/L (3.4-4.5); ABG Sodium Whole Blood 153 mmol/L (135-146); ABG TCO2 20 mmol/L (19-24)
[2023-01-31 17:11] LABS: ABG Lactic Acid Whole Blood 11.4 mmol/L (0.5-1.6)
[2023-01-31] MEDS ORDERED: TRANEXAMIC 1,000 MG/100ML-NACL 1,000 MG in SALINE 1 100ML.BAG IVPB ONE (17:25)
[2023-01-31] MEDS: METOPROLOL SUCCINATE (ER) 100 MG TAB.ER.24H PO SCH (17:57)
[2023-01-31] MEDS: LOSARTAN 25 MG TAB PO SCH (17:57)
[2023-01-31] MEDS: allopurinoL 100 MG TAB PO SCH (17:57)
[2023-01-31] MEDS: ATORVASTATIN 10 MG TAB PO SCH (17:57)
[2023-01-31] MEDS: SODIUM CHLORIDE 0.9% 1,000 ML IV SCH ×2 (17:57→17:58)
[2023-01-31] MEDS: AMIODARONE 200 MG TAB PO SCH ×2 (17:57→21:14)
[2023-01-31] MEDS: TAMSULOSIN 0.4 MG CAP.ER.24H PO SCH ×2 (17:57→20:58)
[2023-01-31] MEDS ORDERED: Potassium Replacement Protocol 1 EACH MISC MISCELLANE PRN (17:58)
[2023-01-31] MEDS ORDERED: Magnesium Replacement Protocol 1 EACH MISC MISCELLANE PRN (17:58)
[2023-01-31 18:13] LABS: Glucose,Whole Blood 105 mg/dL (70-110)
[2023-01-31] MEDS ORDERED: ALBUMIN HUMAN 5% 500 ML in EMPTY BAG 1 BAG IVPB ONE ×2 (18:24→18:54)
[2023-01-31 18:39] LABS: ABG Base Excess -11.8 mmol/L; ABG HCO3 16 mmol/L (21-25); ABG Oxygen Saturation 99.9 % (94-97); ABG PCO2 42 mmHg (35-45); ABG PO2 319 mmHg (83-108); ABG TCO2 18 mmol/L (19-24)
[2023-01-31 18:40] LABS: HCT 23.1 % (39.0-53.0); Hypochromasia Slight; MCH 33.6 pg (25.0-35.0); MCHC 33.2 g/dL (31.0-37.0); MCV 101.1 fL (80.0-100.0); Macrocytosis Slight; Mean Platelet Volume 8.6; RBC 2.29 m/uL (4.30-5.90); RDW 15.7 % (11.5-15.5)
[2023-01-31] MEDS: EPINEPHrine 4 MG in DEXTROSE 5% IN WATER 250 ML IV SCH ×8 (18:45→22:51)
[2023-01-31] MEDS: VASOPRESSIN 60 UNIT in SODIUM CHLORIDE 0.9% 150 ML IV SCH (18:45)
--- NOTE | 2023-01-31 18:51 | P.OP ---
Date of Procedure: 01/31/23 Preoperative Diagnosis: 1.5 cm infrarenal abdominal aortic aneurysm. Status post endovascular aortic aneurysm repair in 2018 with new endoleak. Postoperative Diagnosis: Same plus blood loss anemia and associated DIC. Procedure(s) Performed: 1: Repair of 10.5 cm infrarenal abdominal aortic aneurysm with tube graft. 2: Reimplantation of left renal artery. Anesthesia: GETA Surgeon: Gerardo Trimble Radiology Receptionist #1: Fadi Oden Estimated Blood Loss (ml): 5,000 Pathology: none sent Condition: critical Disposition: ICU Indications for Procedure: Patient is an 82 old male who presented yesterday with a complaint of suprapubic and right lower quadrant abdominal pain. His a history of stent graft repair of abdominal aortic aneurysm. CT scanning performed demonstrated a type I endoleak with massive enlargement of his aorta to 10.5 cm in greatest transverse diameter. It was felt the patient was at high risk for rupture of his abdominal aortic aneurysm. It was recommended patient undergo repair with explantation of the stent graft. The procedure, risk and benefits were discussed with the patient and his family who were at bedside. Today the patient's family brought in the papers of no CODE STATUS. Description of Procedure: Patient is brought the upper and placed in the supine position Mr. general endotracheal anesthesia administered by the department of anesthesiology. Patient received ongoing intravenously administered antibiotics. The patient's lower chest abdominal pelvic and anterior thigh areas were sterilely prepped and draped in usual manner after Medina catheter was properly positioned. Midline in cision from the breast bone down the pubis was made carried down through the subcu change tissues. Hemostasis was achieved using electrocautery. Small bowel was mobilized the left side of the abdomen. The abdominal aorta was identified. The duodenum was mobilized off of the aorta. The aortic neck angled significantly and somewhat abruptly to the left. The inferior mesenteric vein was identified and left undisturbed. The gonadal vein was also noted and left undisturbed. The dissection was carried up to the level of the left renal vein as it crossed the aorta. The dissection was then carried both medially and laterally along the aortic wall taking care to avoid the inferior vena cava. The aortic bifurcation was identified and the common iliac arteries were dissected free of investing tissues. During additional dissection proximally and aortic rent was identified. Was extremely difficult to control this due to anatomic considerations and we had to dissect above the renal arteries. With much difficulty and eventually a suprarenal aortic clamp was placed. The iliac clamps were placed at the common level. This controlled the bleeding. Aortotomy was made and extended cephalad. A large amount of thrombus was retrieved. The dissection was carried proximally and the medial and lateral [place] of the aorta were T'ed . The dissection was then carried inferiorly to the origin of the iliac arteries and a similar T was made. The aorta itself measured 54 mm in greatest transverse diameter. The largest graft that we had measured 16 mm in diameter. Heparin was eventually given however due to the significant blood loss this was not done until after the aortic clamp had been positioned. And an anastomosis between the PTFE graft and the proximal aorta was performed. While doing this the aorta demonstrated poor tissue integrity. To help with suture retention pledgets were incorporated. The anastomotic line was completed and when tested was found to have a large leak. To control this and find the leak was necessary to transect both the left renal vein and the right renal artery. This allowed for better visualization and the anastomotic line was reperformed again with 3-0 Prolene suture and pledgets. This time hemostasis was achieved. During this process was also necessary to transect the left renal artery to allow for better visualization and anastomotic line control. Plan was to reimplant the left renal artery at a later time of the case. The right renal artery due to the angulation of the aorta was not able to reach the graft and was controlled with vascular clips. The PTFE graft was cut the appropriate length. Backbleeding through both iliac arteries was demonstrated. And an anastomosis between the graft and the distal aortic ridge was performed with 3-0 Prolene suture. Just prior to completion anastomotic line backbleeding through the iliac arteries occurred and flush through the aorta was performed. Neither demonstrated any thrombus return. The anastomotic line was then completed. Flow was then restored to one leg and eventually the other. All throughout the case due to significant bleeding generalized oozing was experienced which magnified the difficulty of the surgery significantly. This was controlled as best as possible. The left renal artery was brought to the aortic graft. A side-biting clamp was utilized to partially occlude the graft and end-to-side anastomosis between the graft and [place] left renal artery was performed. Once this was performed excellent pulsatile flow in the renal artery was identified. During the case the patient received 4 units of packed red blood cells 2 units of plasma with an additional 2 units to be given. He also received 2 units of cryoprecipitate and 1 g of TX a to help control the bleeding. The abdomen was irrigated. No particular point of bleeding could be identified. The aortic sac was closed over the graft with Vicryl suture. Retroperitoneum was reapproximated with 2-0 Vicryl suture. The small and large bowel returned to her normal anatomic positions. No evidence of bowel ischemia was noted. Fascia was closed with 0 looped PDS and skin edges reapproximated with skin renetta. Proper dressings were applied. Femoral pulses were intact bilaterally. Patient was taken to the intensive care unit in critical condition. During the case I did speak with the patient's family. They inform me that the patient was a no code which I was not aware of prior to the beginning of the case. They were agreeable to medical therapy to help support the patient however were adamant against CPR etc. there are only wish was that we're able to get the patient off the table and to the ICU. They indicated that they understood how sick Mr. Pierre was prior to surgery.
[2023-01-31 18:52] LABS: African American GFR (CKD) 83 (>60 ml/min/1.73 sqM); Albumin 1.8 g/dL (3.5-5.0); Alkaline Phosphatase 28 U/L (38-126); Anion Gap 18 mmol/L; Blood Urea Nitrogen 17 mg/dL (9-20); Calcium 7.3 mg/dL (8.4-10.2); Carbon Dioxide 17 mmol/L (22-30); Chloride 113 mmol/L (98-107); Glucose 109 mg/dL (74-99); Non-African American GFR(CKD) 72 (>60 ml/min/1.73 sqM); Potassium 3.2 mmol/L (3.5-5.1); Sodium 148 mmol/L (137-145); Total Bilirubin 2.6 mg/dL (0.2-1.3); Total Protein 3.1 g/dL (6.3-8.2)
[2023-01-31 18:57] LABS: HGB 7.7 gm/dL (13.0-17.5)
[2023-01-31 19:08] LABS: ABG HCO3 18 mmol/L (21-25); ABG PCO2 36 mmHg (35-45); ABG PH 7.31 (7.35-7.45); ABG PO2 >400 mmHg (83-108); ABG TCO2 19 mmol/L (19-24)
[2023-01-31 19:15] LABS: ALT 523 U/L (4-49); AST 937 U/L (17-59)
--- NOTE | 2023-01-31 19:20 | P.CNPUL ---
History of Present Illness Consult date: 01/31/23 Chief complaint: Abdominal aortic aneurysm History of present illness: 82-year-old male patient was being seen in the intensive care unit following a repair of a 10.5 cm infrarenal abdominal aortic aneurysm with a tube graft. During the surgery, the patient also underwent a reimplantation of the left renal artery. The patient is known to have history of a stent graft repair of an abdominal aortic aneurysm and he was having issues with abdominal pain. CAT scan of the abdomen demonstrated a type I endoleak with massive enlargement of his aorta up to 10.5 cm inside and the transverse diameter. This was considered to be high risk for rupture. Based on that, the patient was taken to the operating room. This was a lengthy and extensive surgery. Estimated blood loss was 5 L. The patient was aggressively resuscitated with IV fluids and blood products. The patient intraoperatively received a total of 4 units of packed RBC, 2 units of fresh frozen plasma, 2 units of cryoprecipitate and currently is being transfused with 5 units of platelet concentrate. The patient is currently on epinephrine at 0.5 mcg/kg/m. The patient was still hypotensive at the time of my arrival with systolic blood pressure between 50 and 60. I increase the epinephrine to 0.8 and I started vasopressin. The patient was given another unit of packed RBC and another 500 mL of 5% albumin, making a total of 2 doses of IV albumin. His blood pressure improved and subsequently his most recent systolic blood pressure is in the mid 90s. The patient is a cardiac output of 4.9 with an index of 2.6, pulmonary artery pressures are 39/22. Urine output is minimal at this point in time. The patient has cold extremities. Pulses are obtained in the femorals bilaterally, the feet are cold and that is diminished pulses are obtained by Doppler signal. He was initially on assist control mode at a rate of 60 with a tidal volume of 500 and FiO2 100% with a PEEP of 5. He was given a total of 2 doses of sodium bicarb. The patient subsequently was brought up to a rate of 28 and FiO2 was gradually weaned off. Most recent blood gas showed improvement in his acid-base status. Patient at 7.31 with a pCO2 of 36 and pO2 more than 400. Chest x-ray shows adequate expansion of both lungs. Orotracheal tube, ET tube, Munford-Rina catheter and NG tube are all in good location. Abdominal wound site is dry clean and intact. There is no signs of any active bleeding at this point in time. The patient is on no sedation for now. He is deeply sedated and unresponsive. Blood sugars at 105. Awaiting follow-up labs and the most recent hemoglobin was at 7.7. Review of Systems ROS unobtainable: due to endotracheal tube Past Medical History Past Medical History: Atrial Fibrillation, Hypertension, Osteoarthritis (OA), Prostate Disorder Additional Past Medical History / Comment(s): "weak bladder", chronic kidney disease, gout, abdominal aortic aneurysm History of Any Multi-Drug Resistant Organisms: None Reported Additional Past Surgical History / Comment(s): surgery on lower left leg for fx, laura cataracts, surgery detached retinal left eye, Past Anesthesia/Blood Transfusion Reactions: Motion Sickness Past Psychological History: Anxiety Smoking Status: Never smoker Past Alcohol Use History: Rare Past Drug Use History: None Reported - Past Family History Mother Family Medical History: No Reported History Medications and Allergies Home Medications Medication Instructions Recorded Confirmed Type Acetaminophen [Tylenol Arthritis] 1,300 mg PO BID 01/19/18 01/30/23 History Atorvastatin [Lipitor] 10 mg PO DAILY 01/19/18 01/30/23 History Losartan Potassium [Cozaar] 25 mg PO DAILY 01/19/18 01/30/23 History Timolol [Betimol 0.5% Ophth Soln] 1 drop BOTH EYES BID 01/19/18 01/30/23 History allopurinoL [Zyloprim] 100 mg PO DAILY 01/19/18 01/30/23 History hydroCHLOROthiazide 25 mg PO DAILY 01/19/18 01/30/23 History traMADol HCL [Ultram] 50 mg PO BID PRN 01/19/18 01/30/23 History Tamsulosin [Flomax] 0.4 mg PO BID 06/20/22 01/30/23 History hydroCHLOROthiazide 12.5 mg PO DAILY 06/20/22 01/30/23 History Apixaban [Eliquis] 5 mg PO BID #60 tab 06/22/22 01/30/23 Rx Diltiazem Oral [Cardizem*] 60 mg PO TID 30 Days #90 tab 06/26/22 01/30/23 Rx Metoprolol Succinate (ER) [Toprol 100 mg PO DAILY 09/01/22 01/30/23 History Xl] Amiodarone HCl [Pacerone] 200 mg PO BID 01/30/23 01/30/23 History Allergies Allergy/AdvReac Type Severity Reaction Status Date / Time No Known Allergies Allergy Verified 01/30/23 11:18 Physical Exam Vitals: Vital Signs Temp Pulse Pulse Resp BP BP Pulse Ox 01/31/23 18:25 01/31/23 18:10 01/31/23 08:14 100.3 F H 117 H 16 130/80 97 01/31/23 07:00 102 H 19 123/89 95 01/31/23 06:00 110 H 18 123/91 96 01/31/23 05:00 115 H 18 121/81 96 01/31/23 04:00 108 H 18 111/85 96 01/31/23 03:00 105 H 18 117/93 96 01/31/23 02:00 114 H 20 107/76 96 01/31/23 01:00 112 H 20 111/84 94 L 01/31/23 00:00 106 H 20 114/88 98 01/30/23 23:00 109 H 20 109/87 97 01/30/23 22:00 107 H 20 112/91 97 01/30/23 21:00 112 H 20 107/79 97 01/30/23 20:00 96 19 93/65 96 FiO2 01/31/23 18:25 100 01/31/23 18:10 100 01/31/23 08:14 01/31/23 07:00 01/31/23 06:00 01/31/23 05:00 01/31/23 04:00 01/31/23 03:00 01/31/23 02:00 01/31/23 01:00 01/31/23 00:00 01/30/23 23:00 01/30/23 22:00 01/30/23 21:00 01/30/23 20:00 Intake and Output 01/31/23 01/31/23 01/31/23 06:59 14:59 22:59 Intake Total 3463 609 Output Total 5400 Balance 1414 -6477 Intake: IV 2052 Blood Product 1411 609 Unit 0 Ffp 24 Pher Acda Cnt1 217 Unit [id number] Ffp 24 Pher Acda Cnt1 213 Unit [id number] Ffp 24 Pher Acda Cnt2 214 Unit [id number] Pooled Cryoprecipitate 80 Unit [id number] Pooled Cryoprecipitate 98 Unit [id number] Rc As-1 Unit 310 [id number] Rc As-1 Unit 0 [id number] Rc As-1 Unit 310 [id number] Rc Pheresis 2 As3 Unit 296 [id number] Rc Pheresis As-3 Unit 282 [id number] Output: Urine 400 Estimated Blood Loss 5000 Patient is currently intubated on a mechanical ventilator. No sedatives at this point in time. Orogastric and orotracheal tube are both in place. Head exam was generally normal. There was no scleral icterus or corneal arcus. Mucous membranes were moist. Neck was supple and without jugular venous distension, thyromegaly, or carotid bruits. Carotids were easily palpable bilaterally. There was no adenopathy. The patient has a left IJ Cordis and a left IJ Munford-Rina catheter in place Lungs sounds are equal and symmetrical bilaterally. Cardiac exam revealed the PMI to be normally situated and sized. The rhythm was regular and no extrasystoles were noted during several minutes of auscultation. The first and second heart sounds were normal and physiologic splitting of the second heart sound was noted. There were no murmurs, rubs, clicks, or gallops. Abdomen is soft and bowel sounds are absent. Large anterior abdominal wall surgical wound which is dry clean and intact. No direct tenderness. No rebound tenderness, no guarding Extremities are cold and diminished pulses are present the feet. Femoral pulses are present. Diminished capillary refill. No cyanosis or clubbing. Neurologically, the patient is sedated, pupils are round 2 mm in size, sluggish reactive to light. Motor and sensory function cannot be obtained at this point in time. Results - Laboratory Findings CBC and BMP: 01/31/23 18:29 01/30/23 06:30 ABG ABG pH 7.31 (7.35-7.45) L 01/31/23 19:02 ABG pCO2 36 mmHg (35-45) 01/31/23 19:02 ABG pO2 >400 mmHg (83-108) H 01/31/23 19:02 ABG O2 Saturation 100.0 % (94-97) H 01/31/23 19:02 PT/INR, D-dimer PT 11.1 sec (10.0-12.5) 01/30/23 06:30 INR 1.0 (<1.2) 01/30/23 06:30 Abnormal lab findings: Abnormal Labs 01/30/23 01/30/23 01/30/23 06:30 06:30 06:30 RBC 3.66 L Hgb 12.1 L Hct 36.4 L MCV RDW Plt Count APTT 31.0 H ABG pH ABG pCO2 ABG pO2 ABG HCO3 ABG Total CO2 ABG O2 Saturation ABG Hematocrit ABG Sodium ABG Potassium ABG Ionized Calcium ABG Glucose ABG Lactic Acid Hemoglobin Sodium 133 L Potassium 3.3 L Chloride 95 L BUN 30 H Glucose 106 H Arterial Blood Potassium Arterial Blood Glucose Urine Blood Urine RBC Crossmatch 01/30/23 01/30/23 01/31/23 09:31 11:10 09:00 RBC Hgb Hct MCV RDW Plt Count APTT ABG pH ABG pCO2 ABG pO2 307 H ABG HCO3 ABG Total CO2 26 H ABG O2 Saturation 99.9 H ABG Hematocrit ABG Sodium ABG Potassium 3.1 L ABG Ionized Calcium ABG Glucose ABG Lactic Acid Hemoglobin 10.9 L Sodium Potassium Chloride BUN Glucose Arterial Blood Potassium 3.1 L Arterial Blood Glucose Urine Blood Trace H Urine RBC 9 H Crossmatch See Detail 01/31/23 01/31/23 01/31/23 09:00 09:00 09:00 RBC Hgb Hct MCV RDW Plt Count APTT ABG pH 7.32 L 7.23 L ABG pCO2 32 L ABG pO2 113 H 131 H 157 H ABG HCO3 19 L 18 L ABG Total CO2 ABG O2 Saturation 98.7 H 98.9 H 99.7 H ABG Hematocrit 23 L 24 L 25 L ABG Sodium ABG Potassium 3.3 L ABG Ionized Calcium 4.1 L 4.4 L ABG Glucose 113 H 126 H 107 H ABG Lactic Acid 2.1 H 2.8 H* Hemoglobin 7.3 L 7.8 L 8.1 L Sodium Potassium Chloride BUN Glucose Arterial Blood Potassium 3.3 L Arterial Blood Glucose 113 H 126 H 107 H Urine Blood Urine RBC Crossmatch 1201/31/23 01/31/23 09:00 13:30 13:30 RBC Hgb Hct MCV RDW Plt Count APTT ABG pH 7.20 L 7.22 L 7.23 L ABG pCO2 ABG pO2 172 H 179 H 144 H ABG HCO3 17 L 18 L 16 L ABG Total CO2 18 L 17 L ABG O2 Saturation 99.2 H 99.5 H 99.3 H ABG Hematocrit 17 L* 26 L 23 L ABG Sodium 148 H 150 H ABG Potassium 5.3 H ABG Ionized Calcium 3.0 L* 3.5 L* 4.0 L ABG Glucose 53 L ABG Lactic Acid 4.0 H* 7.1 H* 8.0 H* Hemoglobin 5.4 L* 8.4 L 7.5 L Sodium Potassium Chloride BUN Glucose Arterial Blood Potassium 5.3 H Arterial Blood Glucose 53 L Urine Blood Urine RBC Crossmatch 01/31/23 01/31/23 01/31/23 13:30 13:30 13:30 RBC Hgb Hct MCV RDW Plt Count APTT ABG pH 7.30 L 7.21 L 7.28 L ABG pCO2 ABG pO2 111 H 109 H 137 H ABG HCO3 20 L 16 L 19 L ABG Total CO2 18 L ABG O2 Saturation 98.9 H 98.3 H 99.0 H ABG Hematocrit 28 L 29 L 26 L ABG Sodium 153 H 151 H 153 H ABG Potassium 2.8 L* 3.3 L ABG Ionized Calcium 4.0 L 4.3 L 4.2 L ABG Glucose 132 H 111 H 114 H ABG Lactic Acid 8.2 H* 11.6 H* 11.4 H* Hemoglobin 9.2 L 9.4 L 8.4 L Sodium Potassium Chloride BUN Glucose Arterial Blood Potassium 2.8 L* 3.3 L Arterial Blood Glucose 132 H 111 H 114 H Urine Blood Urine RBC Crossmatch 01/31/23 01/31/23 01/31/23 18:29 18:29 18:37 RBC 2.29 L Hgb 7.7 L D Hct 23.1 L MCV 101.1 H RDW 15.7 H Plt Count 70 L D APTT 74.2 H ABG pH 7.20 L ABG pCO2 ABG pO2 319 H ABG HCO3 16 L ABG Total CO2 18 L ABG O2 Saturation 99.9 H ABG Hematocrit ABG Sodium ABG Potassium ABG Ionized Calcium ABG Glucose ABG Lactic Acid Hemoglobin Sodium Potassium Chloride BUN Glucose Arterial Blood Potassium Arterial Blood Glucose Urine Blood Urine RBC Crossmatch 01/31/23 19:02 RBC Hgb Hct MCV RDW Plt Count APTT ABG pH 7.31 L ABG pCO2 ABG pO2 >400 H ABG HCO3 18 L ABG Total CO2 ABG O2 Saturation 100.0 H ABG Hematocrit ABG Sodium ABG Potassium ABG Ionized Calcium ABG Glucose ABG Lactic Acid Hemoglobin Sodium Potassium Chloride BUN Glucose Arterial Blood Potassium Arterial Blood Glucose Urine Blood Urine RBC Crossmatch - Diagnostic Findings Chest x-ray: image reviewed Assessment and Plan Plan: Abdominal aortic aneurysm, 10.5 cm infrarenal. The patient is post endovascular aortic aneurysm repair back in 2018 with subsequent presentation with abdominal pain and presence of an endovascular leak in addition to a large abdominal aortic aneurysm, symptomatic, high risk for rupture. The patient is post repair of a infrarenal abdominal aortic aneurysm with a tube graft and amputation of the left renal artery, currently postop day #0 Shock, a combination of distributive and hypovolemic. The patient significant blood loss resuscitated with blood products and fluids both colloids and crystalloids. Acute hypercapnic respiratory failure secondary to above, adequate oxygenation, improved acid-base status currently intubated on a mechanical ventilator. Abdominal pain secondary to above Nephrolithiasis Paroxysmal A. fib current rhythm is sinus Chronic systolic heart failure with an ejection fraction of 40-45% Hypertension, history of Hyperlipidemia Prostate enlargement Osteoarthritis DNR CODE STATUS Plan Critically ill male patient Continue ventilator support and the necessary ventilator changes were done Continue resuscitation and the patient will be given additional units of packed RBC and another dose of 5% albumin, 500 mL Continue pressors with a combination of epinephrine drip and vasopressin Monitor hemodynamics and the patient has a Munford-Rina catheter in place, adequate cardiac output and index Obtain a CBC and complete metabolic profile Patient is oliguric Continue IV Zosyn Sedation if needed Complete the platelet transfusion Condition is obviously critical and the patient's is a DO NOT RESUSCITATE CODE STATUS. We'll continue to follow. Evaluation was done in more than one hour. Time with Patient: Greater than 30
[2023-01-31 19:23] LABS: Neutrophils % (M) 83 %; Total Cells Counted 100
[2023-01-31 19:24] LABS: Lymphocytes # (M) 1.08 k/uL (1.0-4.8); Monocytes # (M) 0.49 k/uL (0-1.0); Neutrophils # (M) 8.13 k/uL (1.3-7.7); Nucleated Red Blood Cells 1 /100 WBC (0-0); WBC 9.8 k/uL (3.8-10.6)
[2023-01-31 19:26] LABS: Ovalocytes Present; Platelet Count 70 k/uL (150-450); Poikilocytosis (M) Present
--- NOTE | 2023-01-31 19:36 | XR ---
EXAMINATION TYPE: XR chest 1V DATE OF EXAM: 01/31/2023 7:02 PM CLINICAL INDICATION:Male, 82 years old with history of tube placement; COMPARISON: Chest radiographs from 01/30/2023. TECHNIQUE: XR chest 1V Frontal view of the chest. FINDINGS: Lungs/Pleura: There is no evidence of pleural effusion, focal consolidation, or pneumothorax. Pulmonary vascularity: Unremarkable. Heart/mediastinum: Cardiomediastinal silhouette is unremarkable. Musculoskeletal: No acute osseous pathology. Other findings: None Lines/Tubes: Endotracheal tube with distal tip 2.1 cm above the jesus. Nasogastric tube with its distal tip and side-port projecting under the diaphragm. IMPRESSION: No acute cardiopulmonary disease/process.
[2023-01-31] MEDS ORDERED: CALCIUM GLUCONATE IN NACL 2 GM in SALINE 1 100ML.BAG IVPB ONE (21:10)
[2023-01-31 22:25] LABS: Basophils # (A) 0.1 k/uL (0-0.2); Basophils % (A) 0 %; Eosinophils % (A) 0 %; HGB 7.4 gm/dL (13.0-17.5); Hypochromasia Moderate; Lymphocytes # (A) 0.9 k/uL (1.0-4.8); Lymphocytes % (A) 8 %; MCH 32.4 pg (25.0-35.0); MCHC 32.4 g/dL (31.0-37.0); MCV 100.2 fL (80.0-100.0); Macrocytosis Slight; Mean Platelet Volume 9.1; Monocytes # (A) 0.4 k/uL (0-1.0); Monocytes % (A) 3 %; Neutrophils # (A) 10.1 k/uL (1.3-7.7); Neutrophils % (A) 88 %; WBC 11.4 k/uL (3.8-10.6)
[2023-01-31 22:38] LABS: Platelet Count 86 k/uL (150-450)
[2023-01-31] MEDS: CHLORHEXIDINE GLUCONATE 15 ML CUP MUCOUS MEM SCH (22:52)
[2023-02-01 00:12] LABS: Glucose,Whole Blood 323 mg/dL (70-110)
[2023-02-01] MEDS: EPINEPHrine 4 MG in DEXTROSE 5% IN WATER 250 ML IV SCH ×14 (00:13→09:22)
[2023-02-01] MEDS ORDERED: DEXTROSE 50% SYRINGE 50 ML IVP PRN ×2 (00:18)
[2023-02-01] MEDS: INSULIN ASPART (NovoLOG) 100 UNIT/ML VIAL SQ SCH ×2 (01:03→05:37)
[2023-02-01] MEDS: SODIUM CHLORIDE 0.9% 1,000 ML IV SCH (01:30)
[2023-02-01 04:12] LABS: Anisocytosis Slight; Basophils % (A) 0 %; Eosinophils % (A) 0 %; HCT 27.2 % (39.0-53.0); Hypochromasia Slight; Lymphocytes % (A) 7 %; MCH 32.7 pg (25.0-35.0); Macrocytosis Slight; Mean Platelet Volume 9.8; Monocytes # (A) 0.3 k/uL (0-1.0); Monocytes % (A) 2 %; Neutrophils # (A) 13.3 k/uL (1.3-7.7); Neutrophils % (A) 90 %; Platelet Count 86 k/uL (150-450); Poikilocytosis Slight; RBC 2.83 m/uL (4.30-5.90); RDW 16.7 % (11.5-15.5); WBC 14.7 k/uL (3.8-10.6)
[2023-02-01 04:16] LABS: HGB 9.3 gm/dL (13.0-17.5)
[2023-02-01 04:43] LABS: African American GFR (CKD) 54 (>60 ml/min/1.73 sqM); Albumin 2.6 g/dL (3.5-5.0); Alkaline Phosphatase 47 U/L (38-126); Anion Gap 23 mmol/L; Blood Urea Nitrogen 23 mg/dL (9-20); Calcium 7.2 mg/dL (8.4-10.2); Carbon Dioxide 13 mmol/L (22-30); Chloride 106 mmol/L (98-107); Glucose 354 mg/dL (74-99); Non-African American GFR(CKD) 47 (>60 ml/min/1.73 sqM); Potassium 3.2 mmol/L (3.5-5.1); Sodium 142 mmol/L (137-145); Total Bilirubin 3.9 mg/dL (0.2-1.3)
[2023-02-01 05:00] LABS: ALT 1035 U/L (4-49)
[2023-02-01 05:05] LABS: AST 2080 U/L (17-59)
[2023-02-01] MEDS ORDERED: CALCIUM GLUCONATE IN NACL 1 GM in SALINE 1 100ML.BAG IVPB ONE (05:12)
[2023-02-01] MEDS: POTASSIUM CHLORIDE 10 MEQ in WATER FOR INJECTION 1 100ML.BAG IVPB SCH ×2 (05:31→06:32)
[2023-02-01] MEDS: MAGNESIUM SULFATE-D5W PMX 1 GM in DEXTROSE/WATER 1 100ML.BAG IVPB SCH ×2 (05:32→06:32)
[2023-02-01 05:40] LABS: ABG Base Excess -10.5 mmol/L; ABG HCO3 14 mmol/L (21-25); ABG Oxygen Saturation 98.5 % (94-97); ABG PCO2 23 mmHg (35-45); ABG PO2 106 mmHg (83-108); ABG TCO2 15 mmol/L (19-24); Allen Test Performed? Yes
[2023-02-01 05:58] LABS: Glucose,Whole Blood 410 mg/dL (70-110)
[2023-02-01] MEDS: INSULIN REGULAR 100 UNIT in SODIUM CHLORIDE 0.9% 100 ML IV SCH ×2 (06:26→15:07)
[2023-02-01 06:48] LABS: Glucose,Whole Blood 451 mg/dL (70-110)
--- NOTE | 2023-02-01 08:08 | XR ---
EXAMINATION TYPE: XR chest 1V DATE OF EXAM: 02/01/2023 4:06 AM CLINICAL INDICATION:Male, 82 years old with history of intubated; COMPARISON: Chest radiograph from one day prior. TECHNIQUE: XR chest 1V Frontal view of the chest. FINDINGS: Lungs/Pleura: There is no evidence of pleural effusion, focal consolidation, or pneumothorax. Pulmonary vascularity: Unremarkable. Heart/mediastinum: Cardiomediastinal silhouette is unremarkable. Musculoskeletal: No acute osseous pathology. Other findings: None Lines/Tubes: Endotracheal tube with distal tip 3.7 cm above the jesus. Nasogastric tube with its distal tip and side-port projecting under the diaphragm. IMPRESSION: No acute cardiopulmonary disease/process.
[2023-02-01 08:13] LABS: Glucose,Whole Blood 471 mg/dL (70-110)
[2023-02-01 08:25] LABS: Anisocytosis Slight; HCT 25.4 % (39.0-53.0); HGB 8.6 gm/dL (13.0-17.5); Hypochromasia Slight; MCH 32.9 pg (25.0-35.0); MCV 96.5 fL (80.0-100.0); Macrocytosis Slight; Mean Platelet Volume 10.2; Poikilocytosis Slight; RBC 2.63 m/uL (4.30-5.90); RDW 16.8 % (11.5-15.5); WBC 15.5 k/uL (3.8-10.6)
[2023-02-01] MEDS: AMIODARONE 200 MG TAB PO SCH ×2 (08:37→20:19)
[2023-02-01] MEDS: CHLORHEXIDINE GLUCONATE 15 ML CUP MUCOUS MEM SCH ×2 (08:37→20:23)
[2023-02-01] MEDS: PIPERACILLIN-TAZOBACTAM 3.375 GM in SODIUM CHLORIDE 0.9% 100 ML IVPB SCH ×3 (08:37→23:22)
[2023-02-01] MEDS: TIMOLOL 0.5% OPHTH DROPS 5 ML BTL BOTH EYES SCH ×2 (08:38→20:20)
[2023-02-01] MEDS ORDERED: DEXTROSE 5% IN WATER 1,000 ML with SODIUM BICARB (1 MEQ/ML) 150 ML IV SCH (08:45)
[2023-02-01] MEDS: METOPROLOL SUCCINATE (ER) 100 MG TAB.ER.24H PO SCH (08:46)
[2023-02-01] MEDS: TAMSULOSIN 0.4 MG CAP.ER.24H PO SCH ×2 (08:46→20:19)
[2023-02-01] MEDS: LOSARTAN 25 MG TAB PO SCH (08:47)
[2023-02-01 08:50] LABS: Platelet Count 83 k/uL (150-450)
--- NOTE | 2023-02-01 09:13 | P.PN ---
Subjective Progress Note Date: 02/01/23 82-year-old male patient was being seen in the intensive care unit following a repair of a 10.5 cm infrarenal abdominal aortic aneurysm with a tube graft. During the surgery, the patient also underwent a reimplantation of the left renal artery. The patient is known to have history of a stent graft repair of an abdominal aortic aneurysm and he was having issues with abdominal pain. CAT scan of the abdomen demonstrated a type I endoleak with massive enlargement of his aorta up to 10.5 cm inside and the transverse diameter. This was considered to be high risk for rupture. Based on that, the patient was taken to the operating room. This was a lengthy and extensive surgery. Estimated blood loss was 5 L. The patient was aggressively resuscitated with IV fluids and blood products. The patient intraoperatively received a total of 4 units of packed RBC, 2 units of fresh frozen plasma, 2 units of cryoprecipitate and currently is being transfused with 5 units of platelet concentrate. The patient is currently on epinephrine at 0.5 mcg/kg/m. The patient was still hypotensive at the time of my arrival with systolic blood pressure between 50 and 60. I increase the epinephrine to 0.8 and I started vasopressin. The patient was given another unit of packed RBC and another 500 mL of 5% albumin, making a total of 2 doses of IV albumin. His blood pressure improved and subsequently his most recent systolic blood pressure is in the mid 90s. The patient is a cardiac output of 4.9 with an index of 2.6, pulmonary artery pressures are 39/22. Urine output is minimal at this point in time. The patient has cold extremities. Pulses are obtained in the femorals bilaterally, the feet are cold and that is diminished pulses are obtained by Doppler signal. He was initially on assist control mode at a rate of 60 with a tidal volume of 500 and FiO2 100% with a PEEP of 5. He was given a total of 2 doses of sodium bicarb. The patient subsequently was brought up to a rate of 28 and FiO2 was gradually weaned off. Most recent blood gas showed improvement in his acid-base status. Patient at 7.31 with a pCO2 of 36 and pO2 more than 400. Chest x-ray shows adequate expansion of both lungs. Orotracheal tube, ET tube, [place] catheter and NG tube are all in good location. Abdominal wound site is dry clean and intact. There is no signs of any active bleeding at this point in time. The patient is on no sedation for now. He is deeply sedated and unresponsive. Blood sugars at 105. Awaiting follow-up labs and the most recent hemoglobin was at 7.7. Evaluation of 02/01/2023, the patient is being seen for a follow-up. Overnight, the patient was started on propofol which is running at 50 mcg/kg/m. His adequately sedated. No agitation. No restlessness. His calm and comfortable and symptoms a mechanical ventilator. He is postop day #1 following his surgery which included a repair of a abdominal aortic aneurysm with reimplantation of the left renal artery. The patient had a tube graft. The patient currently is on a mechanical ventilator, assist control mode at the rate of 28, tidal volume of 500, FiO2 of 40% with a PEEP of 5. The chest x-ray from this morning shows adequate expansion of both lungs. ET tube is in a good location. No evidence of any consolidation. No evidence of any pneumonia. The patient has a [place] catheter in place. The blood gases from this morning showed a pH of 7.4 with episodes of 23 and pO2 of 106 and the above-mentioned ventilator settings. No significant orotracheal secretions. Hemodynamically, the patient was aggressively resuscitated with fluids and blood products. Overall, he received a total of 6 units of packed RBCs, 5 units of fresh frozen plasma, 2 units of cryoprecipitate and one platelet aggregates. He also received 5% albumin 500 mL each a total of 2 doses. He remains on epinephrine which is running at 0.8 mcg/kg/m. Is also on vasopressin physiologic dose. His cardiac rhythm is sinus. Urine output is absent and the patient's creatinine is on the right and the patient is sustaining an acute kidney injury. On today's evaluation, BUN is at 23 with a creatinine of 1.38 and a sodium level is at 142 and the potassium levels at 3.2. The patient remains acidotic and the serum bicarbs at 13. IV fl uids are in the form of saline at rate of 75 mL an hour. Hemoglobin posttransfusion is at 8.6 with a white cell count of 15.5 and a platelet count of 83. Calcium level was low yesterday at 7.3 and the patient was given 2 g of calcium and the repeat calcium today is at 7.2. He has shock liver with a AST of 2080 and ALT of 1035. Ocular phosphatases 47. The patient is covered empirically with IV Zosyn. Cozaar and Toprol are currently on hold. Patient is having significant hyperglycemia and insulin drip was started at 14 units an hour. The insulin dose being titrated accordingly. Current. Pressures of 37/27. Most recent cardiac index is at 1.1. Objective - Vital Signs Vital signs: Vital Signs Temp 98.4 F 02/01/23 08:00 Pulse 118 H 02/01/23 08:30 Resp 28 H 02/01/23 08:30 BP 92/68 02/01/23 02:30 Pulse Ox 99 02/01/23 08:30 FiO2 40 02/01/23 08:09 Intake & Output 01/31/23 02/01/23 02/01/23 18:59 06:59 18:59 Intake Total 4072 4414.692 592.263 Output Total 5400 210 0 Balance -1328 4204.692 592.263 Weight 88.8 kg Intake: IV 2051 1054 188 Sodium Chloride 0.9% 1, 825 150 000 ml @ 75 mls/hr IV . [id number] [facility] Rx#:[id number] co/ci 130 20 pressure bag 99 18 Intake, IV Titration 2056.692 404.263 Amount Calcium Gluconate in NaCl 100 1 gm In Saline 1 100ml. bag @ 100 mls/hr IVPB ONCE ONE Rx#:[id number] EPINEPHrine 4 mg In 2023. 125.176 Dextrose 5% in Water 250 ml @ 0.03 MCG/KG/MIN 8. 675 mls/hr IV .Q24H [facility] Rx#:[id number] Insulin Regular 100 unit 3.5 17.4 In Sodium Chloride 0.9% 100 ml @ Per Protocol IV .Q0M [facility] Rx#:[id number] Potassium Chloride 10 meq 100 In Water For Injection 1 100ml.bag @ 100 mls/hr IVPB Q1H [facility] Rx#: [id number] Vasopressin 60 unit In 3.366 Sodium Chloride 0.9% 150 ml @ 0.03 UNITS/MIN 4.59 mls/hr IV .Q24H [facility] Rx#: [id number] propofoL 1,000 mg In 25.909 61.687 Empty Bag 1 bag @ 15 MCG/ KG/MIN 6.94 mls/hr IV . [id number] [facility] Rx#:[id number] Blood Product 2020 1303 Ffp 24 Pher Acda Unit 211 [id number] Ffp 24 Pher Acda Cnt1 217 Unit [id number] Ffp 24 Pher Acda Cnt1 226 Unit [id number] Ffp 24 Pher Acda Cnt1 213 Unit [id number] Ffp 24 Pher Acda Cnt2 214 Unit [id number] Platelet Pheresis Pas 0 273 Psoralen Unit [id number] Pooled Cryoprecipitate 80 Unit [id number] Pooled Cryoprecipitate 98 Unit [id number] Rc As-1 Unit 310 [id number] Rc As-1 Unit 310 [id number] Rc As-1 Unit 310 [id number] Rc Pheresis 2 As3 Unit 283 [id number] Rc Pheresis 2 As3 Unit 296 [id number] Rc Pheresis As-3 Unit 282 [id number] Output: Gastric Drainage 200 Urine 400 10 0 Estimated Blood Loss 5000 Other: Voiding Method Indwelling Catheter Indwelling Catheter # Bowel Movements 1 ABP, PAP, CO, CI - Last Documented Arterial Blood Pressure 110/68 Pulmonary Artery Pressure 37/26 Cardiac Output 2.1 Cardiac Index 1.1 - Exam Patient is currently intubated on a mechanical ventilator. No sedatives at this point in time. Orogastric and orotracheal tube are both in place. Head exam was generally normal. There was no scleral icterus or corneal arcus. Mucous membranes were moist. Neck was supple and without jugular venous distension, thyromegaly, or carotid bruits. Carotids were easily palpable bilaterally. There was no adenopathy. The patient has a left IJ Cordis and a left IJ [place] catheter in place Lungs sounds are equal and symmetrical bilaterally. Cardiac exam revealed the PMI to be normally situated and sized. The rhythm was regular and no extrasystoles were noted during several minutes of auscultation. The first and second heart sounds were normal and physiologic splitting of the second heart sound was noted. There were no murmurs, rubs, clicks, or gallops. Abdomen is soft and bowel sounds are absent. Large anterior abdominal wall surgical wound which is dry clean and intact. No direct tenderness. No rebound tenderness, no guarding Extremities are cold and diminished pulses are present the feet. Femoral pulses are present. Diminished capillary refill. No cyanosis or clubbing. Neurologically, the patient is sedated, pupils are round 2 mm in size, sluggish reactive to light. Motor and sensory function cannot be obtained at this point in time. - Labs CBC & Chem 7: 02/01/23 07:56 02/01/23 04:00 Labs: Abnormal Lab Results - Last 24 Hours (Table) 01/30/23 01/31/23 01/31/23 Range/Units 11:10 09:00 09:00 WBC (3.8-10.6) k/uL RBC (4.30-5.90) m/uL Hgb (13.0-17.5) gm/dL Hct (39.0-53.0) % MCV (80.0-100.0) fL RDW (11.5-15.5) % Plt Count (150-450) k/uL Neutrophils # (1.3-7.7) k/uL Neutrophils # (Manual) (1.3-7.7) k/uL Lymphocytes # (1.0-4.8) k/uL Nucleated RBCs (0-0) /100 WBC APTT (22.0-30.0) sec ABG pH 7.32 L (7.35-7.45) ABG pCO2 (35-45) mmHg ABG pO2 307 H 113 H (83-108) mmHg ABG HCO3 19 L (21-25) mmol/L ABG Total CO2 26 H (19-24) mmol/L ABG O2 Saturation 99.9 H 98.7 H (94-97) % ABG Hematocrit 23 L (34.0-46.0) % ABG Sodium (135-146) mmol/L ABG Potassium 3.1 L 3.3 L (3.4-4.5) mmol/L ABG Ionized Calcium 4.1 L (4.5-5.3) mg/dL ABG Glucose 113 H (75-99) mg/dL ABG Lactic Acid (0.5-1.6) mmol/L Hemoglobin 10.9 L 7.3 L (13.0-17.5) gm/dL Sodium (137-145) mmol/L Potassium (3.5-5.1) mmol/L Chloride (98-107) mmol/L Carbon Dioxide (22-30) mmol/L BUN (9-20) mg/dL Creatinine (0.66-1.25) mg/dL Glucose (74-99) mg/dL POC Glucose (mg/dL) (70-110) mg/dL Calcium (8.4-10.2) mg/dL Magnesium (1.6-2.3) mg/dL Total Bilirubin (0.2-1.3) mg/dL AST (17-59) U/L ALT (4-49) U/L Alkaline Phosphatase (38-126) U/L Total Protein (6.3-8.2) g/dL Albumin (3.5-5.0) g/dL Arterial Blood Potassium 3.1 L 3.3 L (3.4-4.5) mmol/L Arterial Blood Glucose 113 H (75-99) mg/dL Crossmatch See Detail 01/31/23 01/31/23 01/31/23 Range/Units 09:00 09:00 09:00 WBC (3.8-10.6) k/uL RBC (4.30-5.90) m/uL Hgb (13.0-17.5) gm/dL Hct (39.0-53.0) % MCV (80.0-100.0) fL RDW (11.5-15.5) % Plt Count (150-450) k/uL Neutrophils # (1.3-7.7) k/uL Neutrophils # (Manual) (1.3-7.7) k/uL Lymphocytes # (1.0-4.8) k/uL Nucleated RBCs (0-0) /100 WBC APTT (22.0-30.0) sec ABG pH 7.23 L 7.20 L (7.35-7.45) ABG pCO2 32 L (35-45) mmHg ABG pO2 131 H 157 H 172 H (83-108) mmHg ABG HCO3 18 L 17 L (21-25) mmol/L ABG Total CO2 18 L (19-24) mmol/L ABG O2 Saturation 98.9 H 99.7 H 99.2 H (94-97) % ABG Hematocrit 24 L 25 L 17 L* (34.0-46.0) % ABG Sodium (135-146) mmol/L ABG Potassium (3.4-4.5) mmol/L ABG Ionized Calcium 4.4 L 3.0 L* (4.5-5.3) mg/dL ABG Glucose 126 H 107 H (75-99) mg/dL ABG Lactic Acid 2.1 H 2.8 H* 4.0 H* (0.5-1.6) mmol/L Hemoglobin 7.8 L 8.1 L 5.4 L* (13.0-17.5) gm/dL Sodium (137-145) mmol/L Potassium (3.5-5.1) mmol/L Chloride (98-107) mmol/L Carbon Dioxide (22-30) mmol/L BUN (9-20) mg/dL Creatinine (0.66-1.25) mg/dL Glucose (74-99) mg/dL POC Glucose (mg/dL) (70-110) mg/dL Calcium (8.4-10.2) mg/dL Magnesium (1.6-2.3) mg/dL Total Bilirubin (0.2-1.3) mg/dL AST (17-59) U/L ALT (4-49) U/L Alkaline Phosphatase (38-126) U/L Total Protein (6.3-8.2) g/dL Albumin (3.5-5.0) g/dL Arterial Blood Potassium (3.4-4.5) mmol/L Arterial Blood Glucose 126 H 107 H (75-99) mg/dL Crossmatch 01/31/23 01/31/23 01/31/23 Range/Units 13:30 13:30 13:30 WBC (3.8-10.6) k/uL RBC (4.30-5.90) m/uL Hgb (13.0-17.5) gm/dL Hct (39.0-53.0) % MCV (80.0-100.0) fL RDW (11.5-15.5) % Plt Count (150-450) k/uL Neutrophils # (1.3-7.7) k/uL Neutrophils # (Manual) (1.3-7.7) k/uL Lymphocytes # (1.0-4.8) k/uL Nucleated RBCs (0-0) /100 WBC APTT (22.0-30.0) sec ABG pH 7.22 L 7.23 L 7.30 L (7.35-7.45) ABG pCO2 (35-45) mmHg ABG pO2 179 H 144 H 111 H (83-108) mmHg ABG HCO3 18 L 16 L 20 L (21-25) mmol/L ABG Total CO2 17 L (19-24) mmol/L ABG O2 Saturation 99.5 H 99.3 H 98.9 H (94-97) % ABG Hematocrit 26 L 23 L 28 L (34.0-46.0) % ABG Sodium 148 H 150 H 153 H (135-146) mmol/L ABG Potassium 5.3 H 2.8 L* (3.4-4.5) mmol/L ABG Ionized Calcium 3.5 L* 4.0 L 4.0 L (4.5-5.3) mg/dL ABG Glucose 53 L 132 H (75-99) mg/dL ABG Lactic Acid 7.1 H* 8.0 H* 8.2 H* (0.5-1.6) mmol/L Hemoglobin 8.4 L 7.5 L 9.2 L (13.0-17.5) gm/dL Sodium (137-145) mmol/L Potassium (3.5-5.1) mmol/L Chloride (98-107) mmol/L Carbon Dioxide (22-30) mmol/L BUN (9-20) mg/dL Creatinine (0.66-1.25) mg/dL Glucose (74-99) mg/dL POC Glucose (mg/dL) (70-110) mg/dL Calcium (8.4-10.2) mg/dL Magnesium (1.6-2.3) mg/dL Total Bilirubin (0.2-1.3) mg/dL AST (17-59) U/L ALT (4-49) U/L Alkaline Phosphatase (38-126) U/L Total Protein (6.3-8.2) g/dL Albumin (3.5-5.0) g/dL Arterial Blood Potassium 5.3 H 2.8 L* (3.4-4.5) mmol/L Arterial Blood Glucose 53 L 132 H (75-99) mg/dL Crossmatch 01/31/23 01/31/23 01/31/23 Range/Units 13:30 13:30 18:29 WBC (3.8-10.6) k/uL RBC (4.30-5.90) m/uL Hgb (13.0-17.5) gm/dL Hct (39.0-53.0) % MCV (80.0-100.0) fL RDW (11.5-15.5) % Plt Count (150-450) k/uL Neutrophils # (1.3-7.7) k/uL Neutrophils # (Manual) (1.3-7.7) k/uL Lymphocytes # (1.0-4.8) k/uL Nucleated RBCs (0-0) /100 WBC APTT (22.0-30.0) sec ABG pH 7.21 L 7.28 L (7.35-7.45) ABG pCO2 (35-45) mmHg ABG pO2 109 H 137 H (83-108) mmHg ABG HCO3 16 L 19 L (21-25) mmol/L ABG Total CO2 18 L (19-24) mmol/L ABG O2 Saturation 98.3 H 99.0 H (94-97) % ABG Hematocrit 29 L 26 L (34.0-46.0) % ABG Sodium 151 H 153 H (135-146) mmol/L ABG Potassium 3.3 L (3.4-4.5) mmol/L ABG Ionized Calcium 4.3 L 4.2 L (4.5-5.3) mg/dL ABG Glucose 111 H 114 H (75-99) mg/dL ABG Lactic Acid 11.6 H* 11.4 H* (0.5-1.6) mmol/L Hemoglobin 9.4 L 8.4 L (13.0-17.5) gm/dL Sodium 148 H (137-145) mmol/L Potassium 3.2 L (3.5-5.1) mmol/L Chloride 113 H (98-107) mmol/L Carbon Dioxide 17 L (22-30) mmol/L BUN (9-20) mg/dL Creatinine (0.66-1.25) mg/dL Glucose 109 H (74-99) mg/dL POC Glucose (mg/dL) (70-110) mg/dL Calcium 7.3 L (8.4-10.2) mg/dL Magnesium (1.6-2.3) mg/dL Total Bilirubin 2.6 H (0.2-1.3) mg/dL AST 937 H (17-59) U/L ALT 523 H (4-49) U/L Alkaline Phosphatase 28 L (38-126) U/L Total Protein 3.1 L (6.3-8.2) g/dL Albumin 1.8 L (3.5-5.0) g/dL Arterial Blood Potassium 3.3 L (3.4-4.5) mmol/L Arterial Blood Glucose 111 H 114 H (75-99) mg/dL Crossmatch 01/31/23 01/31/23 01/31/23 Range/Units 18:29 18:29 18:37 WBC (3.8-10.6) k/uL RBC 2.29 L (4.30-5.90) m/uL Hgb 7.7 L D (13.0-17.5) gm/dL Hct 23.1 L (39.0-53.0) % MCV 101.1 H (80.0-100.0) fL RDW 15.7 H (11.5-15.5) % Plt Count 70 L D (150-450) k/uL Neutrophils # (1.3-7.7) k/uL Neutrophils # (Manual) 8.13 H (1.3-7.7) k/uL Lymphocytes # (1.0-4.8) k/uL Nucleated RBCs 1 H (0-0) /100 WBC APTT 74.2 H (22.0-30.0) sec ABG pH 7.20 L (7.35-7.45) ABG pCO2 (35-45) mmHg ABG pO2 319 H (83-108) mmHg ABG HCO3 16 L (21-25) mmol/L ABG Total CO2 18 L (19-24) mmol/L ABG O2 Saturation 99.9 H (94-97) % ABG Hematocrit (34.0-46.0) % ABG Sodium (135-146) mmol/L ABG Potassium (3.4-4.5) mmol/L ABG Ionized Calcium (4.5-5.3) mg/dL ABG Glucose (75-99) mg/dL ABG Lactic Acid (0.5-1.6) mmol/L Hemoglobin (13.0-17.5) gm/dL Sodium (137-145) mmol/L Potassium (3.5-5.1) mmol/L Chloride (98-107) mmol/L Carbon Dioxide (22-30) mmol/L BUN (9-20) mg/dL Creatinine (0.66-1.25) mg/dL Glucose (74-99) mg/dL POC Glucose (mg/dL) (70-110) mg/dL Calcium (8.4-10.2) mg/dL Magnesium (1.6-2.3) mg/dL Total Bilirubin (0.2-1.3) mg/dL AST (17-59) U/L ALT (4-49) U/L Alkaline Phosphatase (38-126) U/L Total Protein (6.3-8.2) g/dL Albumin (3.5-5.0) g/dL Arterial Blood Potassium (3.4-4.5) mmol/L Arterial Blood Glucose (75-99) mg/dL Crossmatch 01/31/23 01/31/23 02/01/23 Range/Units 19:02 22:09 00:10 WBC 11.4 H (3.8-10.6) k/uL RBC 2.30 L (4.30-5.90) m/uL Hgb 7.4 L (13.0-17.5) gm/dL Hct 23.0 L (39.0-53.0) % MCV 100.2 H (80.0-100.0) fL RDW 16.0 H (11.5-15.5) % Plt Count 86 L (150-450) k/uL Neutrophils # 10.1 H (1.3-7.7) k/uL Neutrophils # (Manual) (1.3-7.7) k/uL Lymphocytes # 0.9 L (1.0-4.8) k/uL Nucleated RBCs (0-0) /100 WBC APTT (22.0-30.0) sec ABG pH 7.31 L (7.35-7.45) ABG pCO2 (35-45) mmHg ABG pO2 >400 H (83-108) mmHg ABG HCO3 18 L (21-25) mmol/L ABG Total CO2 (19-24) mmol/L ABG O2 Saturation 100.0 H (94-97) % ABG Hematocrit (34.0-46.0) % ABG Sodium (135-146) mmol/L ABG Potassium (3.4-4.5) mmol/L ABG Ionized Calcium (4.5-5.3) mg/dL ABG Glucose (75-99) mg/dL ABG Lactic Acid (0.5-1.6) mmol/L Hemoglobin (13.0-17.5) gm/dL Sodium (137-145) mmol/L Potassium (3.5-5.1) mmol/L Chloride (98-107) mmol/L Carbon Dioxide (22-30) mmol/L BUN (9-20) mg/dL Creatinine (0.66-1.25) mg/dL Glucose (74-99) mg/dL POC Glucose (mg/dL) 323 H (70-110) mg/dL Calcium (8.4-10.2) mg/dL Magnesium (1.6-2.3) mg/dL Total Bilirubin (0.2-1.3) mg/dL AST (17-59) U/L ALT (4-49) U/L Alkaline Phosphatase (38-126) U/L Total Protein (6.3-8.2) g/dL Albumin (3.5-5.0) g/dL Arterial Blood Potassium (3.4-4.5) mmol/L Arterial Blood Glucose (75-99) mg/dL Crossmatch 02/01/23 02/01/23 02/01/23 Range/Units 04:00 04:00 05:27 WBC 14.7 H (3.8-10.6) k/uL RBC 2.83 L (4.30-5.90) m/uL Hgb 9.3 L D (13.0-17.5) gm/dL Hct 27.2 L (39.0-53.0) % MCV (80.0-100.0) fL RDW 16.7 H (11.5-15.5) % Plt Count 86 L (150-450) k/uL Neutrophils # 13.3 H (1.3-7.7) k/uL Neutrophils # (Manual) (1.3-7.7) k/uL Lymphocytes # (1.0-4.8) k/uL Nucleated RBCs (0-0) /100 WBC APTT (22.0-30.0) sec ABG pH (7.35-7.45) ABG pCO2 23 L (35-45) mmHg ABG pO2 (83-108) mmHg ABG HCO3 14 L (21-25) mmol/L ABG Total CO2 15 L (19-24) mmol/L ABG O2 Saturation 98.5 H (94-97) % ABG Hematocrit (34.0-46.0) % ABG Sodium (135-146) mmol/L ABG Potassium (3.4-4.5) mmol/L ABG Ionized Calcium (4.5-5.3) mg/dL ABG Glucose (75-99) mg/dL ABG Lactic Acid (0.5-1.6) mmol/L Hemoglobin (13.0-17.5) gm/dL Sodium (137-145) mmol/L Potassium 3.2 L (3.5-5.1) mmol/L Chloride (98-107) mmol/L Carbon Dioxide 13 L (22-30) mmol/L BUN 23 H (9-20) mg/dL Creatinine 1.38 H (0.66-1.25) mg/dL Glucose 354 H (74-99) mg/dL POC Glucose (mg/dL) (70-110) mg/dL Calcium 7.2 L (8.4-10.2) mg/dL Magnesium 1.0 L (1.6-2.3) mg/dL Total Bilirubin 3.9 H (0.2-1.3) mg/dL AST 2080 H (17-59) U/L ALT 1035 H (4-49) U/L Alkaline Phosphatase (38-126) U/L Total Protein 4.0 L (6.3-8.2) g/dL Albumin 2.6 L (3.5-5.0) g/dL Arterial Blood Potassium (3.4-4.5) mmol/L Arterial Blood Glucose (75-99) mg/dL Crossmatch 02/01/23 02/01/23 02/01/23 Range/Units 05:56 06:46 07:56 WBC 15.5 H (3.8-10.6) k/uL RBC 2.63 L (4.30-5.90) m/uL Hgb 8.6 L (13.0-17.5) gm/dL Hct 25.4 L (39.0-53.0) % MCV (80.0-100.0) fL RDW 16.8 H (11.5-15.5) % Plt Count 83 L (150-450) k/uL Neutrophils # (1.3-7.7) k/uL Neutrophils # (Manual) (1.3-7.7) k/uL Lymphocytes # (1.0-4.8) k/uL Nucleated RBCs (0-0) /100 WBC APTT (22.0-30.0) sec ABG pH (7.35-7.45) ABG pCO2 (35-45) mmHg ABG pO2 (83-108) mmHg ABG HCO3 (21-25) mmol/L ABG Total CO2 (19-24) mmol/L ABG O2 Saturation (94-97) % ABG Hematocrit (34.0-46.0) % ABG Sodium (135-146) mmol/L ABG Potassium (3.4-4.5) mmol/L ABG Ionized Calcium (4.5-5.3) mg/dL ABG Glucose (75-99) mg/dL ABG Lactic Acid (0.5-1.6) mmol/L Hemoglobin (13.0-17.5) gm/dL Sodium (137-145) mmol/L Potassium (3.5-5.1) mmol/L Chloride (98-107) mmol/L Carbon Dioxide (22-30) mmol/L BUN (9-20) mg/dL Creatinine (0.66-1.25) mg/dL Glucose (74-99) mg/dL POC Glucose (mg/dL) 410 H 451 H (70-110) mg/dL Calcium (8.4-10.2) mg/dL Magnesium (1.6-2.3) mg/dL Total Bilirubin (0.2-1.3) mg/dL AST (17-59) U/L ALT (4-49) U/L Alkaline Phosphatase (38-126) U/L Total Protein (6.3-8.2) g/dL Albumin (3.5-5.0) g/dL Arterial Blood Potassium (3.4-4.5) mmol/L Arterial Blood Glucose (75-99) mg/dL Crossmatch 02/01/23 Range/Units 08:12 WBC (3.8-10.6) k/uL RBC (4.30-5.90) m/uL Hgb (13.0-17.5) gm/dL Hct (39.0-53.0) % MCV (80.0-100.0) fL RDW (11.5-15.5) % Plt Count (150-450) k/uL Neutrophils # (1.3-7.7) k/uL Neutrophils # (Manual) (1.3-7.7) k/uL Lymphocytes # (1.0-4.8) k/uL Nucleated RBCs (0-0) /100 WBC APTT (22.0-30.0) sec ABG pH (7.35-7.45) ABG pCO2 (35-45) mmHg ABG pO2 (83-108) mmHg ABG HCO3 (21-25) mmol/L ABG Total CO2 (19-24) mmol/L ABG O2 Saturation (94-97) % ABG Hematocrit (34.0-46.0) % ABG Sodium (135-146) mmol/L ABG Potassium (3.4-4.5) mmol/L ABG Ionized Calcium (4.5-5.3) mg/dL ABG Glucose (75-99) mg/dL ABG Lactic Acid (0.5-1.6) mmol/L Hemoglobin (13.0-17.5) gm/dL Sodium (137-145) mmol/L Potassium (3.5-5.1) mmol/L Chloride (98-107) mmol/L Carbon Dioxide (22-30) mmol/L BUN (9-20) mg/dL Creatinine (0.66-1.25) mg/dL Glucose (74-99) mg/dL POC Glucose (mg/dL) 471 H (70-110) mg/dL Calcium (8.4-10.2) mg/dL Magnesium (1.6-2.3) mg/dL Total Bilirubin (0.2-1.3) mg/dL AST (17-59) U/L ALT (4-49) U/L Alkaline Phosphatase (38-126) U/L Total Protein (6.3-8.2) g/dL Albumin (3.5-5.0) g/dL Arterial Blood Potassium (3.4-4.5) mmol/L Arterial Blood Glucose (75-99) mg/dL Crossmatch Assessment and Plan Plan: Abdominal aortic aneurysm, 10.5 cm infrarenal. The patient is post endovascular aortic aneurysm repair back in 2018 with subsequent presentation with abdominal pain and presence of an endovascular leak in addition to a large abdominal aortic aneurysm, symptomatic, high risk for rupture. The patient is post repair of a infrarenal abdominal aortic aneurysm with a tube graft and amputation of the left renal artery, currently postop day #1 Shock, a combination of distributive and hypovolemic. The patient significant blood loss resuscitated with blood products and fluids both colloids and crystalloids. Received a total of 6 units of packed RBC, 5 units of fresh frozen plasma, 2 units of cryoprecipitate, and IV albumin. Acute hypercapnic respiratory failure secondary to above, adequate oxygenation, improved acid-base status currently intubated on a mechanical ventilator. Anion gap metabolic acidosis Acute kidney injury secondary to above and the patient is anuric at this point Hypocalcemia likely secondary to aggressive use of blood products Abdominal pain secondary to above Nephrolithiasis Paroxysmal A. fib current rhythm is sinus Chronic systolic heart failure with an ejection fraction of 40-45% Hypertension, history of Hyperlipidemia Prostate enlargement Osteoarthritis DNR CODE STATUS Plan Continue ventilator support and no ventilator changes for today Switch this patient to a bicarb infusion at the rate of 100 mL an hour Continue norepinephrine and vasopressin Monitor cardiac and this was essentially lower compared to yesterday Give another 2 g of calcium gluconate Insulin management for blood sugar control, currently on 14 units and the dose will be titrated accordingly Eliminate dextrose from the epinephrine drip Monitor hemodynamics and the patient has a [place] catheter in place, adequate cardiac output and index Continue IV Zosyn Obtain ultrasound the kidneys to rule out hydronephrosis Sedation with low-dose propofol Abdominal wound is dry clean and intact Patient will be kept nothing by mouth for now Condition is obviously critical and the patient's is a DO NOT RESUSCITATE CODE STATUS. We'll continue to follow. Evaluation was done in more than one hour. Time with Patient: Greater than 30
[2023-02-01 09:16] LABS: Glucose,Whole Blood 434 mg/dL (70-110)
[2023-02-01] MEDS: allopurinoL 100 MG TAB PO SCH (09:24)
[2023-02-01] MEDS: ATORVASTATIN 10 MG TAB PO SCH (09:24)
[2023-02-01 09:25] LABS: INR 2.5 (<1.2); Partial Thromboplastin Time 42.9 sec (22.0-30.0); Prothrombin Time 24.5 sec (10.0-12.5)
[2023-02-01] MEDS: EPINEPHRINE IV SCH ×6 (09:36→20:10)
[2023-02-01] MEDS: DEXTROSE 5% IV SCH ×6 (09:36→20:10)
[2023-02-01] MEDS: SODIUM CHLORIDE 0.45% 1,000 ML with SODIUM BICARB (1 MEQ/ML) 100 ML IV SCH ×4 (09:36→20:10)
[2023-02-01] MEDS: WATER IV SCH ×6 (09:36→20:10)
--- NOTE | 2023-02-01 09:51 | P.PN ---
Subjective Progress Note Date: 02/01/23 Principal diagnosis: Abdominal aortic aneurysm The patient is seen and examined today as a follow-up in the ICU. He is postop day #1 for repair template 5 cm infrarenal abdominal aortic aneurysm with tube graft and reimplantation of the left renal artery. He is currently intubated and on mechanical ventilation. He has been hypotensive and tachycardic. He is on pressors for blood pressure control. He is status post 6 units of red blood cell transfusion, 5 units of FFP, 1 unit of platelets, 2 units of cryoprecipitate. This morning patient's labs WBC 14.7 hemoglobin 9.3 hematocrit 27 platelet count 86,000 sodium 142 potassium 3.2 BUN 23 creatinine 1.38 glucose 354 calcium 7.2 magnesium 1.0 total bilirubin 3.9 AST 20/80 ALT 1035 alkaline phosphatase 47. Chest x-ray shows no acute cardiopulmonary process. He has a Medina catheter in place with approximately 400 mL output over last 24 hours. Abdominal dressing clean dry and intact. The patient's family at the bedside, they did reiterate patient has a status. Objective - Vital Signs Vital signs: Vital Signs Temp 98.1 F 02/01/23 04:00 Pulse 117 H 02/01/23 07:00 Resp 28 H 02/01/23 07:00 BP 92/68 02/01/23 02:30 Pulse Ox 100 02/01/23 07:00 FiO2 40 02/01/23 08:09 Intake & Output 01/31/23 02/01/23 02/01/23 18:59 06:59 18:59 Intake Total 4072 4414.692 272.841 Output Total 5400 210 0 Balance -1328 4204.692 272.841 Weight 88.8 kg Intake: IV 2051 1054 84 Sodium Chloride 0.9% 1, 825 75 000 ml @ 75 mls/hr IV . [id number] [facility] Rx#:[id number] co/ci 130 pressure bag 99 9 Intake, IV Titration 2056.69 188.841 Amount EPINEPHrine 4 mg In 125.176 Dextrose 5% in Water 250 ml @ 0.03 MCG/KG/MIN 8. 675 mls/hr IV .Q24H [facility] Rx#:[id number] Insulin Regular 100 unit 3.5 17.4 In Sodium Chloride 0.9% 100 ml @ Per Protocol IV .Q0M [facility] Rx#:[id number] Vasopressin 60 unit In 3.366 Sodium Chloride 0.9% 150 ml @ 0.03 UNITS/MIN 4.59 mls/hr IV .Q24H [facility] Rx#: [id number] propofoL 1,000 mg In 25.909 46.265 Empty Bag 1 bag @ 15 MCG/ KG/MIN 6.94 mls/hr IV . [id number] [facility] Rx#:[id number] Blood Product 2020 1303 Ffp 24 Pher Acda Unit 211 [id number] Ffp 24 Pher Acda Cnt1 217 Unit [id number] Ffp 24 Pher Acda Cnt1 226 Unit [id number] Ffp 24 Pher Acda Cnt1 213 Unit [id number] Ffp 24 Pher Acda Cnt2 214 Unit [id number] Platelet Pheresis Pas 0 273 Psoralen Unit [id number] Pooled Cryoprecipitate 80 Unit [id number] Pooled Cryoprecipitate 98 Unit [id number] Rc As-1 Unit 310 [id number] Rc As-1 Unit 310 [id number] Rc As-1 Unit 310 [id number] Rc Pheresis 2 As3 Unit 283 [id number] Rc Pheresis 2 As3 Unit 296 [id number] Rc Pheresis As-3 Unit 282 [id number] Output: Gastric Drainage 200 Urine 400 10 0 Estimated Blood Loss 5000 Other: Voiding Method Indwelling Catheter # Bowel Movements 1 ABP, PAP, CO, CI - Last Documented Arterial Blood Pressure 121/76 Pulmonary Artery Pressure 38/26 Cardiac Output 2.2 Cardiac Index 1.2 - Exam General appearance: The patient is sedated and intubated on mechanical ventilation HET: Head is normocephalic and atraumatic. Neck: Supple. Heart: Regular. Tachycardic. Lungs: Equal expansion, on mechanical ventilation. Abdomen: Soft, nondistended. Dressing clean dry and intact Extremities: Normal skin color and turgor. Palpable bilateral femoral pulses. Neurological: Patient is sedated and intubated. - Labs CBC & Chem 7: 02/01/23 07:56 02/01/23 04:00 Labs: Abnormal Lab Results - Last 24 Hours (Table) 01/30/23 01/31/23 01/31/23 Range/Units 11:10 09:00 09:00 WBC (3.8-10.6) k/uL RBC (4.30-5.90) m/uL Hgb (13.0-17.5) gm/dL Hct (39.0-53.0) % MCV (80.0-100.0) fL RDW (11.5-15.5) % Plt Count (150-450) k/uL Neutrophils # (1.3-7.7) k/uL Neutrophils # (Manual) (1.3-7.7) k/uL Lymphocytes # (1.0-4.8) k/uL Nucleated RBCs (0-0) /100 WBC APTT (22.0-30.0) sec ABG pH 7.32 L (7.35-7.45) ABG pCO2 (35-45) mmHg ABG pO2 307 H 113 H (83-108) mmHg ABG HCO3 19 L (21-25) mmol/L ABG Total CO2 26 H (19-24) mmol/L ABG O2 Saturation 99.9 H 98.7 H (94-97) % ABG Hematocrit 23 L (34.0-46.0) % ABG Sodium (135-146) mmol/L ABG Potassium 3.1 L 3.3 L (3.4-4.5) mmol/L ABG Ionized Calcium 4.1 L (4.5-5.3) mg/dL ABG Glucose 113 H (75-99) mg/dL ABG Lactic Acid (0.5-1.6) mmol/L Hemoglobin 10.9 L 7.3 L (13.0-17.5) gm/dL Sodium (137-145) mmol/L Potassium (3.5-5.1) mmol/L Chloride (98-107) mmol/L Carbon Dioxide (22-30) mmol/L BUN (9-20) mg/dL Creatinine (0.66-1.25) mg/dL Glucose (74-99) mg/dL POC Glucose (mg/dL) (70-110) mg/dL Calcium (8.4-10.2) mg/dL Magnesium (1.6-2.3) mg/dL Total Bilirubin (0.2-1.3) mg/dL AST (17-59) U/L ALT (4-49) U/L Alkaline Phosphatase (38-126) U/L Total Protein (6.3-8.2) g/dL Albumin (3.5-5.0) g/dL Arterial Blood Potassium 3.1 L 3.3 L (3.4-4.5) mmol/L Arterial Blood Glucose 113 H (75-99) mg/dL Crossmatch See Detail 01/31/23 01/31/23 01/31/23 Range/Units 09:00 09:00 09:00 WBC (3.8-10.6) k/uL RBC (4.30-5.90) m/uL Hgb (13.0-17.5) gm/dL Hct (39.0-53.0) % MCV (80.0-100.0) fL RDW (11.5-15.5) % Plt Count (150-450) k/uL Neutrophils # (1.3-7.7) k/uL Neutrophils # (Manual) (1.3-7.7) k/uL Lymphocytes # (1.0-4.8) k/uL Nucleated RBCs (0-0) /100 WBC APTT (22.0-30.0) sec ABG pH 7.23 L 7.20 L (7.35-7.45) ABG pCO2 32 L (35-45) mmHg ABG pO2 131 H 157 H 172 H (83-108) mmHg ABG HCO3 18 L 17 L (21-25) mmol/L ABG Total CO2 18 L (19-24) mmol/L ABG O2 Saturation 98.9 H 99.7 H 99.2 H (94-97) % ABG Hematocrit 24 L 25 L 17 L* (34.0-46.0) % ABG Sodium (135-146) mmol/L ABG Potassium (3.4-4.5) mmol/L ABG Ionized Calcium 4.4 L 3.0 L* (4.5-5.3) mg/dL ABG Glucose 126 H 107 H (75-99) mg/dL ABG Lactic Acid 2.1 H 2.8 H* 4.0 H* (0.5-1.6) mmol/L Hemoglobin 7.8 L 8.1 L 5.4 L* (13.0-17.5) gm/dL Sodium (137-145) mmol/L Potassium (3.5-5.1) mmol/L Chloride (98-107) mmol/L Carbon Dioxide (22-30) mmol/L BUN (9-20) mg/dL Creatinine (0.66-1.25) mg/dL Glucose (74-99) mg/dL POC Glucose (mg/dL) (70-110) mg/dL Calcium (8.4-10.2) mg/dL Magnesium (1.6-2.3) mg/dL Total Bilirubin (0.2-1.3) mg/dL AST (17-59) U/L ALT (4-49) U/L Alkaline Phosphatase (38-126) U/L Total Protein (6.3-8.2) g/dL Albumin (3.5-5.0) g/dL Arterial Blood Potassium (3.4-4.5) mmol/L Arterial Blood Glucose 126 H 107 H (75-99) mg/dL Crossmatch 01/31/23 01/31/23 01/31/23 Range/Units 13:30 13:30 13:30 WBC (3.8-10.6) k/uL RBC (4.30-5.90) m/uL Hgb (13.0-17.5) gm/dL Hct (39.0-53.0) % MCV (80.0-100.0) fL RDW (11.5-15.5) % Plt Count (150-450) k/uL Neutrophils # (1.3-7.7) k/uL Neutrophils # (Manual) (1.3-7.7) k/uL Lymphocytes # (1.0-4.8) k/uL Nucleated RBCs (0-0) /100 WBC APTT (22.0-30.0) sec ABG pH 7.22 L 7.23 L 7.30 L (7.35-7.45) ABG pCO2 (35-45) mmHg ABG pO2 179 H 144 H 111 H (83-108) mmHg ABG HCO3 18 L 16 L 20 L (21-25) mmol/L ABG Total CO2 17 L (19-24) mmol/L ABG O2 Saturation 99.5 H 99.3 H 98.9 H (94-97) % ABG Hematocrit 26 L 23 L 28 L (34.0-46.0) % ABG Sodium 148 H 150 H 153 H (135-146) mmol/L ABG Potassium 5.3 H 2.8 L* (3.4-4.5) mmol/L ABG Ionized Calcium 3.5 L* 4.0 L 4.0 L (4.5-5.3) mg/dL ABG Glucose 53 L 132 H (75-99) mg/dL ABG Lactic Acid 7.1 H* 8.0 H* 8.2 H* (0.5-1.6) mmol/L Hemoglobin 8.4 L 7.5 L 9.2 L (13.0-17.5) gm/dL Sodium (137-145) mmol/L Potassium (3.5-5.1) mmol/L Chloride (98-107) mmol/L Carbon Dioxide (22-30) mmol/L BUN (9-20) mg/dL Creatinine (0.66-1.25) mg/dL Glucose (74-99) mg/dL POC Glucose (mg/dL) (70-110) mg/dL Calcium (8.4-10.2) mg/dL Magnesium (1.6-2.3) mg/dL Total Bilirubin (0.2-1.3) mg/dL AST (17-59) U/L ALT (4-49) U/L Alkaline Phosphatase (38-126) U/L Total Protein (6.3-8.2) g/dL Albumin (3.5-5.0) g/dL Arterial Blood Potassium 5.3 H 2.8 L* (3.4-4.5) mmol/L Arterial Blood Glucose 53 L 132 H (75-99) mg/dL Crossmatch 01/31/23 01/31/23 01/31/23 Range/Units 13:30 13:30 18:29 WBC (3.8-10.6) k/uL RBC (4.30-5.90) m/uL Hgb (13.0-17.5) gm/dL Hct (39.0-53.0) % MCV (80.0-100.0) fL RDW (11.5-15.5) % Plt Count (150-450) k/uL Neutrophils # (1.3-7.7) k/uL Neutrophils # (Manual) (1.3-7.7) k/uL Lymphocytes # (1.0-4.8) k/uL Nucleated RBCs (0-0) /100 WBC APTT (22.0-30.0) sec ABG pH 7.21 L 7.28 L (7.35-7.45) ABG pCO2 (35-45) mmHg ABG pO2 109 H 137 H (83-108) mmHg ABG HCO3 16 L 19 L (21-25) mmol/L ABG Total CO2 18 L (19-24) mmol/L ABG O2 Saturation 98.3 H 99.0 H (94-97) % ABG Hematocrit 29 L 26 L (34.0-46.0) % ABG Sodium 151 H 153 H (135-146) mmol/L ABG Potassium 3.3 L (3.4-4.5) mmol/L ABG Ionized Calcium 4.3 L 4.2 L (4.5-5.3) mg/dL ABG Glucose 111 H 114 H (75-99) mg/dL ABG Lactic Acid 11.6 H* 11.4 H* (0.5-1.6) mmol/L Hemoglobin 9.4 L 8.4 L (13.0-17.5) gm/dL Sodium 148 H (137-145) mmol/L Potassium 3.2 L (3.5-5.1) mmol/L Chloride 113 H (98-107) mmol/L Carbon Dioxide 17 L (22-30) mmol/L BUN (9-20) mg/dL Creatinine (0.66-1.25) mg/dL Glucose 109 H (74-99) mg/dL POC Glucose (mg/dL) (70-110) mg/dL Calcium 7.3 L (8.4-10.2) mg/dL Magnesium (1.6-2.3) mg/dL Total Bilirubin 2.6 H (0.2-1.3) mg/dL AST 937 H (17-59) U/L ALT 523 H (4-49) U/L Alkaline Phosphatase 28 L (38-126) U/L Total Protein 3.1 L (6.3-8.2) g/dL Albumin 1.8 L (3.5-5.0) g/dL Arterial Blood Potassium 3.3 L (3.4-4.5) mmol/L Arterial Blood Glucose 111 H 114 H (75-99) mg/dL Crossmatch 01/31/23 01/31/23 01/31/23 Range/Units 18:29 18:29 18:37 WBC (3.8-10.6) k/uL RBC 2.29 L (4.30-5.90) m/uL Hgb 7.7 L D (13.0-17.5) gm/dL Hct 23.1 L (39.0-53.0) % MCV 101.1 H (80.0-100.0) fL RDW 15.7 H (11.5-15.5) % Plt Count 70 L D (150-450) k/uL Neutrophils # (1.3-7.7) k/uL Neutrophils # (Manual) 8.13 H (1.3-7.7) k/uL Lymphocytes # (1.0-4.8) k/uL Nucleated RBCs 1 H (0-0) /100 WBC APTT 74.2 H (22.0-30.0) sec ABG pH 7.20 L (7.35-7.45) ABG pCO2 (35-45) mmHg ABG pO2 319 H (83-108) mmHg ABG HCO3 16 L (21-25) mmol/L ABG Total CO2 18 L (19-24) mmol/L ABG O2 Saturation 99.9 H (94-97) % ABG Hematocrit (34.0-46.0) % ABG Sodium (135-146) mmol/L ABG Potassium (3.4-4.5) mmol/L ABG Ionized Calcium (4.5-5.3) mg/dL ABG Glucose (75-99) mg/dL ABG Lactic Acid (0.5-1.6) mmol/L Hemoglobin (13.0-17.5) gm/dL Sodium (137-145) mmol/L Potassium (3.5-5.1) mmol/L Chloride (98-107) mmol/L Carbon Dioxide (22-30) mmol/L BUN (9-20) mg/dL Creatinine (0.66-1.25) mg/dL Glucose (74-99) mg/dL POC Glucose (mg/dL) (70-110) mg/dL Calcium (8.4-10.2) mg/dL Magnesium (1.6-2.3) mg/dL Total Bilirubin (0.2-1.3) mg/dL AST (17-59) U/L ALT (4-49) U/L Alkaline Phosphatase (38-126) U/L Total Protein (6.3-8.2) g/dL Albumin (3.5-5.0) g/dL Arterial Blood Potassium (3.4-4.5) mmol/L Arterial Blood Glucose (75-99) mg/dL Crossmatch 01/31/23 01/31/23 02/01/23 Range/Units 19:02 22:09 00:10 WBC 11.4 H (3.8-10.6) k/uL RBC 2.30 L (4.30-5.90) m/uL Hgb 7.4 L (13.0-17.5) gm/dL Hct 23.0 L (39.0-53.0) % MCV 100.2 H (80.0-100.0) fL RDW 16.0 H (11.5-15.5) % Plt Count 86 L (150-450) k/uL Neutrophils # 10.1 H (1.3-7.7) k/uL Neutrophils # (Manual) (1.3-7.7) k/uL Lymphocytes # 0.9 L (1.0-4.8) k/uL Nucleated RBCs (0-0) /100 WBC APTT (22.0-30.0) sec ABG pH 7.31 L (7.35-7.45) ABG pCO2 (35-45) mmHg ABG pO2 >400 H (83-108) mmHg ABG HCO3 18 L (21-25) mmol/L ABG Total CO2 (19-24) mmol/L ABG O2 Saturation 100.0 H (94-97) % ABG Hematocrit (34.0-46.0) % ABG Sodium (135-146) mmol/L ABG Potassium (3.4-4.5) mmol/L ABG Ionized Calcium (4.5-5.3) mg/dL ABG Glucose (75-99) mg/dL ABG Lactic Acid (0.5-1.6) mmol/L Hemoglobin (13.0-17.5) gm/dL Sodium (137-145) mmol/L Potassium (3.5-5.1) mmol/L Chloride (98-107) mmol/L Carbon Dioxide (22-30) mmol/L BUN (9-20) mg/dL Creatinine (0.66-1.25) mg/dL Glucose (74-99) mg/dL POC Glucose (mg/dL) 323 H (70-110) mg/dL Calcium (8.4-10.2) mg/dL Magnesium (1.6-2.3) mg/dL Total Bilirubin (0.2-1.3) mg/dL AST (17-59) U/L ALT (4-49) U/L Alkaline Phosphatase (38-126) U/L Total Protein (6.3-8.2) g/dL Albumin (3.5-5.0) g/dL Arterial Blood Potassium (3.4-4.5) mmol/L Arterial Blood Glucose (75-99) mg/dL Crossmatch 02/01/23 02/01/23 02/01/23 Range/Units 04:00 04:00 05:27 WBC 14.7 H (3.8-10.6) k/uL RBC 2.83 L (4.30-5.90) m/uL Hgb 9.3 L D (13.0-17.5) gm/dL Hct 27.2 L (39.0-53.0) % MCV (80.0-100.0) fL RDW 16.7 H (11.5-15.5) % Plt Count 86 L (150-450) k/uL Neutrophils # 13.3 H (1.3-7.7) k/uL Neutrophils # (Manual) (1.3-7.7) k/uL Lymphocytes # (1.0-4.8) k/uL Nucleated RBCs (0-0) /100 WBC APTT (22.0-30.0) sec ABG pH (7.35-7.45) ABG pCO2 23 L (35-45) mmHg ABG pO2 (83-108) mmHg ABG HCO3 14 L (21-25) mmol/L ABG Total CO2 15 L (19-24) mmol/L ABG O2 Saturation 98.5 H (94-97) % ABG Hematocrit (34.0-46.0) % ABG Sodium (135-146) mmol/L ABG Potassium (3.4-4.5) mmol/L ABG Ionized Calcium (4.5-5.3) mg/dL ABG Glucose (75-99) mg/dL ABG Lactic Acid (0.5-1.6) mmol/L Hemoglobin (13.0-17.5) gm/dL Sodium (137-145) mmol/L Potassium 3.2 L (3.5-5.1) mmol/L Chloride (98-107) mmol/L Carbon Dioxide 13 L (22-30) mmol/L BUN 23 H (9-20) mg/dL Creatinine 1.38 H (0.66-1.25) mg/dL Glucose 354 H (74-99) mg/dL POC Glucose (mg/dL) (70-110) mg/dL Calcium 7.2 L (8.4-10.2) mg/dL Magnesium 1.0 L (1.6-2.3) mg/dL Total Bilirubin 3.9 H (0.2-1.3) mg/dL AST 2080 H (17-59) U/L ALT 1035 H (4-49) U/L Alkaline Phosphatase (38-126) U/L Total Protein 4.0 L (6.3-8.2) g/dL Albumin 2.6 L (3.5-5.0) g/dL Arterial Blood Potassium (3.4-4.5) mmol/L Arterial Blood Glucose (75-99) mg/dL Crossmatch 02/01/23 02/01/23 02/01/23 Range/Units 05:56 06:46 08:12 WBC (3.8-10.6) k/uL RBC (4.30-5.90) m/uL Hgb (13.0-17.5) gm/dL Hct (39.0-53.0) % MCV (80.0-100.0) fL RDW (11.5-15.5) % Plt Count (150-450) k/uL Neutrophils # (1.3-7.7) k/uL Neutrophils # (Manual) (1.3-7.7) k/uL Lymphocytes # (1.0-4.8) k/uL Nucleated RBCs (0-0) /100 WBC APTT (22.0-30.0) sec ABG pH (7.35-7.45) ABG pCO2 (35-45) mmHg ABG pO2 (83-108) mmHg ABG HCO3 (21-25) mmol/L ABG Total CO2 (19-24) mmol/L ABG O2 Saturation (94-97) % ABG Hematocrit (34.0-46.0) % ABG Sodium (135-146) mmol/L ABG Potassium (3.4-4.5) mmol/L ABG Ionized Calcium (4.5-5.3) mg/dL ABG Glucose (75-99) mg/dL ABG Lactic Acid (0.5-1.6) mmol/L Hemoglobin (13.0-17.5) gm/dL Sodium (137-145) mmol/L Potassium (3.5-5.1) mmol/L Chloride (98-107) mmol/L Carbon Dioxide (22-30) mmol/L BUN (9-20) mg/dL Creatinine (0.66-1.25) mg/dL Glucose (74-99) mg/dL POC Glucose (mg/dL) 410 H 451 H 471 H (70-110) mg/dL Calcium (8.4-10.2) mg/dL Magnesium (1.6-2.3) mg/dL Total Bilirubin (0.2-1.3) mg/dL AST (17-59) U/L ALT (4-49) U/L Alkaline Phosphatase (38-126) U/L Total Protein (6.3-8.2) g/dL Albumin (3.5-5.0) g/dL Arterial Blood Potassium (3.4-4.5) mmol/L Arterial Blood Glucose (75-99) mg/dL Crossmatch Assessment and Plan Assessment: 1. Postop day #1 for repair of 10.5 cm infrarenal abdominal aortic aneurysm with tube graft and reimplantation of left renal artery 2. History of infrarenal abdominal aortic aneurysm status post endovascular aortic aneurysm repair in 2018, with new endoleak 3. Acute blood loss anemia, resuscitated with blood products and fluids 4. Acute hypercapnic respiratory failure secondary to above 5. Acute kidney injury 6. History of atrial fibrillation 7. Chronic systolic heart failure with an EF of 40-45% Plan: 1. Continue ICU care and recommendations per gyn 2. Patient is DO NOT RESUSCITATE 3. Keep abdominal dressing in place, change as needed 4. Keep nothing by mouth 5. Daily CBC, CMP 6. Further recommendations based on clinical course Thank you for this consultation, we will continue to follow. The impression and plan of care has been dictated as directed. Dr. Medina I performed a history and examination of this patient, discussed the same with the dictator. I agree with the dictator's note ,documented as a scribe. Any additional findings or plans will be noted.
[2023-02-01] MEDS ORDERED: CALCIUM GLUCONATE IN NACL 2 GM in SALINE 1 100ML.BAG IVPB ONE (10:00)
[2023-02-01 10:10] LABS: Glucose,Whole Blood 435 mg/dL (70-110)
--- NOTE | 2023-02-01 11:04 | US ---
EXAMINATION TYPE: US kidneys/renal and bladder DATE OF EXAM: 02/01/2023 COMPARISON: CT 01/30/2023. CLINICAL INDICATION: Male, 82 years old with history of anuric; AAA repair. Not producing urine, anita dder garcia Portable ICU vented pt EXAM MEASUREMENTS: Right Kidney: 9.9 x 4.5 x 5.4 cm Left Kidney: 8.9 x 4.1 x 4.9 cm Right Kidney: No hydronephrosis or masses seen Left Kidney: No prominent hydronephrosis or masses seen, superior pole obscured by bowel gas Bladder: unable to visualize due to surgical bandage FF seen adjacent to liver, prominent bowel seen in anterior RUQ There is no evidence for hydronephrosis at this point in time. No nephrolithiasis is seen. No alexys s are identified. The urinary bladder is anechoic. Bilateral ureteral jets are seen. IMPRESSION: 1. No evidence for obstructive uropathy. 2. Trace ascites.
[2023-02-01 11:29] LABS: Glucose,Whole Blood 355 mg/dL (70-110)
[2023-02-01 12:10] LABS: Glucose,Whole Blood 341 mg/dL (70-110)
--- NOTE | 2023-02-01 12:23 | CDI ---
Dr. Willard the Documentation Clarification Form Date: From: Jud Cuello Phone: [phone] Admit Date: 01/30/2023 11:08:00 AM Patient Name: Yoshi Pierre Visit Number: [id number] Discharge Date: ATTENTION: The Clinical Documentation Specialists (CDI) and [facility] Coding Staff appreciate your assistance in clarifying documentation. Please respond to the clarification below the line at the bottom and electronically sign. The CDI & [facility] Coding staff will review the response and follow-up if needed. Please note: Queries are made part of the Legal Health Record. If you have any questions, please contact the author of this message via ITS. Dr. Donna Roque There is documentation of "Acute hypercapnic respiratory failure secondary to above" in the progress note dated 01/31. Additional clarification is requested. History/Risk Factors: "81-year-old male with PMH of AAA aneurysm repair in 2018 with endograft, paroxysmal atrial flutter, dyslipidemia, hypertension, BPH and glaucoma that presented to the ED with right flank and suprapubic pain." - Per Medical H&P on 01/30 Clinical Indicators: "Abdominal aortic aneurysm, 10.5 cm infrarenal" "post repair of a infrarenal abdominal aortic aneurysm with a tube graft and amputation of the left renal artery, currently postop day #0" "Shock, a combination of distributive and hypovolemic." "significant blood loss." - Per Progress Note on 01/31 Treatment: "blood products and fluids both colloids and crystalloids." "adequate oxygenation" "currently intubated on a mechanical ventilator." - Per Progress Note on 01/31 Can you please clarify? [x ] Acute hypercapnic respiratory failure secondary to Shock [ ] Acute hypercapnic respiratory failure secondary to Surgical Aneurysm repair [ ] Other, please specify [ ] Unable to determine MTDD
--- NOTE | 2023-02-01 12:35 | CA ---
Transthoracic Echo Report Name: Yoshi Pierre Age: 82 Gender: M : 1940 Exam Date: 02/01/2023 09:38 Exam Location: [place] [facility] Ht (in): 71 Wt (lb): 195 Ordering Physician: Raymundo Carrero MD Attending/Referring Phys: Locksmith Apprentice Christopher Sharma Procedure CPT: Indications: shock Cardiac Hx: Technical Quality: Very technically difficult study Contrast 1: Definity Total Dose (mL): 2 Contrast 2: Total Dose (mL): MEASUREMENTS (Male / Female) Normal Values FINDINGS Left Ventricle Left ventricular ejection fraction is estimated at 35-40 %. Right Ventricle Right Atrium Left Atrium Mitral Valve Aortic Valve Tricuspid Valve Pulmonic Valve Pericardium Aorta CONCLUSIONS Technically very difficult and limited views. Resting tachycardia noted Left ventricular ejection fraction 35-40% with global hypokinesis Previewed by: Dr. Kishor Mims DO (Electronically Signed) Final Date: 01 February 2023 12:34
--- NOTE | 2023-02-01 13:15 | P.PN ---
Subjective Progress Note Date: 02/01/23 Hospital Course: Patient is an 81-year-old male with PMH of AAA aneurysm repair in 2018 with en dograft, paroxysmal atrial flutter, dyslipidemia, hypertension, BPH and glaucoma that presented to the ED with right flank and suprapubic pain. In the emergency room, patient was afebrile, 108/78, heart rate 116, 98% on room air. Abdomen/pelvis CT showed large aneurysmal aorta previous endograft with the margin of the stent having pulled away from the aortic wall concerning for acute bleeding and impending rupture; nephrolithiasis without obstructive uropathy. Chest x-ray appears clear bilaterally, normal sized heart. EKG shows sinus tachycardia with first-degree AV block, normal axis. Vascular surgery consulted. Patient underwent repair of 10.5 cm infrarenal abdominal aortic aneurysm with acute graft, also had reimplantation of left renal artery. He had significant blood loss during the procedure, requiring total of 6 units of PRBCs, 5 units of FFP, 1 platelets, and pulled cryoprecipitate. Now patient is in medical ICU, intubated, sedated on pressors. No significant urine output. Subjective: Patient seen and examined at bedside. Not having significant urine output. Still requiring pressors. No acute bleeding. Did have 1 bowel movement. Pertinent positives and negatives as discussed above, a complete review of systems was performed and all other systems are negative. Vitals Signs Reviewed. He was persistently tachycardic in the low 100s, and did have a elevated temperature 100.3. Blood pressure within normal limits, and was saturating well on room air. Data Reviewed Today: WBC 15.5, hemoglobin 8.6, platelet 83, INR 2.5, fibrinogen 182, potassium 2.2, creatinine 1.8, blood sugars elevated at 323 451, total bilirubin 2.9, AST 2000, ALT 1000 Echocardiogram shows LVEF 35-40% Renal ultrasound does not show any obstructive uropathy Assessment and Plan: Patient is critically ill. Prognosis is guarded. Unstable abdominal aortic aneurysm status post repair, reimplantation of left renal artery Hemorrhagic shock Ischemic hepatitis Nonoliguric Acute kidney injury Metabolic acidosis Coagulopathy Sepsis? -ICU not reviewed, patient continued on vasopressin and epinephrine, also started on bicarb drip, continue propofol for sedation, consider changing to levo instead of epi -Echocardiogram shows LVEF 35-40%, no evidence of pericardial effusion, if CVP increases, we'll consider cardiology consult -Renal ultrasound does not show any obstructive uropathy, continue to monitor for urine output, if worsening, patient may need renal replacement therapy -Right upper quadrant ultrasound ordered, likely has ischemic hepatitis from significant blood loss during procedure -He does have low fibrinogen levels, possibility of DIC, may need further FFP or cryoprecipitate if hemoglobin continues to drop -Also has elevated INR in the setting of ischemic hepatitis -There was concern for peritonitis initially when patient presented, currently on IV Zosyn Hyperglycemia -On insulin drip, monitor for hypoglycemia Nephrolithiasis BPH -Continue indwelling Medina catheter -Continue Flomax 0.4 twice a day Hypokalemia -replete PRN -Repeat BMP and magnesium tomorrow Paroxysmal atrial flutter- hold Eliquis, continue metoprolol 100 mg daily Hypertension Hyperlipidemia - continue atorvastatin 10 mg -Hold Cardizem, hydrochlorothiazide for now DVT ppx: SCDs Code status: Anticipated discharge place: pending clinical course Anticipated discharge time: pending clinical course Objective - Vital Signs Vital signs: Vital Signs Temp 98.4 F 02/01/23 08:00 Pulse 124 H 02/01/23 11:30 Resp 28 H 02/01/23 11:30 BP 92/68 02/01/23 02:30 Pulse Ox 95 02/01/23 11:30 FiO2 40 02/01/23 11:38 Intake & Output 01/31/23 02/01/23 02/01/23 18:59 06:59 18:59 Intake Total 4072 4414.692 1731.979 Output Total 5400 210 0 Balance -1328 4204.692 1731.979 Weight 88.8 kg Intake: IV 2 1054 619 Sodium Chloride 0.45% 1, 300 000 ml @ 100 mls/hr IV . Q11H [facility] with Sodium Bicarb (1 Meq/ml) 100 ml Rx#:[id number] Sodium Chloride 0.9% 1, 825 225 000 ml @ 75 mls/hr IV . [id number] [facility] Rx#:[id number] co/ci 130 40 pressure bag 99 54 Intake, IV Titration 2057.692 1112.979 Amount Calcium Gluconate in NaCl 100 1 gm In Saline 1 100ml. bag @ 100 mls/hr IVPB ONCE ONE Rx#:[id number] Calcium Gluconate in NaCl 100 2 gm In Saline 1 100ml. bag @ 100 mls/hr IVPB ONCE ONE Rx#:[id number] EPINEPHrine 16 mg In 68.696 Dextrose 5% in Water 234 ml @ 0.03 MCG/KG/MIN 2. 498 mls/hr IV .Q24H [facility] Rx#:[id number] EPINEPHrine 4 mg In 2024.917 496.144 Dextrose 5% in Water 250 ml @ 0.03 MCG/KG/MIN 8. 675 mls/hr IV .Q24H [facility] Rx#:[id number] Insulin Regular 100 unit 3.5 78.200 In Sodium Chloride 0.9% 100 ml @ Per Protocol IV .Q0M [facility] Rx#:[id number] Piperacillin-Tazobactam 3 100 .375 gm In Sodium Chloride 0.9% 100 ml @ 25 mls/hr IVPB Q8HR [facility] Rx# :[id number] Potassium Chloride 10 meq 100 In Water For Injection 1 100ml.bag @ 100 mls/hr IVPB Q1H [facility] Rx#: [id number] Vasopressin 60 unit In 3.366 Sodium Chloride 0.9% 150 ml @ 0.03 UNITS/MIN 4.59 mls/hr IV .Q24H [facility] Rx#: [id number] propofoL 1,000 mg In 25.909 69.939 Empty Bag 1 bag @ 15 MCG/ KG/MIN 6.94 mls/hr IV . [id number] [facility] Rx#:[id number] Blood Product 2020 1303 Ffp 24 Pher Acda Unit 211 [id number] Ffp 24 Pher Acda Cnt1 217 Unit [id number] Ffp 24 Pher Acda Cnt1 226 Unit [id number] Ffp 24 Pher Acda Cnt1 213 Unit [id number] Ffp 24 Pher Acda Cnt2 214 Unit [id number] Platelet Pheresis Pas 0 273 Psoralen Unit [id number] Pooled Cryoprecipitate 80 Unit [id number] Pooled Cryoprecipitate 98 Unit [id number] Rc As-1 Unit 310 [id number] Rc As-1 Unit 310 [id number] Rc As-1 Unit 310 [id number] Rc Pheresis 2 As3 Unit 283 [id number] Rc Pheresis 2 As3 Unit 296 [id number] Rc Pheresis As-3 Unit 282 [id number] Output: Gastric Drainage 200 Urine 400 10 0 Estimated Blood Loss 5000 Other: Voiding Method Indwelling Catheter Indwelling Catheter # Bowel Movements 1 ABP, PAP, CO, CI - Last Documented Arterial Blood Pressure 70/50 Pulmonary Artery Pressure 34/25 Cardiac Output 2.1 Cardiac Index 1.1 - Labs CBC & Chem 7: 02/01/23 07:56 02/01/23 04:00 Labs: Abnormal Lab Results - Last 24 Hours (Table) 01/30/23 01/31/23 01/31/23 Range/Units 11:10 09:00 09:00 WBC (3.8-10.6) k/uL RBC (4.30-5.90) m/uL Hgb (13.0-17.5) gm/dL Hct (39.0-53.0) % MCV (80.0-100.0) fL RDW (11.5-15.5) % Plt Count (150-450) k/uL Neutrophils # (1.3-7.7) k/uL Neutrophils # (Manual) (1.3-7.7) k/uL Lymphocytes # (1.0-4.8) k/uL Nucleated RBCs (0-0) /100 WBC PT (10.0-12.5) sec INR (<1.2) APTT (22.0-30.0) sec Fibrinogen (200-500) mg/dL ABG pH 7.32 L (7.35-7.45) ABG pCO2 (35-45) mmHg ABG pO2 307 H 113 H (83-108) mmHg ABG HCO3 19 L (21-25) mmol/L ABG Total CO2 26 H (19-24) mmol/L ABG O2 Saturation 99.9 H 98.7 H (94-97) % ABG Hematocrit 23 L (34.0-46.0) % ABG Sodium (135-146) mmol/L ABG Potassium 3.1 L 3.3 L (3.4-4.5) mmol/L ABG Ionized Calcium 4.1 L (4.5-5.3) mg/dL ABG Glucose 113 H (75-99) mg/dL ABG Lactic Acid (0.5-1.6) mmol/L Hemoglobin 10.9 L 7.3 L (13.0-17.5) gm/dL Sodium (137-145) mmol/L Potassium (3.5-5.1) mmol/L Chloride (98-107) mmol/L Carbon Dioxide (22-30) mmol/L BUN (9-20) mg/dL Creatinine (0.66-1.25) mg/dL Glucose (74-99) mg/dL POC Glucose (mg/dL) (70-110) mg/dL Calcium (8.4-10.2) mg/dL Magnesium (1.6-2.3) mg/dL Total Bilirubin (0.2-1.3) mg/dL AST (17-59) U/L ALT (4-49) U/L Alkaline Phosphatase (38-126) U/L Total Protein (6.3-8.2) g/dL Albumin (3.5-5.0) g/dL Arterial Blood Potassium 3.1 L 3.3 L (3.4-4.5) mmol/L Arterial Blood Glucose 113 H (75-99) mg/dL Crossmatch See Detail 01/31/23 01/31/23 01/31/23 Range/Units 09:00 09:00 09:00 WBC (3.8-10.6) k/uL RBC (4.30-5.90) m/uL Hgb (13.0-17.5) gm/dL Hct (39.0-53.0) % MCV (80.0-100.0) fL RDW (11.5-15.5) % Plt Count (150-450) k/uL Neutrophils # (1.3-7.7) k/uL Neutrophils # (Manual) (1.3-7.7) k/uL Lymphocytes # (1.0-4.8) k/uL Nucleated RBCs (0-0) /100 WBC PT (10.0-12.5) sec INR (<1.2) APTT (22.0-30.0) sec Fibrinogen (200-500) mg/dL ABG pH 7.23 L 7.20 L (7.35-7.45) ABG pCO2 32 L (35-45) mmHg ABG pO2 131 H 157 H 172 H (83-108) mmHg ABG HCO3 18 L 17 L (21-25) mmol/L ABG Total CO2 18 L (19-24) mmol/L ABG O2 Saturation 98.9 H 99.7 H 99.2 H (94-97) % ABG Hematocrit 24 L 25 L 17 L* (34.0-46.0) % ABG Sodium (135-146) mmol/L ABG Potassium (3.4-4.5) mmol/L ABG Ionized Calcium 4.4 L 3.0 L* (4.5-5.3) mg/dL ABG Glucose 126 H 107 H (75-99) mg/dL ABG Lactic Acid 2.1 H 2.8 H* 4.0 H* (0.5-1.6) mmol/L Hemoglobin 7.8 L 8.1 L 5.4 L* (13.0-17.5) gm/dL Sodium (137-145) mmol/L Potassium (3.5-5.1) mmol/L Chloride (98-107) mmol/L Carbon Dioxide (22-30) mmol/L BUN (9-20) mg/dL Creatinine (0.66-1.25) mg/dL Glucose (74-99) mg/dL POC Glucose (mg/dL) (70-110) mg/dL Calcium (8.4-10.2) mg/dL Magnesium (1.6-2.3) mg/dL Total Bilirubin (0.2-1.3) mg/dL AST (17-59) U/L ALT (4-49) U/L Alkaline Phosphatase (38-126) U/L Total Protein (6.3-8.2) g/dL Albumin (3.5-5.0) g/dL Arterial Blood Potassium (3.4-4.5) mmol/L Arterial Blood Glucose 126 H 107 H (75-99) mg/dL Crossmatch 01/31/23 01/31/23 01/31/23 Range/Units 13:30 13:30 13:30 WBC (3.8-10.6) k/uL RBC (4.30-5.90) m/uL Hgb (13.0-17.5) gm/dL Hct (39.0-53.0) % MCV (80.0-100.0) fL RDW (11.5-15.5) % Plt Count (150-450) k/uL Neutrophils # (1.3-7.7) k/uL Neutrophils # (Manual) (1.3-7.7) k/uL Lymphocytes # (1.0-4.8) k/uL Nucleated RBCs (0-0) /100 WBC PT (10.0-12.5) sec INR (<1.2) APTT (22.0-30.0) sec Fibrinogen (200-500) mg/dL ABG pH 7.22 L 7.23 L 7.30 L (7.35-7.45) ABG pCO2 (35-45) mmHg ABG pO2 179 H 144 H 111 H (83-108) mmHg ABG HCO3 18 L 16 L 20 L (21-25) mmol/L ABG Total CO2 17 L (19-24) mmol/L ABG O2 Saturation 99.5 H 99.3 H 98.9 H (94-97) % ABG Hematocrit 26 L 23 L 28 L (34.0-46.0) % ABG Sodium 148 H 150 H 153 H (135-146) mmol/L ABG Potassium 5.3 H 2.8 L* (3.4-4.5) mmol/L ABG Ionized Calcium 3.5 L* 4.0 L 4.0 L (4.5-5.3) mg/dL ABG Glucose 53 L 132 H (75-99) mg/dL ABG Lactic Acid 7.1 H* 8.0 H* 8.2 H* (0.5-1.6) mmol/L Hemoglobin 8.4 L 7.5 L 9.2 L (13.0-17.5) gm/dL Sodium (137-145) mmol/L Potassium (3.5-5.1) mmol/L Chloride (98-107) mmol/L Carbon Dioxide (22-30) mmol/L BUN (9-20) mg/dL Creatinine (0.66-1.25) mg/dL Glucose (74-99) mg/dL POC Glucose (mg/dL) (70-110) mg/dL Calcium (8.4-10.2) mg/dL Magnesium (1.6-2.3) mg/dL Total Bilirubin (0.2-1.3) mg/dL AST (17-59) U/L ALT (4-49) U/L Alkaline Phosphatase (38-126) U/L Total Protein (6.3-8.2) g/dL Albumin (3.5-5.0) g/dL Arterial Blood Potassium 5.3 H 2.8 L* (3.4-4.5) mmol/L Arterial Blood Glucose 53 L 132 H (75-99) mg/dL Crossmatch 01/31/23 01/31/23 01/31/23 Range/Units 13:30 13:30 18:29 WBC (3.8-10.6) k/uL RBC (4.30-5.90) m/uL Hgb (13.0-17.5) gm/dL Hct (39.0-53.0) % MCV (80.0-100.0) fL RDW (11.5-15.5) % Plt Count (150-450) k/uL Neutrophils # (1.3-7.7) k/uL Neutrophils # (Manual) (1.3-7.7) k/uL Lymphocytes # (1.0-4.8) k/uL Nucleated RBCs (0-0) /100 WBC PT (10.0-12.5) sec INR (<1.2) APTT (22.0-30.0) sec Fibrinogen (200-500) mg/dL ABG pH 7.21 L 7.28 L (7.35-7.45) ABG pCO2 (35-45) mmHg ABG pO2 109 H 137 H (83-108) mmHg ABG HCO3 16 L 19 L (21-25) mmol/L ABG Total CO2 18 L (19-24) mmol/L ABG O2 Saturation 98.3 H 99.0 H (94-97) % ABG Hematocrit 29 L 26 L (34.0-46.0) % ABG Sodium 151 H 153 H (135-146) mmol/L ABG Potassium 3.3 L (3.4-4.5) mmol/L ABG Ionized Calcium 4.3 L 4.2 L (4.5-5.3) mg/dL ABG Glucose 111 H 114 H (75-99) mg/dL ABG Lactic Acid 11.6 H* 11.4 H* (0.5-1.6) mmol/L Hemoglobin 9.4 L 8.4 L (13.0-17.5) gm/dL Sodium 148 H (137-145) mmol/L Potassium 3.2 L (3.5-5.1) mmol/L Chloride 113 H (98-107) mmol/L Carbon Dioxide 17 L (22-30) mmol/L BUN (9-20) mg/dL Creatinine (0.66-1.25) mg/dL Glucose 109 H (74-99) mg/dL POC Glucose (mg/dL) (70-110) mg/dL Calcium 7.3 L (8.4-10.2) mg/dL Magnesium (1.6-2.3) mg/dL Total Bilirubin 2.6 H (0.2-1.3) mg/dL AST 937 H (17-59) U/L ALT 523 H (4-49) U/L Alkaline Phosphatase 28 L (38-126) U/L Total Protein 3.1 L (6.3-8.2) g/dL Albumin 1.8 L (3.5-5.0) g/dL Arterial Blood Potassium 3.3 L (3.4-4.5) mmol/L Arterial Blood Glucose 111 H 114 H (75-99) mg/dL Crossmatch 01/31/23 01/31/23 01/31/23 Range/Units 18:29 18:29 18:37 WBC (3.8-10.6) k/uL RBC 2.29 L (4.30-5.90) m/uL Hgb 7.7 L D (13.0-17.5) gm/dL Hct 23.1 L (39.0-53.0) % MCV 101.1 H (80.0-100.0) fL RDW 15.7 H (11.5-15.5) % Plt Count 70 L D (150-450) k/uL Neutrophils # (1.3-7.7) k/uL Neutrophils # (Manual) 8.13 H (1.3-7.7) k/uL Lymphocytes # (1.0-4.8) k/uL Nucleated RBCs 1 H (0-0) /100 WBC PT (10.0-12.5) sec INR (<1.2) APTT 74.2 H (22.0-30.0) sec Fibrinogen (200-500) mg/dL ABG pH 7.20 L (7.35-7.45) ABG pCO2 (35-45) mmHg ABG pO2 319 H (83-108) mmHg ABG HCO3 16 L (21-25) mmol/L ABG Total CO2 18 L (19-24) mmol/L ABG O2 Saturation 99.9 H (94-97) % ABG Hematocrit (34.0-46.0) % ABG Sodium (135-146) mmol/L ABG Potassium (3.4-4.5) mmol/L ABG Ionized Calcium (4.5-5.3) mg/dL ABG Glucose (75-99) mg/dL ABG Lactic Acid (0.5-1.6) mmol/L Hemoglobin (13.0-17.5) gm/dL Sodium (137-145) mmol/L Potassium (3.5-5.1) mmol/L Chloride (98-107) mmol/L Carbon Dioxide (22-30) mmol/L BUN (9-20) mg/dL Creatinine (0.66-1.25) mg/dL Glucose (74-99) mg/dL POC Glucose (mg/dL) (70-110) mg/dL Calcium (8.4-10.2) mg/dL Magnesium (1.6-2.3) mg/dL Total Bilirubin (0.2-1.3) mg/dL AST (17-59) U/L ALT (4-49) U/L Alkaline Phosphatase (38-126) U/L Total Protein (6.3-8.2) g/dL Albumin (3.5-5.0) g/dL Arterial Blood Potassium (3.4-4.5) mmol/L Arterial Blood Glucose (75-99) mg/dL Crossmatch 01/31/23 01/31/23 02/01/23 Range/Units 19:02 22:09 00:10 WBC 11.4 H (3.8-10.6) k/uL RBC 2.30 L (4.30-5.90) m/uL Hgb 7.4 L (13.0-17.5) gm/dL Hct 23.0 L (39.0-53.0) % MCV 100.2 H (80.0-100.0) fL RDW 16.0 H (11.5-15.5) % Plt Count 86 L (150-450) k/uL Neutrophils # 10.1 H (1.3-7.7) k/uL Neutrophils # (Manual) (1.3-7.7) k/uL Lymphocytes # 0.9 L (1.0-4.8) k/uL Nucleated RBCs (0-0) /100 WBC PT (10.0-12.5) sec INR (<1.2) APTT (22.0-30.0) sec Fibrinogen (200-500) mg/dL ABG pH 7.31 L (7.35-7.45) ABG pCO2 (35-45) mmHg ABG pO2 >400 H (83-108) mmHg ABG HCO3 18 L (21-25) mmol/L ABG Total CO2 (19-24) mmol/L ABG O2 Saturation 100.0 H (94-97) % ABG Hematocrit (34.0-46.0) % ABG Sodium (135-146) mmol/L ABG Potassium (3.4-4.5) mmol/L ABG Ionized Calcium (4.5-5.3) mg/dL ABG Glucose (75-99) mg/dL ABG Lactic Acid (0.5-1.6) mmol/L Hemoglobin (13.0-17.5) gm/dL Sodium (137-145) mmol/L Potassium (3.5-5.1) mmol/L Chloride (98-107) mmol/L Carbon Dioxide (22-30) mmol/L BUN (9-20) mg/dL Creatinine (0.66-1.25) mg/dL Glucose (74-99) mg/dL POC Glucose (mg/dL) 323 H (70-110) mg/dL Calcium (8.4-10.2) mg/dL Magnesium (1.6-2.3) mg/dL Total Bilirubin (0.2-1.3) mg/dL AST (17-59) U/L ALT (4-49) U/L Alkaline Phosphatase (38-126) U/L Total Protein (6.3-8.2) g/dL Albumin (3.5-5.0) g/dL Arterial Blood Potassium (3.4-4.5) mmol/L Arterial Blood Glucose (75-99) mg/dL Crossmatch 02/01/23 02/01/23 02/01/23 Range/Units 04:00 04:00 05:27 WBC 14.7 H (3.8-10.6) k/uL RBC 2.83 L (4.30-5.90) m/uL Hgb 9.3 L D (13.0-17.5) gm/dL Hct 27.2 L (39.0-53.0) % MCV (80.0-100.0) fL RDW 16.7 H (11.5-15.5) % Plt Count 86 L (150-450) k/uL Neutrophils # 13.3 H (1.3-7.7) k/uL Neutrophils # (Manual) (1.3-7.7) k/uL Lymphocytes # (1.0-4.8) k/uL Nucleated RBCs (0-0) /100 WBC PT (10.0-12.5) sec INR (<1.2) APTT (22.0-30.0) sec Fibrinogen (200-500) mg/dL ABG pH (7.35-7.45) ABG pCO2 23 L (35-45) mmHg ABG pO2 (83-108) mmHg ABG HCO3 14 L (21-25) mmol/L ABG Total CO2 15 L (19-24) mmol/L ABG O2 Saturation 98.5 H (94-97) % ABG Hematocrit (34.0-46.0) % ABG Sodium (135-146) mmol/L ABG Potassium (3.4-4.5) mmol/L ABG Ionized Calcium (4.5-5.3) mg/dL ABG Glucose (75-99) mg/dL ABG Lactic Acid (0.5-1.6) mmol/L Hemoglobin (13.0-17.5) gm/dL Sodium (137-145) mmol/L Potassium 3.2 L (3.5-5.1) mmol/L Chloride (98-107) mmol/L Carbon Dioxide 13 L (22-30) mmol/L BUN 23 H (9-20) mg/dL Creatinine 1.38 H (0.66-1.25) mg/dL Glucose 354 H (74-99) mg/dL POC Glucose (mg/dL) (70-110) mg/dL Calcium 7.2 L (8.4-10.2) mg/dL Magnesium 1.0 L (1.6-2.3) mg/dL Total Bilirubin 3.9 H (0.2-1.3) mg/dL AST 2080 H (17-59) U/L ALT 1035 H (4-49) U/L Alkaline Phosphatase (38-126) U/L Total Protein 4.0 L (6.3-8.2) g/dL Albumin 2.6 L (3.5-5.0) g/dL Arterial Blood Potassium (3.4-4.5) mmol/L Arterial Blood Glucose (75-99) mg/dL Crossmatch 02/01/23 02/01/23 02/01/23 Range/Units 05:56 06:46 07:56 WBC (3.8-10.6) k/uL RBC (4.30-5.90) m/uL Hgb (13.0-17.5) gm/dL Hct (39.0-53.0) % MCV (80.0-100.0) fL RDW (11.5-15.5) % Plt Count (150-450) k/uL Neutrophils # (1.3-7.7) k/uL Neutrophils # (Manual) (1.3-7.7) k/uL Lymphocytes # (1.0-4.8) k/uL Nucleated RBCs (0-0) /100 WBC PT 24.5 H (10.0-12.5) sec INR 2.5 H (<1.2) APTT 42.9 H (22.0-30.0) sec Fibrinogen 182 L (200-500) mg/dL ABG pH (7.35-7.45) ABG pCO2 (35-45) mmHg ABG pO2 (83-108) mmHg ABG HCO3 (21-25) mmol/L ABG Total CO2 (19-24) mmol/L ABG O2 Saturation (94-97) % ABG Hematocrit (34.0-46.0) % ABG Sodium (135-146) mmol/L ABG Potassium (3.4-4.5) mmol/L ABG Ionized Calcium (4.5-5.3) mg/dL ABG Glucose (75-99) mg/dL ABG Lactic Acid (0.5-1.6) mmol/L Hemoglobin (13.0-17.5) gm/dL Sodium (137-145) mmol/L Potassium (3.5-5.1) mmol/L Chloride (98-107) mmol/L Carbon Dioxide (22-30) mmol/L BUN (9-20) mg/dL Creatinine (0.66-1.25) mg/dL Glucose (74-99) mg/dL POC Glucose (mg/dL) 410 H 451 H (70-110) mg/dL Calcium (8.4-10.2) mg/dL Magnesium (1.6-2.3) mg/dL Total Bilirubin (0.2-1.3) mg/dL AST (17-59) U/L ALT (4-49) U/L Alkaline Phosphatase (38-126) U/L Total Protein (6.3-8.2) g/dL Albumin (3.5-5.0) g/dL Arterial Blood Potassium (3.4-4.5) mmol/L Arterial Blood Glucose (75-99) mg/dL Crossmatch 02/01/23 02/01/23 02/01/23 Range/Units 07:56 08:12 09:15 WBC 15.5 H (3.8-10.6) k/uL RBC 2.63 L (4.30-5.90) m/uL Hgb 8.6 L (13.0-17.5) gm/dL Hct 25.4 L (39.0-53.0) % MCV (80.0-100.0) fL RDW 16.8 H (11.5-15.5) % Plt Count 83 L (150-450) k/uL Neutrophils # (1.3-7.7) k/uL Neutrophils # (Manual) (1.3-7.7) k/uL Lymphocytes # (1.0-4.8) k/uL Nucleated RBCs (0-0) /100 WBC PT (10.0-12.5) sec INR (<1.2) APTT (22.0-30.0) sec Fibrinogen (200-500) mg/dL ABG pH (7.35-7.45) ABG pCO2 (35-45) mmHg ABG pO2 (83-108) mmHg ABG HCO3 (21-25) mmol/L ABG Total CO2 (19-24) mmol/L ABG O2 Saturation (94-97) % ABG Hematocrit (34.0-46.0) % ABG Sodium (135-146) mmol/L ABG Potassium (3.4-4.5) mmol/L ABG Ionized Calcium (4.5-5.3) mg/dL ABG Glucose (75-99) mg/dL ABG Lactic Acid (0.5-1.6) mmol/L Hemoglobin (13.0-17.5) gm/dL Sodium (137-145) mmol/L Potassium (3.5-5.1) mmol/L Chloride (98-107) mmol/L Carbon Dioxide (22-30) mmol/L BUN (9-20) mg/dL Creatinine (0.66-1.25) mg/dL Glucose (74-99) mg/dL POC Glucose (mg/dL) 471 H 434 H (70-110) mg/dL Calcium (8.4-10.2) mg/dL Magnesium (1.6-2.3) mg/dL Total Bilirubin (0.2-1.3) mg/dL AST (17-59) U/L ALT (4-49) U/L Alkaline Phosphatase (38-126) U/L Total Protein (6.3-8.2) g/dL Albumin (3.5-5.0) g/dL Arterial Blood Potassium (3.4-4.5) mmol/L Arterial Blood Glucose (75-99) mg/dL Crossmatch 02/01/23 02/01/23 02/01/23 Range/Units 10:08 11:27 12:09 WBC (3.8-10.6) k/uL RBC (4.30-5.90) m/uL Hgb (13.0-17.5) gm/dL Hct (39.0-53.0) % MCV (80.0-100.0) fL RDW (11.5-15.5) % Plt Count (150-450) k/uL Neutrophils # (1.3-7.7) k/uL Neutrophils # (Manual) (1.3-7.7) k/uL Lymphocytes # (1.0-4.8) k/uL Nucleated RBCs (0-0) /100 WBC PT (10.0-12.5) sec INR (<1.2) APTT (22.0-30.0) sec Fibrinogen (200-500) mg/dL ABG pH (7.35-7.45) ABG pCO2 (35-45) mmHg ABG pO2 (83-108) mmHg ABG HCO3 (21-25) mmol/L ABG Total CO2 (19-24) mmol/L ABG O2 Saturation (94-97) % ABG Hematocrit (34.0-46.0) % ABG Sodium (135-146) mmol/L ABG Potassium (3.4-4.5) mmol/L ABG Ionized Calcium (4.5-5.3) mg/dL ABG Glucose (75-99) mg/dL ABG Lactic Acid (0.5-1.6) mmol/L Hemoglobin (13.0-17.5) gm/dL Sodium (137-145) mmol/L Potassium (3.5-5.1) mmol/L Chloride (98-107) mmol/L Carbon Dioxide (22-30) mmol/L BUN (9-20) mg/dL Creatinine (0.66-1.25) mg/dL Glucose (74-99) mg/dL POC Glucose (mg/dL) 435 H 355 H 341 H (70-110) mg/dL Calcium (8.4-10.2) mg/dL Magnesium (1.6-2.3) mg/dL Total Bilirubin (0.2-1.3) mg/dL AST (17-59) U/L ALT (4-49) U/L Alkaline Phosphatase (38-126) U/L Total Protein (6.3-8.2) g/dL Albumin (3.5-5.0) g/dL Arterial Blood Potassium (3.4-4.5) mmol/L Arterial Blood Glucose (75-99) mg/dL Crossmatch
[2023-02-01 13:23] LABS: Glucose,Whole Blood 311 mg/dL (70-110)
[2023-02-01 14:08] LABS: Glucose,Whole Blood 274 mg/dL (70-110)
[2023-02-01 14:16] LABS: Anisocytosis Slight; HCT 26.2 % (39.0-53.0); HGB 9.2 gm/dL (13.0-17.5); MCH 32.8 pg (25.0-35.0); MCV 93.7 fL (80.0-100.0); Mean Platelet Volume 10.4; Poikilocytosis Slight; RBC 2.79 m/uL (4.30-5.90); RDW 17.5 % (11.5-15.5); WBC 18.4 k/uL (3.8-10.6)
[2023-02-01 14:18] LABS: Platelet Count 83 k/uL (150-450)
--- NOTE | 2023-02-01 14:26 | US ---
EXAMINATION TYPE: US abdomen limited DATE OF EXAM: 02/01/2023 COMPARISON: CT 01/30/23 CLINICAL INDICATION: Male, 82 years old with history of RUQ; Elevated liver enzymes: S/P AAA repair TECHNIQUE: Multiple sonographic images of the right upper quadrant are obtained. FINDINGS: EXAM MEASUREMENTS: Liver Length: 14.6 cm Gallbladder Wall: 0.3 cm CBD: 0.4 cm Right Kidney: 9.4 x 4.9 x 4.3 cm SPINNER IRON NOTES:Patient is intubated and bandaged down midline abdomen - disrupting scanning window s and limiting exam. Pancreas: Not visualized due to bandage down midline abdomen Liver: Limited evaluation; trace surrounding ascites noted Gallbladder: Measuring near upper limits of normal; 9.3 x 5.3 cm Evidence for sonographic Kebede's sign: N/A CBD: wnl Right Kidney: Limited evaluation; no obvious abnormality IMPRESSION: Limit evaluation due to bandage. The gallbladder is mildly dilated. No evidence for acute process.
[2023-02-01] MEDS: POTASSIUM BICARBONATE/CIT AC 20 MEQ TABLET.EFF NG-TUBE SCH ×5 (14:34→20:20)
[2023-02-01 15:00] LABS: Glucose,Whole Blood 247 mg/dL (70-110)
[2023-02-01] MEDS: MILRINONE-D5W PMX 20 MG in DEXTROSE/WATER 1 100ML.BAG IV SCH ×2 (15:12→21:28)
[2023-02-01] MEDS ORDERED: SODIUM BICARB 8.4% 50 ML SYR (1 MEQ/ML) IV STA (15:38)
[2023-02-01 16:03] LABS: Glucose,Whole Blood 205 mg/dL (70-110)
[2023-02-01] MEDS: DEXTROSE 5% IN WATER 100 ML with AMIODARONE 150 MG IV ONE ×2 (16:47→18:48)
[2023-02-01] MEDS: AMIODARONE 450 MG in DEXTROSE 5% IN WATER 250 ML IV SCH ×2 (16:47)
[2023-02-01] MEDS: AMIODARONE 360 MG in DEXTROSE 5% IN WATER 200 ML IV ONE ×4 (16:48→18:49)
[2023-02-01 17:08] LABS: Glucose,Whole Blood 173 mg/dL (70-110)
[2023-02-01] MEDS: VASOPRESSIN 60 UNIT in SODIUM CHLORIDE 0.9% 150 ML IV SCH (17:15)
[2023-02-01 17:58] LABS: Glucose,Whole Blood 144 mg/dL (70-110)
[2023-02-01 18:23] LABS: African American GFR (CKD) 38 (>60 ml/min/1.73 sqM); Anion Gap 17 mmol/L; Blood Urea Nitrogen 31 mg/dL (9-20); Calcium 7.2 mg/dL (8.4-10.2); Carbon Dioxide 17 mmol/L (22-30); Chloride 105 mmol/L (98-107); Glucose 116 mg/dL (74-99); Non-African American GFR(CKD) 33 (>60 ml/min/1.73 sqM); Potassium 3.1 mmol/L (3.5-5.1); Sodium 139 mmol/L (137-145)
[2023-02-01 19:06] LABS: Glucose,Whole Blood 147 mg/dL (70-110)
[2023-02-01 19:56] LABS: Glucose,Whole Blood 122 mg/dL (70-110)
[2023-02-01 20:47] LABS: ABG Base Excess -1.9 mmol/L; ABG HCO3 21 mmol/L (21-25); ABG PCO2 24 mmHg (35-45); ABG PH 7.54 (7.35-7.45); ABG PO2 76 mmHg (83-108); ABG TCO2 21 mmol/L (19-24); Allen Test Performed? Yes
[2023-02-01 21:07] LABS: Glucose,Whole Blood 99 mg/dL (70-110)
[2023-02-01 21:58] LABS: Glucose,Whole Blood 101 mg/dL (70-110)
[2023-02-01 22:48] LABS: Glucose,Whole Blood 110 mg/dL (70-110)
[2023-02-02 00:06] LABS: Glucose,Whole Blood 125 mg/dL (70-110)
[2023-02-02] MEDS: AMIODARONE 450 MG in DEXTROSE 5% IN WATER 250 ML IV SCH ×4 (00:22→14:42)
[2023-02-02 01:00] LABS: Glucose,Whole Blood 127 mg/dL (70-110)
[2023-02-02] MEDS: EPINEPHRINE IV SCH ×16 (01:06→23:38)
[2023-02-02] MEDS: DEXTROSE 5% IV SCH ×16 (01:06→23:38)
[2023-02-02] MEDS: WATER IV SCH ×16 (01:06→23:38)
[2023-02-02 02:05] LABS: Glucose,Whole Blood 117 mg/dL (70-110)
[2023-02-02 02:56] LABS: Glucose,Whole Blood 117 mg/dL (70-110)
[2023-02-02 04:07] LABS: Glucose,Whole Blood 115 mg/dL (70-110)
[2023-02-02] MEDS: INSULIN REGULAR 100 UNIT in SODIUM CHLORIDE 0.9% 100 ML IV SCH ×2 (04:13→22:09)
[2023-02-02 04:18] LABS: Anisocytosis Slight; Basophils % (A) 0 %; Eosinophils # (A) 0.1 k/uL (0-0.7); Eosinophils % (A) 1 %; HCT 25.8 % (39.0-53.0); HGB 9.1 gm/dL (13.0-17.5); Lymphocytes # (A) 1.2 k/uL (1.0-4.8); Lymphocytes % (A) 5 %; MCH 32.4 pg (25.0-35.0); MCHC 35.5 g/dL (31.0-37.0); MCV 91.3 fL (80.0-100.0); Mean Platelet Volume 10.5; Monocytes # (A) 0.5 k/uL (0-1.0); Monocytes % (A) 2 %; Neutrophils # (A) 20.7 k/uL (1.3-7.7); Neutrophils % (A) 92 %; Poikilocytosis Slight; RBC 2.82 m/uL (4.30-5.90); RDW 16.7 % (11.5-15.5); WBC 22.5 k/uL (3.8-10.6)
[2023-02-02 04:19] LABS: Platelet Count 85 k/uL (150-450)
[2023-02-02] MEDS ORDERED: SODIUM CHLORIDE 0.9% 1,000 ML IV ONE ×2 (05:00→18:05)
[2023-02-02 05:05] LABS: Glucose,Whole Blood 115 mg/dL (70-110)
[2023-02-02 05:09] LABS: African American GFR (CKD) 32 (>60 ml/min/1.73 sqM); Albumin 2.2 g/dL (3.5-5.0); Alkaline Phosphatase 148 U/L (38-126); Anion Gap 13 mmol/L; Blood Urea Nitrogen 36 mg/dL (9-20); Carbon Dioxide 20 mmol/L (22-30); Chloride 103 mmol/L (98-107); Glucose 95 mg/dL (74-99); Magnesium 1.3 mg/dL (1.6-2.3); Non-African American GFR(CKD) 27 (>60 ml/min/1.73 sqM); Potassium 4.3 mmol/L (3.5-5.1); Sodium 136 mmol/L (137-145); Total Bilirubin 4.1 mg/dL (0.2-1.3); Total Protein 3.7 g/dL (6.3-8.2)
[2023-02-02 05:40] VITALS: BP 69/48
[2023-02-02 05:58] LABS: Glucose,Whole Blood 114 mg/dL (70-110)
[2023-02-02 06:02] LABS: ALT 3221 U/L (4-49); AST 7013 U/L (17-59)
[2023-02-02 06:11] LABS: ABG Base Excess -0.5 mmol/L; ABG HCO3 22 mmol/L (21-25); ABG Oxygen Saturation 93.9 % (94-97); ABG PCO2 26 mmHg (35-45); ABG PH 7.54 (7.35-7.45); ABG PO2 62 mmHg (83-108); ABG TCO2 23 mmol/L (19-24); Allen Test Performed? Yes
[2023-02-02] MEDS: MAGNESIUM SULFATE-D5W PMX 1 GM in DEXTROSE/WATER 1 100ML.BAG IVPB SCH ×2 (06:32→09:59)
[2023-02-02 06:59] LABS: Glucose,Whole Blood 131 mg/dL (70-110)
[2023-02-02 08:36] LABS: Glucose,Whole Blood 104 mg/dL (70-110)
--- NOTE | 2023-02-02 09:12 | P.PN ---
Subjective Progress Note Date: 02/02/23 82-year-old male patient was being seen in the intensive care unit following a repair of a 10.5 cm infrarenal abdominal aortic aneurysm with a tube graft. During the surgery, the patient also underwent a reimplantation of the left renal artery. The patient is known to have history of a stent graft repair of an abdominal aortic aneurysm and he was having issues with abdominal pain. CAT scan of the abdomen demonstrated a type I endoleak with massive enlargement of his aorta up to 10.5 cm inside and the transverse diameter. This was considered to be high risk for rupture. Based on that, the patient was taken to the operating room. This was a lengthy and extensive surgery. Estimated blood loss was 5 L. The patient was aggressively resuscitated with IV fluids and blood products. The patient intraoperatively received a total of 4 units of packed RBC, 2 units of fresh frozen plasma, 2 units of cryoprecipitate and currently is being transfused with 5 units of platelet concentrate. The patient is currently on epinephrine at 0.5 mcg/kg/m. The patient was still hypotensive at the time of my arrival with systolic blood pressure between 50 and 60. I increase the epinephrine to 0.8 and I started vasopressin. The patient was given another unit of packed RBC and another 500 mL of 5% albumin, making a total of 2 doses of IV albumin. His blood pressure improved and subsequently his most recent systolic blood pressure is in the mid 90s. The patient is a cardiac output of 4.9 with an index of 2.6, pulmonary artery pressures are 39/22. Urine output is minimal at this point in time. The patient has cold extremities. Pulses are obtained in the femorals bilaterally, the feet are cold and that is diminished pulses are obtained by Doppler signal. He was initially on assist control mode at a rate of 60 with a tidal volume of 500 and FiO2 100% with a PEEP of 5. He was given a total of 2 doses of sodium bicarb. The patient subsequently was brought up to a rate of 28 and FiO2 was gradually weaned off. Most recent blood gas showed improvement in his acid-base status. Patient at 7.31 with a pCO2 of 36 and pO2 more than 400. Chest x-ray shows adequate expansion of both lungs. Orotracheal tube, ET tube, Whitakers-Rina catheter and NG tube are all in good location. Abdominal wound site is dry clean and intact. There is no signs of any active bleeding at this point in time. The patient is on no sedation for now. He is deeply sedated and unresponsive. Blood sugars at 105. Awaiting follow-up labs and the most recent hemoglobin was at 7.7. Evaluation of 02/01/2023, the patient is being seen for a follow-up. Overnight, the patient was started on propofol which is running at 50 mcg/kg/m. His adequately sedated. No agitation. No restlessness. His calm and comfortable and symptoms a mechanical ventilator. He is postop day #1 following his surgery which included a repair of a abdominal aortic aneurysm with reimplantation of the left renal artery. The patient had a tube graft. The patient currently is on a mechanical ventilator, assist control mode at the rate of 28, tidal volume of 500, FiO2 of 40% with a PEEP of 5. The chest x-ray from this morning shows adequate expansion of both lungs. ET tube is in a good location. No evidence of any consolidation. No evidence of any pneumonia. The patient has a Whitakers- Rina catheter in place. The blood gases from this morning showed a pH of 7.4 with episodes of 23 and pO2 of 106 and the above-mentioned ventilator settings. No significant orotracheal secretions. Hemodynamically, the patient was aggressively resuscitated with fluids and blood products. Overall, he received a total of 6 units of packed RBCs, 5 units of fresh frozen plasma, 2 units of cryoprecipitate and one platelet aggregates. He also received 5% albumin 500 mL each a total of 2 doses. He remains on epinephrine which is running at 0.8 mcg/kg/m. Is also on vasopressin physiologic dose. His cardiac rhythm is sinus. Urine output is absent and the patient's creatinine is on the right and the patient is sustaining an acute kidney injury. On today's evaluation, BUN is at 23 with a creatinine of 1.38 and a sodium level is at 142 and the potassium levels at 3.2. The patient remains acidotic and the serum bicarbs at 13. IV fl uids are in the form of saline at rate of 75 mL an hour. Hemoglobin posttransfusion is at 8.6 with a white cell count of 15.5 and a platelet count of 83. Calcium level was low yesterday at 7.3 and the patient was given 2 g of calcium and the repeat calcium today is at 7.2. He has shock liver with a AST of 2080 and ALT of 1035. Ocular phosphatases 47. The patient is covered empirically with IV Zosyn. Cozaar and Toprol are currently on hold. Patient is having significant hyperglycemia and insulin drip was started at 14 units an hour. The insulin dose being titrated accordingly. Current. Pressures of 37/27. Most recent cardiac index is at 1.1. Today's evaluation of 02/02/2023, the patient is being seen for a follow-up. The patient is still critically unstable. He remains in shock following his abdominal aortic aneurysm repair. He is postop day #2. He remains intubated on a mechanical ventilator. He remains on propofol which is running at 30 mcg/kg/m. He remains on a mechanical ventilator, assist control mode at the rate of 28, tidal volume of 500, FiO2 of 40% with a PEEP of 5. He has a component of respiratory alkalosis with a pH of 7.54 and a pCO2 of 26 and pO2 of 62. The chest x-ray from this morning was reviewed. ET tube is in a good location. Small left-sided pleural effusion is present. NG tube in a good location. Hemodynamically, the patient continues to have profound hypotension. His PA pressures are 33/21. His cardiac index is at 1.4 with a output of 2.6. He remains on high dose epinephrine infusion running at 1.0 microvascular kilogram per minutes. He remains also on vasopressin physiologic dose. Primacor was attempted yesterday. He did well for quite some time and subsequently he went into A. fib RVR. He had to be cardioverted. His A. fib RVR was quite unstable and successful cardioversion was done. Subsequently, the patient continued to have episodes of a flutter and he was started on amiodarone drip per protocol and albuterol currently is running at 0.5 mg per minute. The Primacor was discontinued. He is an acute kidney injury. Is not producing any urine. Creatinine is up to 2.16 with a BUN of 36 and the sodium levels of 136. The patient also has a shock liver with a AST of 7000, ALP of 3200 and his seconds at 22 with a hemoglobin of 9.1 and a platelet count of 85. Calcium level was replaced and his ionized calcium level today's low and 3.7. No signs of any bleeding pulses are present in the lower extremities bilaterally. Surgical wound is dry clean and intact. He remains nothing by mouth. He remai ns on IV Zosyn as an empiric antibiotic coverage for now. Cultures were also sent. Objective - Vital Signs Vital signs: Vital Signs Temp 97.7 F 02/02/23 04:00 Pulse 96 02/02/23 07:00 Resp 28 H 02/02/23 07:00 BP 69/48 02/02/23 04:45 Pulse Ox 92 L 02/02/23 07:00 FiO2 40 02/02/23 07:43 Intake & Output 02/01/23 02/02/23 02/02/23 18:59 06:59 18:59 Intake Total 3061.213 3734.416 328.232 Output Total 0 15 Balance 3061.213 3719.416 328.232 Weight 96.4 kg Intake: IV 1353 2757 0.9% Bolus 1000 CO/CI 120 240 Magnesium Sulfate-D5w Pmx 200 1 gm In Dextrose/Water 1 100ml.bag @ 100 mls/hr IVPB Q1H [facility] Rx#: [id number] Piperacillin-Tazobactam 3 100 .375 gm In Sodium Chloride 0.9% 100 ml @ 25 mls/hr IVPB Q8HR [facility] Rx# :[id number] Pressure Bags 108 117 Sodium Chloride 0.45% 1, 900 1100 000 ml @ 100 mls/hr IV . Q11H [facility] with Sodium Bicarb (1 Meq/ml) 100 ml Rx#:[id number] Sodium Chloride 0.9% 1, 225 000 ml @ 75 mls/hr IV . [id number] [facility] Rx#:[id number] Intake, IV Titration 1708.213 917.416 328.232 Amount Calcium Gluconate in NaCl 100 1 gm In Saline 1 100ml. bag @ 100 mls/hr IVPB ONCE ONE Rx#:[id number] Calcium Gluconate in NaCl 100 2 gm In Saline 1 100ml. bag @ 100 mls/hr IVPB ONCE ONE Rx#:[id number] EPINEPHrine 16 mg In 408.970 628.439 318.932 Dextrose 5% in Water 234 ml @ 0.03 MCG/KG/MIN 2. 498 mls/hr IV .Q24H [facility] Rx#:[id number] EPINEPHrine 4 mg In 496.144 Dextrose 5% in Water 250 ml @ 0.03 MCG/KG/MIN 8. 675 mls/hr IV .Q24H [facility] Rx#:[id number] Insulin Regular 100 unit 126.134 57.683 9.3 In Sodium Chloride 0.9% 100 ml @ Per Protocol IV .Q0M [facility] Rx#:[id number] Milrinone-D5w Pmx 20 mg 1.332 78.422 In Dextrose/Water 1 100ml .bag @ 0.375 MCG/KG/MIN 9 .99 mls/hr IV .Q10H1M [facility] Rx#:[id number] Piperacillin-Tazobactam 3 100 .375 gm In Sodium Chloride 0.9% 100 ml @ 25 mls/hr IVPB Q8HR [facility] Rx# :[id number] Potassium Chloride 10 meq 100 In Water For Injection 1 100ml.bag @ 100 mls/hr IVPB Q1H [facility] Rx#: [id number] Vasopressin 60 unit In 133.212 Sodium Chloride 0.9% 150 ml @ 0.03 UNITS/MIN 4.59 mls/hr IV .Q24H [facility] Rx#: [id number] propofoL 1,000 mg In 142.421 152.872 Empty Bag 1 bag @ 15 MCG/ KG/MIN 6.94 mls/hr IV . [id number] [facility] Rx#:[id number] Other 60 Output: Urine 0 15 Other: Voiding Method Indwelling Catheter Indwelling Catheter ABP, PAP, CO, CI - Last Documented Arterial Blood Pressure 112/59 Pulmonary Artery Pressure 37/24 Cardiac Output 2.9 Cardiac Index 1.5 - Exam Patient is currently intubated on a mechanical ventilator. No sedatives at this point in time. Orogastric and orotracheal tube are both in place. Head exam was generally normal. There was no scleral icterus or corneal arcus. Mucous membranes were moist. Neck was supple and without jugular venous distension, thyromegaly, or carotid bruits. Carotids were easily palpable bilaterally. There was no adenopathy. The patient has a left IJ Cordis and a left IJ Whitakers-Rina catheter in place Lungs sounds are equal and symmetrical bilaterally. Cardiac exam revealed the PMI to be normally situated and sized. The rhythm was regular and no extrasystoles were noted during several minutes of auscultation. The first and second heart sounds were normal and physiologic splitting of the second heart sound was noted. There were no murmurs, rubs, clicks, or gallops. Abdomen is soft and bowel sounds are absent. Large anterior abdominal wall surgical wound which is dry clean and intact. No direct tenderness. No rebound tenderness, no guarding Extremities are cold and diminished pulses are present the feet. Femoral pulses are present. Diminished capillary refill. No cyanosis or clubbing. Neurologically, the patient is sedated, pupils are round 2 mm in size, sluggish reactive to light. Motor and sensory function cannot be obtained at this point in time. - Labs CBC & Chem 7: 02/02/23 04:00 02/02/23 04:00 Labs: Abnormal Lab Results - Last 24 Hours (Table) 01/30/23 02/01/23 02/01/23 Range/Units 11:10 07:56 09:15 WBC (3.8-10.6) k/uL RBC (4.30-5.90) m/uL Hgb (13.0-17.5) gm/dL Hct (39.0-53.0) % RDW (11.5-15.5) % Plt Count (150-450) k/uL Neutrophils # (1.3-7.7) k/uL PT 24.5 H (10.0-12.5) sec INR 2.5 H (<1.2) APTT 42.9 H (22.0-30.0) sec Fibrinogen 182 L (200-500) mg/dL ABG pH (7.35-7.45) ABG pCO2 (35-45) mmHg ABG pO2 (83-108) mmHg ABG O2 Saturation (94-97) % Sodium (137-145) mmol/L Potassium (3.5-5.1) mmol/L Carbon Dioxide (22-30) mmol/L BUN (9-20) mg/dL Creatinine (0.66-1.25) mg/dL Glucose (74-99) mg/dL POC Glucose (mg/dL) 434 H (70-110) mg/dL Calcium (8.4-10.2) mg/dL Ionized Calcium Thad (4.5-5.3) mg/dL Magnesium (1.6-2.3) mg/dL Total Bilirubin (0.2-1.3) mg/dL AST (17-59) U/L ALT (4-49) U/L Alkaline Phosphatase (38-126) U/L Total Protein (6.3-8.2) g/dL Albumin (3.5-5.0) g/dL Crossmatch See Detail 02/01/23 02/01/23 02/01/23 Range/Units 10:08 11:27 12:09 WBC (3.8-10.6) k/uL RBC (4.30-5.90) m/uL Hgb (13.0-17.5) gm/dL Hct (39.0-53.0) % RDW (11.5-15.5) % Plt Count (150-450) k/uL Neutrophils # (1.3-7.7) k/uL PT (10.0-12.5) sec INR (<1.2) APTT (22.0-30.0) sec Fibrinogen (200-500) mg/dL ABG pH (7.35-7.45) ABG pCO2 (35-45) mmHg ABG pO2 (83-108) mmHg ABG O2 Saturation (94-97) % Sodium (137-145) mmol/L Potassium (3.5-5.1) mmol/L Carbon Dioxide (22-30) mmol/L BUN (9-20) mg/dL Creatinine (0.66-1.25) mg/dL Glucose (74-99) mg/dL POC Glucose (mg/dL) 435 H 355 H 341 H (70-110) mg/dL Calcium (8.4-10.2) mg/dL Ionized Calcium Thad (4.5-5.3) mg/dL Magnesium (1.6-2.3) mg/dL Total Bilirubin (0.2-1.3) mg/dL AST (17-59) U/L ALT (4-49) U/L Alkaline Phosphatase (38-126) U/L Total Protein (6.3-8.2) g/dL Albumin (3.5-5.0) g/dL Crossmatch 02/01/23 02/01/23 02/01/23 Range/Units 13:22 14:00 14:00 WBC 18.4 H (3.8-10.6) k/uL RBC 2.79 L (4.30-5.90) m/uL Hgb 9.2 L (13.0-17.5) gm/dL Hct 26.2 L (39.0-53.0) % RDW 17.5 H (11.5-15.5) % Plt Count 83 L (150-450) k/uL Neutrophils # (1.3-7.7) k/uL PT (10.0-12.5) sec INR (<1.2) APTT (22.0-30.0) sec Fibrinogen (200-500) mg/dL ABG pH (7.35-7.45) ABG pCO2 (35-45) mmHg ABG pO2 (83-108) mmHg ABG O2 Saturation (94-97) % Sodium (137-145) mmol/L Potassium 3.0 L (3.5-5.1) mmol/L Carbon Dioxide (22-30) mmol/L BUN (9-20) mg/dL Creatinine (0.66-1.25) mg/dL Glucose (74-99) mg/dL POC Glucose (mg/dL) 311 H (70-110) mg/dL Calcium (8.4-10.2) mg/dL Ionized Calcium Thad (4.5-5.3) mg/dL Magnesium (1.6-2.3) mg/dL Total Bilirubin (0.2-1.3) mg/dL AST (17-59) U/L ALT (4-49) U/L Alkaline Phosphatase (38-126) U/L Total Protein (6.3-8.2) g/dL Albumin (3.5-5.0) g/dL Crossmatch 02/01/23 02/01/23 02/01/23 Range/Units 14:06 14:58 16:01 WBC (3.8-10.6) k/uL RBC (4.30-5.90) m/uL Hgb (13.0-17.5) gm/dL Hct (39.0-53.0) % RDW (11.5-15.5) % Plt Count (150-450) k/uL Neutrophils # (1.3-7.7) k/uL PT (10.0-12.5) sec INR (<1.2) APTT (22.0-30.0) sec Fibrinogen (200-500) mg/dL ABG pH (7.35-7.45) ABG pCO2 (35-45) mmHg ABG pO2 (83-108) mmHg ABG O2 Saturation (94-97) % Sodium (137-145) mmol/L Potassium (3.5-5.1) mmol/L Carbon Dioxide (22-30) mmol/L BUN (9-20) mg/dL Creatinine (0.66-1.25) mg/dL Glucose (74-99) mg/dL POC Glucose (mg/dL) 274 H 247 H 205 H (70-110) mg/dL Calcium (8.4-10.2) mg/dL Ionized Calcium Thad (4.5-5.3) mg/dL Magnesium (1.6-2.3) mg/dL Total Bilirubin (0.2-1.3) mg/dL AST (17-59) U/L ALT (4-49) U/L Alkaline Phosphatase (38-126) U/L Total Protein (6.3-8.2) g/dL Albumin (3.5-5.0) g/dL Crossmatch 02/01/23 02/01/23 02/01/23 Range/Units 17:06 17:54 17:56 WBC (3.8-10.6) k/uL RBC (4.30-5.90) m/uL Hgb (13.0-17.5) gm/dL Hct (39.0-53.0) % RDW (11.5-15.5) % Plt Count (150-450) k/uL Neutrophils # (1.3-7.7) k/uL PT (10.0-12.5) sec INR (<1.2) APTT (22.0-30.0) sec Fibrinogen (200-500) mg/dL ABG pH (7.35-7.45) ABG pCO2 (35-45) mmHg ABG pO2 (83-108) mmHg ABG O2 Saturation (94-97) % Sodium (137-145) mmol/L Potassium 3.1 L (3.5-5.1) mmol/L Carbon Dioxide 17 L (22-30) mmol/L BUN 31 H (9-20) mg/dL Creatinine 1.84 H (0.66-1.25) mg/dL Glucose 116 H (74-99) mg/dL POC Glucose (mg/dL) 173 H 144 H (70-110) mg/dL Calcium 7.2 L (8.4-10.2) mg/dL Ionized Calcium Thad (4.5-5.3) mg/dL Magnesium (1.6-2.3) mg/dL Total Bilirubin (0.2-1.3) mg/dL AST (17-59) U/L ALT (4-49) U/L Alkaline Phosphatase (38-126) U/L Total Protein (6.3-8.2) g/dL Albumin (3.5-5.0) g/dL Crossmatch 02/01/23 02/01/23 02/01/23 Range/Units 19:04 19:04 19:55 WBC (3.8-10.6) k/uL RBC (4.30-5.90) m/uL Hgb (13.0-17.5) gm/dL Hct (39.0-53.0) % RDW (11.5-15.5) % Plt Count (150-450) k/uL Neutrophils # (1.3-7.7) k/uL PT (10.0-12.5) sec INR (<1.2) APTT (22.0-30.0) sec Fibrinogen (200-500) mg/dL ABG pH (7.35-7.45) ABG pCO2 (35-45) mmHg ABG pO2 (83-108) mmHg ABG O2 Saturation (94-97) % Sodium (137-145) mmol/L Potassium (3.5-5.1) mmol/L Carbon Dioxide (22-30) mmol/L BUN (9-20) mg/dL Creatinine (0.66-1.25) mg/dL Glucose (74-99) mg/dL POC Glucose (mg/dL) 147 H 122 H (70-110) mg/dL Calcium (8.4-10.2) mg/dL Ionized Calcium Thad 4.1 L (4.5-5.3) mg/dL Magnesium (1.6-2.3) mg/dL Total Bilirubin (0.2-1.3) mg/dL AST (17-59) U/L ALT (4-49) U/L Alkaline Phosphatase (38-126) U/L Total Protein (6.3-8.2) g/dL Albumin (3.5-5.0) g/dL Crossmatch 02/01/23 02/02/23 02/02/23 Range/Units 20:43 00:04 00:57 WBC (3.8-10.6) k/uL RBC (4.30-5.90) m/uL Hgb (13.0-17.5) gm/dL Hct (39.0-53.0) % RDW (11.5-15.5) % Plt Count (150-450) k/uL Neutrophils # (1.3-7.7) k/uL PT (10.0-12.5) sec INR (<1.2) APTT (22.0-30.0) sec Fibrinogen (200-500) mg/dL ABG pH 7.54 H (7.35-7.45) ABG pCO2 24 L (35-45) mmHg ABG pO2 76 L (83-108) mmHg ABG O2 Saturation (94-97) % Sodium (137-145) mmol/L Potassium (3.5-5.1) mmol/L Carbon Dioxide (22-30) mmol/L BUN (9-20) mg/dL Creatinine (0.66-1.25) mg/dL Glucose (74-99) mg/dL POC Glucose (mg/dL) 125 H 127 H (70-110) mg/dL Calcium (8.4-10.2) mg/dL Ionized Calcium Thad (4.5-5.3) mg/dL Magnesium (1.6-2.3) mg/dL Total Bilirubin (0.2-1.3) mg/dL AST (17-59) U/L ALT (4-49) U/L Alkaline Phosphatase (38-126) U/L Total Protein (6.3-8.2) g/dL Albumin (3.5-5.0) g/dL Crossmatch 02/02/23 02/02/23 02/02/23 Range/Units 02:02 02:54 04:00 WBC (3.8-10.6) k/uL RBC (4.30-5.90) m/uL Hgb (13.0-17.5) gm/dL Hct (39.0-53.0) % RDW (11.5-15.5) % Plt Count (150-450) k/uL Neutrophils # (1.3-7.7) k/uL PT (10.0-12.5) sec INR (<1.2) APTT (22.0-30.0) sec Fibrinogen (200-500) mg/dL ABG pH (7.35-7.45) ABG pCO2 (35-45) mmHg ABG pO2 (83-108) mmHg ABG O2 Saturation (94-97) % Sodium 136 L (137-145) mmol/L Potassium (3.5-5.1) mmol/L Carbon Dioxide 20 L (22-30) mmol/L BUN 36 H (9-20) mg/dL Creatinine 2.16 H (0.66-1.25) mg/dL Glucose (74-99) mg/dL POC Glucose (mg/dL) 117 H 117 H (70-110) mg/dL Calcium 7.0 L (8.4-10.2) mg/dL Ionized Calcium Thad (4.5-5.3) mg/dL Magnesium 1.3 L (1.6-2.3) mg/dL Total Bilirubin 4.1 H (0.2-1.3) mg/dL AST 7013 H (17-59) U/L ALT 3221 H (4-49) U/L Alkaline Phosphatase 148 H (38-126) U/L Total Protein 3.7 L (6.3-8.2) g/dL Albumin 2.2 L (3.5-5.0) g/dL Crossmatch 02/02/23 02/02/23 02/02/23 Range/Units 04:00 04:04 05:03 WBC 22.5 H (3.8-10.6) k/uL RBC 2.82 L (4.30-5.90) m/uL Hgb 9.1 L (13.0-17.5) gm/dL Hct 25.8 L (39.0-53.0) % RDW 16.7 H (11.5-15.5) % Plt Count 85 L (150-450) k/uL Neutrophils # 20.7 H (1.3-7.7) k/uL PT (10.0-12.5) sec INR (<1.2) APTT (22.0-30.0) sec Fibrinogen (200-500) mg/dL ABG pH (7.35-7.45) ABG pCO2 (35-45) mmHg ABG pO2 (83-108) mmHg ABG O2 Saturation (94-97) % Sodium (137-145) mmol/L Potassium (3.5-5.1) mmol/L Carbon Dioxide (22-30) mmol/L BUN (9-20) mg/dL Creatinine (0.66-1.25) mg/dL Glucose (74-99) mg/dL POC Glucose (mg/dL) 115 H 115 H (70-110) mg/dL Calcium (8.4-10.2) mg/dL Ionized Calcium Thad (4.5-5.3) mg/dL Magnesium (1.6-2.3) mg/dL Total Bilirubin (0.2-1.3) mg/dL AST (17-59) U/L ALT (4-49) U/L Alkaline Phosphatase (38-126) U/L Total Protein (6.3-8.2) g/dL Albumin (3.5-5.0) g/dL Crossmatch 02/02/23 02/02/23 02/02/23 Range/Units 05:57 06:05 06:25 WBC (3.8-10.6) k/uL RBC (4.30-5.90) m/uL Hgb (13.0-17.5) gm/dL Hct (39.0-53.0) % RDW (11.5-15.5) % Plt Count (150-450) k/uL Neutrophils # (1.3-7.7) k/uL PT (10.0-12.5) sec INR (<1.2) APTT (22.0-30.0) sec Fibrinogen (200-500) mg/dL ABG pH 7.54 H (7.35-7.45) ABG pCO2 26 L (35-45) mmHg ABG pO2 62 L (83-108) mmHg ABG O2 Saturation 93.9 L (94-97) % Sodium (137-145) mmol/L Potassium (3.5-5.1) mmol/L Carbon Dioxide (22-30) mmol/L BUN (9-20) mg/dL Creatinine (0.66-1.25) mg/dL Glucose (74-99) mg/dL POC Glucose (mg/dL) 114 H (70-110) mg/dL Calcium (8.4-10.2) mg/dL Ionized Calcium Thad 3.7 L (4.5-5.3) mg/dL Magnesium (1.6-2.3) mg/dL Total Bilirubin (0.2-1.3) mg/dL AST (17-59) U/L ALT (4-49) U/L Alkaline Phosphatase (38-126) U/L Total Protein (6.3-8.2) g/dL Albumin (3.5-5.0) g/dL Crossmatch 02/02/23 Range/Units 06:57 WBC (3.8-10.6) k/uL RBC (4.30-5.90) m/uL Hgb (13.0-17.5) gm/dL Hct (39.0-53.0) % RDW (11.5-15.5) % Plt Count (150-450) k/uL Neutrophils # (1.3-7.7) k/uL PT (10.0-12.5) sec INR (<1.2) APTT (22.0-30.0) sec Fibrinogen (200-500) mg/dL ABG pH (7.35-7.45) ABG pCO2 (35-45) mmHg ABG pO2 (83-108) mmHg ABG O2 Saturation (94-97) % Sodium (137-145) mmol/L Potassium (3.5-5.1) mmol/L Carbon Dioxide (22-30) mmol/L BUN (9-20) mg/dL Creatinine (0.66-1.25) mg/dL Glucose (74-99) mg/dL POC Glucose (mg/dL) 131 H (70-110) mg/dL Calcium (8.4-10.2) mg/dL Ionized Calcium Thad (4.5-5.3) mg/dL Magnesium (1.6-2.3) mg/dL Total Bilirubin (0.2-1.3) mg/dL AST (17-59) U/L ALT (4-49) U/L Alkaline Phosphatase (38-126) U/L Total Protein (6.3-8.2) g/dL Albumin (3.5-5.0) g/dL Crossmatch Microbiology - Last 24 Hours (Table) 02/01/23 03:00 Gram Stain - Preliminary Sputum Assessment and Plan Plan: Abdominal aortic aneurysm, 10.5 cm infrarenal. The patient is post endovascular aortic aneurysm repair back in 2018 with subsequent presentation with abdominal pain and presence of an endovascular leak in addition to a large abdominal aortic aneurysm, symptomatic, high risk for rupture. The patient is post repair of a infrarenal abdominal aortic aneurysm with a tube graft and amputation of the left renal artery, currently postop day #2 Shock, a combination of distributive and hypovolemic. The patient significant blood loss resuscitated with blood products and fluids both colloids and crystalloids. Received a total of 6 units of packed RBC, 5 units of fresh frozen plasma, 2 units of cryoprecipitate, and IV albumin. The patient remains on high dose epinephrine and vasopressin physiologic dose. Cardiac index is at 1.4. Remains profoundly hypotensive A. fib/RVR, post-cardioversion. Subsequent cardiac rhythm of a flutter/A. fib currently in sinus and the patient is on a amiodarone infusion per protocol. Acute hypercapnic respiratory failure secondary to above, with a blood gas showing a component of respiratory alkalosis Anion gap metabolic acidosis, improved Acute kidney injury secondary to above and the patient is anuric at this point, creatinine is on the rise Hypocalcemia likely secondary to aggressive use of blood products, low ionized calcium Abdominal pain secondary to above Nephrolithiasis Paroxysmal A. fib current rhythm is sinus Chronic systolic heart failure with an ejection fraction of 40-45% Hypertension, history of Hyperlipidemia Prostate enlargement Osteoarthritis DNR CODE STATUS Thrombocytopenia, currently stable, rule out a component of DIC addition. Acute leukocytosis, reactive. Septic is felt to be less likely. Shock liver Plan Continue ventilator support and dropped respiratory down to 20 Bicarb infusion has been discontinued A bolus of 1 L normal saline and evaluate his blood pressure response, if a dequate response, this may be repeated based on his blood pressure response and cardiac output and the rest of the hemodynamics. Continue epinephrine and vasopressin Continue the amiodarone drip Give another 2 g of calcium gluconate Insulin management for blood sugar control, currently on 3 units and the dose will be titrated accordingly Monitor hemodynamics and the patient has a Whitakers-Rina catheter in place, adequate cardiac output and index Continue IV Zosyn Senna set of blood culture Obtain ultrasound the kidneys and there is no evidence of any obstructive uropathy or hydronephrosis. There is trace ascites Sedation with low-dose propofol Abdominal wound is dry clean and intact Patient will be kept nothing by mouth for now Condition is obviously critical and the patient's is a DO NOT RESUSCITATE CODE STATUS. We'll continue to follow. Evaluation was done in more than one hour. This is still a very critical condition. Obviously, the patient has signs of multisystem organ failure. He carries a high mortality risk. Immediate family members are aware. We'll continue treatment. He is a DO NOT RESUSCITATE CODE STATUS for now. Time with Patient: Greater than 30
[2023-02-02] MEDS ORDERED: CALCIUM GLUCONATE IN NACL 2 GM in SALINE 1 100ML.BAG IVPB ONE (09:18)
[2023-02-02] MEDS ORDERED: SODIUM CHLORIDE 0.9% 2,000 ML IV ONE (09:21)
[2023-02-02 09:23] LABS: INR 2.8 (<1.2); Prothrombin Time 27.5 sec (10.0-12.5)
--- NOTE | 2023-02-02 09:32 | P.PN ---
Subjective Progress Note Date: 02/02/23 Principal diagnosis: Abdominal aortic aneurysm The patient is seen and examined today as a follow-up in the ICU. He is postop day #2 for repair of 10.5 cm infrarenal abdominal aortic aneurysm with tube graft and reimplantation of the left renal artery. He remains sedated, intu bated and on mechanical ventilation. He used to be hypotensive and remains in critical condition. His PA pressures are 37/24. He went into A. fib RVR and had to be cardioverted. He continues to have episodes of atrial flutter started on amiodarone drip. He has acute kidney injury with very little output. Patient also has acute hepatitis due to shock liver and hypovolemia. On He is status post 6 units of red blood cell transfusion, 5 units of FFP, 1 unit of platelets, 2 units of cryoprecipitate. Family remains at bedside. He is still a no code. Surgical dressing was changed yesterday, dressing is currently clean dry and intact. Abdomen soft. He remains on IV Zosyn antibiotics and nothing by mouth. Objective - Vital Signs Vital signs: Vital Signs Temp 97.7 F 02/02/23 04:00 Pulse 96 02/02/23 07:00 Resp 28 H 02/02/23 07:00 BP 69/48 02/02/23 04:45 Pulse Ox 92 L 02/02/23 07:00 FiO2 40 02/02/23 07:43 Intake & Output 02/01/23 02/02/23 02/02/23 18:59 06:59 18:59 Intake Total 3061.213 3734.416 328.232 Output Total 0 15 Balance 3061.213 3719.416 328.232 Weight 96.4 kg Intake: IV 1353 2757 0.9% Bolus 1000 CO/CI 120 240 Magnesium Sulfate-D5w Pmx 200 1 gm In Dextrose/Water 1 100ml.bag @ 100 mls/hr IVPB Q1H [facility] Rx#: [id number] Piperacillin-Tazobactam 3 100 .375 gm In Sodium Chloride 0.9% 100 ml @ 25 mls/hr IVPB Q8HR [facility] Rx# :[id number] Pressure Bags 108 117 Sodium Chloride 0.45% 1, 900 1100 000 ml @ 100 mls/hr IV . Q11H [facility] with Sodium Bicarb (1 Meq/ml) 100 ml Rx#:[id number] Sodium Chloride 0.9% 1, 225 000 ml @ 75 mls/hr IV . [id number] [facility] Rx#:[id number] Intake, IV Titration 1708.213 917.416 328.232 Amount Calcium Gluconate in NaCl 100 1 gm In Saline 1 100ml. bag @ 100 mls/hr IVPB ONCE ONE Rx#:[id number] Calcium Gluconate in NaCl 100 2 gm In Saline 1 100ml. bag @ 100 mls/hr IVPB ONCE ONE Rx#:[id number] EPINEPHrine 16 mg In 408.970 628.439 318.932 Dextrose 5% in Water 234 ml @ 0.03 MCG/KG/MIN 2. 498 mls/hr IV .Q24H [facility] Rx#:[id number] EPINEPHrine 4 mg In 496.144 Dextrose 5% in Water 250 ml @ 0.03 MCG/KG/MIN 8. 675 mls/hr IV .Q24H [facility] Rx#:[id number] Insulin Regular 100 unit 126.134 57.683 9.3 In Sodium Chloride 0.9% 100 ml @ Per Protocol IV .Q0M [facility] Rx#:[id number] Milrinone-D5w Pmx 20 mg 1.332 78.422 In Dextrose/Water 1 100ml .bag @ 0.375 MCG/KG/MIN 9 .99 mls/hr IV .Q10H1M [facility] Rx#:[id number] Piperacillin-Tazobactam 3 100 .375 gm In Sodium Chloride 0.9% 100 ml @ 25 mls/hr IVPB Q8HR [facility] Rx# :[id number] Potassium Chloride 10 meq 100 In Water For Injection 1 100ml.bag @ 100 mls/hr IVPB Q1H [facility] Rx#: [id number] Vasopressin 60 unit In 133.212 Sodium Chloride 0.9% 150 ml @ 0.03 UNITS/MIN 4.59 mls/hr IV .Q24H [facility] Rx#: [id number] propofoL 1,000 mg In 142.421 152.872 Empty Bag 1 bag @ 15 MCG/ KG/MIN 6.94 mls/hr IV . [id number] [facility] Rx#:[id number] Other 60 Output: Urine 0 15 Other: Voiding Method Indwelling Catheter Indwelling Catheter ABP, PAP, CO, CI - Last Documented Arterial Blood Pressure 112/59 Pulmonary Artery Pressure 37/24 Cardiac Output 2.9 Cardiac Index 1.5 - Exam General appearance: The patient is sedated and intubated on mechanical ventilation HET: Head is normocephalic and atraumatic. Neck: Supple. Heart: Regular. Tachycardic. Lungs: Equal expansion, on mechanical ventilation. Abdomen: Soft, nondistended. Dressing clean dry and intact Extremities: Normal skin color and turgor. Palpable bilateral femoral pulses. Neurological: Patient is sedated and intubated. - Labs CBC & Chem 7: 02/02/23 04:00 02/02/23 04:00 Labs: Abnormal Lab Results - Last 24 Hours (Table) 01/30/23 02/01/23 02/01/23 Range/Units 11:10 07:56 10:08 WBC (3.8-10.6) k/uL RBC (4.30-5.90) m/uL Hgb (13.0-17.5) gm/dL Hct (39.0-53.0) % RDW (11.5-15.5) % Plt Count (150-450) k/uL Neutrophils # (1.3-7.7) k/uL PT 24.5 H (10.0-12.5) sec INR 2.5 H (<1.2) APTT 42.9 H (22.0-30.0) sec Fibrinogen 182 L (200-500) mg/dL ABG pH (7.35-7.45) ABG pCO2 (35-45) mmHg ABG pO2 (83-108) mmHg ABG O2 Saturation (94-97) % Sodium (137-145) mmol/L Potassium (3.5-5.1) mmol/L Carbon Dioxide (22-30) mmol/L BUN (9-20) mg/dL Creatinine (0.66-1.25) mg/dL Glucose (74-99) mg/dL POC Glucose (mg/dL) 435 H (70-110) mg/dL Calcium (8.4-10.2) mg/dL Ionized Calcium Thad (4.5-5.3) mg/dL Magnesium (1.6-2.3) mg/dL Total Bilirubin (0.2-1.3) mg/dL AST (17-59) U/L ALT (4-49) U/L Alkaline Phosphatase (38-126) U/L Total Protein (6.3-8.2) g/dL Albumin (3.5-5.0) g/dL Crossmatch See Detail 02/01/23 02/01/23 02/01/23 Range/Units 11:27 12:09 13:22 WBC (3.8-10.6) k/uL RBC (4.30-5.90) m/uL Hgb (13.0-17.5) gm/dL Hct (39.0-53.0) % RDW (11.5-15.5) % Plt Count (150-450) k/uL Neutrophils # (1.3-7.7) k/uL PT (10.0-12.5) sec INR (<1.2) APTT (22.0-30.0) sec Fibrinogen (200-500) mg/dL ABG pH (7.35-7.45) ABG pCO2 (35-45) mmHg ABG pO2 (83-108) mmHg ABG O2 Saturation (94-97) % Sodium (137-145) mmol/L Potassium (3.5-5.1) mmol/L Carbon Dioxide (22-30) mmol/L BUN (9-20) mg/dL Creatinine (0.66-1.25) mg/dL Glucose (74-99) mg/dL POC Glucose (mg/dL) 355 H 341 H 311 H (70-110) mg/dL Calcium (8.4-10.2) mg/dL Ionized Calcium Thad (4.5-5.3) mg/dL Magnesium (1.6-2.3) mg/dL Total Bilirubin (0.2-1.3) mg/dL AST (17-59) U/L ALT (4-49) U/L Alkaline Phosphatase (38-126) U/L Total Protein (6.3-8.2) g/dL Albumin (3.5-5.0) g/dL Crossmatch 02/01/23 02/01/23 02/01/23 Range/Units 14:00 14:00 14:06 WBC 18.4 H (3.8-10.6) k/uL RBC 2.79 L (4.30-5.90) m/uL Hgb 9.2 L (13.0-17.5) gm/dL Hct 26.2 L (39.0-53.0) % RDW 17.5 H (11.5-15.5) % Plt Count 83 L (150-450) k/uL Neutrophils # (1.3-7.7) k/uL PT (10.0-12.5) sec INR (<1.2) APTT (22.0-30.0) sec Fibrinogen (200-500) mg/dL ABG pH (7.35-7.45) ABG pCO2 (35-45) mmHg ABG pO2 (83-108) mmHg ABG O2 Saturation (94-97) % Sodium (137-145) mmol/L Potassium 3.0 L (3.5-5.1) mmol/L Carbon Dioxide (22-30) mmol/L BUN (9-20) mg/dL Creatinine (0.66-1.25) mg/dL Glucose (74-99) mg/dL POC Glucose (mg/dL) 274 H (70-110) mg/dL Calcium (8.4-10.2) mg/dL Ionized Calcium Thad (4.5-5.3) mg/dL Magnesium (1.6-2.3) mg/dL Total Bilirubin (0.2-1.3) mg/dL AST (17-59) U/L ALT (4-49) U/L Alkaline Phosphatase (38-126) U/L Total Protein (6.3-8.2) g/dL Albumin (3.5-5.0) g/dL Crossmatch 02/01/23 02/01/23 02/01/23 Range/Units 14:58 16:01 17:06 WBC (3.8-10.6) k/uL RBC (4.30-5.90) m/uL Hgb (13.0-17.5) gm/dL Hct (39.0-53.0) % RDW (11.5-15.5) % Plt Count (150-450) k/uL Neutrophils # (1.3-7.7) k/uL PT (10.0-12.5) sec INR (<1.2) APTT (22.0-30.0) sec Fibrinogen (200-500) mg/dL ABG pH (7.35-7.45) ABG pCO2 (35-45) mmHg ABG pO2 (83-108) mmHg ABG O2 Saturation (94-97) % Sodium (137-145) mmol/L Potassium (3.5-5.1) mmol/L Carbon Dioxide (22-30) mmol/L BUN (9-20) mg/dL Creatinine (0.66-1.25) mg/dL Glucose (74-99) mg/dL POC Glucose (mg/dL) 247 H 205 H 173 H (70-110) mg/dL Calcium (8.4-10.2) mg/dL Ionized Calcium Thad (4.5-5.3) mg/dL Magnesium (1.6-2.3) mg/dL Total Bilirubin (0.2-1.3) mg/dL AST (17-59) U/L ALT (4-49) U/L Alkaline Phosphatase (38-126) U/L Total Protein (6.3-8.2) g/dL Albumin (3.5-5.0) g/dL Crossmatch 02/01/23 02/01/23 02/01/23 Range/Units 17:54 17:56 19:04 WBC (3.8-10.6) k/uL RBC (4.30-5.90) m/uL Hgb (13.0-17.5) gm/dL Hct (39.0-53.0) % RDW (11.5-15.5) % Plt Count (150-450) k/uL Neutrophils # (1.3-7.7) k/uL PT (10.0-12.5) sec INR (<1.2) APTT (22.0-30.0) sec Fibrinogen (200-500) mg/dL ABG pH (7.35-7.45) ABG pCO2 (35-45) mmHg ABG pO2 (83-108) mmHg ABG O2 Saturation (94-97) % Sodium (137-145) mmol/L Potassium 3.1 L (3.5-5.1) mmol/L Carbon Dioxide 17 L (22-30) mmol/L BUN 31 H (9-20) mg/dL Creatinine 1.84 H (0.66-1.25) mg/dL Glucose 116 H (74-99) mg/dL POC Glucose (mg/dL) 144 H (70-110) mg/dL Calcium 7.2 L (8.4-10.2) mg/dL Ionized Calcium Thad 4.1 L (4.5-5.3) mg/dL Magnesium (1.6-2.3) mg/dL Total Bilirubin (0.2-1.3) mg/dL AST (17-59) U/L ALT (4-49) U/L Alkaline Phosphatase (38-126) U/L Total Protein (6.3-8.2) g/dL Albumin (3.5-5.0) g/dL Crossmatch 02/01/23 02/01/23 02/01/23 Range/Units 19:04 19:55 20:43 WBC (3.8-10.6) k/uL RBC (4.30-5.90) m/uL Hgb (13.0-17.5) gm/dL Hct (39.0-53.0) % RDW (11.5-15.5) % Plt Count (150-450) k/uL Neutrophils # (1.3-7.7) k/uL PT (10.0-12.5) sec INR (<1.2) APTT (22.0-30.0) sec Fibrinogen (200-500) mg/dL ABG pH 7.54 H (7.35-7.45) ABG pCO2 24 L (35-45) mmHg ABG pO2 76 L (83-108) mmHg ABG O2 Saturation (94-97) % Sodium (137-145) mmol/L Potassium (3.5-5.1) mmol/L Carbon Dioxide (22-30) mmol/L BUN (9-20) mg/dL Creatinine (0.66-1.25) mg/dL Glucose (74-99) mg/dL POC Glucose (mg/dL) 147 H 122 H (70-110) mg/dL Calcium (8.4-10.2) mg/dL Ionized Calcium Thad (4.5-5.3) mg/dL Magnesium (1.6-2.3) mg/dL Total Bilirubin (0.2-1.3) mg/dL AST (17-59) U/L ALT (4-49) U/L Alkaline Phosphatase (38-126) U/L Total Protein (6.3-8.2) g/dL Albumin (3.5-5.0) g/dL Crossmatch 02/02/23 02/02/23 02/02/23 Range/Units 00:04 00:57 02:02 WBC (3.8-10.6) k/uL RBC (4.30-5.90) m/uL Hgb (13.0-17.5) gm/dL Hct (39.0-53.0) % RDW (11.5-15.5) % Plt Count (150-450) k/uL Neutrophils # (1.3-7.7) k/uL PT (10.0-12.5) sec INR (<1.2) APTT (22.0-30.0) sec Fibrinogen (200-500) mg/dL ABG pH (7.35-7.45) ABG pCO2 (35-45) mmHg ABG pO2 (83-108) mmHg ABG O2 Saturation (94-97) % Sodium (137-145) mmol/L Potassium (3.5-5.1) mmol/L Carbon Dioxide (22-30) mmol/L BUN (9-20) mg/dL Creatinine (0.66-1.25) mg/dL Glucose (74-99) mg/dL POC Glucose (mg/dL) 125 H 127 H 117 H (70-110) mg/dL Calcium (8.4-10.2) mg/dL Ionized Calcium Thad (4.5-5.3) mg/dL Magnesium (1.6-2.3) mg/dL Total Bilirubin (0.2-1.3) mg/dL AST (17-59) U/L ALT (4-49) U/L Alkaline Phosphatase (38-126) U/L Total Protein (6.3-8.2) g/dL Albumin (3.5-5.0) g/dL Crossmatch 02/02/23 02/02/23 02/02/23 Range/Units 02:54 04:00 04:00 WBC 22.5 H (3.8-10.6) k/uL RBC 2.82 L (4.30-5.90) m/uL Hgb 9.1 L (13.0-17.5) gm/dL Hct 25.8 L (39.0-53.0) % RDW 16.7 H (11.5-15.5) % Plt Count 85 L (150-450) k/uL Neutrophils # 20.7 H (1.3-7.7) k/uL PT (10.0-12.5) sec INR (<1.2) APTT (22.0-30.0) sec Fibrinogen (200-500) mg/dL ABG pH (7.35-7.45) ABG pCO2 (35-45) mmHg ABG pO2 (83-108) mmHg ABG O2 Saturation (94-97) % Sodium 136 L (137-145) mmol/L Potassium (3.5-5.1) mmol/L Carbon Dioxide 20 L (22-30) mmol/L BUN 36 H (9-20) mg/dL Creatinine 2.16 H (0.66-1.25) mg/dL Glucose (74-99) mg/dL POC Glucose (mg/dL) 117 H (70-110) mg/dL Calcium 7.0 L (8.4-10.2) mg/dL Ionized Calcium Thad (4.5-5.3) mg/dL Magnesium 1.3 L (1.6-2.3) mg/dL Total Bilirubin 4.1 H (0.2-1.3) mg/dL AST 7013 H (17-59) U/L ALT 3221 H (4-49) U/L Alkaline Phosphatase 148 H (38-126) U/L Total Protein 3.7 L (6.3-8.2) g/dL Albumin 2.2 L (3.5-5.0) g/dL Crossmatch 02/02/23 02/02/23 02/02/23 Range/Units 04:04 05:03 05:57 WBC (3.8-10.6) k/uL RBC (4.30-5.90) m/uL Hgb (13.0-17.5) gm/dL Hct (39.0-53.0) % RDW (11.5-15.5) % Plt Count (150-450) k/uL Neutrophils # (1.3-7.7) k/uL PT (10.0-12.5) sec INR (<1.2) APTT (22.0-30.0) sec Fibrinogen (200-500) mg/dL ABG pH (7.35-7.45) ABG pCO2 (35-45) mmHg ABG pO2 (83-108) mmHg ABG O2 Saturation (94-97) % Sodium (137-145) mmol/L Potassium (3.5-5.1) mmol/L Carbon Dioxide (22-30) mmol/L BUN (9-20) mg/dL Creatinine (0.66-1.25) mg/dL Glucose (74-99) mg/dL POC Glucose (mg/dL) 115 H 115 H 114 H (70-110) mg/dL Calcium (8.4-10.2) mg/dL Ionized Calcium Thad (4.5-5.3) mg/dL Magnesium (1.6-2.3) mg/dL Total Bilirubin (0.2-1.3) mg/dL AST (17-59) U/L ALT (4-49) U/L Alkaline Phosphatase (38-126) U/L Total Protein (6.3-8.2) g/dL Albumin (3.5-5.0) g/dL Crossmatch 02/02/23 02/02/23 02/02/23 Range/Units 06:05 06:25 06:57 WBC (3.8-10.6) k/uL RBC (4.30-5.90) m/uL Hgb (13.0-17.5) gm/dL Hct (39.0-53.0) % RDW (11.5-15.5) % Plt Count (150-450) k/uL Neutrophils # (1.3-7.7) k/uL PT (10.0-12.5) sec INR (<1.2) APTT (22.0-30.0) sec Fibrinogen (200-500) mg/dL ABG pH 7.54 H (7.35-7.45) ABG pCO2 26 L (35-45) mmHg ABG pO2 62 L (83-108) mmHg ABG O2 Saturation 93.9 L (94-97) % Sodium (137-145) mmol/L Potassium (3.5-5.1) mmol/L Carbon Dioxide (22-30) mmol/L BUN (9-20) mg/dL Creatinine (0.66-1.25) mg/dL Glucose (74-99) mg/dL POC Glucose (mg/dL) 131 H (70-110) mg/dL Calcium (8.4-10.2) mg/dL Ionized Calcium Thad 3.7 L (4.5-5.3) mg/dL Magnesium (1.6-2.3) mg/dL Total Bilirubin (0.2-1.3) mg/dL AST (17-59) U/L ALT (4-49) U/L Alkaline Phosphatase (38-126) U/L Total Protein (6.3-8.2) g/dL Albumin (3.5-5.0) g/dL Crossmatch Microbiology - Last 24 Hours (Table) 02/01/23 03:00 Gram Stain - Preliminary Sputum Assessment and Plan Assessment: 1. Postop day #2 for repair of 10.5 cm infrarenal abdominal aortic aneurysm with tube graft and reimplantation of left renal artery 2. History of infrarenal abdominal aortic aneurysm status post endovascular a ortic aneurysm repair in 2018, with new endoleak 3. Acute blood loss anemia, resuscitated with blood products and fluids 4. Acute hypercapnic respiratory failure secondary to above 5. Acute kidney injury 6. Acute hepatitis from shock liver 7. Atrial fibrillation with RVR 8. Chronic systolic heart failure with an EF of 40-45% Plan: 1. Continue ICU care and recommendations per set up inspector 2. Patient is DO NOT RESUSCITATE 3. Change abdominal dressing as needed 4. Keep nothing by mouth 5. Continue to monitor kidney function, patient may require renal replacement therapy 6. Further recommendations based on clinical course Thank you for this consultation, we will continue to follow. The impression and plan of care has been dictated as directed. Dr. Medina I performed a history and examination of this patient, discussed the same with the dictator. I agree with the dictator's note ,documented as a scribe. Any additional findings or plans will be noted.
[2023-02-02 09:53] LABS: Glucose,Whole Blood 138 mg/dL (70-110)
[2023-02-02] MEDS: ATORVASTATIN 10 MG TAB PO SCH (10:02)
[2023-02-02] MEDS: allopurinoL 100 MG TAB PO SCH (10:02)
[2023-02-02] MEDS: TAMSULOSIN 0.4 MG CAP.ER.24H PO SCH ×2 (10:02→20:08)
[2023-02-02] MEDS: CHLORHEXIDINE GLUCONATE 15 ML CUP MUCOUS MEM SCH ×2 (10:02→20:07)
[2023-02-02] MEDS: PANTOPRAZOLE 40 MG/10 ML VIAL IVP SCH (10:02)
[2023-02-02] MEDS: METOPROLOL SUCCINATE (ER) 100 MG TAB.ER.24H PO SCH (10:03)
[2023-02-02] MEDS: TIMOLOL 0.5% OPHTH DROPS 5 ML BTL BOTH EYES SCH ×2 (10:20→20:08)
[2023-02-02] MEDS: MILRINONE-D5W PMX 20 MG in DEXTROSE/WATER 1 100ML.BAG IV SCH ×2 (10:45→20:09)
[2023-02-02] MEDS: PIPERACILLIN-TAZOBACTAM 3.375 GM in SODIUM CHLORIDE 0.9% 100 ML IVPB SCH ×2 (10:47→15:40)
[2023-02-02] MEDS: SODIUM CHLORIDE 0.45% 1,000 ML with SODIUM BICARB (1 MEQ/ML) 100 ML IV SCH ×4 (11:00→11:13)
[2023-02-02 11:36] LABS: Glucose,Whole Blood 127 mg/dL (70-110)
--- NOTE | 2023-02-02 11:38 | XR ---
EXAMINATION TYPE: XR chest 1V DATE OF EXAM: 02/02/2023 COMPARISON: 02/01/2023 HISTORY: 82-year-old male intubated TECHNIQUE: Single frontal view of the chest is obtained. FINDINGS: ET tube tip satisfactory. NG tube continues to show a tortuous course but continue to exte nd below the diaphragm. A small left pleural effusion appears new or increased. Increasing patchy bib asilar densities. Left IJ Loa-Rina catheter. Tip at the distal left main pulmonary artery. IMPRESSION: Increasing or new small left pleural effusion with patchy bibasilar atelectasis and/or c onsolidation.
--- NOTE | 2023-02-02 11:43 | P.NPCON ---
History of Present Illness - Reason for Consult acute renal failure - History of Present Illness Patient is an 82-year-old male status post repair of 10.5 cm infrarenal abdominal aortic aneurysm with tube graft. Reimplantation of left renal artery. Patient had significant blood loss of about 5 L and has had about 6 units packed RBCs along with cryoprecipitate and FFP's. Patient has been severely hypotensive requiring large dose off vasopressors. Also noted significant metabolic acidosis yesterday and is currently status post IV bicarb and multiple amps of bicarb, IV push. Urine output has been low and currently at 0 mL per hour. Patient remains on the vent. FiO2 is down to 40%. Currently receiving 2 L of fluid bolus and pressors are being decreased. Also noted to have shock liver with AST 7013 and ALT 3221 Past Medical History Past Medical History: Atrial Fibrillation, Hypertension, Osteoarthritis (OA), Prostate Disorder Additional Past Medical History / Comment(s): "weak bladder", chronic kidney disease, gout, abdominal aortic aneurysm History of Any Multi-Drug Resistant Organisms: None Reported Additional Past Surgical History / Comment(s): surgery on lower left leg for fx, laura cataracts, surgery detached retinal left eye, Past Anesthesia/Blood Transfusion Reactions: Motion Sickness Past Psychological History: Anxiety Smoking Status: Never smoker Past Alcohol Use History: Rare Past Drug Use History: None Reported - Past Family History Mother Family Medical History: No Reported History Medications and Allergies Home Medications Medication Instructions Recorded Confirmed Type Acetaminophen [Tylenol Arthritis] 1,300 mg PO BID 01/19/18 01/30/23 History Atorvastatin [Lipitor] 10 mg PO DAILY 01/19/18 01/30/23 History Losartan Potassium [Cozaar] 25 mg PO DAILY 01/19/18 01/30/23 History Timolol [Betimol 0.5% Ophth Soln] 1 drop BOTH EYES BID 01/19/18 01/30/23 History allopurinoL [Zyloprim] 100 mg PO DAILY 01/19/18 01/30/23 History hydroCHLOROthiazide 25 mg PO DAILY 01/19/18 01/30/23 History traMADol HCL [Ultram] 50 mg PO BID PRN 01/19/18 01/30/23 History Tamsulosin [Flomax] 0.4 mg PO BID 06/20/22 01/30/23 History hydroCHLOROthiazide 12.5 mg PO DAILY 06/20/22 01/30/23 History Apixaban [Eliquis] 5 mg PO BID #60 tab 06/22/22 01/30/23 Rx Diltiazem Oral [Cardizem*] 60 mg PO TID 30 Days #90 tab 06/26/22 01/30/23 Rx Metoprolol Succinate (ER) [Toprol 100 mg PO DAILY 09/01/22 01/30/23 History Xl] Amiodarone HCl [Pacerone] 200 mg PO BID 01/30/23 01/30/23 History Allergies Allergy/AdvReac Type Severity Reaction Status Date / Time No Known Allergies Allergy Verified 01/30/23 11:18 Physical Exam Vitals: Vital Signs Temp Pulse Resp BP Pulse Ox FiO2 02/02/23 11:19 40 02/02/23 10:30 89 23 92 L 02/02/23 10:15 89 22 92 L 02/02/23 10:00 89 22 94 L 02/02/23 09:45 93 20 93 L 02/02/23 09:30 93 0 L 69/48 93 L 02/02/23 09:15 87 0 L 69/48 90 L 02/02/23 09:00 92 0 L 69/48 91 L 02/02/23 08:45 93 0 L 69/48 91 L 02/02/23 08:30 94 22 90 L 02/02/23 08:15 86 20 92 L 02/02/23 08:00 98.0 F 92 20 91 L 40 02/02/23 07:45 92 20 93 L 02/02/23 07:43 40 02/02/23 07:30 95 20 90 L 02/02/23 07:15 92 20 90 L 02/02/23 07:00 96 28 H 92 L 40 02/02/23 06:45 93 28 H 91 L 02/02/23 06:30 95 28 H 91 L 02/02/23 06:15 93 28 H 92 L 02/02/23 06:00 94 28 H 91 L 40 02/02/23 05:45 93 28 H 91 L 02/02/23 05:30 93 28 H 92 L 02/02/23 05:15 95 28 H 81 L 02/02/23 05:00 92 28 H 92 L 40 02/02/23 04:45 97 28 H 69/48 95 02/02/23 04:30 95 28 H 91 L 02/02/23 04:15 94 28 H 92 L 02/02/23 04:00 97.7 F 93 28 H 92 L 40 02/02/23 03:45 94 28 H 92 L 02/02/23 03:34 40 02/02/23 03:30 91 28 H 92 L 02/02/23 03:15 91 28 H 91 L 02/02/23 03:00 88 28 H 92 L 40 02/02/23 02:45 86 28 H 92 L 02/02/23 02:30 87 28 H 92 L 02/02/23 02:15 85 28 H 91 L 02/02/23 02:00 85 28 H 91 L 40 02/02/23 01:45 83 28 H 91 L 02/02/23 01:31 82 28 H 91 L 02/02/23 01:15 81 28 H 92 L 02/02/23 01:00 81 28 H 91 L 40 02/02/23 00:45 77 28 H 92 L 02/02/23 00:30 77 28 H 92 L 02/02/23 00:21 40 02/02/23 00:15 75 28 H 92 L 02/02/23 00:00 97.7 F 76 28 H 93 L 40 02/01/23 23:45 74 28 H 94 L 02/01/23 23:30 73 28 H 94 L 02/01/23 23:15 73 28 H 94 L 02/01/23 23:00 72 28 H 94 L 40 02/01/23 22:45 71 28 H 93 L 02/01/23 22:30 70 28 H 95 02/01/23 22:15 70 28 H 95 02/01/23 22:00 70 28 H 96 40 02/01/23 21:45 70 28 H 96 02/01/23 21:30 66 28 H 94 L 02/01/23 21:15 71 28 H 94 L 02/01/23 21:00 70 28 H 98 40 02/01/23 20:50 40 02/01/23 20:45 73 28 H 96 02/01/23 20:30 75 28 H 96 02/01/23 20:15 76 28 H 97 02/01/23 20:00 98.1 F 76 28 H 96 40 02/01/23 19:45 76 28 H 97 02/01/23 19:30 73 28 H 96 02/01/23 19:15 72 28 H 95 02/01/23 19:00 77 0 L 95 02/01/23 18:45 81 0 L 97 02/01/23 18:30 81 0 L 95 02/01/23 18:15 82 0 L 99 02/01/23 18:00 79 0 L 98 02/01/23 17:45 78 4 L 97 02/01/23 17:30 80 0 L 97 02/01/23 17:15 78 0 L 97 02/01/23 17:00 78 28 H 97 50 02/01/23 16:45 81 28 H 97 02/01/23 16:30 82 28 H 97 02/01/23 16:15 84 28 H 97 40 02/01/23 16:00 98.0 F 86 28 H 94 L 40 02/01/23 15:45 86 28 H 96 40 02/01/23 15:30 130 H 28 H 83 L 40 02/01/23 15:18 40 02/01/23 15:15 126 H 28 H 95 40 02/01/23 15:00 126 H 16 95 02/01/23 14:45 129 H 22 94 L 02/01/23 14:30 126 H 28 H 93 L 02/01/23 14:15 125 H 28 H 94 L 02/01/23 14:00 128 H 28 H 94 L 02/01/23 13:45 126 H 28 H 95 02/01/23 13:30 126 H 28 H 95 02/01/23 13:15 126 H 28 H 95 02/01/23 13:00 125 H 28 H 95 02/01/23 12:45 125 H 28 H 94 L 02/01/23 12:30 125 H 28 H 97 02/01/23 12:15 123 H 28 H 97 02/01/23 12:00 98.8 F 123 H 28 H 96 02/01/23 11:45 122 H 28 H 92 L 02/01/23 11:38 40 02/01/23 11:30 124 H 28 H 95 Intake and Output 02/01/23 02/02/23 02/02/23 22:59 06:59 14:59 Intake Total 7333.013 0805.204 2771.086 Output Total 0 15 0 Balance 4587.205 9806.204 2771.086 Intake: IV 1012 2241 2216 0.9% Bolus 1000 CO/CI 140 160 80 Calcium Gluconate in NaCl 100 2 gm In Saline 1 100ml. bag @ 100 mls/hr IVPB ONCE ONE Rx#:[id number] Magnesium Sulfate-D5w Pmx 200 1 gm In Dextrose/Water 1 100ml.bag @ 100 mls/hr IVPB Q1H [facility] Rx#: [id number] Piperacillin-Tazobactam 3 100 .375 gm In Sodium Chloride 0.9% 100 ml @ 25 mls/hr IVPB Q8HR [facility] Rx# :[id number] Pressure Bags 72 81 36 Sodium Chloride 0.45% 1, 800 700 000 ml @ 100 mls/hr IV . Q11H [facility] with Sodium Bicarb (1 Meq/ml) 100 ml Rx#:[id number] Sodium Chloride 0.9% 2, 2000 000 ml @ 999 mls/hr IV . Q2H1M [facility] Rx#:[id number] Intake, IV Titration 575.897 762.204 475.086 Amount EPINEPHrine 16 mg In 286.977 526.487 465.786 Dextrose 5% in Water 234 ml @ 0.03 MCG/KG/MIN 2. 498 mls/hr IV .Q24H [facility] Rx#:[id number] Insulin Regular 100 unit 50.009 36.308 9.3 In Sodium Chloride 0.9% 100 ml @ Per Protocol IV .Q0M [facility] Rx#:[id number] Milrinone-D5w Pmx 20 mg 1.332 78.422 In Dextrose/Water 1 100ml .bag @ 0.375 MCG/KG/MIN 9 .99 mls/hr IV .Q10H1M [facility] Rx#:[id number] Vasopressin 60 unit In 133.212 Sodium Chloride 0.9% 150 ml @ 0.03 UNITS/MIN 4.59 mls/hr IV .Q24H [facility] Rx#: [id number] propofoL 1,000 mg In 104.367 120.987 Empty Bag 1 bag @ 15 MCG/ KG/MIN 6.94 mls/hr IV . [id number] [facility] Rx#:[id number] Oral 80 Other 60 Output: Urine 0 15 0 Other: Voiding Method Indwelling Catheter Indwelling Catheter Weight 96.4 kg ABP, PAP, CO, CI - Last 8 Hours Arterial Blood Pressure 127/54 Arterial Blood Pressure 128/56 Arterial Blood Pressure 183/75 Arterial Blood Pressure 149/65 Arterial Blood Pressure 122/59 Arterial Blood Pressure 90/49 Arterial Blood Pressure 60/13 Arterial Blood Pressure 127/63 Arterial Blood Pressure 93/52 Arterial Blood Pressure 130/60 Arterial Blood Pressure 108/54 Arterial Blood Pressure 140/66 Arterial Blood Pressure 102/56 Arterial Blood Pressure 93/52 Arterial Blood Pressure 112/59 Arterial Blood Pressure 93/55 Arterial Blood Pressure 89/53 Arterial Blood Pressure 116/59 Arterial Blood Pressure 103/56 Arterial Blood Pressure 105/57 Arterial Blood Pressure 103/49 Arterial Blood Pressure 58/40 Arterial Blood Pressure 125/62 Arterial Blood Pressure 61/49 Arterial Blood Pressure 82/47 Arterial Blood Pressure 103/54 Arterial Blood Pressure 104/54 Arterial Blood Pressure 115/58 Arterial Blood Pressure 94/51 Pulmonary Artery Pressure 36/19 Pulmonary Artery Pressure 34/20 Pulmonary Artery Pressure 40/22 Pulmonary Artery Pressure 37/20 Pulmonary Artery Pressure 34/21 Pulmonary Artery Pressure 31/18 Pulmonary Artery Pressure 33/17 Pulmonary Artery Pressure 34/21 Pulmonary Artery Pressure 32/21 Pulmonary Artery Pressure 34/20 Pulmonary Artery Pressure 31/20 Pulmonary Artery Pressure 35/22 Pulmonary Artery Pressure 36/23 Pulmonary Artery Pressure 36/23 Pulmonary Artery Pressure 37/24 Pulmonary Artery Pressure 37/25 Pulmonary Artery Pressure 36/24 Pulmonary Artery Pressure 34/23 Pulmonary Artery Pressure 34/23 Pulmonary Artery Pressure 34/23 Pulmonary Artery Pressure 33/22 Pulmonary Artery Pressure 32/23 Pulmonary Artery Pressure 35/23 Pulmonary Artery Pressure 35/23 Pulmonary Artery Pressure 31/20 Pulmonary Artery Pressure 31/20 Pulmonary Artery Pressure 32/22 Pulmonary Artery Pressure 33/22 Pulmonary Artery Pressure 32/22 Cardiac Output 2.6 Cardiac Output 2.6 Cardiac Output 2.6 Cardiac Output 2.6 Cardiac Output 2.6 Cardiac Output 2.6 Cardiac Output 2.6 Cardiac Output 2.6 Cardiac Output 2.6 Cardiac Output 2.9 Cardiac Output 2.9 Cardiac Output 3.2 Cardiac Index 1.4 Cardiac Index 1.4 Cardiac Index 1.4 Cardiac Index 1.4 Cardiac Index 1.4 Cardiac Index 1.4 Cardiac Index 1.4 Cardiac Index 1.4 Cardiac Index 1.4 Cardiac Index 1.5 Cardiac Index 1.5 Cardiac Index 1.7 Patient is currently sedated and on the vent. Bilateral breath sounds are heard Abdomen is soft with incision currently covered Examination of lower extremity shows no edema Results - Lab Results Most recent lab results ABG pH 7.54 (7.35-7.45) H 02/02/23 06:05 ABG pCO2 26 mmHg (35-45) L 02/02/23 06:05 ABG pO2 62 mmHg (83-108) L 02/02/23 06:05 ABG HCO3 22 mmol/L (21-25) 02/02/23 06:05 ABG O2 Saturation 93.9 % (94-97) L 02/02/23 06:05 Calcium 7.0 mg/dL (8.4-10.2) L 02/02/23 04:00 Magnesium 1.3 mg/dL (1.6-2.3) L 02/02/23 04:00 02/02/23 04:00 02/02/23 04:00 Assessment and Plan Assessment: 1. Acute kidney injury, ATN, oliguric secondary to hypotension/shock. 2. Status post reimplantation of left renal artery during repair of infrarenal abdominal aortic aneurysm on 01/31/2023 3. 10.5 cm infrarenal abdominal aortic aneurysm status post repair with tube graft on 01/31/2023 4. Hypovolemic shock 5. A. fib with RVR status post cardioversion and maintained on amiodarone 6. Acute hypoxic respiratory failure currently on the vent 7. Hypocalcemia associated been large amount of blood products transfusion 8. Cardiomyopathy with EF of 40-45% 9. Metabolic acidosis currently non-anion gap associated with shock and acute kidney injury Plan: Restart bicarb drip Adjustment of vent settings for respiratory alkalosis Agree with fluid bolus We will continue to monitor for need for renal replacement therapy. So far no hyperkalemia or intractable acidosis noted. Patient is oxygenating well at 40% FiO2. Next Thank you for the consultation. We will continue to follow the patient with you during his hospitalization.
[2023-02-02 12:14] LABS: Glucose,Whole Blood 137 mg/dL (70-110)
--- NOTE | 2023-02-02 12:19 | P.PN ---
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 In the emergency room, patient was afebrile, 108/78, heart rate 116, 98% on room air. CT A/P showed large aneurysmal aorta previous endograft with the margin of the stent having pulled away from the aortic wall concerning for acute bleeding and impending rupture, nephrolithiasis without obstructive uropathy. Vascular surgery consulted. Patient underwent repair of 10.5 cm infrarenal abdominal aortic aneurysm with acute graft, also had reimplantation of left renal artery on 01/31. He had significant blood loss during the procedure, requiring total of 6 units of PRBCs, 5 units of FFP, 1 platelets, and pulled cryoprecipitate. Current diagnostic testing includes: Abd US shows mildly dilated GB with no acute process. Renal US shows no obstructive uropathy. Echocardiogram EF 35-40% with global hypokinesis. 02/02 Patient was seen and examined. Currently intubated and sedated on propofol running at 30 mcg/kg/min. Pressors include Epinephrine running at 1.69 mcg/kg/ min and Vasopressin at 0.4 units/min. Antibiotics include Zosyn 3.375 g IV TID. Insulin drip running at 6 ml/hr. CBC WBC 22.5, Hg 9.1, Hct 25.8, Plt 85. ABG pH 7.54, pCO2 26, pO2 62. CMP Na 136, bicarb 20, BUN 36, Cr 2.16, glu 115, Ca 7, Mag 1.3, T. Bili 4.1, AST 7013, ALT 3221, alk phos 148, alb 2.2. CXR shows probably left pleural effusion. Urine output 15 cc over the past 24H. Pulmonology recommends 1L NS bolus, 2g calcium gluconate. Nephrology recommends restarting bicarb drip. General: Intubated Derm: warm, dry Head: atraumatic, normocephalic, symmetric, left IJ Eyes: anicteric sclera Mouth: no lip lesion, mucus membranes moist Cardiovascular: S1S2 reg, no murmur Lungs: CTA bilateral, no rhonchi, no rales , no accessory muscle use Abdominal: soft, abdominal surgical dressing c/d/i Ext: no gross muscle atrophy, no contractures Neuro: Unable to perform Psych: Unable to perform Based on my assessment of this patient, this patient meets a high complexity level of care. 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 Post operative complications include renal failure, acute blood loss and hepatitis. Unstable AAA: Status post repair of 10.5 cm infrarenal abdominal aortic aneurysm with acute graft, also had reimplantation of left renal artery on 01/31. Vascular surgery on board. Shock: Multifactorial, hypovolemic from acute blood loss during surgery, low EF seen on Echo, leukocytosis with concerns for sepsis. EBL during surgery 5L. Status post 6 units PRBC, 5 units FFP, 1 unit Platelet, 2 units Cryoprecipitate. Currently on Epinephrine and Vasopressin drip to maintain MAP > 65. Echocardiogram with low EF as above. Continue Zosyn 3.375 IV TID empirically. Sputum and BCx ordered. Cardiology consulted. Acute hypoxic respiratory failure: Post surgery. Ventilator support. Pulmonology on board. Ischemic hepatitis: Related to shock. Trending up. GB Liver US negative for obstruction. Nonoliguric OTIS: Worsening. Renal US negative for obstruction. Avoid nephrotoxins. Metabolic acidosis: Multifactorial. Improved with bicarb infusion. Coagulopathy: Monitor coag profile. Hyperglycemia: Insulin drip. Accuchecks Q1H. Hypoglycemic precautions. Obtain A1c. Nephrolithiasis BPH Hypomagnesemia: Replaced with Mag sulfate 2g IV today. Paroxysmal atrial flutter: Hold Eliquis. Hold Metoprolol due to hypotension requring pressors. h/o Hypertension Hyperlipidemia: Atorvastatin 10 mg PO QD. Resolved: Hypokalemia CODE STATUS: NO CODE with instructions as described below. DVT Prophylaxis: SCDs GI Prophylaxis: Protonix IV Designated medical POA if patient is not able to make medical decisions for themselves: I have reviewed the following wireless consultant notes: Vascular, Pulmonology note. I have reviewed the results of the following tests: CBC, CMP. I have ordered the following tests: A1c. CBC. CMP. Coag panel. I have discussed the care of this patient with the following independent historian: Discussed with the POA at bedside. She is OK with intubation for now, would not like trach if prolonged. No chest compressions. No dialysis. OK with cardioversion or life saving medication administration. I have independently interpreted the following test below: CXR as above. I have discussed the management of this patient with the following physician: This patient meets a high level of care for the following reasons: Patient requires adjustments in insulin which requires intensive monitoring for hypoglycemic episodes. Patient requires IV vasopressors which requires intensive monitoring of hemodynamics. Patient requires IV anesthetics to be maintained on the ventilator which requires intensive monitoring of hemodynamics and respiratory toxicity. Objective - Vital Signs Vital signs: Vital Signs Temp 97.7 F 02/02/23 04:00 Pulse 96 02/02/23 07:00 Resp 28 H 02/02/23 07:00 BP 69/48 02/02/23 04:45 Pulse Ox 92 L 02/02/23 07:00 FiO2 40 02/02/23 07:43 Intake & Output 02/01/23 02/02/23 02/02/23 18:59 06:59 18:59 Intake Total 3061.213 3734.416 328.232 Output Total 0 15 Balance 3061.213 3719.416 328.232 Weight 96.4 kg Intake: IV 1353 2757 0.9% Bolus 1000 CO/CI 120 240 Magnesium Sulfate-D5w Pmx 200 1 gm In Dextrose/Water 1 100ml.bag @ 100 mls/hr IVPB Q1H [facility] Rx#: [id number] Piperacillin-Tazobactam 3 100 .375 gm In Sodium Chloride 0.9% 100 ml @ 25 mls/hr IVPB Q8HR [facility] Rx# :[id number] Pressure Bags 108 117 Sodium Chloride 0.45% 1, 900 1100 000 ml @ 100 mls/hr IV . Q11H [facility] with Sodium Bicarb (1 Meq/ml) 100 ml Rx#:[id number] Sodium Chloride 0.9% 1, 225 000 ml @ 75 mls/hr IV . [id number] [facility] Rx#:[id number] Intake, IV Titration 1708.213 917.416 328.232 Amount Calcium Gluconate in NaCl 100 1 gm In Saline 1 100ml. bag @ 100 mls/hr IVPB ONCE ONE Rx#:[id number] Calcium Gluconate in NaCl 100 2 gm In Saline 1 100ml. bag @ 100 mls/hr IVPB ONCE ONE Rx#:[id number] EPINEPHrine 16 mg In 408.970 628.439 318.932 Dextrose 5% in Water 234 ml @ 0.03 MCG/KG/MIN 2. 498 mls/hr IV .Q24H [facility] Rx#:[id number] EPINEPHrine 4 mg In 496.144 Dextrose 5% in Water 250 ml @ 0.03 MCG/KG/MIN 8. 675 mls/hr IV .Q24H [facility] Rx#:[id number] Insulin Regular 100 unit 126.134 57.683 9.3 In Sodium Chloride 0.9% 100 ml @ Per Protocol IV .Q0M [facility] Rx#:[id number] Milrinone-D5w Pmx 20 mg 1.332 78.422 In Dextrose/Water 1 100ml .bag @ 0.375 MCG/KG/MIN 9 .99 mls/hr IV .Q10H1M [facility] Rx#:[id number] Piperacillin-Tazobactam 3 100 .375 gm In Sodium Chloride 0.9% 100 ml @ 25 mls/hr IVPB Q8HR [facility] Rx# :[id number] Potassium Chloride 10 meq 100 In Water For Injection 1 100ml.bag @ 100 mls/hr IVPB Q1H [facility] Rx#: [id number] Vasopressin 60 unit In 133.212 Sodium Chloride 0.9% 150 ml @ 0.03 UNITS/MIN 4.59 mls/hr IV .Q24H [facility] Rx#: [id number] propofoL 1,000 mg In 142.421 152.872 Empty Bag 1 bag @ 15 MCG/ KG/MIN 6.94 mls/hr IV . [id number] [facility] Rx#:[id number] Other 60 Output: Urine 0 15 Other: Voiding Method Indwelling Catheter Indwelling Catheter ABP, PAP, CO, CI - Last Documented Arterial Blood Pressure 112/59 Pulmonary Artery Pressure 37/24 Cardiac Output 2.9 Cardiac Index 1.5 - Labs CBC & Chem 7: 02/02/23 04:00 02/02/23 04:00 Labs: Abnormal Lab Results - Last 24 Hours (Table) 01/30/23 02/01/23 02/01/23 Range/Units 11:10 07:56 09:15 WBC (3.8-10.6) k/uL RBC (4.30-5.90) m/uL Hgb (13.0-17.5) gm/dL Hct (39.0-53.0) % RDW (11.5-15.5) % Plt Count (150-450) k/uL Neutrophils # (1.3-7.7) k/uL PT 24.5 H (10.0-12.5) sec INR 2.5 H (<1.2) APTT 42.9 H (22.0-30.0) sec Fibrinogen 182 L (200-500) mg/dL ABG pH (7.35-7.45) ABG pCO2 (35-45) mmHg ABG pO2 (83-108) mmHg ABG O2 Saturation (94-97) % Sodium (137-145) mmol/L Potassium (3.5-5.1) mmol/L Carbon Dioxide (22-30) mmol/L BUN (9-20) mg/dL Creatinine (0.66-1.25) mg/dL Glucose (74-99) mg/dL POC Glucose (mg/dL) 434 H (70-110) mg/dL Calcium (8.4-10.2) mg/dL Ionized Calcium Thad (4.5-5.3) mg/dL Magnesium (1.6-2.3) mg/dL Total Bilirubin (0.2-1.3) mg/dL AST (17-59) U/L ALT (4-49) U/L Alkaline Phosphatase (38-126) U/L Total Protein (6.3-8.2) g/dL Albumin (3.5-5.0) g/dL Crossmatch See Detail 02/01/23 02/01/23 02/01/23 Range/Units 10:08 11:27 12:09 WBC (3.8-10.6) k/uL RBC (4.30-5.90) m/uL Hgb (13.0-17.5) gm/dL Hct (39.0-53.0) % RDW (11.5-15.5) % Plt Count (150-450) k/uL Neutrophils # (1.3-7.7) k/uL PT (10.0-12.5) sec INR (<1.2) APTT (22.0-30.0) sec Fibrinogen (200-500) mg/dL ABG pH (7.35-7.45) ABG pCO2 (35-45) mmHg ABG pO2 (83-108) mmHg ABG O2 Saturation (94-97) % Sodium (137-145) mmol/L Potassium (3.5-5.1) mmol/L Carbon Dioxide (22-30) mmol/L BUN (9-20) mg/dL Creatinine (0.66-1.25) mg/dL Glucose (74-99) mg/dL POC Glucose (mg/dL) 435 H 355 H 341 H (70-110) mg/dL Calcium (8.4-10.2) mg/dL Ionized Calcium Thad (4.5-5.3) mg/dL Magnesium (1.6-2.3) mg/dL Total Bilirubin (0.2-1.3) mg/dL AST (17-59) U/L ALT (4-49) U/L Alkaline Phosphatase (38-126) U/L Total Protein (6.3-8.2) g/dL Albumin (3.5-5.0) g/dL Crossmatch 02/01/23 02/01/23 02/01/23 Range/Units 13:22 14:00 14:00 WBC 18.4 H (3.8-10.6) k/uL RBC 2.79 L (4.30-5.90) m/uL Hgb 9.2 L (13.0-17.5) gm/dL Hct 26.2 L (39.0-53.0) % RDW 17.5 H (11.5-15.5) % Plt Count 83 L (150-450) k/uL Neutrophils # (1.3-7.7) k/uL PT (10.0-12.5) sec INR (<1.2) APTT (22.0-30.0) sec Fibrinogen (200-500) mg/dL ABG pH (7.35-7.45) ABG pCO2 (35-45) mmHg ABG pO2 (83-108) mmHg ABG O2 Saturation (94-97) % Sodium (137-145) mmol/L Potassium 3.0 L (3.5-5.1) mmol/L Carbon Dioxide (22-30) mmol/L BUN (9-20) mg/dL Creatinine (0.66-1.25) mg/dL Glucose (74-99) mg/dL POC Glucose (mg/dL) 311 H (70-110) mg/dL Calcium (8.4-10.2) mg/dL Ionized Calcium Thad (4.5-5.3) mg/dL Magnesium (1.6-2.3) mg/dL Total Bilirubin (0.2-1.3) mg/dL AST (17-59) U/L ALT (4-49) U/L Alkaline Phosphatase (38-126) U/L Total Protein (6.3-8.2) g/dL Albumin (3.5-5.0) g/dL Crossmatch 02/01/23 02/01/23 02/01/23 Range/Units 14:06 14:58 16:01 WBC (3.8-10.6) k/uL RBC (4.30-5.90) m/uL Hgb (13.0-17.5) gm/dL Hct (39.0-53.0) % RDW (11.5-15.5) % Plt Count (150-450) k/uL Neutrophils # (1.3-7.7) k/uL PT (10.0-12.5) sec INR (<1.2) APTT (22.0-30.0) sec Fibrinogen (200-500) mg/dL ABG pH (7.35-7.45) ABG pCO2 (35-45) mmHg ABG pO2 (83-108) mmHg ABG O2 Saturation (94-97) % Sodium (137-145) mmol/L Potassium (3.5-5.1) mmol/L Carbon Dioxide (22-30) mmol/L BUN (9-20) mg/dL Creatinine (0.66-1.25) mg/dL Glucose (74-99) mg/dL POC Glucose (mg/dL) 274 H 247 H 205 H (70-110) mg/dL Calcium (8.4-10.2) mg/dL Ionized Calcium Thad (4.5-5.3) mg/dL Magnesium (1.6-2.3) mg/dL Total Bilirubin (0.2-1.3) mg/dL AST (17-59) U/L ALT (4-49) U/L Alkaline Phosphatase (38-126) U/L Total Protein (6.3-8.2) g/dL Albumin (3.5-5.0) g/dL Crossmatch 02/01/23 02/01/23 02/01/23 Range/Units 17:06 17:54 17:56 WBC (3.8-10.6) k/uL RBC (4.30-5.90) m/uL Hgb (13.0-17.5) gm/dL Hct (39.0-53.0) % RDW (11.5-15.5) % Plt Count (150-450) k/uL Neutrophils # (1.3-7.7) k/uL PT (10.0-12.5) sec INR (<1.2) APTT (22.0-30.0) sec Fibrinogen (200-500) mg/dL ABG pH (7.35-7.45) ABG pCO2 (35-45) mmHg ABG pO2 (83-108) mmHg ABG O2 Saturation (94-97) % Sodium (137-145) mmol/L Potassium 3.1 L (3.5-5.1) mmol/L Carbon Dioxide 17 L (22-30) mmol/L BUN 31 H (9-20) mg/dL Creatinine 1.84 H (0.66-1.25) mg/dL Glucose 116 H (74-99) mg/dL POC Glucose (mg/dL) 173 H 144 H (70-110) mg/dL Calcium 7.2 L (8.4-10.2) mg/dL Ionized Calcium Thad (4.5-5.3) mg/dL Magnesium (1.6-2.3) mg/dL Total Bilirubin (0.2-1.3) mg/dL AST (17-59) U/L ALT (4-49) U/L Alkaline Phosphatase (38-126) U/L Total Protein (6.3-8.2) g/dL Albumin (3.5-5.0) g/dL Crossmatch 02/01/23 02/01/23 02/01/23 Range/Units 19:04 19:04 19:55 WBC (3.8-10.6) k/uL RBC (4.30-5.90) m/uL Hgb (13.0-17.5) gm/dL Hct (39.0-53.0) % RDW (11.5-15.5) % Plt Count (150-450) k/uL Neutrophils # (1.3-7.7) k/uL PT (10.0-12.5) sec INR (<1.2) APTT (22.0-30.0) sec Fibrinogen (200-500) mg/dL ABG pH (7.35-7.45) ABG pCO2 (35-45) mmHg ABG pO2 (83-108) mmHg ABG O2 Saturation (94-97) % Sodium (137-145) mmol/L Potassium (3.5-5.1) mmol/L Carbon Dioxide (22-30) mmol/L BUN (9-20) mg/dL Creatinine (0.66-1.25) mg/dL Glucose (74-99) mg/dL POC Glucose (mg/dL) 147 H 122 H (70-110) mg/dL Calcium (8.4-10.2) mg/dL Ionized Calcium Thad 4.1 L (4.5-5.3) mg/dL Magnesium (1.6-2.3) mg/dL Total Bilirubin (0.2-1.3) mg/dL AST (17-59) U/L ALT (4-49) U/L Alkaline Phosphatase (38-126) U/L Total Protein (6.3-8.2) g/dL Albumin (3.5-5.0) g/dL Crossmatch 02/01/23 02/02/23 02/02/23 Range/Units 20:43 00:04 00:57 WBC (3.8-10.6) k/uL RBC (4.30-5.90) m/uL Hgb (13.0-17.5) gm/dL Hct (39.0-53.0) % RDW (11.5-15.5) % Plt Count (150-450) k/uL Neutrophils # (1.3-7.7) k/uL PT (10.0-12.5) sec INR (<1.2) APTT (22.0-30.0) sec Fibrinogen (200-500) mg/dL ABG pH 7.54 H (7.35-7.45) ABG pCO2 24 L (35-45) mmHg ABG pO2 76 L (83-108) mmHg ABG O2 Saturation (94-97) % Sodium (137-145) mmol/L Potassium (3.5-5.1) mmol/L Carbon Dioxide (22-30) mmol/L BUN (9-20) mg/dL Creatinine (0.66-1.25) mg/dL Glucose (74-99) mg/dL POC Glucose (mg/dL) 125 H 127 H (70-110) mg/dL Calcium (8.4-10.2) mg/dL Ionized Calcium Thad (4.5-5.3) mg/dL Magnesium (1.6-2.3) mg/dL Total Bilirubin (0.2-1.3) mg/dL AST (17-59) U/L ALT (4-49) U/L Alkaline Phosphatase (38-126) U/L Total Protein (6.3-8.2) g/dL Albumin (3.5-5.0) g/dL Crossmatch 02/02/23 02/02/23 02/02/23 Range/Units 02:02 02:54 04:00 WBC (3.8-10.6) k/uL RBC (4.30-5.90) m/uL Hgb (13.0-17.5) gm/dL Hct (39.0-53.0) % RDW (11.5-15.5) % Plt Count (150-450) k/uL Neutrophils # (1.3-7.7) k/uL PT (10.0-12.5) sec INR (<1.2) APTT (22.0-30.0) sec Fibrinogen (200-500) mg/dL ABG pH (7.35-7.45) ABG pCO2 (35-45) mmHg ABG pO2 (83-108) mmHg ABG O2 Saturation (94-97) % Sodium 136 L (137-145) mmol/L Potassium (3.5-5.1) mmol/L Carbon Dioxide 20 L (22-30) mmol/L BUN 36 H (9-20) mg/dL Creatinine 2.16 H (0.66-1.25) mg/dL Glucose (74-99) mg/dL POC Glucose (mg/dL) 117 H 117 H (70-110) mg/dL Calcium 7.0 L (8.4-10.2) mg/dL Ionized Calcium Thad (4.5-5.3) mg/dL Magnesium 1.3 L (1.6-2.3) mg/dL Total Bilirubin 4.1 H (0.2-1.3) mg/dL AST 7013 H (17-59) U/L ALT 3221 H (4-49) U/L Alkaline Phosphatase 148 H (38-126) U/L Total Protein 3.7 L (6.3-8.2) g/dL Albumin 2.2 L (3.5-5.0) g/dL Crossmatch 02/02/23 02/02/23 02/02/23 Range/Units 04:00 04:04 05:03 WBC 22.5 H (3.8-10.6) k/uL RBC 2.82 L (4.30-5.90) m/uL Hgb 9.1 L (13.0-17.5) gm/dL Hct 25.8 L (39.0-53.0) % RDW 16.7 H (11.5-15.5) % Plt Count 85 L (150-450) k/uL Neutrophils # 20.7 H (1.3-7.7) k/uL PT (10.0-12.5) sec INR (<1.2) APTT (22.0-30.0) sec Fibrinogen (200-500) mg/dL ABG pH (7.35-7.45) ABG pCO2 (35-45) mmHg ABG pO2 (83-108) mmHg ABG O2 Saturation (94-97) % Sodium (137-145) mmol/L Potassium (3.5-5.1) mmol/L Carbon Dioxide (22-30) mmol/L BUN (9-20) mg/dL Creatinine (0.66-1.25) mg/dL Glucose (74-99) mg/dL POC Glucose (mg/dL) 115 H 115 H (70-110) mg/dL Calcium (8.4-10.2) mg/dL Ionized Calcium Thad (4.5-5.3) mg/dL Magnesium (1.6-2.3) mg/dL Total Bilirubin (0.2-1.3) mg/dL AST (17-59) U/L ALT (4-49) U/L Alkaline Phosphatase (38-126) U/L Total Protein (6.3-8.2) g/dL Albumin (3.5-5.0) g/dL Crossmatch 02/02/23 02/02/23 02/02/23 Range/Units 05:57 06:05 06:57 WBC (3.8-10.6) k/uL RBC (4.30-5.90) m/uL Hgb (13.0-17.5) gm/dL Hct (39.0-53.0) % RDW (11.5-15.5) % Plt Count (150-450) k/uL Neutrophils # (1.3-7.7) k/uL PT (10.0-12.5) sec INR (<1.2) APTT (22.0-30.0) sec Fibrinogen (200-500) mg/dL ABG pH 7.54 H (7.35-7.45) ABG pCO2 26 L (35-45) mmHg ABG pO2 62 L (83-108) mmHg ABG O2 Saturation 93.9 L (94-97) % Sodium (137-145) mmol/L Potassium (3.5-5.1) mmol/L Carbon Dioxide (22-30) mmol/L BUN (9-20) mg/dL Creatinine (0.66-1.25) mg/dL Glucose (74-99) mg/dL POC Glucose (mg/dL) 114 H 131 H (70-110) mg/dL Calcium (8.4-10.2) mg/dL Ionized Calcium Thad (4.5-5.3) mg/dL Magnesium (1.6-2.3) mg/dL Total Bilirubin (0.2-1.3) mg/dL AST (17-59) U/L ALT (4-49) U/L Alkaline Phosphatase (38-126) U/L Total Protein (6.3-8.2) g/dL Albumin (3.5-5.0) g/dL Crossmatch Microbiology - Last 24 Hours (Table) 02/01/23 03:00 Gram Stain - Preliminary Sputum
[2023-02-02] MEDS ORDERED: FUROSEMIDE 10 MG/ML 10 ML VIAL IV STA (12:22)
[2023-02-02 14:22] LABS: Glucose,Whole Blood 130 mg/dL (70-110)
[2023-02-02 15:03] LABS: Glucose,Whole Blood 132 mg/dL (70-110)
[2023-02-02 16:10] LABS: Glucose,Whole Blood 128 mg/dL (70-110)
[2023-02-02 17:14] LABS: Glucose,Whole Blood 136 mg/dL (70-110)
[2023-02-02 18:27] LABS: Glucose,Whole Blood 127 mg/dL (70-110)
[2023-02-02 19:01] LABS: Anisocytosis Slight; HCT 24.5 % (39.0-53.0); HGB 8.7 gm/dL (13.0-17.5); MCH 33.1 pg (25.0-35.0); MCHC 35.6 g/dL (31.0-37.0); MCV 93.1 fL (80.0-100.0); Mean Platelet Volume 9.9; RBC 2.63 m/uL (4.30-5.90); RDW 16.5 % (11.5-15.5); WBC 24.9 k/uL (3.8-10.6)
[2023-02-02 19:03] LABS: Platelet Count 89 k/uL (150-450)
[2023-02-02 19:05] LABS: Glucose,Whole Blood 133 mg/dL (70-110)
[2023-02-02 20:06] LABS: Glucose,Whole Blood 130 mg/dL (70-110)
[2023-02-02] MEDS: VASOPRESSIN 60 UNIT in SODIUM CHLORIDE 0.9% 150 ML IV SCH ×2 (20:08→20:49)
[2023-02-02 20:38] VITALS: TEMP 97
[2023-02-02 21:08] LABS: Glucose,Whole Blood 126 mg/dL (70-110)
[2023-02-02 22:09] LABS: Glucose,Whole Blood 124 mg/dL (70-110)
[2023-02-02 23:05] LABS: Glucose,Whole Blood 126 mg/dL (70-110)
[2023-02-03] MEDS: PIPERACILLIN-TAZOBACTAM 3.375 GM in SODIUM CHLORIDE 0.9% 100 ML IVPB SCH ×2 (00:02→09:47)
[2023-02-03 00:04] LABS: Glucose,Whole Blood 110 mg/dL (70-110)
[2023-02-03 01:06] LABS: Glucose,Whole Blood 110 mg/dL (70-110)
[2023-02-03 01:57] LABS: Glucose,Whole Blood 135 mg/dL (70-110)
[2023-02-03] MEDS: EPINEPHRINE IV SCH ×6 (02:45→09:06)
[2023-02-03] MEDS: WATER IV SCH ×6 (02:45→09:06)
[2023-02-03] MEDS: DEXTROSE 5% IV SCH ×6 (02:45→09:06)
[2023-02-03 02:58] LABS: Glucose,Whole Blood 137 mg/dL (70-110)
[2023-02-03] MEDS: AMIODARONE 450 MG in DEXTROSE 5% IN WATER 250 ML IV SCH ×2 (03:35)
[2023-02-03 03:45] LABS: Anisocytosis Slight; HCT 24.2 % (39.0-53.0); HGB 8.7 gm/dL (13.0-17.5); MCH 33.5 pg (25.0-35.0); MCHC 35.9 g/dL (31.0-37.0); MCV 93.4 fL (80.0-100.0); Mean Platelet Volume 10.3; Platelet Count 85 k/uL (150-450); RBC 2.59 m/uL (4.30-5.90); RDW 16.5 % (11.5-15.5); WBC 24.4 k/uL (3.8-10.6)
[2023-02-03 03:51] LABS: African American GFR (CKD) 26 (>60 ml/min/1.73 sqM); Albumin 1.8 g/dL (3.5-5.0); Alkaline Phosphatase 206 U/L (38-126); Anion Gap 11 mmol/L; Blood Urea Nitrogen 42 mg/dL (9-20); Carbon Dioxide 20 mmol/L (22-30); Chloride 101 mmol/L (98-107); Glucose 116 mg/dL (74-99); Magnesium 1.4 mg/dL (1.6-2.3); Non-African American GFR(CKD) 23 (>60 ml/min/1.73 sqM); Potassium 4.5 mmol/L (3.5-5.1); Sodium 132 mmol/L (137-145); Total Bilirubin 4.6 mg/dL (0.2-1.3); Total Protein 3.3 g/dL (6.3-8.2)
[2023-02-03 03:57] LABS: Glucose,Whole Blood 135 mg/dL (70-110)
[2023-02-03 04:12] LABS: Calcium 6.3 mg/dL (8.4-10.2)
[2023-02-03 04:13] LABS: ALT 2342 U/L (4-49); AST 5422 U/L (17-59)
[2023-02-03] MEDS ORDERED: CALCIUM GLUCONATE IN NACL 2 GM in SALINE 1 100ML.BAG IVPB ONE (04:18)
[2023-02-03] MEDS: MAGNESIUM SULFATE-D5W PMX 1 GM in DEXTROSE/WATER 1 100ML.BAG IVPB SCH ×2 (04:27→06:12)
[2023-02-03 05:01] LABS: Glucose,Whole Blood 152 mg/dL (70-110)
[2023-02-03] MEDS: SODIUM CHLORIDE 0.45% 1,000 ML with SODIUM BICARB (1 MEQ/ML) 100 ML IV SCH ×2 (05:16)
[2023-02-03 06:17] LABS: Glucose,Whole Blood 135 mg/dL (70-110)
[2023-02-03] MEDS: MILRINONE-D5W PMX 20 MG in DEXTROSE/WATER 1 100ML.BAG IV SCH (06:17)
[2023-02-03 06:29] LABS: ABG Base Excess -1.5 mmol/L; ABG HCO3 22 mmol/L (21-25); ABG PCO2 31 mmHg (35-45); ABG PH 7.46 (7.35-7.45); ABG PO2 75 mmHg (83-108); Allen Test Performed? Yes
[2023-02-03 07:06] LABS: Glucose,Whole Blood 145 mg/dL (70-110)
[2023-02-03] MEDS: VASOPRESSIN 60 UNIT in SODIUM CHLORIDE 0.9% 150 ML IV SCH (09:06)
[2023-02-03 09:14] LABS: Glucose,Whole Blood 126 mg/dL (70-110)
--- NOTE | 2023-02-03 09:32 | P.PN ---
Subjective Progress Note Date: 02/03/23 82-year-old male patient was being seen in the intensive care unit following a repair of a 10.5 cm infrarenal abdominal aortic aneurysm with a tube graft. During the surgery, the patient also underwent a reimplantation of the left renal artery. The patient is known to have history of a stent graft repair of an abdominal aortic aneurysm and he was having issues with abdominal pain. CAT scan of the abdomen demonstrated a type I endoleak with massive enlargement of his aorta up to 10.5 cm inside and the transverse diameter. This was considered to be high risk for rupture. Based on that, the patient was taken to the operating room. This was a lengthy and extensive surgery. Estimated blood loss was 5 L. The patient was aggressively resuscitated with IV fluids and blood products. The patient intraoperatively received a total of 4 units of packed RBC, 2 units of fresh frozen plasma, 2 units of cryoprecipitate and currently is being transfused with 5 units of platelet concentrate. The patient is currently on epinephrine at 0.5 mcg/kg/m. The patient was still hypotensive at the time of my arrival with systolic blood pressure between 50 and 60. I increase the epinephrine to 0.8 and I started vasopressin. The patient was given another unit of packed RBC and another 500 mL of 5% albumin, making a total of 2 doses of IV albumin. His blood pressure improved and subsequently his most recent systolic blood pressure is in the mid 90s. The patient is a cardiac output of 4.9 with an index of 2.6, pulmonary artery pressures are 39/22. Urine output is minimal at this point in time. The patient has cold extremities. Pulses are obtained in the femorals bilaterally, the feet are cold and that is diminished pulses are obtained by Doppler signal. He was initially on assist control mode at a rate of 60 with a tidal volume of 500 and FiO2 100% with a PEEP of 5. He was given a total of 2 doses of sodium bicarb. The patient subsequently was brought up to a rate of 28 and FiO2 was gradually weaned off. Most recent blood gas showed improvement in his acid-base status. Patient at 7.31 with a pCO2 of 36 and pO2 more than 400. Chest x-ray shows adequate expansion of both lungs. Orotracheal tube, ET tube, Dawson-Rina catheter and NG tube are all in good location. Abdominal wound site is dry clean and intact. There is no signs of any active bleeding at this point in time. The patient is on no sedation for now. He is deeply sedated and unresponsive. Blood sugars at 105. Awaiting follow-up labs and the most recent hemoglobin was at 7.7. Evaluation of 02/01/2023, the patient is being seen for a follow-up. Overnight, the patient was started on propofol which is running at 50 mcg/kg/m. His adequately sedated. No agitation. No restlessness. His calm and comfortable and symptoms a mechanical ventilator. He is postop day #1 following his surgery which included a repair of a abdominal aortic aneurysm with reimplantation of the left renal artery. The patient had a tube graft. The patient currently is on a mechanical ventilator, assist control mode at the rate of 28, tidal volume of 500, FiO2 of 40% with a PEEP of 5. The chest x-ray from this morning shows adequate expansion of both lungs. ET tube is in a good location. No evidence of any consolidation. No evidence of any pneumonia. The patient has a Dawson- Rina catheter in place. The blood gases from this morning showed a pH of 7.4 with episodes of 23 and pO2 of 106 and the above-mentioned ventilator settings. No significant orotracheal secretions. Hemodynamically, the patient was aggressively resuscitated with fluids and blood products. Overall, he received a total of 6 units of packed RBCs, 5 units of fresh frozen plasma, 2 units of cryoprecipitate and one platelet aggregates. He also received 5% albumin 500 mL each a total of 2 doses. He remains on epinephrine which is running at 0.8 mcg/kg/m. Is also on vasopressin physiologic dose. His cardiac rhythm is sinus. Urine output is absent and the patient's creatinine is on the right and the patient is sustaining an acute kidney injury. On today's evaluation, BUN is at 23 with a creatinine of 1.38 and a sodium level is at 142 and the potassium levels at 3.2. The patient remains acidotic and the serum bicarbs at 13. IV fl uids are in the form of saline at rate of 75 mL an hour. Hemoglobin posttransfusion is at 8.6 with a white cell count of 15.5 and a platelet count of 83. Calcium level was low yesterday at 7.3 and the patient was given 2 g of calcium and the repeat calcium today is at 7.2. He has shock liver with a AST of 2080 and ALT of 1035. Ocular phosphatases 47. The patient is covered empirically with IV Zosyn. Cozaar and Toprol are currently on hold. Patient is having significant hyperglycemia and insulin drip was started at 14 units an hour. The insulin dose being titrated accordingly. Current. Pressures of 37/27. Most recent cardiac index is at 1.1. Today's evaluation of 02/02/2023, the patient is being seen for a follow-up. The patient is still critically unstable. He remains in shock following his abdominal aortic aneurysm repair. He is postop day #2. He remains intubated on a mechanical ventilator. He remains on propofol which is running at 30 mcg/kg/m. He remains on a mechanical ventilator, assist control mode at the rate of 28, tidal volume of 500, FiO2 of 40% with a PEEP of 5. He has a component of respiratory alkalosis with a pH of 7.54 and a pCO2 of 26 and pO2 of 62. The chest x-ray from this morning was reviewed. ET tube is in a good location. Small left-sided pleural effusion is present. NG tube in a good location. Hemodynamically, the patient continues to have profound hypotension. His PA pressures are 33/21. His cardiac index is at 1.4 with a output of 2.6. He remains on high dose epinephrine infusion running at 1.0 microvascular kilogram per minutes. He remains also on vasopressin physiologic dose. Primacor was attempted yesterday. He did well for quite some time and subsequently he went into A. fib RVR. He had to be cardioverted. His A. fib RVR was quite unstable and successful cardioversion was done. Subsequently, the patient continued to have episodes of a flutter and he was started on amiodarone drip per protocol and albuterol currently is running at 0.5 mg per minute. The Primacor was discontinued. He is an acute kidney injury. Is not producing any urine. Creatinine is up to 2.16 with a BUN of 36 and the sodium levels of 136. The patient also has a shock liver with a AST of 7000, ALP of 3200 and his seconds at 22 with a hemoglobin of 9.1 and a platelet count of 85. Calcium level was replaced and his ionized calcium level today's low and 3.7. No signs of any bleeding pulses are present in the lower extremities bilaterally. Surgical wound is dry clean and intact. He remains nothing by mouth. He remai ns on IV Zosyn as an empiric antibiotic coverage for now. Cultures were also sent. Days evaluation of 02/03/2023, the patient is postoperative day #3 following a repair of an abdominal aortic aneurysm. He remains in shock and multisystem organ failure and the patient remains in acute kidney injury/anuric and in shock liver. This morning, he is on propofol running at 35 mcg/kg/m. His adequately sedated. He remains on a mechanical ventilator, suspicious or mode at the rate of 20, tidal volume of 500, FiO2 of 60% with a PEEP of 5. Chest x-ray showing a small left-sided pleural effusion/consolidation. ET tube is in good location. Blood gas shows a pH of 7.46 with a pCO2 of 31 and pO2 of 75. The patient remains in shock, he is on high-dose pressors and the patient is currently on epinephrine running at 1 mcg/kg/m. The patient is also on vasopressin physiologic dose. Most recent cardiac output is at 5.4 with an index of 2.8. His pulmonary artery pressures of 41/22. He has not produced any urine output. His fluid balance over the past 24 hours has been +8.1 L. Noted the patient has received several fluid boluses for ongoing episodes of hypotension. He was also given Lasix which did not facilitate any urine output. The patient has a white cell count of 24, hemoglobin is at 8.7, sodium is at 132, potassium is at 4.5, chloride 11 with a bicarb of 20, BUN is at 42 with a creatinine of 2.5. Liver function tests are slightly improved compared to yesterday, however they're still elevated. Ionized calcium level is at 3.7. Femoral pulses are present. Lower extremity pulses are very weak yet obtainable. The patient remains nothing by mouth. NG tube is still in place. Cultures from the sputum has been negative. He remains on IV Zosyn. Cardiac rhythm is sinus at this point in time and the patient is currently on amiodarone drip running at 0.5 mg/m. He is on no anticoagulants for now. Family is at the bedside. Caregivers and immediate family members are leaning towards Objective - Vital Signs Vital signs: Vital Signs Temp 97.0 F L 02/03/23 08:00 Pulse 77 02/03/23 09:00 Resp 22 02/03/23 09:00 BP 69/48 02/02/23 09:30 Pulse Ox 95 02/03/23 09:00 FiO2 60 02/03/23 09:00 Intake & Output 02/02/23 02/03/23 02/03/23 18:59 06:59 18:59 Intake Total 5521.767 2640.059 657.771 Output Total 5 0 5 Balance 5516.767 2640.059 652.771 Weight 100 kg Intake: IV 4128 1239 249 CO/CI 240 80 30 Calcium Gluconate in NaCl 100 100 2 gm In Saline 1 100ml. bag @ 100 mls/hr IVPB ONCE ONE Rx#:[id number] Magnesium Sulfate-D5w Pmx 200 1 gm In Dextrose/Water 1 100ml.bag @ 100 mls/hr IVPB Q1H [facility] Rx#: [id number] Piperacillin-Tazobactam 3 200 100 .375 gm In Sodium Chloride 0.9% 100 ml @ 25 mls/hr IVPB Q8HR [facility] Rx# :[id number] Pressure Bags 108 99 39 Sodium Chloride 0.45% 1, 480 660 180 000 ml @ 60 mls/hr IV . [id number] [facility] with Sodium Bicarb (1 Meq/ml) 100 ml Rx#:[id number] Sodium Chloride 0.9% 2, 3000 000 ml @ 999 mls/hr IV . Q2H1M [facility] Rx#:[id number] Intake, IV Titration 9983.964 3053.059 408.771 Amount Amiodarone 450 mg In 238.894 214.727 Dextrose 5% in Water 250 ml @ 0.5 MG/MIN 16.667 mls/hr IV .Q15H [facility] Rx#: [id number] EPINEPHrine 16 mg In 737.223 965.242 250 Dextrose 5% in Water 234 ml @ 0.03 MCG/KG/MIN 2. 498 mls/hr IV .Q24H [facility] Rx#:[id number] Insulin Regular 100 unit 9.3 98.483 4.25 In Sodium Chloride 0.9% 100 ml @ Per Protocol IV .Q0M [facility] Rx#:[id number] Vasopressin 60 unit In 153 75.174 Sodium Chloride 0.9% 150 ml @ 0.03 UNITS/MIN 4.59 mls/hr IV .Q24H [facility] Rx#: [id number] propofoL 1,000 mg In 175.350 122.607 79.347 Empty Bag 1 bag @ 15 MCG/ KG/MIN 6.94 mls/hr IV . [id number] [facility] Rx#:[id number] Oral 80 Output: Urine 5 0 5 Other: Voiding Method Indwelling Catheter Indwelling Catheter ABP, PAP, CO, CI - Last Documented Arterial Blood Pressure 119/56 Pulmonary Artery Pressure 43/22 Cardiac Output 5.4 Cardiac Index 2.8 - Exam Patient is currently intubated on a mechanical ventilator. No sedatives at this point in time. Orogastric and orotracheal tube are both in place. Head exam was generally normal. There was no scleral icterus or corneal arcus. Mucous membranes were moist. Neck was supple and without jugular venous distension, thyromegaly, or carotid bruits. Carotids were easily palpable bilaterally. There was no adenopathy. The patient has a left IJ Cordis and a left IJ Dawson-Rina catheter in place Lungs sounds are equal and symmetrical bilaterally. Cardiac exam revealed the PMI to be normally situated and sized. The rhythm was regular and no extrasystoles were noted during several minutes of auscultation. The first and second heart sounds were normal and physiologic splitting of the second heart sound was noted. There were no murmurs, rubs, clicks, or gallops. Abdomen is soft and bowel sounds are absent. Large anterior abdominal wall surgical wound which is dry clean and intact. No direct tenderness. No rebound tenderness, no guarding Extremities are cold and diminished pulses are present the feet. Femoral pulses are present. Diminished capillary refill. No cyanosis or clubbing. Neurologically, the patient is sedated, pupils are round 2 mm in size, sluggish reactive to light. Motor and sensory function cannot be obtained at this point in time. - Labs CBC & Chem 7: 02/03/23 03:18 02/03/23 03:18 Labs: Abnormal Lab Results - Last 24 Hours (Table) 02/02/23 02/02/23 02/02/23 Range/Units 09:51 11:25 12:02 WBC (3.8-10.6) k/uL RBC (4.30-5.90) m/uL Hgb (13.0-17.5) gm/dL Hct (39.0-53.0) % RDW (11.5-15.5) % Plt Count (150-450) k/uL ABG pH (7.35-7.45) ABG pCO2 (35-45) mmHg ABG pO2 (83-108) mmHg Sodium (137-145) mmol/L Carbon Dioxide (22-30) mmol/L BUN (9-20) mg/dL Creatinine (0.66-1.25) mg/dL Glucose (74-99) mg/dL POC Glucose (mg/dL) 138 H 127 H 137 H (70-110) mg/dL Calcium (8.4-10.2) mg/dL Ionized Calcium Thad (4.5-5.3) mg/dL Magnesium (1.6-2.3) mg/dL Total Bilirubin (0.2-1.3) mg/dL AST (17-59) U/L ALT (4-49) U/L Alkaline Phosphatase (38-126) U/L Total Protein (6.3-8.2) g/dL Albumin (3.5-5.0) g/dL 02/02/23 02/02/23 02/02/23 Range/Units 14:10 15:02 16:09 WBC (3.8-10.6) k/uL RBC (4.30-5.90) m/uL Hgb (13.0-17.5) gm/dL Hct (39.0-53.0) % RDW (11.5-15.5) % Plt Count (150-450) k/uL ABG pH (7.35-7.45) ABG pCO2 (35-45) mmHg ABG pO2 (83-108) mmHg Sodium (137-145) mmol/L Carbon Dioxide (22-30) mmol/L BUN (9-20) mg/dL Creatinine (0.66-1.25) mg/dL Glucose (74-99) mg/dL POC Glucose (mg/dL) 130 H 132 H 128 H (70-110) mg/dL Calcium (8.4-10.2) mg/dL Ionized Calcium Thad (4.5-5.3) mg/dL Magnesium (1.6-2.3) mg/dL Total Bilirubin (0.2-1.3) mg/dL AST (17-59) U/L ALT (4-49) U/L Alkaline Phosphatase (38-126) U/L Total Protein (6.3-8.2) g/dL Albumin (3.5-5.0) g/dL 02/02/23 02/02/23 02/02/23 Range/Units 17:12 18:15 18:41 WBC 24.9 H (3.8-10.6) k/uL RBC 2.63 L (4.30-5.90) m/uL Hgb 8.7 L (13.0-17.5) gm/dL Hct 24.5 L (39.0-53.0) % RDW 16.5 H (11.5-15.5) % Plt Count 89 L (150-450) k/uL ABG pH (7.35-7.45) ABG pCO2 (35-45) mmHg ABG pO2 (83-108) mmHg Sodium (137-145) mmol/L Carbon Dioxide (22-30) mmol/L BUN (9-20) mg/dL Creatinine (0.66-1.25) mg/dL Glucose (74-99) mg/dL POC Glucose (mg/dL) 136 H 127 H (70-110) mg/dL Calcium (8.4-10.2) mg/dL Ionized Calcium Thad (4.5-5.3) mg/dL Magnesium (1.6-2.3) mg/dL Total Bilirubin (0.2-1.3) mg/dL AST (17-59) U/L ALT (4-49) U/L Alkaline Phosphatase (38-126) U/L Total Protein (6.3-8.2) g/dL Albumin (3.5-5.0) g/dL 02/02/23 02/02/23 02/02/23 Range/Units 18:59 20:04 21:06 WBC (3.8-10.6) k/uL RBC (4.30-5.90) m/uL Hgb (13.0-17.5) gm/dL Hct (39.0-53.0) % RDW (11.5-15.5) % Plt Count (150-450) k/uL ABG pH (7.35-7.45) ABG pCO2 (35-45) mmHg ABG pO2 (83-108) mmHg Sodium (137-145) mmol/L Carbon Dioxide (22-30) mmol/L BUN (9-20) mg/dL Creatinine (0.66-1.25) mg/dL Glucose (74-99) mg/dL POC Glucose (mg/dL) 133 H 130 H 126 H (70-110) mg/dL Calcium (8.4-10.2) mg/dL Ionized Calcium Thad (4.5-5.3) mg/dL Magnesium (1.6-2.3) mg/dL Total Bilirubin (0.2-1.3) mg/dL AST (17-59) U/L ALT (4-49) U/L Alkaline Phosphatase (38-126) U/L Total Protein (6.3-8.2) g/dL Albumin (3.5-5.0) g/dL 02/02/23 02/02/23 02/03/23 Range/Units 22:09 23:03 01:54 WBC (3.8-10.6) k/uL RBC (4.30-5.90) m/uL Hgb (13.0-17.5) gm/dL Hct (39.0-53.0) % RDW (11.5-15.5) % Plt Count (150-450) k/uL ABG pH (7.35-7.45) ABG pCO2 (35-45) mmHg ABG pO2 (83-108) mmHg Sodium (137-145) mmol/L Carbon Dioxide (22-30) mmol/L BUN (9-20) mg/dL Creatinine (0.66-1.25) mg/dL Glucose (74-99) mg/dL POC Glucose (mg/dL) 124 H 126 H 135 H (70-110) mg/dL Calcium (8.4-10.2) mg/dL Ionized Calcium Thad (4.5-5.3) mg/dL Magnesium (1.6-2.3) mg/dL Total Bilirubin (0.2-1.3) mg/dL AST (17-59) U/L ALT (4-49) U/L Alkaline Phosphatase (38-126) U/L Total Protein (6.3-8.2) g/dL Albumin (3.5-5.0) g/dL 02/03/23 02/03/23 02/03/23 Range/Units 02:56 03:18 03:18 WBC 24.4 H (3.8-10.6) k/uL RBC 2.59 L (4.30-5.90) m/uL Hgb 8.7 L (13.0-17.5) gm/dL Hct 24.2 L (39.0-53.0) % RDW 16.5 H (11.5-15.5) % Plt Count 85 L (150-450) k/uL ABG pH (7.35-7.45) ABG pCO2 (35-45) mmHg ABG pO2 (83-108) mmHg Sodium 132 L (137-145) mmol/L Carbon Dioxide 20 L (22-30) mmol/L BUN 42 H (9-20) mg/dL Creatinine 2.51 H (0.66-1.25) mg/dL Glucose 116 H (74-99) mg/dL POC Glucose (mg/dL) 137 H (70-110) mg/dL Calcium 6.3 L* (8.4-10.2) mg/dL Ionized Calcium Thad (4.5-5.3) mg/dL Magnesium 1.4 L (1.6-2.3) mg/dL Total Bilirubin 4.6 H (0.2-1.3) mg/dL AST 5422 H (17-59) U/L ALT 2342 H (4-49) U/L Alkaline Phosphatase 206 H (38-126) U/L Total Protein 3.3 L (6.3-8.2) g/dL Albumin 1.8 L (3.5-5.0) g/dL 02/03/23 02/03/23 02/03/23 Range/Units 03:18 03:56 05:00 WBC (3.8-10.6) k/uL RBC (4.30-5.90) m/uL Hgb (13.0-17.5) gm/dL Hct (39.0-53.0) % RDW (11.5-15.5) % Plt Count (150-450) k/uL ABG pH (7.35-7.45) ABG pCO2 (35-45) mmHg ABG pO2 (83-108) mmHg Sodium (137-145) mmol/L Carbon Dioxide (22-30) mmol/L BUN (9-20) mg/dL Creatinine (0.66-1.25) mg/dL Glucose (74-99) mg/dL POC Glucose (mg/dL) 135 H 152 H (70-110) mg/dL Calcium (8.4-10.2) mg/dL Ionized Calcium Thad 3.7 L (4.5-5.3) mg/dL Magnesium (1.6-2.3) mg/dL Total Bilirubin (0.2-1.3) mg/dL AST (17-59) U/L ALT (4-49) U/L Alkaline Phosphatase (38-126) U/L Total Protein (6.3-8.2) g/dL Albumin (3.5-5.0) g/dL 02/03/23 02/03/23 02/03/23 Range/Units 06:12 06:15 07:05 WBC (3.8-10.6) k/uL RBC (4.30-5.90) m/uL Hgb (13.0-17.5) gm/dL Hct (39.0-53.0) % RDW (11.5-15.5) % Plt Count (150-450) k/uL ABG pH 7.46 H (7.35-7.45) ABG pCO2 31 L (35-45) mmHg ABG pO2 75 L (83-108) mmHg Sodium (137-145) mmol/L Carbon Dioxide (22-30) mmol/L BUN (9-20) mg/dL Creatinine (0.66-1.25) mg/dL Glucose (74-99) mg/dL POC Glucose (mg/dL) 135 H 145 H (70-110) mg/dL Calcium (8.4-10.2) mg/dL Ionized Calcium Thad (4.5-5.3) mg/dL Magnesium (1.6-2.3) mg/dL Total Bilirubin (0.2-1.3) mg/dL AST (17-59) U/L ALT (4-49) U/L Alkaline Phosphatase (38-126) U/L Total Protein (6.3-8.2) g/dL Albumin (3.5-5.0) g/dL 02/03/23 Range/Units 09:12 WBC (3.8-10.6) k/uL RBC (4.30-5.90) m/uL Hgb (13.0-17.5) gm/dL Hct (39.0-53.0) % RDW (11.5-15.5) % Plt Count (150-450) k/uL ABG pH (7.35-7.45) ABG pCO2 (35-45) mmHg ABG pO2 (83-108) mmHg Sodium (137-145) mmol/L Carbon Dioxide (22-30) mmol/L BUN (9-20) mg/dL Creatinine (0.66-1.25) mg/dL Glucose (74-99) mg/dL POC Glucose (mg/dL) 126 H (70-110) mg/dL Calcium (8.4-10.2) mg/dL Ionized Calcium Thad (4.5-5.3) mg/dL Magnesium (1.6-2.3) mg/dL Total Bilirubin (0.2-1.3) mg/dL AST (17-59) U/L ALT (4-49) U/L Alkaline Phosphatase (38-126) U/L Total Protein (6.3-8.2) g/dL Albumin (3.5-5.0) g/dL Microbiology - Last 24 Hours (Table) 02/01/23 03:00 Gram Stain - Final Sputum Sputum Culture - Final Assessment and Plan Plan: Abdominal aortic aneurysm, 10.5 cm infrarenal. The patient is post endovascular aortic aneurysm repair back in 2018 with subsequent presentation with abdominal pain and presence of an endovascular leak in addition to a large abdominal aortic aneurysm, symptomatic, high risk for rupture. The patient is post repair of a infrarenal abdominal aortic aneurysm with a tube graft and amputation of the left renal artery, currently postop day # 3 Shock, a combination of distributive and hypovolemic. The patient significant blood loss resuscitated with blood products and fluids both colloids and crystalloids. Received a total of 6 units of packed RBC, 5 units of fresh frozen plasma, 2 units of cryoprecipitate, and IV albumin. The patient received several fluid boluses and the patient is in a positive fluid balance of 8 L over the past 24 hours. Remains on high dose epinephrine and vasopressin physiologic dose. Cardiac output and index of improved on today's evaluation. Nevert heless, the patient is very much pressor dependent at this point in time. The patient remains anorexic A. fib/RVR, post-cardioversion. Subsequent cardiac rhythm of a flutter/A. fib currently in sinus and the patient is on a amiodarone infusion per protocol. Acute hypercapnic respiratory failure secondary to above Anion gap metabolic acidosis, improved Acute kidney injury secondary to above and the patient is anuric at this point, and there is progressive rise in the creatinine and the patient is not producing any urine output. Lasix was given without any response Hypocalcemia likely secondary to aggressive use of blood products, low ionized calcium Abdominal pain secondary to above Nephrolithiasis Paroxysmal A. fib current rhythm is sinus Chronic systolic heart failure with an ejection fraction of 40-45% Hypertension, history of Hyperlipidemia Prostate enlargement Osteoarthritis DNR CODE STATUS Thrombocytopenia, currently stable, rule out a component of DIC addition. Acute leukocytosis, reactive. Septic is felt to be less likely. Shock liver Plan Continue ventilator support and no ventilator changes for today IV fluids to KVO. Continue epinephrine and vasopressin Continue the amiodarone drip Give another 2 g of calcium gluconate Insulin drip for blood sugar control and insulin drip is running at 5 units an hour Monitor hemodynamics and the patient has a Dawson-Rina catheter in place, adequate cardiac output and index Continue IV Zosyn Check serum cortisol level Blood cultures are still pending Obtain ultrasound the kidneys and there is no evidence of any obstructive uropathy or hydronephrosis. There is trace ascites Sedation with propofol Abdominal wound is dry clean and intact Patient will be kept nothing by mouth for now Condition is obviously critical and the patient's is a DO NOT RESUSCITATE CODE STATUS. We'll continue to follow. Evaluation was done in more than one hour. In my opinion, the patient is not a good candidate for hemodialysis. He carries a very high mortality. Is a DNR was status. The family is leaning towards comfort care measures. This is still a very critical condition. Obviously, the patient has signs of multisystem organ failure. He carries a high mortality risk. Immediate family members are aware. We'll continue treatment. He is a DO NOT RESUSCITATE CODE STATUS for now.
[2023-02-03] MEDS: allopurinoL 100 MG TAB PO SCH (09:48)
[2023-02-03] MEDS: PANTOPRAZOLE 40 MG/10 ML VIAL IVP SCH (09:48)
[2023-02-03] MEDS: CHLORHEXIDINE GLUCONATE 15 ML CUP MUCOUS MEM SCH (09:48)
[2023-02-03] MEDS: ATORVASTATIN 10 MG TAB PO SCH (09:48)
[2023-02-03] MEDS: TAMSULOSIN 0.4 MG CAP.ER.24H PO SCH (09:49)
[2023-02-03] MEDS: TIMOLOL 0.5% OPHTH DROPS 5 ML BTL BOTH EYES SCH (09:49)
[2023-02-03] MEDS ORDERED: SCOPOLAMINE 1 MG/72 HR PATCH TRANSDERM STA (10:16)
[2023-02-03] MEDS ORDERED: LORazepam 2 MG/ML INJ IV PRN (10:20)
[2023-02-03] MEDS ORDERED: DRY MOUTH SPRAY 44.3 SPRAY/44.3 ML SPRAY MUCOUS MEM PRN (10:20)
[2023-02-03] MEDS ORDERED: ONDANSETRON 4 MG/2 ML VIAL IVP PRN (10:20)
[2023-02-03] MEDS ORDERED: ARTIFICIAL TEARS-HYPROMELLOSE DROPS 15 ML BTL BOTH EYES PRN (10:20)
[2023-02-03] MEDS ORDERED: ACETAMINOPHEN SUPPOSITORY 650 MG SUPP RECTAL PRN (10:20)
[2023-02-03] MEDS ORDERED: MORPHINE SULFATE 4 MG/ML SYRINGE IV PRN (10:20)
[2023-02-03] MEDS ORDERED: ATROPINE OPHTH SOLN 1% 5ML BTL SUBLINGUAL PRN (10:20)
[2023-02-03] MEDS ORDERED: HALOPERIDOL LACTATE 5 MG/ML 1 ML VIAL IM PRN (10:20)
--- NOTE | 2023-02-03 10:24 | P.PN ---
Subjective Patient is seen in follow-up for acute kidney injury. Oliguric. Intubated. On multiple vasopressors. Vital signs - on multiple vasopressors. General: Resting in bed. HEENT: Intubated. LUNGS: Scattered rhonchi. HEART: Rate and Rhythm are regular. ABDOMEN: No distention. EXTREMITITES: 1+ edema. Objective - Vital Signs Vital signs: Vital Signs Temp 97.0 F L 02/03/23 08:00 Pulse 77 02/03/23 09:00 Resp 22 02/03/23 09:00 BP 69/48 02/02/23 09:30 Pulse Ox 95 02/03/23 09:00 FiO2 60 02/03/23 09:00 Intake & Output 02/02/23 02/03/23 02/03/23 18:59 06:59 18:59 Intake Total 5521.767 2640.059 657.771 Output Total 5 0 5 Balance 5516.767 2640.059 652.771 Weight 100 kg Intake: IV 4128 1239 249 CO/CI 240 80 30 Calcium Gluconate in NaCl 100 100 2 gm In Saline 1 100ml. bag @ 100 mls/hr IVPB ONCE ONE Rx#:[id number] Magnesium Sulfate-D5w Pmx 200 1 gm In Dextrose/Water 1 100ml.bag @ 100 mls/hr IVPB Q1H [facility] Rx#: [id number] Piperacillin-Tazobactam 3 200 100 .375 gm In Sodium Chloride 0.9% 100 ml @ 25 mls/hr IVPB Q8HR [facility] Rx# :[id number] Pressure Bags 108 99 39 Sodium Chloride 0.45% 1, 480 660 180 000 ml @ 60 mls/hr IV . [id number] [facility] with Sodium Bicarb (1 Meq/ml) 100 ml Rx#:[id number] Sodium Chloride 0.9% 2, 3000 000 ml @ 999 mls/hr IV . Q2H1M [facility] Rx#:[id number] Intake, IV Titration 3375.831 3507.059 408.771 Amount Amiodarone 450 mg In 238.894 214.727 Dextrose 5% in Water 250 ml @ 0.5 MG/MIN 16.667 mls/hr IV .Q15H [facility] Rx#: [id number] EPINEPHrine 16 mg In 737.223 965.242 250 Dextrose 5% in Water 234 ml @ 0.03 MCG/KG/MIN 2. 498 mls/hr IV .Q24H [facility] Rx#:[id number] Insulin Regular 100 unit 9.3 98.483 4.25 In Sodium Chloride 0.9% 100 ml @ Per Protocol IV .Q0M [facility] Rx#:[id number] Vasopressin 60 unit In 153 75.174 Sodium Chloride 0.9% 150 ml @ 0.03 UNITS/MIN 4.59 mls/hr IV .Q24H [facility] Rx#: [id number] propofoL 1,000 mg In 175.350 122.607 79.347 Empty Bag 1 bag @ 15 MCG/ KG/MIN 6.94 mls/hr IV . [id number] [facility] Rx#:[id number] Oral 80 Output: Urine 5 0 5 Other: Voiding Method Indwelling Catheter Indwelling Catheter ABP, PAP, CO, CI - Last Documented Arterial Blood Pressure 119/56 Pulmonary Artery Pressure 43/22 Cardiac Output 5.4 Cardiac Index 2.8 - Labs CBC & Chem 7: 02/03/23 03:18 02/03/23 03:18 Labs: Abnormal Lab Results - Last 24 Hours (Table) 02/02/23 02/02/23 02/02/23 Range/Units 11:25 12:02 14:10 WBC (3.8-10.6) k/uL RBC (4.30-5.90) m/uL Hgb (13.0-17.5) gm/dL Hct (39.0-53.0) % RDW (11.5-15.5) % Plt Count (150-450) k/uL ABG pH (7.35-7.45) ABG pCO2 (35-45) mmHg ABG pO2 (83-108) mmHg Sodium (137-145) mmol/L Carbon Dioxide (22-30) mmol/L BUN (9-20) mg/dL Creatinine (0.66-1.25) mg/dL Glucose (74-99) mg/dL POC Glucose (mg/dL) 127 H 137 H 130 H (70-110) mg/dL Calcium (8.4-10.2) mg/dL Ionized Calcium Thad (4.5-5.3) mg/dL Magnesium (1.6-2.3) mg/dL Total Bilirubin (0.2-1.3) mg/dL AST (17-59) U/L ALT (4-49) U/L Alkaline Phosphatase (38-126) U/L Total Protein (6.3-8.2) g/dL Albumin (3.5-5.0) g/dL 02/02/23 02/02/23 02/02/23 Range/Units 15:02 16:09 17:12 WBC (3.8-10.6) k/uL RBC (4.30-5.90) m/uL Hgb (13.0-17.5) gm/dL Hct (39.0-53.0) % RDW (11.5-15.5) % Plt Count (150-450) k/uL ABG pH (7.35-7.45) ABG pCO2 (35-45) mmHg ABG pO2 (83-108) mmHg Sodium (137-145) mmol/L Carbon Dioxide (22-30) mmol/L BUN (9-20) mg/dL Creatinine (0.66-1.25) mg/dL Glucose (74-99) mg/dL POC Glucose (mg/dL) 132 H 128 H 136 H (70-110) mg/dL Calcium (8.4-10.2) mg/dL Ionized Calcium Thad (4.5-5.3) mg/dL Magnesium (1.6-2.3) mg/dL Total Bilirubin (0.2-1.3) mg/dL AST (17-59) U/L ALT (4-49) U/L Alkaline Phosphatase (38-126) U/L Total Protein (6.3-8.2) g/dL Albumin (3.5-5.0) g/dL 02/02/23 02/02/23 02/02/23 Range/Units 18:15 18:41 18:59 WBC 24.9 H (3.8-10.6) k/uL RBC 2.63 L (4.30-5.90) m/uL Hgb 8.7 L (13.0-17.5) gm/dL Hct 24.5 L (39.0-53.0) % RDW 16.5 H (11.5-15.5) % Plt Count 89 L (150-450) k/uL ABG pH (7.35-7.45) ABG pCO2 (35-45) mmHg ABG pO2 (83-108) mmHg Sodium (137-145) mmol/L Carbon Dioxide (22-30) mmol/L BUN (9-20) mg/dL Creatinine (0.66-1.25) mg/dL Glucose (74-99) mg/dL POC Glucose (mg/dL) 127 H 133 H (70-110) mg/dL Calcium (8.4-10.2) mg/dL Ionized Calcium Thad (4.5-5.3) mg/dL Magnesium (1.6-2.3) mg/dL Total Bilirubin (0.2-1.3) mg/dL AST (17-59) U/L ALT (4-49) U/L Alkaline Phosphatase (38-126) U/L Total Protein (6.3-8.2) g/dL Albumin (3.5-5.0) g/dL 02/02/23 02/02/23 02/02/23 Range/Units 20:04 21:06 22:09 WBC (3.8-10.6) k/uL RBC (4.30-5.90) m/uL Hgb (13.0-17.5) gm/dL Hct (39.0-53.0) % RDW (11.5-15.5) % Plt Count (150-450) k/uL ABG pH (7.35-7.45) ABG pCO2 (35-45) mmHg ABG pO2 (83-108) mmHg Sodium (137-145) mmol/L Carbon Dioxide (22-30) mmol/L BUN (9-20) mg/dL Creatinine (0.66-1.25) mg/dL Glucose (74-99) mg/dL POC Glucose (mg/dL) 130 H 126 H 124 H (70-110) mg/dL Calcium (8.4-10.2) mg/dL Ionized Calcium Htad (4.5-5.3) mg/dL Magnesium (1.6-2.3) mg/dL Total Bilirubin (0.2-1.3) mg/dL AST (17-59) U/L ALT (4-49) U/L Alkaline Phosphatase (38-126) U/L Total Protein (6.3-8.2) g/dL Albumin (3.5-5.0) g/dL 02/02/23 02/03/23 02/03/23 Range/Units 23:03 01:54 02:56 WBC (3.8-10.6) k/uL RBC (4.30-5.90) m/uL Hgb (13.0-17.5) gm/dL Hct (39.0-53.0) % RDW (11.5-15.5) % Plt Count (150-450) k/uL ABG pH (7.35-7.45) ABG pCO2 (35-45) mmHg ABG pO2 (83-108) mmHg Sodium (137-145) mmol/L Carbon Dioxide (22-30) mmol/L BUN (9-20) mg/dL Creatinine (0.66-1.25) mg/dL Glucose (74-99) mg/dL POC Glucose (mg/dL) 126 H 135 H 137 H (70-110) mg/dL Calcium (8.4-10.2) mg/dL Ionized Calcium Htad (4.5-5.3) mg/dL Magnesium (1.6-2.3) mg/dL Total Bilirubin (0.2-1.3) mg/dL AST (17-59) U/L ALT (4-49) U/L Alkaline Phosphatase (38-126) U/L Total Protein (6.3-8.2) g/dL Albumin (3.5-5.0) g/dL 02/03/23 02/03/23 02/03/23 Range/Units 03:18 03:18 03:18 WBC 24.4 H (3.8-10.6) k/uL RBC 2.59 L (4.30-5.90) m/uL Hgb 8.7 L (13.0-17.5) gm/dL Hct 24.2 L (39.0-53.0) % RDW 16.5 H (11.5-15.5) % Plt Count 85 L (150-450) k/uL ABG pH (7.35-7.45) ABG pCO2 (35-45) mmHg ABG pO2 (83-108) mmHg Sodium 132 L (137-145) mmol/L Carbon Dioxide 20 L (22-30) mmol/L BUN 42 H (9-20) mg/dL Creatinine 2.51 H (0.66-1.25) mg/dL Glucose 116 H (74-99) mg/dL POC Glucose (mg/dL) (70-110) mg/dL Calcium 6.3 L* (8.4-10.2) mg/dL Ionized Calcium Thad 3.7 L (4.5-5.3) mg/dL Magnesium 1.4 L (1.6-2.3) mg/dL Total Bilirubin 4.6 H (0.2-1.3) mg/dL AST 5422 H (17-59) U/L ALT 2342 H (4-49) U/L Alkaline Phosphatase 206 H (38-126) U/L Total Protein 3.3 L (6.3-8.2) g/dL Albumin 1.8 L (3.5-5.0) g/dL 02/03/23 02/03/23 02/03/23 Range/Units 03:56 05:00 06:12 WBC (3.8-10.6) k/uL RBC (4.30-5.90) m/uL Hgb (13.0-17.5) gm/dL Hct (39.0-53.0) % RDW (11.5-15.5) % Plt Count (150-450) k/uL ABG pH 7.46 H (7.35-7.45) ABG pCO2 31 L (35-45) mmHg ABG pO2 75 L (83-108) mmHg Sodium (137-145) mmol/L Carbon Dioxide (22-30) mmol/L BUN (9-20) mg/dL Creatinine (0.66-1.25) mg/dL Glucose (74-99) mg/dL POC Glucose (mg/dL) 135 H 152 H (70-110) mg/dL Calcium (8.4-10.2) mg/dL Ionized Calcium Thad (4.5-5.3) mg/dL Magnesium (1.6-2.3) mg/dL Total Bilirubin (0.2-1.3) mg/dL AST (17-59) U/L ALT (4-49) U/L Alkaline Phosphatase (38-126) U/L Total Protein (6.3-8.2) g/dL Albumin (3.5-5.0) g/dL 02/03/23 02/03/23 02/03/23 Range/Units 06:15 07:05 09:12 WBC (3.8-10.6) k/uL RBC (4.30-5.90) m/uL Hgb (13.0-17.5) gm/dL Hct (39.0-53.0) % RDW (11.5-15.5) % Plt Count (150-450) k/uL ABG pH (7.35-7.45) ABG pCO2 (35-45) mmHg ABG pO2 (83-108) mmHg Sodium (137-145) mmol/L Carbon Dioxide (22-30) mmol/L BUN (9-20) mg/dL Creatinine (0.66-1.25) mg/dL Glucose (74-99) mg/dL POC Glucose (mg/dL) 135 H 145 H 126 H (70-110) mg/dL Calcium (8.4-10.2) mg/dL Ionized Calcium Thad (4.5-5.3) mg/dL Magnesium (1.6-2.3) mg/dL Total Bilirubin (0.2-1.3) mg/dL AST (17-59) U/L ALT (4-49) U/L Alkaline Phosphatase (38-126) U/L Total Protein (6.3-8.2) g/dL Albumin (3.5-5.0) g/dL Microbiology - Last 24 Hours (Table) 02/01/23 03:00 Gram Stain - Final Sputum Sputum Culture - Final Assessment and Plan Plan: Assessment: 1. Acute kidney injury secondary to ATN secondary to shock. Creatinine 2.5 today. Oliguric. No hydronephrosis noted on kidney ultrasound. No proteinuria on UA. 2. Shock maintained on multiple vasopressors. 3. Status post AAA repair with tube graft on 01/31/2023. 4. Hypomagnesemia from poor intake. Being replaced. 5. Hypocalcemia secondary to acute kidney injury and chelation from blood products. Being replaced. 6. A. fib with RVR maintained on amiodarone drip. 7. Metabolic acidosis secondary to acute kidney injury maintained on bicarb drip. Plan: Patient needs renal replacement therapy but family has decided to proceed with comfort measures.
[2023-02-03 12:23] VITALS: PULSE 78; RESP 20
[2023-02-03 13:11] VITALS: BMI 30.7
--- NOTE | 2023-02-03 13:44 | P.DS ---
Providers Date of admission: 01/30/23 11:08 Expected date of discharge: 02/03/23 Attending physician: Jerzy Chavez MD Consults: 01/30/23 09:58 Consult Physician Routine Consulting Provider: Gerardo Trimble Consult Reason/Comments: AAA Do you want consulting provider notified?: Already Contacted 01/31/23 17:13 Consult Physician Urgent Consulting Provider: Donna Roque Consult Reason/Comments: post op AAA repair Do you want consulting provider notified?: Yes 02/02/23 08:51 Consult Physician Routine Consulting Provider: Rosamaria Castañeda Consult Reason/Comments: OTIS Do you want consulting provider notified?: Yes Primary care physician: Zhang Orozco [facility] Course: Discharge Diagnosis: Infrarenal aortic aneurysm status post tube graft and reimplantation of left renal artery Hypovolemic and distributive shock Atrial fibrillation with rapid ventricular response status post cardioversion with atrial flutter Acute blood loss anemia, thrombocytopenia Ischemic hepatitis with resultant coagulopathy Reactive leukocytosis Acute hypoxic hypercapnic respiratory failure Chronic systolic congestive heart failure with ejection fraction 35-40% Acute kidney injury secondary to ATN from shock Hypomagnesemia Hypokalemia Metabolic acidosis Hospital Course: Patient is an 82-year-old male with 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 The emergency department he underwent extensive evaluation. On arrival his vital signs were remarkable for heart rate of 116, blood pressure 108/78. CT abdomen/pelvis showed large aneurysmal aorta previous endograft with the margin of the stent having pulled away from the aortic wall concerning for acute bleeding and impending rupture, with nephrolithiasis without obstructive uropathy. Chest x-ray was unremarkable. EKG shows sinus tachycardia with first- degree AV block, normal axis. He was admitted and Vascular surgery consulted. On 01/31 patient underwent repair of 10.5 cm infrarenal abdominal aortic aneurysm with acute graft, also had reimplantation of left renal artery. He had significant blood loss during the procedure, requiring total of 6 units of PRBCs, 5 units of FFP, 1 platelets, and pulled cryoprecipitate. Patient was taken to the intensive care unit after surgery. He was requiring an epinephrine drip and was subsequently started on vasopressin. He underwent an e chocardiogram which showed an ejection fraction 35-40%. He underwent a renal ultrasound which showed no evidence of obstructive uropathy. He developed shock liver with elevated AST and ALT. He also developed bullae. Acute kidney injury. Both critical care and nephrology followed the patient during his course. He was started on milrinone on 02/01 however he subsequently went into A. fib with RVR and had to be cardioverted. He was subsequently started on amiodarone drip. Due to continued clinical instability and the patient's overall wishes his family elected to convert to comfort measures only. He was extubated on 02/03 and passed shortly afterward with family present. 02/03 evaluation: I evaluated the patient earlier this morning with family present. We discussed about the comfort care process all questions were answered. Time of my evaluation physical exam was as follows: General: ill appearing, moderate distress. Cardiovascular: S1S2 reg Lungs: chest rise equal, on vent breathing over set rate by 1 Neuro: sedated on vent Psych: sedated on vent A total of 35 minutes of time were spent preparing this complex discharge summary. Patient on 02/03/23. This dictation was prepared using [employer] voice recognition software. Though every attempt is made to correct errors during dictation some may still exist. Plan - Discharge Summary New Discharge Prescriptions: No Action Losartan Potassium [Cozaar] 25 mg PO DAILY hydroCHLOROthiazide 25 mg PO DAILY allopurinoL [Zyloprim] 100 mg PO DAILY traMADol HCL [Ultram] 50 mg PO BID PRN PRN Reason: Pain Atorvastatin [Lipitor] 10 mg PO DAILY Acetaminophen [Tylenol Arthritis] 1,300 mg PO BID Timolol [Betimol 0.5% Ophth Soln] 1 drop BOTH EYES BID hydroCHLOROthiazide 12.5 mg PO DAILY Metoprolol Succinate (ER) [Toprol Xl] 100 mg PO DAILY Tamsulosin [Flomax] 0.4 mg PO BID Apixaban [Eliquis] 5 mg PO BID #60 tab Diltiazem Oral [Cardizem*] 60 mg PO TID 30 Days #90 tab Amiodarone HCl [Pacerone] 200 mg PO BID Discharge Medication List Acetaminophen [Tylenol Arthritis] 1,300 mg PO BID 01/19/18 [History] Atorvastatin [Lipitor] 10 mg PO DAILY 01/19/18 [History] Losartan Potassium [Cozaar] 25 mg PO DAILY 01/19/18 [History] Timolol [Betimol 0.5% Ophth Soln] 1 drop BOTH EYES BID 01/19/18 [History] allopurinoL [Zyloprim] 100 mg PO DAILY 01/19/18 [History] hydroCHLOROthiazide 25 mg PO DAILY 01/19/18 [History] traMADol HCL [Ultram] 50 mg PO BID PRN 01/19/18 [History] Tamsulosin [Flomax] 0.4 mg PO BID 06/20/22 [History] hydroCHLOROthiazide 12.5 mg PO DAILY 06/20/22 [History] Apixaban [Eliquis] 5 mg PO BID #60 tab 06/22/22 [Rx] Diltiazem Oral [Cardizem*] 60 mg PO TID 30 Days #90 tab 06/26/22 [Rx] Metoprolol Succinate (ER) [Toprol Xl] 100 mg PO DAILY 09/01/22 [History] Amiodarone HCl [Pacerone] 200 mg PO BID 01/30/23 [History] Follow up Appointment(s)/Referral(s): Zhang Lugo MD [Primary Care Provider] - 1-2 days
== END 2023-02-03 17:26 | disposition expired | DRG 270 ==
LOC: EC 05:55 → 3SCARD 11:08 → 2SICU 01-31 15:55
PROVIDERS: ADMIT Internal Medicine; ATTEND Internal Medicine
PROC: 30243N1 Transfusion of Nonautologous Red Blood Cells into Central Vein, Percutaneous Approach (ICD-10-PCS; 2023-01-31)
PROC: 30243R1 Transfusion of Nonautologous Platelets into Central Vein, Percutaneous Approach (ICD-10-PCS; 2023-01-31)
PROC: 30243M1 Transfusion of Nonautologous Plasma Cryoprecipitate into Central Vein, Percutaneous Approach (ICD-10-PCS; 2023-01-31)
PROC: 30243K1 Transfusion of Nonautologous Frozen Plasma into Central Vein, Percutaneous Approach (ICD-10-PCS; 2023-01-31)
PROC: 5A1945Z Respiratory Ventilation, 24-96 Consecutive Hours (ICD-10-PCS; 2023-01-31)
PROC: 04S Lower Arteries, Reposition (ICD-10-PCS; principal; 2023-01-31 09:15)
PROC: 04V00DZ Restriction of Abdominal Aorta with Intraluminal Device, Open Approach (ICD-10-PCS; principal; 2023-01-31 09:15)
PROC: 3E043XZ Introduction of Vasopressor into Central Vein, Percutaneous Approach (ICD-10-PCS; 2023-02-01)
DX: T82.310A Breakdown (mechanical) of aortic (bifurcation) graft (replacement), initial encounter (principal); D65 Disseminated intravascular coagulation [defibrination syndrome]; K72.00 Acute and subacute hepatic failure without coma; N17.0 Acute kidney failure with tubular necrosis; J96.02 Acute respiratory failure with hypercapnia; J96.01 Acute respiratory failure with hypoxia; I42.9 Cardiomyopathy, unspecified; I13.0 Hypertensive heart and chronic kidney disease with heart failure and stage 1 through stage 4 chronic kidney disease, or unspecified chronic kidney disease; B17.9 Acute viral hepatitis, unspecified; I50.22 Chronic systolic (congestive) heart failure; N13.8 Other obstructive and reflux uropathy; D62 Acute posthemorrhagic anemia; E87.3 Alkalosis; E87.20 Acidosis, unspecified; R57.1 Hypovolemic shock; R57.8 Other shock; E83.51 Hypocalcemia; E86.1 Hypovolemia; I48.0 Paroxysmal atrial fibrillation; Z66 Do not resuscitate; Z51.5 Encounter for palliative care; N18.9 Chronic kidney disease, unspecified; N20.0 Calculus of kidney; N40.1 Benign prostatic hyperplasia with lower urinary tract symptoms; E78.5 Hyperlipidemia, unspecified; H40.9 Unspecified glaucoma; E83.42 Hypomagnesemia; E87.6 Hypokalemia; R73.9 Hyperglycemia, unspecified; I44.0 Atrioventricular block, first degree; F41.9 Anxiety disorder, unspecified; M10.9 Gout, unspecified; M19.90 Unspecified osteoarthritis, unspecified site; K59.00 Constipation, unspecified; Z79.01 Long term (current) use of anticoagulants; Z79.899 Other long term (current) drug therapy; Y71.2 Prosthetic and other implants, materials and accessory cardiovascular devices associated with adverse incidents; Z71.3 Dietary counseling and surveillance
CPT/HCPCS: 36415; 36430; 36600; 51702; 71045; 74177; 76705; 76770; 80048; 80053; 81001; 82330; 82805; 83036; 83605; 83735; 84132; 85025; 85027; 85384; 85610; 85730; 86850; 86891; 86900; 86901; 86920; 87040; 87070; 87205; 87636; 93005; 93308; 94002; 94003; 96361; 96365; 96375; 96376; 99285